=== PATIENT | female | born 1985 | race Caucasian/White ===

== ENCOUNTER 2019-05-18 23:52 | Emergency (ER) | payer MEDICARE, MEDICAID, SELFPAY ==
[2019-05-19] VITALS: BP 174/100; PULSE 101; RESP 20; TEMP 36.9; O2SAT 100
--- NOTE | 2019-05-19 00:09 | ED.GENADULT ---
HPI - General Adult General Chief complaint: Unspecified Stated complaint: Infection Time Seen by Provider: 05/19/19 00:09 Source: patient Mode of arrival: ambulatory Limitations: no limitations History of Present Illness HPI narrative: 33-year-old woman who does peritoneal dialysis nightly comes in today complaining of 3 days of abdominal pain. She states that yesterday she started having vomiting and diarrhea. She states that she has felt feverish but did not check her temperature. She has had she had some abdominal pain like this over the summer but not as severe and she has had none since. She did not do dialysis this evening. She states she has had cloudy/slimy effluent from her dialysis and drainage from the catheter site. Onset (ago): day(s) (3) Location: abdomen Radiation: non-radiation Severity: moderate Quality: sharp Pain Consistency: constant Relieving factors: rest Exacerbating factors: movement Associated symptoms: fever/chills and nausea/vomiting Treatments prior to arrival: none Related Data Home Medications Medication Instructions Recorded Confirmed cinacalcet [Sensipar] 30 mg PO DAILY 01/27/19 05/19/19 metoprolol tartrate 25 mg PO DAILY 01/27/19 05/19/19 sevelamer carbonate [Renvela] 800 mg PO TIDWM 01/27/19 05/19/19 Allergies Allergy/AdvReac Type Severity Reaction Status Date / Time Penicillins Allergy Rash Verified 01/27/19 18:15 Review of Systems Constitutional: Constitutional: Reports chills, Reports fatigue and Reports fever(s) Eyes: Eyes: Denies change in vision and Denies photophobia ENT: Denies dysphagia, Denies nasal congestion and Denies sore throat Cardiovascular: Cardiovascular: Denies chest pain and Denies radiating jaw, neck or arm pain Respiratory: Respiratory: Denies cough and Denies dyspnea Gastrointestinal: Gastrointestinal: Reports abdominal pain, Reports diarrhea, Reports nausea and Reports vomiting Genitourinary: Genitourinary: Denies hematuria, Denies nocturia and Denies dysuria Integumentary/Breasts: Skin/Breast: Denies pruritus, Denies erythema and Denies rash Neurologic: Denies vertigo, Denies dizziness and Denies syncope Hematologic/Lymphatic: Hematologic/Lymphatic: Denies easy bleeding and Denies easy bruising Allergic/Immunologic: Allergic/Immunologic: Denies lip swelling and Denies wheezing PMFSH Past Medical History Medical History (Updated 05/19/19 @ 03:02 by Sha Georges MD) Asthma ESRD (end stage renal disease) Peritoneal dialysis status Surgical History Surgical History (Updated 05/19/19 @ 00:49 by Sha Georges MD) History of cholecystectomy History of colon surgery Hx of tonsillectomy Kidney transplant recipient Social History Social History Smoking status: Current every day smoker Alcohol intake: never Substance use: never Living arrangements: with family Exam Const: General: alert Orientation/consciousness: patient oriented x3 Other: mild/acute distress HENMT: Mouth: Yes Normal oral and palatal mucosa present and Yes moist mucous membranes Throat: uvula midline Eyes: Conjunctivae: conjunctivae normal Pupils: Equal, round and reactive pupils present EOM: EOMs intact bilaterally Resp: Effort & Inspection: normal respiratory effort and not labored Auscultation: clear to auscultation bilaterally, no rales, no rhonchi and no wheezes Cardio: Rate: regular rate Rhythm: regular rhythm Heart sounds: no murmurs GI: Inspection: non-distended GI Palp: Yes Soft to palpation, Yes Tenderness to palpation present (GI) (diffuse, moderate), Yes Guarding due to palpation present (GI) (mild), No Rigid due to palpation and No Rebound tenderness present Auscultation: Hypoactive bowel sounds present Skin: General skin exam: normal color, no jaundice and no pallor Rashes: no rashes Neuro: General: patient oriented x3, moves all extremities, no focal motor d
[2019-05-19] MEDS: MORPHINE SULFATE 2 MG/ML INJ IV PUSH (00:44)
[2019-05-19] MEDS: ONDANSETRON INJ 4 MG/2 ML VIAL IV PUSH (00:44)
[2019-05-19] MEDS: SODIUM CHLORIDE 0.9% IV 1,000 ML 999 ML IV CONT (00:45)
[2019-05-19 01:00] LABS: Basophils Absolute Auto 0.03 K/mm3 (0.00-0.10); Basophils Percent Auto 0.3 % (0.0-1.0); Eosinophils Absolute Auto 0.15 K/mm3 (0.02-0.50); Eosinophils Percent Auto 1.6 % (1.0-6.0); Hematocrit 27.9 % (35.0-49.0); Hemoglobin 9.5 g/dL (12.0-15.0); Immature Granulocyte Absolute 0.03 K/mm3 (0.00-0.00); Immature Granulocyte Percent A 0.3 % (0.0-0.0); Lymphocytes Absolute Auto 1.52 K/mm3 (1.10-4.50); Lymphocytes Percent Auto 16.2 % (18.0-42.0); Mean Corpuscular HGB Conc 34.1 g/dL (32.0-36.0); Mean Corpuscular Volume 91.2 fL (78.0-102.0); Mean Platelet Volume 9.4 fl (9.2-11.8); Monocytes Percent Auto 7.4 % (2.0-11.0); Neutrophils Percent Auto 74.2 % (50.0-70.0); Platelet Count Result 196 K/mm3 (150-420); Red Blood Count 3.06 M/mm3 (4.20-5.40); Red Cell Distribution Width 13.3 % (11.6-14.4); White Blood Count 9.4 K/mm3 (4.8-10.8)
[2019-05-19 01:01] VITALS: BP 161/93; PULSE 81; RESP 20
[2019-05-19 01:29] LABS: Add Urine Microscopic? YES; Appearance Urine Clear (Clear); Bacteria Urine 1+ /hpf; Bilirubin Urine Negative (Negative); Blood Urine 1+ (Negative); Color Urine Yellow (Yellow); Glucose Urine UA Trace (Negative); Ketones Urine Negative (Negative); Leukocyte Esterase Ur Negative (Negative); Nitrate Urine Negative (Negative); Protein Urine 1+ (Negative); Specific Grav Ur 1.015 (1.010-1.020); Squamous Epithelial Cell Urine Few /hpf (Few); Urobilinogen Urine 0.2 mg/dL (0.2-1.0); WBC Urine 0-3 /hpf (0-3)
[2019-05-19 01:29] LABS: Albumin Level 3.3 g/dL (3.4-5.0); Alkaline Phosphatase 121 U/L (46-116); Anion Gap 20.8 mmol/L (7-16); Aspartate Amino Transferase 9 U/L (15-37); Bilirubin,Total 0.3 mg/dL (0.00-1.00); Blood Urea Nitrogen 83 mg/dL (7-18); CRP 1.4 mg/dL (0.0-0.9); Calcium 8.8 mg/dL (8.5-10.1); Carbon Dioxide 18 mmol/L (21-32); Chloride 103 mmol/L (98-108); Estimated CRCL calculation 9 ml/min; Estimated Glomerular Filt Rate 6; Glucose 116 mg/dL (70-99); Lipase 222 U/L (73-393); Osmolality Calculated 312 mOsm/kg (285-295); Potassium 3.8 mmol/L (3.5-5.1); Sodium 138 mmol/L (136-145); Total Protein 7.1 g/dL (6.4-8.2)
[2019-05-19 01:30] LABS: Alanine Aminotransferase < 6 U/L (14-59)
[2019-05-19] MEDS: HYDROMORPHONE HCL 2 MG/ML VIAL 0.5 MG IV PUSH ×2 (01:32→03:44)
[2019-05-19 01:36] LABS: Lactic Acid 1.2 mmol/L (0.4-2.0)
[2019-05-19 01:43] LABS: Influenza Control Valid (Valid)
[2019-05-19 01:47] VITALS: BP 139/84; PULSE 88; RESP 20; O2SAT 99
--- NOTE | 2019-05-19 01:52 | PC.NURSE ---
ERP requesting to call to pts. kidney/dialysis physician, Dr. Gonzalez. Call placed to [facility] neonatologist and awaiting call back.
--- NOTE | 2019-05-19 01:58 | PC.NURSE ---
Call back from Dr. Natan salazar [facility]. Orders received to transfer to [facility] for services. Call placed to [facility] for transfer.
--- NOTE | 2019-05-19 02:06 | PC.NURSE ---
No beds available at [facility] for transfer. Call placed to [facility] for bed and transfer per pt. request.
[2019-05-19 02:29] LABS: Phosphorus > 8.0 mg/dL (2.6-4.7)
--- NOTE | 2019-05-19 02:49 | PC.NURSE ---
Call back from Dr. Higgins. Spoke c Dr. Georges, and he accepts for transfer. Will await call back for bed assignment.
[2019-05-19 03:17] VITALS: BP 155/74; PULSE 84; RESP 18; O2SAT 100
[2019-05-19 03:29] VITALS: BP 155/74; PULSE 82; RESP 18; TEMP 36.8; O2SAT 99
[2019-05-19 03:46] VITALS: BP 159/89
--- NOTE | 2019-05-19 03:49 | PC.NURSE ---
Call page placed to [facility] for transfer, no available units from [facility] for transfer.
--- NOTE | 2019-05-19 04:19 | PC.NURSE ---
Report given to [facility] for [facility]. Pt. stable at d/c, VSS.
== END 2019-05-19 04:20 | disposition short-term general hospital (02) ==
PROVIDERS: Emergency Provider Emergency Medicine
DX: N18.6 End stage renal disease (principal); R10.84 Generalized abdominal pain; F17.200 Nicotine dependence, unspecified, uncomplicated
CPT/HCPCS: 36415; 80053; 81001; 83605; 83690; 84100; 85025; 86140; 87040; 87077; 87086; 87088; 87804; 96361; 96374; 96375; 96376; 99285; J1170; J2270; J2405; J7030

== ENCOUNTER 2019-08-11 13:48 | Emergency (ER) | payer MEDICARE, MEDICAID, SELFPAY ==
--- NOTE | 2019-08-11 14:15 | ECG_ITS ---
Measurements Intervals Wallace Rate: 99 P: 67 NM: 155 QRS: 41 QRSD: 82 T: 95 QT: 343 QTc: 442 Interpretive Statements SINUS RHYTHM BORDERLINE ST-T WAVE ABNORMALITY- ANTEROLAT/LAT LEADS BORDERLINE ECG Electronically Signed On 08-11-2019 14:32:14 CDT by Jose Daniel Milton D.O.
--- NOTE | 2019-08-11 14:15 | ED.ABDPAIN ---
HPI - Abdominal Pain General Chief Complaint: Abdominal Pain Stated Complaint: Stomach infection History of Present Illness HPI narrative: Michelle is a 34F with a PMH of IGA nephropathy, ESRD from IGA on peritoneal dialysis that presented with abdominal pain. She reports that she started having countless episodes of NBNB vomiting last night that progressed diffuse abdominal pain and subjective fevers and chills. She reports purulent drainage from the peritoneal catheter site. No CP, SOB, diarrhea or dysuria (still makes urine). Related Data Home Medications Medication Instructions Recorded Confirmed cinacalcet [Sensipar] 30 mg PO DAILY 01/27/19 08/11/19 metoprolol tartrate 25 mg PO DAILY 01/27/19 08/11/19 sevelamer carbonate [Renvela] 800 mg PO TIDWM 01/27/19 08/11/19 Allergies Allergy/AdvReac Type Severity Reaction Status Date / Time Penicillins Allergy Rash Verified 01/27/19 18:15 Review of Systems Constitutional: Constitutional: Reports chills, Reports fatigue and Reports fever(s) Comments: subjective fevers Eyes: Eyes: Reports no additional eye complaints ENT: Reports system reviewed and no additional complaints, except as documented Cardiovascular: Cardiovascular: Denies chest pain, Reports rapid heart rate and Denies radiating jaw, neck or arm pain Respiratory: Respiratory: Reports no additional respiratory complaints Gastrointestinal: Gastrointestinal: Reports abdominal pain, Denies constipation, Denies diarrhea, Reports nausea and Reports vomiting Genitourinary: Genitourinary: Reports no additional female genitourinary complaints Musculoskeletal: Musculoskeletal: Reports no additional musculoskeletal complaints Integumentary/Breasts: Skin/Breast: Reports system reviewed and no additional complaints, except as docu Neurologic: Reports system reviewed and no additional complaints, except as documented Psychiatric: Psychiatric: Reports no additional psychiatric complaints Endocrine: Endocrine: Reports no additional endocrine complaints Hematologic/Lymphatic: Hematologic/Lymphatic: Reports no additional hematologic/lymphatic complaints Allergic/Immunologic: Allergic/Immunologic: Reports no additional allergic/immunologic complaints [facility] Past Medical History Medical History Asthma ESRD (end stage renal disease) Peritoneal dialysis status Surgical History Surgical History History of cholecystectomy History of colon surgery Hx of tonsillectomy Kidney transplant recipient Social History Social History Smoking status: Current every day smoker Alcohol intake: never Substance use: never Exam Const: General: alert Orientation/consciousness: patient oriented x3 Limitations: No altered mental status Other: [id number] distress, HENMT: Head: normal to inspection Other: normocephalic, atraumatic Eyes: Conjunctivae: conjunctivae normal Pupils: Equal, round and reactive pupils present Neck: Neck: normal visual inspection Chest: Chest palpation & inspection: normal inspection of the chest Resp: Effort & Inspection: normal respiratory effort and tachypneic Auscultation: clear to auscultation bilaterally Cardio: Other: tachycardia with regular rhythm and no murmurs GI: Inspection: non-distended Other: abdomen was soft but diffusely tender to palpation with rebound tenderness and guarding. no purulent drainage from the catheter at this time. : General: Yes no CVA tenderness Skin: General skin exam: normal color Rashes: no rashes Neuro: General: patient oriented x3 and moves all extremities Extrem: General: normal to inspection Psych: Mental Status: mental status grossly normal Course Course Emergency Course: Michelle was seen and evaluated. Orderd labs and blood cultures as below. She was given 500ml
[2019-08-11] MEDS: ONDANSETRON INJ 4 MG/2 ML VIAL 8 MG (14:16)
[2019-08-11 14:17] VITALS: BP 135/86; PULSE 106; RESP 23; TEMP 36.8; O2SAT 97
[2019-08-11 14:23] LABS: Add Urine Microscopic? YES; Appearance Urine Clear (Clear); Bilirubin Urine Negative (Negative); Blood Urine 1+ (Negative); Color Urine Yellow (Yellow); Glucose Urine UA Trace (Negative); Ketones Urine Negative (Negative); Leukocyte Esterase Ur Trace LEU/UL (Negative); Nitrate Urine Negative (Negative); Protein Urine 1+ (Negative); Specific Grav Ur 1.015 (1.010-1.020); Urobilinogen Urine 0.2 mg/dL (0.2-1.0)
[2019-08-11 14:30] LABS: Bacteria Urine 1+ /hpf; Squamous Epithelial Cell Urine Few /hpf (Few); WBC Urine 0-3 /hpf (0-3)
[2019-08-11 14:33] LABS: Pregnancy On Board Control Positive; Specific Gravity Ur 1.015 (1.010-1.035); Urine Pregnancy Test Negative
[2019-08-11 14:39] LABS: Basophils Absolute Auto 0.02 K/mm3 (0.00-0.10); Basophils Percent Auto 0.3 % (0.0-1.0); Eosinophils Absolute Auto 0.11 K/mm3 (0.02-0.50); Eosinophils Percent Auto 1.7 % (1.0-6.0); Hematocrit 29.9 % (35.0-49.0); Hemoglobin 10.3 g/dL (12.0-15.0); Immature Granulocyte Absolute 0.03 K/mm3 (0.00-0.00); Immature Granulocyte Percent A 0.5 % (0.0-0.0); Lymphocytes Absolute Auto 1.94 K/mm3 (1.10-4.50); Lymphocytes Percent Auto 29.5 % (18.0-42.0); Mean Corpuscular HGB Conc 34.4 g/dL (32.0-36.0); Mean Corpuscular Hemoglobin 31.5 pg (27.0-31.0); Mean Corpuscular Volume 91.4 fL (78.0-102.0); Mean Platelet Volume 9.4 fl (9.2-11.8); Monocytes Absolute Auto 0.49 K/mm3 (0.10-0.90); Monocytes Percent Auto 7.5 % (2.0-11.0); Neutrophils Percent Auto 60.5 % (50.0-70.0); Platelet Count Result 171 K/mm3 (150-420); Red Blood Count 3.27 M/mm3 (4.20-5.40); Red Cell Distribution Width 13.2 % (11.6-14.4); White Blood Count 6.6 K/mm3 (4.8-10.8)
[2019-08-11 14:56] LABS: Prothrombin Time 10.7 Seconds (9.64-11.0)
[2019-08-11] MEDS: MORPHINE SULFATE 4 MG/ML INJ IV PUSH (14:59)
[2019-08-11] MEDS: SODIUM CHLORIDE 0.9% IV 500 ML 999 ML IV CONT (14:59)
[2019-08-11 15:01] LABS: Lactic Acid Reflex 1.3 mmol/L (0.4-2.0)
[2019-08-11 15:10] LABS: Alanine Aminotransferase 8 U/L (14-59); Albumin Level 3.5 g/dL (3.4-5.0); Alkaline Phosphatase 156 U/L (46-116); Anion Gap 19.8 mmol/L (7-16); Aspartate Amino Transferase 11 U/L (15-37); Bilirubin,Total 0.3 mg/dL (0.00-1.00); Blood Urea Nitrogen 93 mg/dL (7-18); Calcium 9.4 mg/dL (8.5-10.1); Carbon Dioxide 22 mmol/L (21-32); Chloride 100 mmol/L (98-108); Estimated Glomerular Filt Rate 4; Glucose 110 mg/dL (70-99); Lipase 149 U/L (73-393); Osmolality Calculated 315 mOsm/kg (285-295); Potassium 3.8 mmol/L (3.5-5.1); Sodium 138 mmol/L (136-145); Total Protein 7.2 g/dL (6.4-8.2)
[2019-08-11] MEDS: HYDROMORPHONE HCL 2 MG/ML VIAL 0.5 MG IV PUSH ×2 (16:24→18:25)
[2019-08-11 16:42] VITALS: BP 129/86; PULSE 92; O2SAT 97
[2019-08-11] MEDS: ONDANSETRON INJ 4 MG/2 ML VIAL IV PUSH (16:55)
[2019-08-11 17:59] VITALS: BP 119/75; PULSE 83; RESP 20; TEMP 36.8; O2SAT 98
--- NOTE | 2019-08-11 18:00 | PC.NURSE ---
Pt. resting, VSS, awaiting [facility] for pt. transfer.
[2019-08-11] MEDS: METOCLOPRAMIDE HCL INJ 10 MG/2 ML VIAL IV PUSH (18:21)
[2019-08-11 18:27] VITALS: BP 132/83; PULSE 110; RESP 20; O2SAT 97
== END 2019-08-11 18:33 | disposition short-term general hospital (02) ==
PROVIDERS: Emergency Provider Family Medicine
DX: N18.6 End stage renal disease (principal); K65.9 Peritonitis, unspecified; N02.8 Recurrent and persistent hematuria with other morphologic changes; Z99.2 Dependence on renal dialysis; Z94.0 Kidney transplant status
CPT/HCPCS: 36415; 80053; 81001; 81025; 83605; 83690; 85025; 85610; 87040; 93005; 96361; 96365; 96375; 96376; 99285; J1170; J2270; J2405; J2765; J3370; J7040

== ENCOUNTER 2019-11-29 10:10 | Emergency (ER) | payer MEDICARE, MEDICAID, SELFPAY ==
--- NOTE | ~2019-11-29 | XR_ITS ---
XR chest 2V 11/29/2019 12:33 Indication: Dyspnea Procedure: AP and lateral views of the chest Comparison: Comparison to multiple prior studies sequentially, with oldest reviewed study dated 10/2018. Findings: Patchy bilateral airspace disease, consistent with pneumonia. There is scoliosis. Cardiomeg aguila. No acute osseous abnormality. Impression: 1: Patchy bilateral airspace disease, compatible with pneumonia. Reviewed, dictated and finalized at location A. Impression: 1: Patchy bilateral airspace disease, compatible with pneumonia.
--- NOTE | ~2019-11-29 | CT_ITS ---
EXAMINATION: CT abdomen pelvis wo con DATE: 11/29/2019 12:08 INDICATION: Abdomen pain. Bilateral flank pain. History of end-stage renal disease. Patient has not h ad dialysis in 2 weeks. Dyspnea. TECHNIQUE: Computed tomography (CT) of the abdomen and pelvis was performed without intravenous contr ast. The dose-length product was 210.31 mGy-cm. Automated exposure control and iterative reconstructi on technique were employed. COMPARISON: CT dated 03/01/2018 bibasilar atelectasis.. FINDINGS: Small pleural effusions. Trace pericardial effusion. Bibasilar atelectasis. Cardiomegaly. Calcified granulomas of the liver and spleen. There is hepatosplenomegaly. The adrenal glands and freeman creas are unremarkable. There is severe bilateral renal atrophy. There is a densely calcified right p elvic renal transplant kidney. No free air. Trace free fluid in the pelvis, likely physiologic. There is scoliosis. No significant vascular abnormality. No lymphadenopathy. IMPRESSION: 1. Small pleural effusions. Trace pericardial effusion. 2: Severe bilateral renal atrophy with densely calcified right pelvic transplant kidney. 3: Cardiomegaly. 4: Hepatosplenomegaly. Reviewed, dictated and finalized at location A. IMPRESSION: 1. Small pleural effusions. Trace pericardial effusion. 2: Severe bilateral renal atrophy with densely calcified right pelvic transpla nt kidney. 3: Cardiomegaly. 4: Hepatosplenomegaly.
[2019-11-29 10:15] VITALS: BP 194/122; PULSE 115; RESP 20; TEMP 37.2; O2SAT 98
--- NOTE | 2019-11-29 10:23 | ECG_ITS ---
Measurements Intervals [place] Rate: 108 P: 59 MT: 136 QRS: 110 QRSD: 80 T: -29 QT: 363 QTc: 488 Interpretive Statements SINUS TACHYCARDIA LEFT POSTERIOR FASCICULAR BLOCK LEFT VENTRICULAR HYPERTROPHY AND ST-T CHANGE MINIMAL Q WAVES- INFERIOR LEADS BORDERLINE ST-T WAVE ABNORMALITY- INF/LAT LEADS ABNORMAL ECG Electronically Signed On 11-29-2019 10:46:00 CDT by Jose Daniel Milton D.O.
--- NOTE | 2019-11-29 10:43 | PC.NURSE ---
spoke with martin at [facility] in [facility] [place] pt is noncomplaint . last treatment on 11-18-19. post weight 55.9. dr zhao on vacation. will need transfer. unable to treat at clinic. Dr cardenas is buttonhole facer at [facility]. [phone] [facility]
--- NOTE | 2019-11-29 10:45 | PC.NURSE ---
Pt unable to urinate at this time
[2019-11-29 10:50] LABS: Hematocrit 29.8 % (35.0-49.0); Hemoglobin 9.7 g/dL (12.0-15.0); Mean Corpuscular HGB Conc 32.6 g/dL (32.0-36.0); Mean Corpuscular Hemoglobin 29.7 pg (27.0-31.0); Mean Corpuscular Volume 91.1 fL (78.0-102.0); Mean Platelet Volume 9.8 fl (9.2-11.8); Platelet Count Result 233 K/mm3 (150-420); Red Blood Count 3.27 M/mm3 (4.20-5.40); Red Cell Distribution Width 13.2 % (11.6-14.4)
[2019-11-29] MEDS: ONDANSETRON INJ 4 MG/2 ML VIAL IV PUSH (10:52)
[2019-11-29] MEDS: LABETALOL HCL INJ 100 MG/20 ML VIAL 10 MG IV PUSH ×2 (10:55→13:09)
[2019-11-29 11:05] LABS: INR 1.1; Prothrombin Time 11.6 Seconds (9.64-11.0)
[2019-11-29] MEDS: MORPHINE SULFATE (*CRX) 2 MG/ML INJ IV PUSH ×2 (11:07→12:34)
[2019-11-29 11:17] VITALS: BP 156/101
--- NOTE | 2019-11-29 11:18 | PC.NURSE ---
Report to [facility].
[2019-11-29 11:21] LABS: Alanine Aminotransferase 17 U/L (14-59); Albumin Level 3.9 g/dL (3.4-5.0); Alkaline Phosphatase 94 U/L (46-116); Anion Gap 18 mmol/L (8-16); Aspartate Amino Transferase 17 U/L (15-37); Bilirubin,Total 0.5 mg/dL (0.00-1.00); Blood Urea Nitrogen 149 mg/dL (7-18); Calcium 9.5 mg/dL (8.5-10.1); Carbon Dioxide 21 mmol/L (21-32); Chloride 97 mmol/L (98-108); Estimated CRCL calculation 6 ml/min; Estimated Glomerular Filt Rate 4; Glucose 117 mg/dL (70-99); Osmolality Calculated 331 mOsm/kg (285-295); Potassium 3.7 mmol/L (3.5-5.1); Sodium 136 mmol/L (136-145); Total Protein 8.2 g/dL (6.4-8.2)
[2019-11-29] MEDS: SODIUM CHLORIDE 0.9% IV 500 ML 999 ML IV CONT (11:43)
--- NOTE | 2019-11-29 12:55 | PC.NURSE ---
Pt requests [facility] for transfer, [facility] contacted. spoke with aimee at the transfer line.
[2019-11-29 13:01] VITALS: BP 168/101; PULSE 92; RESP 16
[2019-11-29] MEDS: levoFLOXacin 500 MG/D5W 100 ML 500 MG/100 ML BAG 100 MG IVPB (13:10)
--- NOTE | 2019-11-29 13:13 | PC.NURSE ---
Dr loco speaking with Dr Gamez at [facility].
--- NOTE | 2019-11-29 13:17 | ED.SOB ---
HPI - SOB/Dyspnea General Chief Complaint: Shortness of Breath/Dyspnea Stated Complaint: sob Source: patient History of Present Illness HPI Narrative: 34-year-old female presents with some shortness of breath and left flank pain with no fever chills no cough no chest pain. . Patient has end-stage renal disease and receives dialysis at [facility] 3 times per week on Friday and Saturdays, has missed her appointment for the last 2 weeks because of increased weakness. Patient has a history of hypertension, has not been compliant with her dialysis and currently there is no fever or chills no dysuria no abdominal pain. Patient has a history of IgA nephropathy, and hypertension. MD elicited complaint: shortness of breath Onset (ago): week(s) Context: recent illness and anxiety Timing: constant Severity: moderate Exacerbating factors: nothing Relieving factors: nothing Associated symptoms: lower extremity pain and other ( Left flank pain) Related Data Home Medications Medication Instructions Recorded Confirmed cinacalcet [Sensipar] 30 mg PO DAILY 01/27/19 11/29/19 metoprolol tartrate 25 mg PO DAILY 01/27/19 11/29/19 sevelamer carbonate [Renvela] 800 mg PO TIDWM 01/27/19 11/29/19 Allergies Allergy/AdvReac Type Severity Reaction Status Date / Time Penicillins Allergy Rash Verified 01/27/19 18:15 Review of Systems Review of Systems: All systems reviewed & are unremarkable except as noted in HPI and below PMFSH Past Medical History Medical History Asthma ESRD (end stage renal disease) Peritoneal dialysis status Surgical History Surgical History History of cholecystectomy History of colon surgery Hx of tonsillectomy Kidney transplant recipient Social History Social History Smoking status: Current every day smoker Alcohol intake: never Substance use: never Exam Const: General: no acute distress, alert and ill appearing Orientation/consciousness: patient oriented x3 HENMT: Head: normal to inspection Eyes: Conjunctivae: conjunctivae normal Pupils: Equal, round and reactive pupils present EOM: EOMs intact bilaterally Neck: Neck: normal visual inspection, no lymphadenopathy and no meningeal signs Chest: Chest palpation & inspection: normal inspection of the chest Resp: Effort & Inspection: normal respiratory effort Auscultation: diminished lung sounds Cardio: Rate: regular rate and tachycardic GI: GI Palp: Yes Soft to palpation : General: Yes CVA tenderness Urinary Catheter: Urinary Catheter: patent and draining Back/Spine/Pelvis: Back: CVA tenderness Neuro: General: patient oriented x3, moves all extremities and no meningeal signs Extrem: General: normal to inspection and no pedal edema Psych: Mental Status: mental status grossly normal Affect: normal affect and Anxious affect present Attitude: cooperative Course Course Emergency Course: patient had received 4 mg of morphine which caused minimal reduction in her pain, currently not short of breath with some no fever chills, patient presented with a blood pressure 194/122 and received 20 mg IV labetalol and subsequent blood pressure of 155/94. Patient also received IV fluids, IV Levaquin and IV Zofran. Patient advised that she would like to go to [facility] in [place] she has been there in the past, talked to hospitalist at [facility] in [place] Dr. Bowie and he would be the accepting physician. Vital Signs Vital signs: Vital Signs Temperature 37.2 C 11/29/19 10:15 Pulse Rate 115 H 11/29/19 10:15 Respiratory Rate 20 11/29/19 10:15 Blood Pressure 194/122 H 11/29/19 10:15 Pulse Oximetry 98 11/29/19 10:15 Temperature 37.2 C 11/29/19 10:15 Pulse Rate 92 11/29/19 13:01 Respiratory Rate 16 11/29/19 1
[2019-11-29 13:31] VITALS: BP 155/99; PULSE 86; RESP 16
[2019-11-29 13:45] VITALS: BP 155/99; PULSE 82; RESP 16; TEMP 36.7; O2SAT 95
== END 2019-11-29 14:30 | disposition short-term general hospital (02) ==
PROVIDERS: Emergency Provider Emergency Medicine
DX: J18.9 Pneumonia, unspecified organism (principal); N18.6 End stage renal disease; Z99.2 Dependence on renal dialysis; F17.200 Nicotine dependence, unspecified, uncomplicated
CPT/HCPCS: 36415; 71046; 74176; 80053; 83605; 84702; 85027; 85610; 85730; 87040; 93005; 96361; 96365; 96375; 96376; 99285; J1956; J2270; J2405; J7040

== ENCOUNTER 2020-03-30 07:49 | Emergency (ER) | payer MEDICARE, MEDICAID, SELFPAY ==
--- NOTE | ~2020-03-30 | CT_ITS ---
EXAMINATION: CT abdomen pelvis wo con EXAM DATE: 03/30/2020 10:33 INDICATION: Abdominal pain @ level of kidneys and LLQ, RLQ, nausea and diarrhea. TECHNIQUE: Spiral CT of the abdomen and pelvis was performed without contrast. Axial, coronal and s agittal images were reviewed. The dose-length product (DLP) for this examination was 191.99 mGy-cm. The exposure was tailored according to patient size (auto mA exposure control), and iterative recons truction (ASIR) was used as additional dose reduction technique. Comparison is made to prior examinat ion from 11/29/2019. FINDINGS: Calcified right pelvic kidney implant. The liver, spleen, adrenal glands and pancreas are unremarkable. Gallbladder not identified, patient likely has had cholecystectomy. Severe bilateral renal atrophy with small bilateral nephrolithiasis. Small renal lesions likely cysts. No hydronephros is. The uterus is unremarkable. The bladder is unremarkable. There is no retroperitoneal or pelvi c lymphadenopathy. The appendix is not positively visualized. There is no pericecal inflammatory change to suggest appe ndicitis. The stomach and small bowel are unremarkable. Scattered colonic diverticulosis. There is expected amount of colonic stool. No free intraperitoneal gas. There is cardiomegaly with dilated left ventricle. There are bibasilar linear opacities, subsegmental atelectasis. Severe thoracolumb ar scoliosis with rotation. IMPRESSION: 1. No acute intra-abdominal findings. 2. Scattered colonic diverticulosis. 3. Atrophic kidneys with small nephrolithiasis bilaterally. 4. Cardiomegaly, left ventricular dilation. Reviewed, dictated and finalized at location A. TRANSPORTATION
--- NOTE | ~2020-03-30 | XR_ITS ---
EXAMINATION: XR chest 2V DATE: 03/30/2020 08:43 INDICATION: Shortness of breath. Pneumonia. TECHNIQUE: Frontal and lateral views of the chest were obtained. COMPARISON: Chest 2 views 11/29/2019, CT abdomen and pelvis 11/29/2019 FINDINGS: Gay B lines are noted, consistent with mild pulmonary edema. No pleural effusion or pneu mothorax. Cardiomegaly is noted. There is severe dextroscoliosis of thoracic spine. IMPRESSION: 1. Mild pulmonary edema. 2. Cardiomegaly. Reviewed, dictated and finalized at location B. E MAN
[2020-03-30 08:05] VITALS: BP 168/115; PULSE 100; RESP 18; TEMP 36.7; O2SAT 96
[2020-03-30 08:38] LABS: Basophils Absolute Auto 0.03 K/mm3 (0.00-0.10); Basophils Percent Auto 0.6 % (0.0-1.0); Eosinophils Absolute Auto 0.11 K/mm3 (0.02-0.50); Eosinophils Percent Auto 2.1 % (1.0-6.0); Hemoglobin 9.6 g/dL (12.0-15.0); Immature Granulocyte Absolute 0.02 K/mm3 (0.00-0.00); Immature Granulocyte Percent A 0.4 % (0.0-0.0); Lymphocytes Absolute Auto 2.17 K/mm3 (1.10-4.50); Lymphocytes Percent Auto 42.1 % (18.0-42.0); Mean Corpuscular Hemoglobin 29.6 pg (27.0-31.0); Mean Corpuscular Volume 92.6 fL (78.0-102.0); Mean Platelet Volume 9.7 fl (9.2-11.8); Monocytes Absolute Auto 0.36 K/mm3 (0.10-0.90); Neutrophils Absolute Auto 2.5 K/mm3 (1.7-7.2); Neutrophils Percent Auto 47.8 % (50.0-70.0); Platelet Count Result 194 K/mm3 (150-420); Red Blood Count 3.24 M/mm3 (4.20-5.40); Red Cell Distribution Width 13.9 % (11.6-14.4); White Blood Count 5.2 K/mm3 (4.8-10.8)
[2020-03-30] MEDS: SODIUM CHLORIDE 0.9% IV 1,000 ML 999 ML IV CONT (08:45)
[2020-03-30] MEDS: ONDANSETRON INJ 4 MG/2 ML VIAL IV PUSH (08:46)
[2020-03-30] MEDS: HYDROmorphone HCL INJ (*CRX) 2 MG/ML VIAL 0.5 MG IV PUSH ×2 (08:47→09:59)
[2020-03-30 08:53] LABS: Partial Thromboplastin Time 28.4 SEC (23.90-30.70); Prothrombin Time 11.5 Seconds (9.50-12.10)
[2020-03-30 08:54] LABS: Alanine Aminotransferase 11 U/L (14-59); Alkaline Phosphatase 106 U/L (46-116); Anion Gap 14 mmol/L (8-16); Aspartate Amino Transferase < 10 U/L (15-37); Bilirubin,Total 0.3 mg/dL (0.00-1.00); Blood Urea Nitrogen 49 mg/dL (7-18); Calcium 9.5 mg/dL (8.5-10.1); Carbon Dioxide 21 mmol/L (21-32); Chloride 103 mmol/L (98-108); Estimated CRCL calculation 8 ml/min; Estimated Glomerular Filt Rate 7; Glucose 95 mg/dL (70-99); Osmolality Calculated 299 mOsm/kg (285-295); Potassium 4.2 mmol/L (3.5-5.1); Sodium 138 mmol/L (136-145); Total Protein 8.2 g/dL (6.4-8.2)
[2020-03-30 08:57] LABS: Lactic Acid Reflex 0.7 mmol/L (0.4-2.0)
[2020-03-30 09:25] LABS: SARS-CoV-2 Ag Negative (Negative)
[2020-03-30 09:26] VITALS: BP 150/101; PULSE 84; O2SAT 100
[2020-03-30 09:41] LABS: Add Urine Microscopic? YES; Appearance Urine Sl Cloudy (Clear); Bilirubin Urine Negative (Negative); Blood Urine 1+ (Negative); Color Urine Yellow (Yellow); Glucose Urine UA Negative (Negative); Ketones Urine Negative (Negative); Leukocyte Esterase Ur Negative (Negative); Nitrate Urine Negative (Negative); Protein Urine 2+ (Negative); Urobilinogen Urine 0.2 mg/dL (0.2-1.0)
[2020-03-30 09:49] LABS: RBC Urine 0-2 /hpf (0-2); Squamous Epithelial Cell Urine Moderate /hpf (Few); WBC Urine 0-3 /hpf (0-3)
[2020-03-30 09:50] LABS: Bacteria Urine 2+ /hpf
[2020-03-30 10:00] VITALS: BP 151/98
[2020-03-30 10:09] LABS: Urine Pregnancy Test Negative
[2020-03-30 10:14] LABS: Pregnancy On Board Control Positive
[2020-03-30 11:17] VITALS: BP 152/100; PULSE 92; RESP 16; O2SAT 100
--- NOTE | 2020-03-30 11:20 | PC.NURSE ---
Dr. Ann speaking with pts director data processing, Dr. Edmondson. Dr. Edmondson recommends pt be transfered to hospitalist at [facility].
--- NOTE | 2020-03-30 11:22 | PC.NURSE ---
[facility] contacted for transfer.
--- NOTE | 2020-03-30 11:43 | ED.ABDPAIN ---
HPI - Abdominal Pain General Chief Complaint: Urogenital-Female Stated Complaint: KIDNEY PROBLEMS Source: patient Mode of arrival: ambulatory Limitations: clinical condition History of Present Illness HPI narrative: this is a 34-year-old female with history of end-stage renal disease secondary to IgA nephropathy is currently on hemodialysis, does have a nephrologists located [facility] in [facility]. Patient has been notoriously noncompliant with her hemodialysis treatments and has not had dialysis in approximately 2 to 3 weeks. Currently she presents with some abdominal pain, the pain is diffuse with some episodes of nausea with no vomiting and weakness for the last 3 days. Patient denies any fever, does have some chills with some no diarrhea no constipation no chest pain or shortness of breath. MD elicited complaint: abdominal pain Pertinent past history: other ( end-stage kidney disease on hemodialysis) Onset (ago): day(s) Pain Consistency: constant Location: periumbilical Severity: severe Quality: aching Radiation: other Migration to: no migration Exacerbating factors: nothing Relieving factors: nothing Associated symptoms: nausea Related Data Home Medications Medication Instructions Recorded Confirmed cinacalcet [Sensipar] 30 mg PO DAILY 01/27/19 03/30/20 metoprolol tartrate 25 mg PO DAILY 01/27/19 03/30/20 sevelamer carbonate [Renvela] 800 mg PO TIDWM 01/27/19 03/30/20 Allergies Allergy/AdvReac Type Severity Reaction Status Date / Time Penicillins Allergy Rash Verified 01/27/19 18:15 Review of Systems Review of Systems: All systems reviewed & are unremarkable except as noted in HPI and below PMFSH Past Medical History Medical History (Updated 03/30/20 @ 11:48 by Ramana Ann MD) Asthma ESRD (end stage renal disease) Peritoneal dialysis status Surgical History Surgical History History of cholecystectomy History of colon surgery Hx of tonsillectomy Kidney transplant recipient Social History Social History Smoking status: Current every day smoker Alcohol intake: never Substance use: never Exam Const: General: no acute distress, alert and ill appearing Orientation/consciousness: patient oriented x3 HENMT: Head: normal to inspection Eyes: Conjunctivae: conjunctivae normal Pupils: Equal, round and reactive pupils present Neck: Neck: normal visual inspection, no lymphadenopathy and no meningeal signs Chest: Chest palpation & inspection: normal inspection of the chest Resp: Effort & Inspection: normal respiratory effort Auscultation: clear to auscultation bilaterally Cardio: Rate: regular rate Rhythm: regular rhythm GI: GI Palp: Yes Tenderness to palpation present (GI) Auscultation: normal bowel sounds : General: Yes no CVA tenderness Back/Spine/Pelvis: Back: no CVA tenderness Skin: General skin exam: normal color Rashes: no rashes Neuro: General: patient oriented x3, moves all extremities, no meningeal signs and no focal motor deficits Extrem: General: normal to inspection and no pedal edema Psych: Mental Status: mental status grossly normal Affect: normal affect Course Course Emergency Course: Patient abdominal pain persistent after 1 mg of Dilaudid in 2 separate doses, but has eased slightly nausea has improved, spoke with Nephrology and hospital staff at [facility] and because of her noncompliance with hemodialysis they accepted the patient for admission and Nephrology to perform dialysis. Vital Signs Vital signs: Vital Signs Temperature 36.7 C 03/30/20 08:05 Pulse Rate 100 03/30/20 08:05 Respiratory Rate 18 03/30/20 08:05 Blood Pressure 168/115 H 03/30/20 08:05 Pulse Oximetry 96 03/30/20 08:05 Temperature 36.7 C 03/30/20 08:05 Pulse Rate 92 03/30/20 11:17 Respiratory Rate 16 03/11
[2020-03-30 12:14] VITALS: BP 137/80; PULSE 81; RESP 15; O2SAT 98
== END 2020-03-30 12:40 | disposition short-term general hospital (02) ==
PROVIDERS: Emergency Provider Emergency Medicine; PCP Family Medicine
DX: N18.6 End stage renal disease (principal); R10.84 Generalized abdominal pain; Z99.2 Dependence on renal dialysis; F17.200 Nicotine dependence, unspecified, uncomplicated; Z20.822 Contact with and (suspected) exposure to COVID-19
CPT/HCPCS: 36415; 71046; 74176; 80053; 81001; 81025; 83605; 85025; 85610; 85730; 87040; 87426; 96361; 96374; 96375; 96376; 99285; C9803; J1170; J2405; J7030

== ENCOUNTER 2020-05-02 19:51 | Emergency (ER) | payer MEDICARE, MEDICAID, SELFPAY ==
--- NOTE | ~2020-05-02 | XR_ITS ---
EXAMINATION: XR chest 1V portable DATE: 05/02/2020 20:47 INDICATION: Generalized chest pain. TECHNIQUE: A single frontal view of the chest was obtained. COMPARISON: Chest 2 views 03/30/2020 FINDINGS: There is no pneumonia, pleural effusion, or pneumothorax. Cardiomegaly is noted. There is d extroscoliosis of thoracic spine. IMPRESSION: 1. Cardiomegaly. Reviewed, dictated and finalized at location A. CTOR SUPPLY CHAIN IMPRESSION: 1. Cardiomegaly.
[2020-05-02 20:09] VITALS: BP 156/105; PULSE 92; RESP 20; TEMP 36.5; O2SAT 100
--- NOTE | 2020-05-02 20:23 | ECG_ITS ---
Measurements Intervals [place] Rate: 82 P: 63 AK: 173 QRS: 55 QRSD: 87 T: 125 QT: 412 QTc: 481 Interpretive Statements SINUS RHYTHM POSSIBLE LEFT ATRIAL ENLARGEMENT ST-T WAVE ABNORMALITY IN HIGH LATERAL LEADS- CONSIDER ISCHEMIA BASELINE ARTIFACT- V4-V5 ABNORMAL ECG Electronically Signed On 05-03-2020 6:54:23 WHEEL TUNER by Jose Daniel Milton D.O.
[2020-05-02 20:39] LABS: Basophils Absolute Auto 0.02 K/mm3 (0.00-0.10); Basophils Percent Auto 0.4 % (0.0-1.0); Eosinophils Absolute Auto 0.09 K/mm3 (0.02-0.50); Eosinophils Percent Auto 1.8 % (1.0-6.0); Hemoglobin 8.3 g/dL (12.0-15.0); Immature Granulocyte Absolute 0.01 K/mm3 (0.00-0.00); Immature Granulocyte Percent A 0.2 % (0.0-0.0); Lymphocytes Absolute Auto 1.63 K/mm3 (1.10-4.50); Lymphocytes Percent Auto 33.4 % (18.0-42.0); Mean Corpuscular HGB Conc 33.2 g/dL (32.0-36.0); Mean Corpuscular Hemoglobin 28.5 pg (27.0-31.0); Mean Corpuscular Volume 85.9 fL (78.0-102.0); Mean Platelet Volume 8.7 fl (9.2-11.8); Monocytes Absolute Auto 0.42 K/mm3 (0.10-0.90); Monocytes Percent Auto 8.6 % (2.0-11.0); Neutrophils Absolute Auto 2.7 K/mm3 (1.7-7.2); Neutrophils Percent Auto 55.6 % (50.0-70.0); Platelet Count Result 150 K/mm3 (150-420); Red Blood Count 2.91 M/mm3 (4.20-5.40); Red Cell Distribution Width 13.7 % (11.6-14.4); White Blood Count 4.9 K/mm3 (4.8-10.8)
--- NOTE | 2020-05-02 20:46 | ED.GENADULT ---
HPI - General Adult General Chief complaint: Nausea/Vomiting/Diarrhea Source: patient Mode of arrival: ambulatory Limitations: no limitations History of Present Illness HPI narrative: Patient presents with vague complaints stating she is not feeling well. She states she usually has dialysis 3 times a week and had not had it for two weeks, due to covid. She has had increasing shortness of breath, exercise intolerance, and has been having increasing body aches. She has had mild nausea and some episodes of emesis, prior to coming in. Onset (ago): day(s) Severity: moderate Quality: aching Pain Consistency: constant Relieving factors: none Exacerbating factors: none Associated symptoms: loss of appetite, malaise, nausea/vomiting and shortness of breath Related Data Home Medications Medication Instructions Recorded Confirmed fluoxetine 20 mg PO DAILY 05/02/20 05/02/20 hydroxyzine HCl 25 mg PO TID PRN 05/02/20 05/02/20 pantoprazole 40 mg PO DAILY 05/02/20 05/02/20 Allergies Allergy/AdvReac Type Severity Reaction Status Date / Time Penicillins Allergy Rash Verified 05/02/20 21:12 Review of Systems Constitutional: Constitutional: Reports no additional constitutional complaints Eyes: Eyes: Reports no additional eye complaints ENT: Reports system reviewed and no additional complaints, except as documented Cardiovascular: Comments: no chest pain Respiratory: Respiratory: Reports no additional respiratory complaints Gastrointestinal: Gastrointestinal: Reports no additional gastrointestinal complaints Genitourinary: Genitourinary: Reports no additional female genitourinary complaints Musculoskeletal: Musculoskeletal: Reports no additional musculoskeletal complaints Integumentary/Breasts: Skin/Breast: Reports system reviewed and no additional complaints, except as docu Neurologic: Reports system reviewed and no additional complaints, except as documented Psychiatric: Psychiatric: Reports no additional psychiatric complaints Endocrine: Endocrine: Reports no additional endocrine complaints Hematologic/Lymphatic: Hematologic/Lymphatic: Reports no additional hematologic/lymphatic complaints Allergic/Immunologic: Allergic/Immunologic: Reports no additional allergic/immunologic complaints [facility] Past Medical History Medical History (Updated 05/02/20 @ 21:01 by Wood Ng MD) Asthma ESRD (end stage renal disease) Peritoneal dialysis status Surgical History Surgical History History of cholecystectomy History of colon surgery Hx of tonsillectomy Kidney transplant recipient Family History Family History Mother Diabetes mellitus Social History Social History Smoking status: Current every day smoker Alcohol intake: never Substance use: never Gender identity (if verbalized by the patient): Female Exam Const: General: cooperative Nutritional Appearance: average body habitus Orientation/consciousness: oriented to person, oriented to place and oriented to time Limitations: no limitations HENMT: Head: normal to inspection Ears: hearing grossly normal bilaterally General nose exam: Normal external nose present Face and sinus: normal facial exam Mouth: Yes Normal oral and palatal mucosa present, Yes oropharynx normal and Yes moist mucous membranes abnormal Throat: posterior oropharynx normal Eyes: Sclera: sclerae normal Neck: Neck: normal visual inspection Chest: Chest palpation & inspection: normal inspection of the chest Resp: Effort & Inspection: normal respiratory effort and able to speak in complete sentences Auscultation: other (decreased breath sounds but clear) Cardio: Rate: regular rate and other Other: systolic murmer GI: Inspection: normal to inspection Skin: General skin exam: normal color Neuro: General: oriented to p
[2020-05-02 20:56] LABS: Alanine Aminotransferase 10 U/L (14-59); Albumin Level 3.5 g/dL (3.4-5.0); Alkaline Phosphatase 103 U/L (46-116); Anion Gap 19 mmol/L (8-16); Aspartate Amino Transferase < 10 U/L (15-37); Bilirubin,Total 0.3 mg/dL (0.00-1.00); Blood Urea Nitrogen 144 mg/dL (7-18); Calcium 8.7 mg/dL (8.5-10.1); Carbon Dioxide 20 mmol/L (21-32); Chloride 99 mmol/L (98-108); Estimated CRCL calculation 5 ml/min; Estimated Glomerular Filt Rate 4; Glucose 113 mg/dL (70-99); Osmolality Calculated 333 mOsm/kg (285-295); Potassium 3.3 mmol/L (3.5-5.1); Sodium 138 mmol/L (136-145); Total Protein 7.3 g/dL (6.4-8.2); Troponin I 24.2 ng/L (0.00-60.4)
[2020-05-02] MEDS: HYDROcodone/acetaminophen (*CRX) 5-325 MG TABLET 1 TAB PO ×2 (21:00→22:17)
[2020-05-02 21:01] LABS: BNP 1060 pg/mL (0-100)
[2020-05-02 21:27] LABS: SARS-CoV-2 Ag Negative (Negative)
[2020-05-02 21:44] VITALS: BP 145/99; PULSE 82; RESP 20; O2SAT 96
[2020-05-02] MEDS: ONDANSETRON INJ 4 MG/2 ML VIAL IV PUSH (22:30)
--- NOTE | 2020-05-02 22:37 | PC.NURSE ---
Report received, call back from [facility], ERP speaking c
[2020-05-02 22:42] VITALS: BP 157/94; PULSE 82; RESP 18; O2SAT 100
--- NOTE | 2020-05-02 22:52 | PC.NURSE ---
ERP spoke c Dr. Samuels, he accepts for transfer. Paperwork signed for transfer. Awaiting call back for bed assignment and report.
[2020-05-02 23:14] VITALS: BP 154/96; PULSE 80; RESP 20; TEMP 36.5; O2SAT 100
--- NOTE | 2020-05-02 23:44 | PC.NURSE ---
Report given to MARINA, pt. loaded for transfer. VSS.
== END 2020-05-02 23:45 | disposition short-term general hospital (02) ==
PROVIDERS: Emergency Provider Emergency Medicine; PCP Family Medicine
DX: N18.6 End stage renal disease (principal); R06.02 Shortness of breath; J45.909 Unspecified asthma, uncomplicated; Z99.2 Dependence on renal dialysis; Z94.0 Kidney transplant status; Z86.16 Personal history of COVID-19; Z20.822 Contact with and (suspected) exposure to COVID-19; Z90.49 Acquired absence of other specified parts of digestive tract
CPT/HCPCS: 36415; 71045; 80053; 83880; 84484; 85025; 87426; 93005; 96374; 99285; A9270; C9803; J2405

== ENCOUNTER 2020-05-24 10:49 | Emergency (ER) | payer MEDICARE, MEDICAID, SELFPAY ==
[2020-05-24 11:15] VITALS: BP 173/115; PULSE 95; RESP 16; TEMP 36.5; O2SAT 99
--- NOTE | 2020-05-24 11:30 | ECG_ITS ---
Measurements Intervals [place] Rate: 87 P: 66 KS: 167 QRS: 67 QRSD: 89 T: 106 QT: 421 QTc: 509 Interpretive Statements SINUS RHYTHM NONSPECIFIC ST & T-WAVE ABNORMALITY- LAT/HIGH LAT LEADS BASELINE ARTIFACT- I, AVR, AVL BORDERLINE ECG Electronically Signed On 05-24-2020 12:00:01 CDT by Jose Daniel Milton D.O.
[2020-05-24] MEDS: ONDANSETRON INJ 4 MG/2 ML VIAL IV PUSH (11:40)
[2020-05-24 11:54] LABS: Hematocrit 20.6 % (35.0-49.0); Mean Corpuscular Volume 85.5 fL (78.0-102.0); Mean Platelet Volume 8.8 fl (9.2-11.8); Platelet Count Result 193 K/mm3 (150-420); Red Blood Count 2.41 M/mm3 (4.20-5.40); Red Cell Distribution Width 14.3 % (11.6-14.4); White Blood Count 3.7 K/mm3 (4.8-10.8)
[2020-05-24 12:06] LABS: INR 1.1; Partial Thromboplastin Time 34.5 SEC (23.90-30.70)
[2020-05-24 12:10] LABS: Alanine Aminotransferase 30 U/L (14-59); Albumin Level 3.2 g/dL (3.4-5.0); Alkaline Phosphatase 111 U/L (46-116); Anion Gap 20 mmol/L (8-16); Aspartate Amino Transferase 23 U/L (15-37); Bilirubin Direct 0.1 mg/dL (0-0.2); Bilirubin,Total 0.6 mg/dL (0.00-1.00); Calcium 7.9 mg/dL (8.5-10.1); Carbon Dioxide 20 mmol/L (21-32); Chloride 97 mmol/L (98-108); Estimated CRCL calculation 5 ml/min; Estimated Glomerular Filt Rate 4; Glucose 113 mg/dL (70-99); Potassium 3.5 mmol/L (3.5-5.1); Sodium 137 mmol/L (136-145); Total Protein 7.1 g/dL (6.4-8.2); Troponin I 22.5 ng/L (0.00-60.4)
[2020-05-24 12:16] LABS: Band Neutrophils Percent 0 % (0-6); Basophils Percent Manual 0 % (0-1); Eosinophils Absolute Manual 0.07 K/mm3 (0.02-0.5); Eosinophils Percent Manual 2 % (1-6); Lymphocytes Absolute Manual 0.92 K/mm3 (1.1-4.5); Lymphocytes Percent Manual 25 % (18-44); Monocytes Absolute Manual 0.33 K/mm3 (0.1-0.90); Monocytes Percent Manual 9 % (3-9); Neutrophils Absolute Manual 2.36 K/mm3 (1.7-7.2); Neutrophils Percent Manual 64 % (46-73); Platelet Estimate Adequate (Adequate); Total Cells Counted 100
[2020-05-24 12:25] LABS: Blood Urea Nitrogen > 150 mg/dL (7-18); Osmolality Calculated 334 mOsm/kg (285-295)
[2020-05-24 12:48] LABS: Amylase 65 U/L (25-115); Lipase 220 U/L (73-393)
[2020-05-24 12:55] LABS: Lactic Acid Reflex 0.6 mmol/L (0.4-2.0)
--- NOTE | 2020-05-24 13:05 | PC.NURSE ---
IV ACCESS INFILTRATED. ACCESS REMOVED. DRESSING PLACED.
[2020-05-24 13:40] VITALS: BP 143/101; PULSE 82; RESP 15; O2SAT 99
--- NOTE | 2020-05-24 13:46 | PC.NURSE ---
RN CONTACTED [facility] IN [facility]. DUST OPERATOR STATES PT HAS NOT BEEN TO TREATMENT SINCE 04/13/20. PT STILL HAS A CHAIR AT DIALYSIS AND CAN BE DIALYZED AT ANY TIME IF SHE SHOWS UP ACCORDING TO DIALYSIS NURSE. ERP INFORMED. ERP AND STEMMING MACHINE OPERATOR ATTEMPTED TO EDUCATE PATIENT ON DIALYSIS TREATMENTS, TRANSPORTATION TO AND FROM DIALYSIS, ETC. PT REFUSED TO ACCEPT ASSISTANCE FROM RN TO SET UP DIALYSIS TREATMENT TODAY [facility] DIALYSIS IN [facility] AND FUTURE TRANSPORTATION. PT LEFT AMA. PT WALKED OUT OF BUILDING BEFORE SIGNING AMA FORM.
--- NOTE | 2020-05-25 02:57 | ED.ABDPAIN ---
HPI - Abdominal Pain General Chief Complaint: Abdominal Pain Stated Complaint: abd pain/sob Time Seen by Provider: 05/24/20 11:20 Source: patient Mode of arrival: ambulatory Limitations: no limitations History of Present Illness HPI narrative: Patient comes in requesting pain medicine and says she feels badly. She says she has not been to dialysis since she was here in the past. She complains of diffuse abdominal pain, ongoing for the past several days, not relieved by measures taken at home. MD elicited complaint: abdominal pain Pertinent past history: other (CKD now on dialysis) Pain Consistency: intermittent Location: diffuse Severity: mild Quality: cramping Radiation: none Relieving factors: nothing Related Data Home Medications Medication Instructions Recorded Confirmed fluoxetine 20 mg PO DAILY 05/02/20 05/24/20 hydroxyzine HCl 25 mg PO TID PRN 05/02/20 05/24/20 pantoprazole 40 mg PO DAILY 05/02/20 05/24/20 amlodipine 10 mg PO DAILY 05/24/20 05/24/20 azithromycin 500 mg PO DAILY 05/24/20 05/24/20 isosorbide mononitrate 30 mg PO DAILY 05/24/20 05/24/20 metoprolol tartrate 25 mg PO BID 05/24/20 05/24/20 Allergies Allergy/AdvReac Type Severity Reaction Status Date / Time Penicillins Allergy Rash Verified 05/02/20 21:12 Review of Systems Constitutional: Constitutional: Reports no additional constitutional complaints Eyes: Eyes: Reports no additional eye complaints ENT: Reports system reviewed and no additional complaints, except as documented Cardiovascular: Cardiovascular: Reports no additional cardiovascular complaints Respiratory: Respiratory: Reports no additional respiratory complaints Gastrointestinal: Gastrointestinal: Reports no additional gastrointestinal complaints Genitourinary: Genitourinary: Reports no additional female genitourinary complaints Musculoskeletal: Musculoskeletal: Reports no additional musculoskeletal complaints Integumentary/Breasts: Skin/Breast: Reports system reviewed and no additional complaints, except as docu Neurologic: Reports system reviewed and no additional complaints, except as documented Psychiatric: Psychiatric: Reports no additional psychiatric complaints Endocrine: Endocrine: Reports no additional endocrine complaints Hematologic/Lymphatic: Hematologic/Lymphatic: Reports no additional hematologic/lymphatic complaints Allergic/Immunologic: Allergic/Immunologic: Reports no additional allergic/immunologic complaints [facility] Past Medical History Medical History (Updated 05/25/20 @ 03:36 by Wood Ng MD) Asthma ESRD (end stage renal disease) Peritoneal dialysis status Surgical History Surgical History History of cholecystectomy History of colon surgery Hx of tonsillectomy Kidney transplant recipient Family History Family History Mother Diabetes mellitus Social History Social History Smoking status: Current every day smoker Alcohol intake: never Substance use: never Gender identity (if verbalized by the patient): Female Exam Const: General: healthy appearing, no acute distress and alert Orientation/consciousness: patient oriented x3 HENMT: Head: normal to inspection Ears: external ears normal and TM's normal bilaterally General nose exam: Normal external nose present Face and sinus: normal facial exam Mouth: Yes Normal oral and palatal mucosa present Throat: posterior oropharynx normal Eyes: Conjunctivae: conjunctivae normal Neck: Neck: normal visual inspection Chest: Chest palpation & inspection: normal inspection of the chest Resp: Effort & Inspection: normal respiratory effort Auscultation: clear to auscultation bilaterally Cardio: Rate: regular rate Rhythm: regular rhythm GI: GI Palp: Yes Soft to palpation (nontender) Skin: General skin exam: normal color
== END 2020-05-24 13:45 | disposition left against medical advice (07) ==
PROVIDERS: Emergency Provider Emergency Medicine; PCP Family Medicine
DX: N18.6 End stage renal disease (principal); Z99.2 Dependence on renal dialysis; F17.200 Nicotine dependence, unspecified, uncomplicated
CPT/HCPCS: 36415; 80053; 82150; 82248; 83605; 83690; 84484; 85025; 85610; 85730; 93005; 96374; 99283; 99284; J2405

== ENCOUNTER 2020-06-25 19:46 | Emergency (ER) | payer MEDICARE, MEDICAID, SELFPAY ==
--- NOTE | ~2020-06-25 | XR_ITS ---
EXAMINATION: XR chest 1V portable INDICATION: Cough and fever TECHNIQUE: Portable AP chest at 2124 hours COMPARISON: 05/02/2020 FINDINGS: The lungs are free of acute opacities. There is no pleural effusion or pneumothorax. Cardio megaly is noted. There is dextroscoliosis of the thoracic spine. IMPRESSION: 1. No acute cardiopulmonary abnormality. Reviewed, dictated and finalized at location A.
[2020-06-25 19:52] VITALS: BP 155/116; PULSE 116; RESP 22; TEMP 37.9; O2SAT 95
[2020-06-25 20:32] VITALS: BP 155/115; PULSE 112; RESP 20; O2SAT 99
--- NOTE | 2020-06-25 20:33 | ED.URI ---
HPI - URI/Sore Throat General Chief Complaint: Upper Respiratory Infection Stated Complaint: sob Source: patient and RN notes reviewed Mode of arrival: ambulatory Limitations: no limitations History of Present Illness MD elicited complaint: fever and cough Pertinent past history: immunosuppression Onset (ago): week(s) (1 Only short of breath since yesterday) Consistency: constant Severity: moderate Description of mucous: purulent Exacerbating factors: exertion Relieving factors: nothing Associated symptoms: fever, chills, shortness of breath and vomiting ( posttussive 1 time) Treatments prior to arrival: none Related Data Home Medications Medication Instructions Recorded Confirmed amlodipine 10 mg PO DAILY 06/25/20 06/25/20 fluoxetine 20 mg PO DAILY 06/25/20 06/25/20 hydralazine 25 mg PO DAILY 06/25/20 06/25/20 hydroxyzine HCl 25 mg PO DAILY 06/25/20 06/25/20 isosorbide mononitrate 90 mg PO DAILY 06/25/20 06/25/20 metoprolol tartrate 25 mg PO DAILY 06/25/20 06/25/20 pantoprazole 40 mg PO DAILY 06/25/20 06/25/20 Allergies Allergy/AdvReac Type Severity Reaction Status Date / Time Penicillins Allergy Unknown Verified 06/25/20 22:00 Review of Systems Review of Systems: All systems reviewed & are unremarkable except as noted in HPI and below Cardiovascular: Cardiovascular: Reports no additional cardiovascular complaints Respiratory: Respiratory: Reports as per HPI Gastrointestinal: Gastrointestinal: Reports as per HPI Musculoskeletal: Musculoskeletal: Reports no additional musculoskeletal complaints Neurologic: Reports system reviewed and no additional complaints, except as documented PMFSH Past Medical History Medical History (Updated 06/26/20 @ 00:00 by Mariza Barajas) Asthma Hypertension Renal failure Surgical History Surgical History (Updated 06/25/20 @ 20:42 by Wood Lopez MD) History of arteriovenostomy for renal dialysis History of cholecystectomy History of tonsillectomy Kidney transplant recipient Social History Social History (Updated 06/25/20 @ 20:49 by Wood Lopez MD) Smoking packs per day: 0.25 Smoking cigarettes per day: 5.0 Smoking status: Current every day smoker Tobacco type: cigarettes Alcohol intake: never Substance use: never Exam Const: General: healthy appearing and no acute distress Nutritional Appearance: well nourished and thin Orientation/consciousness: patient oriented x3 Other: female nurse in room during examination. HENMT: Head: normal to inspection Ears: external ears normal Mouth: Yes moist mucous membranes Eyes: Conjunctivae: conjunctivae normal Pupils: Equal, round and reactive pupils present EOM: EOMs intact bilaterally Neck: Neck: normal visual inspection Resp: Effort & Inspection: normal respiratory effort Auscultation: rhonchi lower bilaterally Cardio: Rate: regular rate Rhythm: regular rhythm GI: GI Palp: Yes Soft to palpation and No Tenderness to palpation present (GI) Auscultation: normal bowel sounds Back/Spine/Pelvis: Cervical Spine: cervical ROM normal Thoracic/Lumbar Spine: thoraco-lumbar ROM normal Skin: General skin exam: normal color Rashes: no rashes Neuro: General: patient oriented x3, moves all extremities, no meningeal signs and no focal motor deficits Speech: normal speech Gait exam (Neuro): Normal gait present Extrem: General: normal to inspection and no clubbing, cyanosis or edema Psych: Appearance: grossly normal and well kempt Mental Status: mental status grossly normal Affect: normal affect Attitude: cooperative Thought content: Yes Normal thought content present Course Course Emergency Course: due to patient's history of a kidney transplant that was rejected she still has risk factors with her kidney failure. I am not start her on doxycycline. Vital Signs Vital signs: Vital Signs Temperature 37.9 C H 06/25/20 19:52 Pulse Rate 116 H 06/25/20 19:52 Respiratory Rate 22 H
[2020-06-25 21:27] LABS: Basophils Absolute Auto 0.01 K/mm3 (0.00-0.10); Basophils Percent Auto 0.1 % (0.0-1.0); Eosinophils Absolute Auto 0.01 K/mm3 (0.02-0.50); Eosinophils Percent Auto 0.1 % (1.0-6.0); Hemoglobin 8.1 g/dL (12.0-15.0); Immature Granulocyte Absolute 0.04 K/mm3 (0.00-0.00); Immature Granulocyte Percent A 0.5 % (0.0-0.0); Lymphocytes Absolute Auto 0.58 K/mm3 (1.10-4.50); Lymphocytes Percent Auto 6.8 % (18.0-42.0); Mean Corpuscular HGB Conc 31.2 g/dL (32.0-36.0); Mean Corpuscular Hemoglobin 29.6 pg (27.0-31.0); Mean Corpuscular Volume 94.9 fL (78.0-102.0); Mean Platelet Volume 9.5 fl (9.2-11.8); Monocytes Absolute Auto 0.63 K/mm3 (0.10-0.90); Monocytes Percent Auto 7.4 % (2.0-11.0); Neutrophils Absolute Auto 7.2 K/mm3 (1.7-7.2); Neutrophils Percent Auto 85.1 % (50.0-70.0); Platelet Count Result 189 K/mm3 (150-420); Red Blood Count 2.74 M/mm3 (4.20-5.40); Red Cell Distribution Width 18.7 % (11.6-14.4); White Blood Count 8.5 K/mm3 (4.8-10.8)
[2020-06-25 21:30] LABS: SARS-CoV-2 RNA PCR Negative (Negative)
[2020-06-25 21:34] LABS: Influenza A QL RT-PCR Negative (Negative); Influenza B QL RT-PCR Negative (Negative)
[2020-06-25 21:52] LABS: INR 1.1; Prothrombin Time 11.4 Seconds (9.50-12.10)
[2020-06-25 21:56] LABS: Alanine Aminotransferase 28 U/L (14-59); Alkaline Phosphatase 140 U/L (46-116); Anion Gap 12 mmol/L (8-16); Aspartate Amino Transferase 21 U/L (15-37); Bilirubin,Total 0.8 mg/dL (0.00-1.00); Blood Urea Nitrogen 61 mg/dL (7-18); Calcium 8.9 mg/dL (8.5-10.1); Carbon Dioxide 24 mmol/L (21-32); Chloride 99 mmol/L (98-108); Estimated CRCL calculation 10 ml/min; Estimated Glomerular Filt Rate 8; Glucose 92 mg/dL (70-99); Osmolality Calculated 297 mOsm/kg (285-295); Potassium 4.6 mmol/L (3.5-5.1); Sodium 135 mmol/L (136-145); Troponin I 37.3 ng/L (0.00-60.4)
[2020-06-25 21:58] LABS: D Dimer 0.55 mg/L (0.19-0.50)
[2020-06-25 22:17] LABS: Ferritin 769 ng/mL (8-252)
[2020-06-25 22:32] LABS: CRP 4.2 mg/dL (0.0-0.9)
[2020-06-25 22:48] VITALS: BP 152/106; PULSE 118; RESP 20; TEMP 38.7; O2SAT 97
[2020-06-25] MEDS: BENZONATATE 100 MG CAPSULE PO (22:48)
[2020-06-25] MEDS: DOXYCYCLINE HYCLATE 100 MG TABLET PO (22:48)
--- NOTE | 2020-06-25 23:02 | PC.NURSE ---
recheck of temperature. pt offered tylenol or motrin. pt declined, stated i can take tylenol at home .
== END 2020-06-25 22:50 | disposition home or self-care (01) ==
PROVIDERS: Emergency Provider Emergency Medicine; PCP Family Medicine
DX: J40 Bronchitis, not specified as acute or chronic (principal); Z20.822 Contact with and (suspected) exposure to COVID-19; I10 Essential (primary) hypertension; Z79.899 Other long term (current) drug therapy; F17.200 Nicotine dependence, unspecified, uncomplicated
CPT/HCPCS: 36415; 71045; 80053; 82728; 83605; 84484; 85025; 85380; 85610; 86140; 87040; 87502; 99283; 99284; A9270; C9803; U0003; U0005

== ENCOUNTER 2022-01-16 12:43 | Emergency (ER) | payer MEDICARE, SELFPAY ==
[2022-01-16] VITALS (13 sets, daily range): BP systolic 140–159; BP diastolic 80–102; PULSE 96–110; RESP 16–32; TEMP 37.2–37.9; O2SAT 91–98
--- NOTE | ~2022-01-16 | CT_ITS ---
EXAMINATION: CTA chest PE protocol DATE: 01/16/2022 14:23 INDICATION: Shortness of breath. TECHNIQUE: Computed tomography angiography (CTA) of the chest was performed with 80 mL Omnipaque-350 intravenous contrast timed to evaluate the pulmonary arteries. Coronal maximum intensity projection 3 D-reconstructions were created by the technologist. Automated exposure control and iterative reconstr uction technique were employed. The dose-length product was 414.52 mGy-cm. COMPARISON: None. FINDINGS: There is mild atelectasis bilaterally. No pleural effusion. A right internal jugular centra l venous catheter is seen with tip in the right atrium. Cardiomegaly is noted. No pericardial effusio n. There is no pulmonary embolus. Calcifications in the liver and spleen are consistent with old gran ulomatous disease. There is moderate atrophy of the kidneys. There is an 11 mm cyst in left kidney. T here is severe dextroscoliosis of thoracic spine. There is diffuse sclerosis of the bones, consistent with renal osteodystrophy. IMPRESSION: 1. No pulmonary embolus. Sensitivity is moderately decreased by motion artifact. Reviewed, dictated and finalized at location A. TEAM MEMBER IMPRESSION: 1. No pulmonary embolus. Sensitivity is moderately decreased by motion artifact .
--- NOTE | 2022-01-16 12:58 | ECG_ITS ---
Measurements Intervals [place] Rate: 101 P: 69 [place]: 175 QRS: 35 QRSD: 88 T: 104 QT: 350 QTc: 454 Interpretive Statements SINUS TACHYCARDIA DELAYED PRECORDIAL R/S TRANSITION ST-T WAVE ABNORMALITY IN HIGH LATERAL LEADS- CONSIDER ISCHEMIA BASELINE ARTIFACT- I, II, III, AVR, AVL, AVF ABNORMAL ECG COMPARED TO ECG 05/24/2020 11:42:44 SINUS TACHYCARDIA NOW PRESENT Electronically Signed On 01-16-2022 13:28:09 [employer]STREAM BIOMANUFACTURING TECHNICIAN by Jose Daniel Milton D.O.
--- NOTE | 2022-01-16 13:05 | ED.GENADULT ---
HPI - General Adult General Chief complaint: Shortness of Breath/Dyspnea Stated complaint: sob Time Seen by Provider: 01/16/22 12:45 History of Present Illness HPI narrative: Michelle is a 36F with a PMH of IGA nephropathy, ESRD from IGA on peritoneal dialysis originally now on traditional dialysis that presented with a few days of worsening dyspnea. It is associated with a fever, aches, cough and some CP with coughing, but no N/V, diarrhea or syncope. She lives in a house with someone who was just diagnosed with influenza A. Related Data Home Medications Medication Instructions Recorded Confirmed hydralazine 25 mg tablet 25 mg PO DAILY 06/25/20 01/16/22 hydroxyzine HCl 25 mg tablet 30 mg PO TID 01/16/22 01/16/22 nifedipine 60 mg tablet,extended 60 mg PO DAILY 01/16/22 01/16/22 release 24 hr rosuvastatin 10 mg tablet 10 mg PO DAILY 01/16/22 01/16/22 sucroferric oxyhydroxide 500 mg 500 mg PO DAILY 01/16/22 01/16/22 chewable tablet (Velphoro) Allergies Allergy/AdvReac Type Severity Reaction Status Date / Time Penicillins Allergy Rash Verified 01/16/22 12:55 Review of Systems Review of Systems: All systems reviewed & are unremarkable except as noted in HPI and below PMFSH Past Medical History Medical History (Updated 01/16/22 @ 18:34 by Carter Nelson DO) Asthma Asthma ESRD (end stage renal disease) Hypertension Peritoneal dialysis status Renal failure Surgical History Surgical History History of arteriovenostomy for renal dialysis History of cholecystectomy History of cholecystectomy History of colon surgery History of tonsillectomy Hx of tonsillectomy Kidney transplant recipient Kidney transplant recipient Family History Family History Mother Diabetes mellitus Social History Social History Smoking packs per day: 0.25 Smoking cigarettes per day: 5.0 Smoking status: Current every day smoker Tobacco type: cigarettes Alcohol intake: never Substance use: never Gender identity (if verbalized by the patient): Female Exam Const: General: alert and ill appearing acutely Nutritional Appearance: well nourished Orientation/consciousness: patient oriented x3 HENMT: Head: normal to inspection Ears: external ears normal Face/Nose/Sinus: Normal external nose present Eyes: Conjunctivae: conjunctivae normal Pupils: Equal, round and reactive pupils present Neck: Neck: normal visual inspection Chest: Chest palpation & inspection: normal inspection of the chest Resp: Effort & Inspection: labored, no retractions and tachypneic Auscultation: clear to auscultation bilaterally Cardio: Rate: tachycardic Rhythm: regular rhythm GI: Inspection: non-distended Skin: General skin exam: normal color Rashes: no rashes Neuro: General: patient oriented x3 and moves all extremities Cranial nerves: Yes Nystagmus not present Extrem: General: normal to inspection Psych: Mental Status: mental status grossly normal Affect: normal affect Course Course Emergency Course: Ordered labs and CT as well as gave her O2 and morphine for air hunger. Labs showed anemia at 11, critical Cr at 6.3 (she is a hemodialysis patient) and negative flu and covid swabs. EXAMINATION: CTA chest PE protocol DATE: 01/16/2022 14:23 INDICATION: Shortness of breath. TECHNIQUE: Computed tomography angiography (CTA) of the chest was performed with 80 mL Omnipaque-350 intravenous contrast timed to evaluate the pulmonary arteries. Coronal maximum intensity projection 3D-reconstructions were created by the technologist. Automated exposure control and iterative reconstruction technique were employed. The dose-length product was 414.52 mGy-cm. COMPARISON: None. FINDINGS: There is mild atelectasis bilaterally. No pleural effusion. A right internal jugular rebeca
[2022-01-16] MEDS: MORPHINE SULFATE (*CRX) 4 MG/ML INJ IV PUSH (13:37)
[2022-01-16 13:47] LABS: Alanine Aminotransferase 10 U/L (14-59); Albumin Level 3.9 g/dL (3.4-5.0); Alkaline Phosphatase 354 U/L (46-116); Anion Gap 13 mmol/L (8-16); Aspartate Amino Transferase 14 U/L (15-37); Bilirubin,Total 0.6 mg/dL (0.00-1.00); Blood Urea Nitrogen 48 mg/dL (7-18); Calcium 9.2 mg/dL (8.5-10.1); Carbon Dioxide 24 mmol/L (21-32); Chloride 101 mmol/L (98-108); Estimated CRCL calculation 11 ml/min; Estimated Glomerular Filt Rate 8; Glucose 98 mg/dL (70-99); Hematocrit 33.3 % (35.0-49.0); Mean Corpuscular Hemoglobin 31.3 pg (27.0-31.0); Mean Corpuscular Volume 94.6 fL (78.0-102.0); Osmolality Calculated 298 mOsm/kg (285-295); Platelet Count Result 131 K/mm3 (150-420); Potassium 4.1 mmol/L (3.5-5.1); Red Blood Count 3.52 M/mm3 (4.20-5.40); Red Cell Distribution Width 11.9 % (11.6-14.4); Sodium 138 mmol/L (136-145); Total Protein 8.8 g/dL (6.4-8.2); Troponin I 31.3 ng/L (0.00-60.4); White Blood Count 7.8 K/mm3 (4.8-10.8)
[2022-01-16 13:48] LABS: Basophils Absolute Auto 0.02 K/mm3 (0.00-0.10); Basophils Percent Auto 0.3 % (0.0-1.0); Eosinophils Absolute Auto 0.08 K/mm3 (0.02-0.50); Immature Granulocyte Absolute 0.02 K/mm3 (0.00-0.00); Immature Granulocyte Percent A 0.3 % (0.0-0.0); Lymphocytes Absolute Auto 0.77 K/mm3 (1.10-4.50); Lymphocytes Percent Auto 9.9 % (18.0-42.0); Monocytes Absolute Auto 0.41 K/mm3 (0.10-0.90); Monocytes Percent Auto 5.3 % (2.0-11.0); Neutrophils Absolute Auto 6.5 K/mm3 (1.7-7.2); Neutrophils Percent Auto 83.2 % (50.0-70.0)
[2022-01-16 13:49] LABS: SPREG INTERNAL CONTROL Positive; Serum Qual hCG Negative
[2022-01-16 13:53] LABS: Magnesium 2.4 mg/dL (1.8-2.4)
[2022-01-16 14:03] LABS: Influenza A QL RT-PCR Negative (Negative); Influenza B QL RT-PCR Negative (Negative); SARS-CoV-2 RNA PCR Negative (Negative)
[2022-01-16 14:18] LABS: INR 1.2; Prothrombin Time 12.6 Seconds (9.50-12.10)
[2022-01-16] MEDS: MORPHINE SULFATE (*CRX) 2 MG/ML INJ IV PUSH ×2 (16:03→18:12)
--- NOTE | 2022-01-16 16:49 | PC.NURSE ---
160 patient co pain of 9 1/2 that is in lungs that that makes hurt to take deep breathes and goes up into her shoulders. gave verbal orders for morphine 2 mg. patient is restless. See mar. sits up and lies down can not get comfortable. eddie orellana [id number] still can not get comfortable still says pain 8-9. mother at her side. eddie orellana
[2022-01-16] MEDS: SODIUM CHLORIDE 0.9% IV 1,000 ML 500 ML IV CONT (17:08)
[2022-01-16] MEDS: LORazepam INJ (*CRX) 2 MG/ML VIAL 1 MG IV PUSH (18:11)
--- NOTE | 2022-01-22 14:27 | PC.NURSE ---
BLOOD CULTURE X 2 FINAL RESULTS: NO GROWTH AFTER 5 DAYS. NO ACTION NEEDED
== END 2022-01-16 20:13 | disposition short-term general hospital (02) ==
PROVIDERS: Emergency Provider Family Medicine; PCP Family Medicine
DX: R09.02 Hypoxemia (principal); R06.00 Dyspnea, unspecified; Z20.822 Contact with and (suspected) exposure to COVID-19
CPT/HCPCS: 36415; 71275; 80053; 83735; 84484; 84703; 85025; 85610; 87040; 87502; 93005; 96361; 96365; 96366; 96375; 96376; 99285; J1956; J2060; J2270; J7030; Q9967; U0003; U0005

== ENCOUNTER 2023-05-27 13:24 | Outpatient (CLI) | payer MEDICARE, MEDICAID, SELFPAY ==
--- NOTE | ~2023-05-27 | US_ITS ---
EXAMINATION: US renal BI DATE: 05/27/2023 13:52 INDICATION: right Flamk pain TECHNIQUE: Multiple grayscale and Doppler ultrasound images of the kidneys were obtained. COMPARISON: CT abdomen pelvis 03/30/2020 FINDINGS: The right kidney measures 5.0 x 2.5 x 2.0 cm. The left kidney is not confidently visualized. There is right cortical thinning and increased parenchymal echogenicity. Simple 1.6 cm right upper pole cyst. There is no hydronephrosis. The bladder is empty and therefore not well evaluated. IMPRESSION: Severe right renal atrophy and medical renal disease. No hydronephrosis. Left kidney not visualized. Bladder not visualized. Reviewed, dictated and finalized at location K. IMPRESSION: Severe right renal atrophy and medical renal disease. No hydronephrosis. Left k idney not visualized. Bladder not visualized.
== END 2023-05-27 13:25 | disposition home or self-care (01) ==
LOC: CHSIMG 13:28
PROVIDERS: PCP Family Medicine; Visit Provider Internal Medicine Nephrology
DX: R10.9 Unspecified abdominal pain (principal); N26.1 Atrophy of kidney (terminal); M25.569 Pain in unspecified knee
CPT/HCPCS: 73562; 76775

== ENCOUNTER 2023-11-19 21:58 | Emergency (ER) | payer MEDICARE, MEDICAID, SELFPAY ==
[2023-11-19] VITALS (10 sets, daily range): BP systolic 128–186; BP diastolic 84–114; PULSE 88–113; RESP 19–31; TEMP 37.3; O2SAT 81–96
--- NOTE | ~2023-11-19 | XR_ITS ---
XR chest 1V portable Ordering provider: Claudio Rdz MD History: 38 years Female with . shortness of breath . Comparison: None. FINDINGS: MEDIASTINUM: The cardiac silhouette is slightly enlarged. LUNGS: No pneumothorax. Opacification in the right lung base suggestive of atelectasis versus pneumon ia with possible effusion. OTHER: No free air under the diaphragm. S-shaped scoliosis. IMPRESSION: Right basilar atelectasis versus pneumonia with pleural effusion. Reviewed, dictated and finalized at location A.
--- NOTE | 2023-11-19 22:01 | ED.SOB ---
HPI - SOB/Dyspnea General Chief Complaint: Shortness of Breath/Dyspnea Stated Complaint: difficulty breathing Time Seen by Provider: 11/19/23 22:01 Source: patient Mode of arrival: ambulatory Limitations: no limitations History of Present Illness HPI Narrative: 38-year-old female, smoker with a history of end-stage renal disease on hemodialysis ( primary cause of renal failure with IgA nephropathy. Failed cadaveric renal transplant in 2006was dialyzed today, asthma is brought in by EMS with a day history of Upper respiratory symptoms including nasal congestion. She presents with -- 1 day history of increasing shortness of breath. 91% on 6 L. dyspnea on exertion -- cough which is nonproductive -- chest pain which appears to be pleuritic. she also complains of heaviness of the anterior chest. No radiation of the pain. -- hypertension with a blood pressure of 186/114 MD elicited complaint: shortness of breath, cough and pain with inspiration Pertinent past history: asthma Onset (ago): day(s) ( One day) Context: recent illness Timing: constant Severity: severe Exacerbating factors: lying flat and exertion Known history of: asthma Associated symptoms: chest pain, pain with inspiration, cough and wheezing Treatment prior to arrival: oxygen, bronchodilator and other ( Solu-Medrol) Related Data Home Medications Medication Instructions Recorded Confirmed hydralazine 25 mg tablet 25 mg PO DAILY 06/25/20 11/19/23 hydroxyzine HCl 25 mg tablet 30 mg PO TID 01/16/22 11/19/23 rosuvastatin 10 mg tablet 10 mg PO DAILY 01/16/22 11/19/23 sucroferric oxyhydroxide 500 mg 500 mg PO DAILY 01/16/22 11/19/23 chewable tablet (Velphoro) amlodipine 10 mg tablet 10 mg PO DAILY 11/19/23 11/19/23 escitalopram oxalate 5 mg tablet 5 mg PO DAILY 11/19/23 11/19/23 hydrocodone 7.5 mg-acetaminophen 1 tablet PO Q4-6M PRN Pain 11/19/23 11/19/23 325 mg tablet Allergies Allergy/AdvReac Type Severity Reaction Status Date / Time Penicillins Allergy Rash Verified 11/19/23 22:00 Review of Systems Constitutional: Constitutional: Reports no additional constitutional complaints and Reports weakness Eyes: Eyes: Reports as per HPI and Reports no additional eye complaints ENT: Reports system reviewed and no additional complaints, except as documented, Reports as per HPI and Reports nasal congestion Cardiovascular: Cardiovascular: Reports as per HPI, Reports no additional cardiovascular complaints and Reports chest pain Respiratory: Respiratory: Reports as per HPI, Reports no additional respiratory complaints, Reports cough, Reports dyspnea and Reports wheezing Gastrointestinal: Gastrointestinal: Reports as per HPI and Reports no additional gastrointestinal complaints Genitourinary: Genitourinary: Reports no additional female genitourinary complaints and Reports as per HPI Comments: makes minimal urine throughout the day. Was dialyzed yesterday with removal of 3.5 L. She skipped previous dialysis Musculoskeletal: Musculoskeletal: Reports no additional musculoskeletal complaints Integumentary/Breasts: Skin/Breast: Reports system reviewed and no additional complaints, except as docu and Reports as per HPI Neurologic: Reports system reviewed and no additional complaints, except as documented and Reports as per HPI Psychiatric: Psychiatric: Reports no additional psychiatric complaints and Reports as per HPI Endocrine: Endocrine: Reports no additional endocrine complaints and Reports as per HPI Hematologic/Lymphatic: Hematologic/Lymphatic: Reports no additional hematologic/lymphatic complaints and Reports as per HPI Allergic/Immunologic: Allergic/Immunologic: Reports no additional allergic/immunologic complaints and Reports as per HPI [facility] Past Medical History Medical History (Updated 11/19/23 @ 23:57 by Claudio Rdz MD) Asthma Asthma ESRD (end stage renal disease) Hypertension Peritoneal dialysis status Renal failure Surg
--- NOTE | 2023-11-19 22:12 | ECG_ITS ---
Test Date: 2023-11-19 22:06:29 Measurements Intervals [place] Rate: 98 P: 59 MN: 167 QRS: 26 QRSD: 85 T: 100 QT: 342 QTc: 438 Interpretive Statements SINUS RHYTHM ST-T WAVE ABNORMALITY IN HIGH LATERAL LEADS- CONSIDER ISCHEMIA BASELINE ARTIFACT- I, II, AVR ABNORMAL ECG No previous ECG available for comparison Electronically Signed On 11-20-2023 05:43:20 CDT by Jose Daniel Milton D.O.
[2023-11-19 22:46] LABS: Basophils Absolute Auto 0.05 K/mm3 (0.00-0.10); Basophils Percent Auto 0.6 % (0.0-1.0); Eosinophils Absolute Auto 0.24 K/mm3 (0.02-0.50); Eosinophils Percent Auto 2.7 % (1.0-6.0); Hematocrit 34.3 % (35.0-49.0); Hemoglobin 11.1 g/dL (12.0-15.0); Immature Granulocyte Absolute 0.02 K/mm3 (0.00-0.00); Immature Granulocyte Percent A 0.2 % (0.0-0.0); Lymphocytes Percent Auto 25.6 % (18.0-42.0); Mean Corpuscular HGB Conc 32.4 g/dL (32-36); Mean Corpuscular Hemoglobin 29.7 pg (27.0-31.0); Mean Corpuscular Volume 91.7 fL (78.0-102.0); Mean Platelet Volume 9.4 fl (9.2-11.8); Monocytes Absolute Auto 0.82 K/mm3 (0.10-0.90); Monocytes Percent Auto 9.1 % (2.0-11.0); Neutrophils Absolute Auto 5.54 K/mm3 (1.70-7.20); Neutrophils Percent Auto 61.8 % (50.0-70.0); Platelet Count Result 221 K/mm3 (150-420); Red Blood Count 3.74 M/mm3 (4.20-5.40); Red Cell Distribution Width 12.5 % (11.6-14.4)
[2023-11-19] MEDS: MORPHINE SULFATE (*CRX) 2 MG/ML INJ IV PUSH (22:52)
[2023-11-19] MEDS: ONDANSETRON INJ 4 MG/2 ML VIAL IV PUSH (22:54)
[2023-11-19] MEDS: FUROSEMIDE INJ 100 MG/10 ML VIAL 80 MG IV PUSH (22:55)
[2023-11-19 22:56] LABS: Influenza A QL RT-PCR Negative (Negative); Influenza B QL RT-PCR Negative (Negative); RSV RNA, RT-PCR Negative (Negative); SARS-CoV-2 RNA PCR Negative (Negative)
[2023-11-19 22:59] LABS: INR 1.1; Partial Thromboplastin Time 30.4 Sec (23.9-30.70); Prothrombin Time 11.6 Seconds (9.50-12.1)
[2023-11-19] MEDS: CEFEPIME 2 GM/NS 50 ML 2 GM/50 ML BAG IVPB (23:02)
[2023-11-19 23:04] LABS: Lactic Acid Reflex 0.5 mmol/L (0.4-2.0)
[2023-11-19 23:14] LABS: Alanine Aminotransferase 9 U/L (14-59); Albumin Level 3.2 g/dL (3.4-5.0); Alkaline Phosphatase 63 U/L (46-116); Anion Gap 9 mmol/L (4-12); Aspartate Amino Transferase 13 U/L (15-37); Bilirubin,Total 0.5 mg/dL (0.00-1.00); Blood Urea Nitrogen 29 mg/dL (7-18); Calcium 10.5 mg/dL (8.5-10.1); Carbon Dioxide 30 mmol/L (21-32); Chloride 98 mmol/L (98-108); Estimated CRCL calculation 9 ml/min; Estimated Glomerular Filt Rate 6; Glucose 102 mg/dL (70-99); Lipase 24 U/L (16-77); NT Pro B Type Natriuretic Pept > 35000 pg/mL (0-125); Osmolality Calculated 289 mOsm/kg (285-295); Potassium 4.3 mmol/L (3.5-5.1); Sodium 137 mmol/L (136-145); Total Protein 7.8 g/dL (6.4-8.2)
[2023-11-19 23:16] LABS: Troponin I 16.7 ng/L (0.00-60.4)
[2023-11-20] VITALS (9 sets, daily range): BP systolic 129–143; BP diastolic 84–107; PULSE 80–94; RESP 20–25; O2SAT 90–95
[2023-11-20] MEDS: HYDROmorphone HCL INJ (*CRX) 2 MG/ML VIAL 0.5 MG IV PUSH (00:05)
[2023-11-20] MEDS: VANCOMYCIN 1,250 MG/NS 250 ML 1,250 MG/250 ML BAG 166.67 MG IVPB (00:33)
[2023-11-20 01:23] LABS: MRSA (PCR) NOT DETECTED (NOT DETECTE)
--- NOTE | 2023-11-26 12:42 | PC.NURSE ---
FINAL BLOOD CULTURES NO GROWTH AFTER 5 DAYS
== END 2023-11-20 01:45 | disposition short-term general hospital (02) ==
PROVIDERS: Emergency Provider Internal Medicine Critical Care Medicine; PCP Family Medicine
DX: I12.0 Hypertensive chronic kidney disease with stage 5 chronic kidney disease or end stage renal disease (principal); N18.6 End stage renal disease; J96.01 Acute respiratory failure with hypoxia; J98.01 Acute bronchospasm; J18.9 Pneumonia, unspecified organism; F17.210 Nicotine dependence, cigarettes, uncomplicated; Z99.2 Dependence on renal dialysis; Z79.891 Long term (current) use of opiate analgesic; Z79.899 Other long term (current) drug therapy; Z20.822 Contact with and (suspected) exposure to COVID-19
CPT/HCPCS: 36415; 36600; 71045; 80053; 82805; 83605; 83690; 83880; 84443; 84484; 85025; 85610; 85730; 87040; 87637; 87641; 93005; 96365; 96367; 96375; 99285; J0692; J1170; J1940; J2270; J2405; J3370; J7050

== ENCOUNTER 2023-11-20 03:19 | Inpatient (IN) | payer MEDICARE, MEDICAID, SELFPAY ==
[2023-11-20] VITALS (22 sets, daily range): BP systolic 123–152; BP diastolic 69–83; PULSE 70–99; RESP 18–24; TEMP 36–36.7; O2SAT 92–97; BMI 28.3
--- NOTE | ~2023-11-20 | XR_ITS ---
XR chest 1V portable Ordering provider: Arvind Ivan MD History: 38 years Female with . Hypoxia . Comparison: November 19, 2023 FINDINGS: MEDIASTINUM: The cardiac silhouette is slightly enlarged. LUNGS: No pneumothorax. Opacification in the right perihilar and lower lobe area unchanged from prev ious examination. Right pleural effusion is possible. OTHER: No free air under the diaphragm. Dextroscoliosis. IMPRESSION: No significant change from previous examination. Reviewed, dictated and finalized at location A.
--- NOTE | ~2023-11-20 | XR_ITS ---
EXAMINATION: XR chest 1V portable DATE: 11/23/2023 05:40 INDICATION: Shortness of breath TECHNIQUE: frontal view of the chest was obtained. COMPARISON: Chest radiograph dated 11/20/2023 FINDINGS: Persistent airspace opacity right lower lung zone consistent with small right pleural effusion and as sociated atelectasis and/or pneumonia. Left lung remains clear. No pulmonary edema, pneumothorax or l eft-sided pleural effusion. Heart size is normal accounting for the AP technique. Severe lower thorac ic dextroscoliosis. IMPRESSION: 1. Persistent small right pleural effusion with associated basilar atelectasis and/or pneumonia. Reviewed, dictated and finalized at location A.
--- NOTE | 2023-11-20 02:34 | ADMGEN ---
This patient, Michelle Hernadez, was admitted to IMU Room 206-02. Patient/family oriented to hospital policies and general routines including ID bracelet, bed and alarms, visiting hours, pain management, procedures, bathroom and other care routines, personal items, smoking policy, room service/diet, and visiting hours. Information on how to activate the Rapid Response Team has been discussed. Patient/Family are encouraged to report perceived risks to care and to ask questions if they do not understand what they are told or what they should do. Patient arrive to IMU at 0220.
[2023-11-20] MEDS: HYDROcodone/acetaminophen (*CRX) 7.5-325 MG TABLET 1 TAB PO ×3 (04:19→16:11)
[2023-11-20] MEDS: AZITHROMYCIN 500 MG/NS 250 ML 500 MG/250 ML BAG 250 MG IVPB (04:19)
[2023-11-20 05:11] LABS: Basophils Percent Auto 0.4 % (0.2-1.2); Eosinophils Percent Auto 0.1 % (0-4.4); Hematocrit 34.9 % (37.0-47.0); Hemoglobin 10.9 g/dL (12.0-15.0); Immature Granulocyte Absolute 0.02 K/mm3 (0.00-0.031); Immature Granulocyte Percent A 0.3 % (0-0.5); Lymphocytes Absolute Auto 0.84 K/mm3 (0.9-3.2); Lymphocytes Percent Auto 10.8 % (18.3-44.2); Mean Corpuscular HGB Conc 31.2 g/dl (32-36); Mean Corpuscular Hemoglobin 29.9 pg (26-34); Mean Corpuscular Volume 95.9 fl (80-100); Mean Platelet Volume 9.7 fl (7.4-10.4); Monocytes Absolute Auto 0.1 K/mm3 (0.1-0.6); Monocytes Percent Auto 0.9 % (2.6-8.5); Neutrophils Absolute Auto 6.8 K/mm3 (1.3-6.7); Neutrophils Percent Auto 87.5 % (45.5-73.1); Platelet Count Result 201 k/mm3 (150-375); Red Blood Count 3.64 M/mm3 (4.2-5.4); Red Cell Distribution Width 12.6 % (11.5-14.5); White Blood Count 7.8 K/mm3 (4.5-10.0)
[2023-11-20 05:19] LABS: INR 1.1
[2023-11-20 05:20] LABS: Partial Thromboplastin Time 33.6 Seconds (22.3-36.8)
[2023-11-20 05:25] LABS: Anion Gap 16 mmol/L (4-12); Blood Urea Nitrogen 38 mg/dL (7-17); Calcium 9.9 mg/dL (8.4-10.2); Carbon Dioxide 25 mmol/L (22-30); Chloride 95 mmol/L (98-107); Estimated CRCL calculation 10 ml/min; Estimated Glomerular Filt Rate 6; Glucose 229 mg/dL (65-110); Potassium 4.8 mmol/L (3.4-5.0); Sodium 136 mmol/L (137-145)
[2023-11-20 05:27] LABS: Magnesium 2.5 mg/dL (1.6-2.3)
[2023-11-20] MEDS: SEVELAMER CARBONATE 800 MG TABLET 2400 MG PO ×2 (08:34→16:12)
[2023-11-20] MEDS: ESCITALOPRAM OXALATE 5 MG TABLET PO (08:35)
[2023-11-20] MEDS: calcitrioL 0.25 MCG CAPSULE PO ×2 (08:35→16:12)
[2023-11-20] MEDS: amLODIPine BESYLATE 10 MG TABLET PO (08:35)
[2023-11-20] MEDS: ROSUVASTATIN 10 MG TABLET PO (08:35)
[2023-11-20] MEDS: busPIRone HCL 5 MG TABLET BY MOUTH ×2 (08:35→16:12)
[2023-11-20] MEDS: carvediloL 25 MG TABLET BY MOUTH ×2 (08:35→20:21)
[2023-11-20] MEDS: hydrALAZINE HCL 25 MG TABLET PO (08:35)
[2023-11-20] MEDS: cefTRIAXone 2 GM/NS 100 ML 2 GM/100 ML BAG IVPB (08:36)
[2023-11-20] MEDS: hydrOXYzine HCL 10 MG TABLET 30 MG PO ×3 (08:36→16:11)
--- NOTE | 2023-11-20 11:06 | PM.IMHP ---
H&P: HPI History of Present Illness Date/Time: 11/20/23 11:06 Chief Complaint: Shortness of breath Narrative: 38-year-old female, smoker with a history of end-stage renal disease on hemodialysis ( primary cause of renal failure with IgA nephropathy which was diagnosed around 2002. Patient underwent dialysis for almost 2 years. Patient underwent cadaveric renal transplant in 2005 which failed. Currently patient in dialysis Friday. Patient missed the Friday dialysis but underwent dialysis yesterday. Patient reports yesterday she was shortness of breath and felt like she has pneumonia and called 911. Brought in by EMS. In the ED patient was saturating 91% on 6 L. patient also had a cough which was nonproductive. Patient has a chest pain which appears to be pleuritic. The initial troponin was negative. We repeated the troponin which is also negative. Patient has a past medical history of asthma. Today we ordered steroid and breathing treatment. Patient is currently on ceftriaxone azithromycin. Patient is saturating well on 4 L. Nephrology is consulted for continuation of the dialysis. [facility] Past Medical History Medical History (Updated 11/19/23 @ 23:57 by Claudio Rdz MD) Asthma Asthma ESRD (end stage renal disease) Hypertension Peritoneal dialysis status Renal failure Surgical History Surgical History History of arteriovenostomy for renal dialysis History of cholecystectomy History of cholecystectomy History of colon surgery History of tonsillectomy Hx of tonsillectomy Kidney transplant recipient Kidney transplant recipient Family History Family History (Updated 11/20/23 @ 03:00 by Ashley Martin RN) Mother Diabetes mellitus Grandparent Cancer Social History Social History Smoking packs per day: 0.5 Smoking cigarettes per day: 10.0 Years smoked: 15 Smoking pack-years: 7.50 Smoking status: Former smoker Tobacco type: cigarettes Alcohol intake: never Substance use: never Do You Feel Safe in your Home?: Yes Lack of Transportation: No Lack of Food: Never True Current Housing: I Have Housing Concerned About Future Housing: No Difficulty Paying Gas/Electric Bills: No Difficulty Paying for Meds: No Currently Unemployed: No Education: High School Diploma/GED Difficulty w/ Childcare or Family Care: No Living arrangements: with family Gender identity (if verbalized by the patient): Female Spiritual care concerns: No Meds Home Medications and Allergies Home Medications Medication Instructions Recorded Confirmed Type hydralazine 25 mg tablet 25 mg PO DAILY 06/25/20 11/20/23 History hydroxyzine HCl 25 mg tablet 30 mg PO TID 01/16/22 11/20/23 History rosuvastatin 10 mg tablet 10 mg PO DAILY 01/16/22 11/20/23 History amlodipine 10 mg tablet 10 mg PO DAILY 11/19/23 11/20/23 History escitalopram oxalate 5 mg tablet 5 mg PO DAILY 11/19/23 11/20/23 History hydrocodone 7.5 mg-acetaminophen 1 tablet PO Q4-6M PRN Pain 11/19/23 11/20/23 History 325 mg tablet buspirone 5 mg tablet 5 mg BID 11/20/23 11/20/23 History calcitriol 0.25 mcg capsule 0.25 mcg PO BID 11/20/23 11/20/23 History carvedilol 25 mg tablet 25 mg BID 11/20/23 11/20/23 History sevelamer carbonate 800 mg tablet 2,400 mg PO TIDWMEAL 11/20/23 11/20/23 History (Renvela) Allergies Allergy/AdvReac Type Severity Reaction Status Date / Time Penicillins Allergy Rash Verified 11/19/23 22:00 Vital Signs Vital Signs - 24 hr 11/20/23 02:20 11/20/23 03:01 11/20/23 04:00 Temperature 97.6 F Pulse Rate 86 Respiratory Rate 20 Blood Pressure 152/83 H Pulse Oximetry 95 92 95 Oxygen Delivery Nasal Cannula Nasal Cannula Oxygen Flow Rate 6 6 11/20/23 04:53 11/20/23 04:00 11/20/23 02:45 Temperature 97.7 F Pulse Rate 88 96 99 Respiratory Rate
[2023-11-20 11:36] LABS: Troponin I < 0.012 ng/mL (0.000-0.034)
[2023-11-20] MEDS: predniSONE 20 MG TABLET 40 MG PO (12:11)
--- NOTE | 2023-11-20 12:50 | PM.CNNEP ---
Assessment and Plan Assessment and plan (1) ESRD (end stage renal disease): Code(s): N18.6 - End stage renal disease Status: Chronic Assessment and Plan: plan HD tomorrow continue Fri/Fri/Friday dialysis schedule while hospitalized follow electrolytes, volume status, and clearance (2) Acute hypoxemic respiratory failure: Code(s): J96.01 - Acute respiratory failure with hypoxia Status: Acute Assessment and Plan: presumably due to asthma/reactive airway disease exacerbation +/- pneumonia possible component of fluid overload (?) admission CXR with right basilar atelectasis versus pneumonia with pleural effusion on supplemental oxygen - wean as tolerated on steroids and nebulizer treatments continue supportive therapy (3) Pneumonia: Qualifiers: Laterality: right Lung location: lower lobe of lung Pneumonia type: due to unspecified organism Qualified Code(s): J18.9 - Pneumonia, unspecified organism Code(s): J18.9 - Pneumonia, unspecified organism Status: Suspected Assessment and Plan: suspected based on admission imaging follow culture data on antibiotics (4) Asthma: Code(s): J45.909 - Unspecified asthma, uncomplicated Status: Acute Assessment and Plan: likely playing a role with #2 continue oxygen, steroids, and nebulizer treatments follow clinical exam (5) Hypertension: Code(s): I10 - Essential (primary) hypertension Status: Chronic Assessment and Plan: reasonable control at this time continue home medications follow trend of hemodynamics (6) Anemia: Code(s): D64.9 - Anemia, unspecified Status: Chronic Assessment and Plan: secondary to ESRD NILSON with dialysis follow trend of H/H I will continue to follow the patient with you while she remains hospitalized and make further recommendations as deemed necessary. Thank you for allowing me to participate in the care of this patient. History of Present Illness Reason for Consult Consult date: 11/20/23 Reason for consult: end stage renal disease Chief Complaint Chief complaint: Pneumonia with acute respiratory failure History of Present Illness Narrative: The patient is a 38-year-old female with a past medical history as outlined below who presented to [facility] ER by EMS for shortness of breath. The patient apparently has been having upper respiratory tract symptoms which included nasal congestion and shortness of breath for the last 24-48 hours. The symptoms were associated with a nonproductive cough, chest discomfort, and dyspnea with exertion. She reports the chest discomfort was more noticeable with deep inspiration with no specific radiation of the pain. Aggravating factors included laying flat or exertional activities and she thinks that she was also wheezing as well. By the time of EMS arrival, she was noted to be hypoxic and required almost 6 L of supplemental oxygen to get her O2 saturations up to 91%. She was also noted to be quite hypertensive with the systolic BP of 186. While in route to the emergency room, she received a nebulizer treatment as well as Solu-Medrol with some improvement in her symptoms. By the time of her arrival to the emergency room, she was still noted to be hypoxic and required supplemental oxygen. Her blood pressure had improved as well but she still felt short of breath. Routine blood test demonstrated labs consistent with her known history of end-stage renal disease and an unremarkable CBC other than anemia likely associated with her known kidney disease. Her viral testing for RSV/influenza/COVID was negative and her chest x-ray was somewhat concerning for possible pneumonia with a right lung infiltrate versus atelectasis. There was some concern for possible volume overload but her chest x-ray did not demonstrate overt pulmonary edema. After appropria
[2023-11-20] MEDS: IPRATROPIUM 0.5 MG/ALBUTEROL SULFATE 2.5 MG AMPUL.NEB 3 ML INHALATION ×2 (13:30→20:57)
[2023-11-20] MEDS: MORPHINE SULFATE (*CRX) 2 MG/ML INJ IV PUSH ×2 (13:57→20:22)
[2023-11-21] VITALS (37 sets, daily range): BP systolic 104–165; BP diastolic 56–90; PULSE 67–89; RESP 16–20; TEMP 36.3–37.1; O2SAT 96–98
[2023-11-21] MEDS: MORPHINE SULFATE (*CRX) 2 MG/ML INJ IV PUSH ×3 (01:10→19:38)
[2023-11-21] MEDS: IPRATROPIUM 0.5 MG/ALBUTEROL SULFATE 2.5 MG AMPUL.NEB 3 ML INHALATION ×4 (02:11→20:22)
[2023-11-21] MEDS: AZITHROMYCIN 500 MG/NS 250 ML 500 MG/250 ML BAG 250 MG IVPB (04:20)
[2023-11-21] MEDS: HYDROcodone/acetaminophen (*CRX) 7.5-325 MG TABLET 1 TAB PO ×3 (04:23→22:49)
[2023-11-21 05:31] LABS: Hematocrit 32.7 % (37.0-47.0); Hemoglobin 10.2 g/dL (12.0-15.0); Mean Corpuscular HGB Conc 31.2 g/dl (32-36); Mean Corpuscular Hemoglobin 29.7 pg (26-34); Mean Corpuscular Volume 95.3 fl (80-100); Mean Platelet Volume 9.9 fl (7.4-10.4); Platelet Count Result 209 k/mm3 (150-375); Red Blood Count 3.43 M/mm3 (4.2-5.4); Red Cell Distribution Width 12.5 % (11.5-14.5); White Blood Count 15.6 K/mm3 (4.5-10.0)
[2023-11-21 05:46] LABS: Alanine Aminotransferase 8 U/L (6-35); Albumin Level 3.8 g/dL (3.5-5.1); Alkaline Phosphatase 51 U/L (38-126); Anion Gap 17 mmol/L (4-12); Aspartate Amino Transferase 14 U/L (14-36); Bilirubin,Total 0.3 mg/dL (0.2-1.3); Blood Urea Nitrogen 59 mg/dL (7-17); Calcium 10.6 mg/dL (8.4-10.2); Carbon Dioxide 25 mmol/L (22-30); Chloride 94 mmol/L (98-107); Estimated CRCL calculation 8 ml/min; Estimated Glomerular Filt Rate 5; Glucose 145 mg/dL (65-110); Potassium 5.1 mmol/L (3.4-5.0); Sodium 136 mmol/L (137-145)
[2023-11-21 06:12] LABS: Hepatitis B Surface Antigen Negative (Negative)
[2023-11-21 06:43] LABS: Hepatitis B Surface Anti Res Positive
[2023-11-21] MEDS: SEVELAMER CARBONATE 800 MG TABLET 2400 MG PO (08:17)
[2023-11-21] MEDS: calcitrioL 0.25 MCG CAPSULE PO (08:17)
[2023-11-21] MEDS: hydrOXYzine HCL 10 MG TABLET 30 MG PO ×3 (08:18→23:17)
[2023-11-21] MEDS: ESCITALOPRAM OXALATE 5 MG TABLET PO (08:19)
[2023-11-21] MEDS: busPIRone HCL 5 MG TABLET BY MOUTH (08:19)
[2023-11-21] MEDS: ROSUVASTATIN 10 MG TABLET PO (08:19)
[2023-11-21] MEDS: predniSONE 20 MG TABLET 40 MG PO (08:19)
[2023-11-21] MEDS: hydrALAZINE HCL 25 MG TABLET PO (08:19)
[2023-11-21] MEDS: carvediloL 25 MG TABLET BY MOUTH ×2 (08:20→21:11)
[2023-11-21] MEDS: amLODIPine BESYLATE 10 MG TABLET PO (08:20)
[2023-11-21] MEDS: cefTRIAXone 2 GM/NS 100 ML 2 GM/100 ML BAG IVPB (08:21)
--- NOTE | 2023-11-21 10:32 | PC.NURSE ---
gave report to [place] on , pt is getting a breathing tx right now but will go up as soon as it is finished
--- NOTE | 2023-11-21 11:15 | PC.NURSE ---
This patient, Michelle Hernadez, was received from IMU on 11/21/23 at 1217. Patient/family oriented to unit policies and routines
--- NOTE | 2023-11-21 14:30 | PC.NURSE ---
Patient off of unit to dialysis
--- NOTE | 2023-11-21 15:20 | PM.PNNEP ---
Progress Note: A&P Assessment and Plan (1) ESRD (end stage renal disease): Code(s): N18.6 - End stage renal disease Status: Chronic Assessment and Plan: HD today continue Fri/Fri/Friday dialysis schedule while hospitalized follow electrolytes, volume status, and clearance (2) Acute hypoxemic respiratory failure: Code(s): J96.01 - Acute respiratory failure with hypoxia Status: Acute Assessment and Plan: presumably due to asthma/reactive airway disease exacerbation +/- pneumonia possible component of fluid overload (?) admission CXR with right basilar atelectasis versus pneumonia with pleural effusion on supplemental oxygen - wean as tolerated on steroids and nebulizer treatments continue supportive therapy (3) Pneumonia: Qualifiers: Laterality: right Lung location: lower lobe of lung Pneumonia type: due to unspecified organism Qualified Code(s): J18.9 - Pneumonia, unspecified organism Code(s): J18.9 - Pneumonia, unspecified organism Status: Suspected Assessment and Plan: suspected based on admission imaging follow culture data on antibiotics (4) Asthma: Code(s): J45.909 - Unspecified asthma, uncomplicated Status: Acute Assessment and Plan: likely playing a role with #2 continue oxygen, steroids, and nebulizer treatments follow clinical exam (5) Hypertension: Code(s): I10 - Essential (primary) hypertension Status: Chronic Assessment and Plan: reasonable control at this time continue home medications follow trend of hemodynamics (6) Anemia: Code(s): D64.9 - Anemia, unspecified Status: Chronic Assessment and Plan: secondary to ESRD NILSON with dialysis follow trend of H/H Will continue to follow. Subjective Date/time seen: 11/21/23 15:20 Interval history: Follow-up for end stage renal disease on hemodialysis. Tolerating dialysis treatment at the time of my visit (seen on HD at 3:10PM); breathing/respiratory status seems to be doing better but not back to baseline and still requiring supplemental oxygen; no apparent distress noted; no issues/events overnight or earlier this morning. Exam Narrative: General: WD/WN female in NAD Heart: normal S1 and S2; no rub Lungs: coarse breath sounds Abdomen: soft, nontender, nondistended, positive bowel sounds Extremities: no cyanosis or clubbing; no edema Skin: warm and dry Objective Data Vital Signs Vital Signs: Vital Signs Temp Pulse Resp BP Pulse Ox O2 Del Method O2 Flow Rate 11/21/23 15:15 68 122/85 11/21/23 15:03 73 140/90 11/21/23 14:52 97.9 F 75 18 155/90 H 97 $ 11/21/23 12:00 74 11/21/23 10:50 73 18 11/21/23 10:25 72 18 11/21/23 10:25 96 High Flow Nasal Cannula 4 11/21/23 10:00 81 11/21/23 08:00 69 11/21/23 08:00 98.7 F 67 18 165/71 H 97 11/21/23 08:20 75 11/21/23 06:00 78 11/21/23 04:00 67 11/21/23 02:00 80 11/21/23 00:00 67 11/20/23 22:00 80 11/20/23 20:00 73 11/21/23 03:56 69 18 98 High Flow Nasal Cannula 4 11/21/23 00:00 69 18 98 High Flow Nasal Cannula 4 11/21/23 03:56 97.9 F 74 18 132/79 98 11/21/23 02:18 69 18 11/21/23 02:11 89 18 11/21/23 00:00 97.7 F 78 18 124/75 98 11/20/23 20:00 77 18 95 Nasal Cannula 4 11/20/23 21:05 77 18 11/20/23 20:57 86 18 11/20/23 20:57 86 95 High Flow Nasal Cannula 4 11/20/23 20:21 78 11/20/23 20:18 97.5 F L 79 18 149/79 H 96 11/20/23 18:00 79 Intake/Output Intake/Output: Intake & Output 11/18/23 11/19/23 11/20/23 11/21/23 23:59 23:59 23:59 23:59 Intake Total 1040 1552 Output Total 0 200 Balance 1040 1352 Meds/Results Medications: Active Medications Generic Name Dose Route S
--- NOTE | 2023-11-21 15:20 | P.PNNP_ITS ---
Progress Note: A&P Assessment and Plan (1) ESRD (end stage renal disease): Code(s): N18.6 - End stage renal disease Status: Chronic Assessment and Plan: * HD today * continue Fri/Fri/Friday dialysis schedule while hospitalized * follow electrolytes, volume status, and clearance (2) Acute hypoxemic respiratory failure: Code(s): J96.01 - Acute respiratory failure with hypoxia Status: Acute Assessment and Plan: * presumably due to asthma/reactive airway disease exacerbation +/- pneumonia * possible component of fluid overload (?) * admission CXR with right basilar atelectasis versus pneumonia with pleural effusion * on supplemental oxygen - wean as tolerated * on steroids and nebulizer treatments * continue supportive therapy (3) Pneumonia: Qualifiers: Laterality: right Lung location: lower lobe of lung Pneumonia type: due to unspecified organism Qualified Code(s): J18.9 - Pneumonia, unspecified organism Code(s): J18.9 - Pneumonia, unspecified organism Status: Suspected Assessment and Plan: * suspected based on admission imaging * follow culture data * on antibiotics (4) Asthma: Code(s): J45.909 - Unspecified asthma, uncomplicated Status: Acute Assessment and Plan: * likely playing a role with #2 * continue oxygen, steroids, and nebulizer treatments * follow clinical exam (5) Hypertension: Code(s): I10 - Essential (primary) hypertension Status: Chronic Assessment and Plan: * reasonable control at this time * continue home medications * follow trend of hemodynamics (6) Anemia: Code(s): D64.9 - Anemia, unspecified Status: Chronic Assessment and Plan: * secondary to ESRD * NILSON with dialysis * follow trend of H/H Will continue to follow. Subjective Date/time seen: 11/21/23 15:20 Interval history: Follow-up for end stage renal disease on hemodialysis. Tolerating dialysis treatment at the time of my visit (seen on HD at 3:10PM); breathing/respiratory status seems to be doing better but not back to baseline and still requiring supplemental oxygen; no apparent distress noted; no issues/events overnight or earlier this morning. Exam Narrative: General: WD/WN female in NAD Heart: normal S1 and S2; no rub Lungs: coarse breath sounds Abdomen: soft, nontender, nondistended, positive bowel sounds Extremities: no cyanosis or clubbing; no edema Skin: warm and dry Objective Data Vital Signs Vital Signs: Vital Signs Temp Pulse Resp BP Pulse Ox O2 Del Method O2 Flow Rate 11/21/23 15:15 68 122/85 11/21/23 15:03 73 140/90 11/21/23 14:52 97.9 F 75 18 155/90 H 97 $ 11/21/23 12:00 74 11/21/23 10:50 73 18 11/21/23 10:25 72 18 11/21/23 10:25 96 High Flow Nasal Cannula 4 11/21/23 10:00 81 11/21/23 08:00 69 11/21/23 08:00 98.7 F 67 18 165/71 H 97 11/21/23 08:20 75 11/21/23 06:00 78 11/21/23 04:00 67 11/21/23 02:00 80 11/21/23 00:00 67 11/20/23 22:00 80 11/20/23 20:00 73 11/21/23 03:56 69 18 98 High Flow Nasal Cannula 4 11/21/23 00:00 69 18 9
--- NOTE | 2023-11-21 16:33 | P.PNIM_ITS ---
Progress Note: A&P Assessment and Plan (1) Acute hypoxemic respiratory failure: Code(s): J96.01 - Acute respiratory failure with hypoxia Status: Acute Assessment and Plan: * presumably due to asthma/reactive airway disease exacerbation +/- pneumonia * possible component of fluid overload (?) * admission CXR with right basilar atelectasis versus pneumonia with pleural effusion * on supplemental oxygen - wean as tolerated * on steroids and nebulizer treatments * PACS and ceftriaxone * continue supportive therapy (2) Pneumonia: Qualifiers: Laterality: right Lung location: lower lobe of lung Pneumonia type: due to unspecified organism Qualified Code(s): J18.9 - Pneumonia, unspecified organism Code(s): J18.9 - Pneumonia, unspecified organism Status: Suspected Assessment and Plan: * suspected based on admission imaging * follow culture data * on Zithromax and ceftriaxone (3) Asthma: Code(s): J45.909 - Unspecified asthma, uncomplicated Status: Acute Assessment and Plan: * likely playing a role with #2 * continue oxygen, steroids, and nebulizer treatments * Wheezing (4) Renal failure: Code(s): N19 - Unspecified kidney failure Status: Acute (5) ESRD (end stage renal disease): Code(s): N18.6 - End stage renal disease Status: Chronic Assessment and Plan: * HD completed yesterday * Volume status looks okay * Eating well (6) Hypertension: Code(s): I10 - Essential (primary) hypertension Status: Chronic Assessment and Plan: * Systolic 110-144 * continue home medications (7) Anemia: Code(s): D64.9 - Anemia, unspecified Status: Chronic Assessment and Plan: * secondary to ESRD * [facility]ILSON with dialysis * Check a CBC in the morning Plan Asthma exacerbation 2/2 Fluid overload vs infection -chest x-ray shows Right basilar atelectasis versus pneumonia with pleural effusion. 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 No acute events reported. Patient still has wheezing and today we added MASSIMO Florian. Will continue the antibiotics and repeat a chest x-ray tomorrow Exam Narrative: General: WD/WN female in NAD Heart: normal S1 and S2; no rub Lungs: Mildly coarse breath sounds at the bases Abdomen: soft, nontender, nondistended, positive bowel sounds Extremities: no cyanosis or clubbing; no edema Skin: No rash Objective Data Vital Signs Vital Signs: Vital Signs - 24 hr 11/20/23 18:00 11/20/23 20:18 11/20/23 20:21 Temperature 97.5 F L Pulse Rate 79 79 78 Respiratory Rate 18 Blood Pressure 149/79 H Pulse Oximetry 96 Oxygen Delivery Oxygen Flow Rate 11/20/23 20:57 11/20/23 20:57 11/20/23 21:05 Temperature Pulse Rate 86 86 77 Respiratory Rate 18 18
--- NOTE | 2023-11-21 16:33 | PM.IMPN ---
Progress Note: A&P Assessment and Plan (1) Acute hypoxemic respiratory failure: Code(s): J96.01 - Acute respiratory failure with hypoxia Status: Acute Assessment and Plan: presumably due to asthma/reactive airway disease exacerbation +/- pneumonia possible component of fluid overload (?) admission CXR with right basilar atelectasis versus pneumonia with pleural effusion on supplemental oxygen - wean as tolerated on steroids and nebulizer treatments PACS and ceftriaxone continue supportive therapy (2) Pneumonia: Qualifiers: Laterality: right Lung location: lower lobe of lung Pneumonia type: due to unspecified organism Qualified Code(s): J18.9 - Pneumonia, unspecified organism Code(s): J18.9 - Pneumonia, unspecified organism Status: Suspected Assessment and Plan: suspected based on admission imaging follow culture data on Zithromax and ceftriaxone (3) Asthma: Code(s): J45.909 - Unspecified asthma, uncomplicated Status: Acute Assessment and Plan: likely playing a role with #2 continue oxygen, steroids, and nebulizer treatments Wheezing (4) Renal failure: Code(s): N19 - Unspecified kidney failure Status: Acute (5) ESRD (end stage renal disease): Code(s): N18.6 - End stage renal disease Status: Chronic Assessment and Plan: HD completed yesterday Volume status looks okay Eating well (6) Hypertension: Code(s): I10 - Essential (primary) hypertension Status: Chronic Assessment and Plan: Systolic 110-144 continue home medications (7) Anemia: Code(s): D64.9 - Anemia, unspecified Status: Chronic Assessment and Plan: secondary to ESRD NIL[facility] with dialysis Check a CBC in the morning Plan Asthma exacerbation 2/2 Fluid overload vs infection -chest x-ray shows Right basilar atelectasis versus pneumonia with pleural effusion. 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 No acute events reported. Patient still has wheezing and today we added MASSIMO Florian. Will continue the antibiotics and repeat a chest x-ray tomorrow Exam Narrative: General: WD/WN female in NAD Heart: normal S1 and S2; no rub Lungs: Mildly coarse breath sounds at the bases Abdomen: soft, nontender, nondistended, positive bowel sounds Extremities: no cyanosis or clubbing; no edema Skin: No rash Objective Data Vital Signs Vital Signs: Vital Signs - 24 hr 11/20/23 18:00 11/20/23 20:18 11/20/23 20:21 Temperature 97.5 F L Pulse Rate 79 79 78 Respiratory Rate 18 Blood Pressure 149/79 H Pulse Oximetry 96 Oxygen Delivery Oxygen Flow Rate 11/20/23 20:57 11/20/23 20:57 11/20/23 21:05 Temperature Pulse Rate 86 86 77 Respiratory Rate 18 18 Blood Pressure Pulse Oximetry 95 Oxygen Delivery High Flow Nasal Cannula Oxygen Flow Rate 4 11/20/23 20:00 11/21/23 00:00 11/21/23 02:11 Temperature 97.7 F Pulse Rate 77 78 89 Respiratory Rate 18 18 18 Blood Pressure 124/75 Pulse Oximetry 95 98 Oxygen Delivery Nasal Cannula Oxygen Flow Rate 4 11/21/23 02:18 11/21/23 03:56 11/21/23 00:00 Temperature 97.9 F Pulse Rate 69 74 69 Respiratory Rate 18 18 18 Blood Pressure 132/79 Pulse Oximetry 98 98 Oxygen Delivery High Flow Nasal Cannula Oxygen Flow Rate 4 11/21/23 03:56 11/20/23 20:00 11/20/23 22:00 Temperature Pulse Rate 69 73 80 Respiratory Rate 18 Blood Pressure Pulse Oximetr
[2023-11-21] MEDS: EPOETIN ALFA-EPBX 4,000 UNITS/ML VIAL 4000 UNITS IV PUSH (17:35)
[2023-11-21] MEDS: guaiFENesin 200 MG/10 ML UDC PO (21:11)
--- NOTE | 2023-11-21 23:15 | PC.NURSE ---
After speaking with Becca Zhu, this RN placed one time dose orders for Buspirone 5 mg and Hydroxizine 30 mg because patient requested both meds for sleep. Neither med was given at 1700 11/22/23 because pt was in dialysis.
[2023-11-21] MEDS: busPIRone HCL 5 MG TABLET PO (23:17)
[2023-11-22] VITALS (16 sets, daily range): BP systolic 130–145; BP diastolic 77–89; PULSE 67–95; RESP 16–20; TEMP 36.6–36.7; O2SAT 93–98
[2023-11-22] MEDS: IPRATROPIUM 0.5 MG/ALBUTEROL SULFATE 2.5 MG AMPUL.NEB 3 ML INHALATION ×4 (01:46→21:15)
[2023-11-22] MEDS: AZITHROMYCIN 500 MG/NS 250 ML 500 MG/250 ML BAG 250 MG IVPB (06:18)
[2023-11-22] MEDS: cefTRIAXone 2 GM/NS 100 ML 2 GM/100 ML BAG IVPB (08:02)
[2023-11-22] MEDS: ESCITALOPRAM OXALATE 5 MG TABLET PO (08:05)
[2023-11-22] MEDS: amLODIPine BESYLATE 10 MG TABLET PO (08:05)
[2023-11-22] MEDS: ROSUVASTATIN 10 MG TABLET PO (08:05)
[2023-11-22] MEDS: carvediloL 25 MG TABLET BY MOUTH ×2 (08:05→21:01)
[2023-11-22] MEDS: calcitrioL 0.25 MCG CAPSULE PO ×2 (08:05→16:16)
[2023-11-22] MEDS: hydrOXYzine HCL 10 MG TABLET 30 MG PO ×2 (08:05→16:16)
[2023-11-22] MEDS: busPIRone HCL 5 MG TABLET BY MOUTH ×2 (08:05→16:16)
[2023-11-22] MEDS: predniSONE 20 MG TABLET 40 MG PO (08:05)
[2023-11-22] MEDS: hydrALAZINE HCL 25 MG TABLET PO (08:05)
[2023-11-22] MEDS: SEVELAMER CARBONATE 800 MG TABLET 2400 MG PO ×2 (08:06→16:16)
[2023-11-22] MEDS: guaiFENesin 200 MG/10 ML UDC PO (08:40)
[2023-11-22] MEDS: MORPHINE SULFATE (*CRX) 2 MG/ML INJ IV PUSH ×3 (08:40→18:36)
--- NOTE | 2023-11-22 13:48 | P.PNNP_ITS ---
Progress Note: A&P Assessment and Plan (1) ESRD (end stage renal disease): Code(s): N18.6 - End stage renal disease Status: Chronic Assessment and Plan: * HD completed yesterday * Volume status looks okay * Eating well (2) Acute hypoxemic respiratory failure: Code(s): J96.01 - Acute respiratory failure with hypoxia Status: Acute Assessment and Plan: * presumably due to asthma/reactive airway disease exacerbation +/- pneumonia * possible component of fluid overload (?) * admission CXR with right basilar atelectasis versus pneumonia with pleural effusion * on supplemental oxygen - wean as tolerated * on steroids and nebulizer treatments * PACS and ceftriaxone * continue supportive therapy (3) Pneumonia: Qualifiers: Laterality: right Lung location: lower lobe of lung Pneumonia type: due to unspecified organism Qualified Code(s): J18.9 - Pneumonia, unspecified organism Code(s): J18.9 - Pneumonia, unspecified organism Status: Suspected Assessment and Plan: * suspected based on admission imaging * follow culture data * on Zithromax and ceftriaxone (4) Asthma: Code(s): J45.909 - Unspecified asthma, uncomplicated Status: Acute Assessment and Plan: * likely playing a role with #2 * continue oxygen, steroids, and nebulizer treatments * Wheezing (5) Hypertension: Code(s): I10 - Essential (primary) hypertension Status: Chronic Assessment and Plan: * Systolic 110-144 * continue home medications (6) Anemia: Code(s): D64.9 - Anemia, unspecified Status: Chronic Assessment and Plan: * secondary to ESRD * [facility] with dialysis * Check a CBC in the morning Subjective Date/time seen: 11/22/23 13:48 Interval history: Patient feels okay today. Still has some cough but breathing is better She had dialysis yesterday and is due on Exam Narrative: General: WD/WN female in NAD Heart: normal S1 and S2; no rub Lungs: Mildly coarse breath sounds at the bases Abdomen: soft, nontender, nondistended, positive bowel sounds Extremities: no cyanosis or clubbing; no edema Skin: No rash Objective Data Vital Signs Vital Signs: Vital Signs - 24 hr 11/21/23 15:03 11/21/23 14:52 11/21/23 14:52 Temperature 97.9 F Pulse Rate 73 75 Respiratory Rate 18 Blood Pressure 140/90 155/90 H Pulse Oximetry 97 Oxygen Delivery Oxygen Flow Rate 4 11/21/23 16:00 11/21/23 15:15 11/21/23 15:30 Temperature Pulse Rate 79 68 71 Respiratory Rate Blood Pressure 124/72 122/85 127/80 Pulse Oximetry Oxygen Delivery Oxygen Flow Rate 11/21/23 15:45 11/21/23 16:10 11/21/23 16:18 Temperature Pulse Rate 74 73 72 Respiratory Rate 18 18 Blood Pressure 117/73 Pulse Oximetry Oxygen Delivery Oxygen Flow Rate 11/21/23 16:15 11/21/23 16:30 11/21/23 16:45 Temperature Pulse Rate 72 73 75 Respiratory Rate Blood Pressure 120/83 109/75 104/69 Pulse Oximetry Oxygen Delivery Oxygen Flow R
--- NOTE | 2023-11-22 13:48 | PM.PNNEP ---
Progress Note: A&P Assessment and Plan (1) ESRD (end stage renal disease): Code(s): N18.6 - End stage renal disease Status: Chronic Assessment and Plan: HD completed yesterday Volume status looks okay Eating well (2) Acute hypoxemic respiratory failure: Code(s): J96.01 - Acute respiratory failure with hypoxia Status: Acute Assessment and Plan: presumably due to asthma/reactive airway disease exacerbation +/- pneumonia possible component of fluid overload (?) admission CXR with right basilar atelectasis versus pneumonia with pleural effusion on supplemental oxygen - wean as tolerated on steroids and nebulizer treatments PACS and ceftriaxone continue supportive therapy (3) Pneumonia: Qualifiers: Laterality: right Lung location: lower lobe of lung Pneumonia type: due to unspecified organism Qualified Code(s): J18.9 - Pneumonia, unspecified organism Code(s): J18.9 - Pneumonia, unspecified organism Status: Suspected Assessment and Plan: suspected based on admission imaging follow culture data on Zithromax and ceftriaxone (4) Asthma: Code(s): J45.909 - Unspecified asthma, uncomplicated Status: Acute Assessment and Plan: likely playing a role with #2 continue oxygen, steroids, and nebulizer treatments Wheezing (5) Hypertension: Code(s): I10 - Essential (primary) hypertension Status: Chronic Assessment and Plan: Systolic 110-144 continue home medications (6) Anemia: Code(s): D64.9 - Anemia, unspecified Status: Chronic Assessment and Plan: secondary to ESRD NIL[facility] with dialysis Check a CBC in the morning Subjective Date/time seen: 11/22/23 13:48 Interval history: Patient feels okay today. Still has some cough but breathing is better She had dialysis yesterday and is due on Exam Narrative: General: WD/WN female in NAD Heart: normal S1 and S2; no rub Lungs: Mildly coarse breath sounds at the bases Abdomen: soft, nontender, nondistended, positive bowel sounds Extremities: no cyanosis or clubbing; no edema Skin: No rash Objective Data Vital Signs Vital Signs: Vital Signs - 24 hr 11/21/23 15:03 11/21/23 14:52 11/21/23 14:52 Temperature 97.9 F Pulse Rate 73 75 Respiratory Rate 18 Blood Pressure 140/90 155/90 H Pulse Oximetry 97 Oxygen Delivery Oxygen Flow Rate 4 11/21/23 16:00 11/21/23 15:15 11/21/23 15:30 Temperature Pulse Rate 79 68 71 Respiratory Rate Blood Pressure 124/72 122/85 127/80 Pulse Oximetry Oxygen Delivery Oxygen Flow Rate 11/21/23 15:45 11/21/23 16:10 11/21/23 16:18 Temperature Pulse Rate 74 73 72 Respiratory Rate 18 18 Blood Pressure 117/73 Pulse Oximetry Oxygen Delivery Oxygen Flow Rate 11/21/23 16:15 11/21/23 16:30 11/21/23 16:45 Temperature Pulse Rate 72 73 75 Respiratory Rate Blood Pressure 120/83 109/75 104/69 Pulse Oximetry Oxygen Delivery Oxygen Flow Rate 11/21/23 17:00 11/21/23 17:15 11/21/23 17:30 Temperature Pulse Rate 75 78 78 Respiratory Rate Blood Pressure 127/79 117/56 L 116/82 Pulse Oximetry Oxygen Delivery Oxygen Flow Rate 11/21/23 17:45 11/21/23 16:00 11/21/23 18:00 Temperature Pulse Rate 76 78 72 Respiratory Rate Blood Pressure 117/73 118/75 Pulse Oximetry Oxygen Delivery Oxygen Flow Rate 11/21/23 18:27 11/21/23 18:05 11/21/23 19:46 Temperature 98.1 F 97.3 F L Pulse Rate 78 79 86 Respiratory Rate 18 16 Blood Pressure 136/82 115/79 134/79 Pulse Oximetry 98 98 Oxygen Delivery Oxygen Flow Rate 11/21/23 20:22 11/21/23 20:22 11/21/23 20:30 Temperature Pulse Rate 84 81 Respiratory Rate 18 18 Blood Pressure Pulse Oximetry 96 Oxygen Delivery High Flow Nasal Cannula Oxygen Flow Rate 11/21/23 21:11 11/21/23 21:3
[2023-11-22] MEDS: HYDROcodone/acetaminophen (*CRX) 7.5-325 MG TABLET 1 TAB PO (21:25)
[2023-11-23] VITALS (16 sets, daily range): BP systolic 134–167; BP diastolic 76–83; PULSE 67–98; RESP 16–20; TEMP 36.6; O2SAT 93–98
[2023-11-23] MEDS: IPRATROPIUM 0.5 MG/ALBUTEROL SULFATE 2.5 MG AMPUL.NEB 3 ML INHALATION ×5 (02:13→20:30)
[2023-11-23] MEDS: AZITHROMYCIN 500 MG/NS 250 ML 500 MG/250 ML BAG 250 MG IVPB (04:32)
[2023-11-23] MEDS: HYDROcodone/acetaminophen (*CRX) 7.5-325 MG TABLET 1 TAB PO ×2 (05:44→15:39)
[2023-11-23 05:46] LABS: Hematocrit 35.3 % (37.0-47.0); Hemoglobin 10.9 g/dL (12.0-15.0); Mean Corpuscular HGB Conc 30.9 g/dl (32-36); Mean Corpuscular Hemoglobin 29.9 pg (26-34); Mean Corpuscular Volume 96.7 fl (80-100); Mean Platelet Volume 9.9 fl (7.4-10.4); Platelet Count Result 214 k/mm3 (150-375); Red Blood Count 3.65 M/mm3 (4.2-5.4); Red Cell Distribution Width 12.5 % (11.5-14.5)
[2023-11-23 06:02] LABS: Alanine Aminotransferase 8 U/L (6-35); Albumin Level 3.5 g/dL (3.5-5.1); Alkaline Phosphatase 51 U/L (38-126); Anion Gap 14 mmol/L (4-12); Aspartate Amino Transferase 13 U/L (14-36); Bilirubin,Total 0.3 mg/dL (0.2-1.3); Blood Urea Nitrogen 58 mg/dL (7-17); Calcium 10.4 mg/dL (8.4-10.2); Carbon Dioxide 26 mmol/L (22-30); Chloride 97 mmol/L (98-107); Estimated CRCL calculation 10 ml/min; Estimated Glomerular Filt Rate 6; Glucose 120 mg/dL (65-110); Potassium 4.4 mmol/L (3.4-5.0); Sodium 137 mmol/L (137-145)
[2023-11-23] MEDS: ESCITALOPRAM OXALATE 5 MG TABLET PO (09:23)
[2023-11-23] MEDS: cefTRIAXone 2 GM/NS 100 ML 2 GM/100 ML BAG IVPB (09:23)
[2023-11-23] MEDS: predniSONE 20 MG TABLET 40 MG PO (09:23)
[2023-11-23] MEDS: amLODIPine BESYLATE 10 MG TABLET PO (09:23)
[2023-11-23] MEDS: hydrALAZINE HCL 25 MG TABLET PO (09:23)
[2023-11-23] MEDS: busPIRone HCL 5 MG TABLET BY MOUTH ×2 (09:23→17:57)
[2023-11-23] MEDS: carvediloL 25 MG TABLET BY MOUTH ×2 (09:23→20:25)
[2023-11-23] MEDS: calcitrioL 0.25 MCG CAPSULE PO ×2 (09:23→17:56)
[2023-11-23] MEDS: ROSUVASTATIN 10 MG TABLET PO (09:23)
[2023-11-23] MEDS: hydrOXYzine HCL 10 MG TABLET 30 MG PO ×3 (09:23→17:56)
[2023-11-23] MEDS: SEVELAMER CARBONATE 800 MG TABLET 2400 MG PO ×3 (09:23→17:57)
--- NOTE | 2023-11-23 09:39 | P.PNNP_ITS ---
Progress Note: A&P Assessment and Plan (1) ESRD (end stage renal disease): Code(s): N18.6 - End stage renal disease Status: Chronic Assessment and Plan: * HD due tomorrow. * I will write orders in case she is still here * Volume status looks okay. (2) Acute hypoxemic respiratory failure: Code(s): J96.01 - Acute respiratory failure with hypoxia Status: Acute Assessment and Plan: * presumably due to asthma/reactive airway disease exacerbation +/- pneumonia * possible component of fluid overload (?) * admission CXR with right basilar atelectasis versus pneumonia with pleural effusion * on supplemental oxygen - wean as tolerated * on steroids and nebulizer treatments * She is on antibiotics as well. (3) Pneumonia: Qualifiers: Laterality: right Lung location: lower lobe of lung Pneumonia type: due to unspecified organism Qualified Code(s): J18.9 - Pneumonia, unspecified organism Code(s): J18.9 - Pneumonia, unspecified organism Status: Suspected Assessment and Plan: * suspected based on admission imaging * follow culture data * on azithromycin and ceftriaxone (4) Asthma: Code(s): J45.909 - Unspecified asthma, uncomplicated Status: Acute Assessment and Plan: * likely playing a role with #2 * continue oxygen, steroids, and nebulizer treatments * No wheezing (5) Hypertension: Code(s): I10 - Essential (primary) hypertension Status: Chronic Assessment and Plan: * Systolic running in the 110-150 range mostly in the 130s or below * continue home medications (6) Anemia: Code(s): D64.9 - Anemia, unspecified Status: Chronic Assessment and Plan: * secondary to ESRD * [facility]IL[facility] with dialysis * Hemoglobin 10.9 today Subjective Date/time seen: 11/23/23 09:39 Interval history: Michelle is feeling better today. She is eager for discharge ate a good breakfast Breathing fine Exam Narrative: General: WD/WN female in NAD Heart: normal S1 and S2; no rub or gallop Lungs: Mildly coarse breath sounds at the bases Abdomen: soft, nontender, nondistended, positive bowel sounds Extremities: no cyanosis or clubbing; no edema Skin: No rash or subQ nodules Objective Data Vital Signs Vital Signs: Vital Signs - 24 hr 11/22/23 14:13 11/22/23 14:13 11/22/23 14:25 Temperature Pulse Rate 79 75 Respiratory Rate 20 20 Blood Pressure Pulse Oximetry 95 Oxygen Delivery Nasal Cannula Oxygen Flow Rate 3 11/22/23 14:51 11/22/23 14:00 11/22/23 21:01 Temperature 97.9 F Pulse Rate 84 95 Respiratory Rate 16 Blood Pressure 130/77 Pulse Oximetry 93 94 Oxygen Delivery Nasal Cannula Oxygen Flow Rate 2 11/22/23 21:15 11/22/23 21:15 11/22/23 21:56 Temperature 98.1 F Pulse Rate 91 95 Respiratory Rate 18 20 Blood Pressure 145/89 H Pulse Oximetry 96 96 Oxygen Delivery Nasal Cannula Oxygen Flow Rate 2 11/23/23 02:14 11/22/23 21:21 11/23/23 02:20 Temperature Pulse Rate 94 95 98 Respiratory Rate 18 18 18 Blood Pressure
--- NOTE | 2023-11-23 09:39 | PM.PNNEP ---
Progress Note: A&P Assessment and Plan (1) ESRD (end stage renal disease): Code(s): N18.6 - End stage renal disease Status: Chronic Assessment and Plan: HD due tomorrow. I will write orders in case she is still here Volume status looks okay. (2) Acute hypoxemic respiratory failure: Code(s): J96.01 - Acute respiratory failure with hypoxia Status: Acute Assessment and Plan: presumably due to asthma/reactive airway disease exacerbation +/- pneumonia possible component of fluid overload (?) admission CXR with right basilar atelectasis versus pneumonia with pleural effusion on supplemental oxygen - wean as tolerated on steroids and nebulizer treatments She is on antibiotics as well. (3) Pneumonia: Qualifiers: Laterality: right Lung location: lower lobe of lung Pneumonia type: due to unspecified organism Qualified Code(s): J18.9 - Pneumonia, unspecified organism Code(s): J18.9 - Pneumonia, unspecified organism Status: Suspected Assessment and Plan: suspected based on admission imaging follow culture data on azithromycin and ceftriaxone (4) Asthma: Code(s): J45.909 - Unspecified asthma, uncomplicated Status: Acute Assessment and Plan: likely playing a role with #2 continue oxygen, steroids, and nebulizer treatments No wheezing (5) Hypertension: Code(s): I10 - Essential (primary) hypertension Status: Chronic Assessment and Plan: Systolic running in the 110-150 range mostly in the 130s or below continue home medications (6) Anemia: Code(s): D64.9 - Anemia, unspecified Status: Chronic Assessment and Plan: secondary to ESRD NIL[facility] with dialysis Hemoglobin 10.9 today Subjective Date/time seen: 11/23/23 09:39 Interval history: Michelle is feeling better today. She is eager for discharge ate a good breakfast Breathing fine Exam Narrative: General: WD/WN female in NAD Heart: normal S1 and S2; no rub or gallop Lungs: Mildly coarse breath sounds at the bases Abdomen: soft, nontender, nondistended, positive bowel sounds Extremities: no cyanosis or clubbing; no edema Skin: No rash or subQ nodules Objective Data Vital Signs Vital Signs: Vital Signs - 24 hr 11/22/23 14:13 11/22/23 14:13 11/22/23 14:25 Temperature Pulse Rate 79 75 Respiratory Rate 20 20 Blood Pressure Pulse Oximetry 95 Oxygen Delivery Nasal Cannula Oxygen Flow Rate 3 11/22/23 14:51 11/22/23 14:00 11/22/23 21:01 Temperature 97.9 F Pulse Rate 84 95 Respiratory Rate 16 Blood Pressure 130/77 Pulse Oximetry 93 94 Oxygen Delivery Nasal Cannula Oxygen Flow Rate 2 11/22/23 21:15 11/22/23 21:15 11/22/23 21:56 Temperature 98.1 F Pulse Rate 91 95 Respiratory Rate 18 20 Blood Pressure 145/89 H Pulse Oximetry 96 96 Oxygen Delivery Nasal Cannula Oxygen Flow Rate 2 11/23/23 02:14 11/22/23 21:21 11/23/23 02:20 Temperature Pulse Rate 94 95 98 Respiratory Rate 18 18 18 Blood Pressure Pulse Oximetry Oxygen Delivery Oxygen Flow Rate 11/23/23 06:00 11/23/23 07:57 11/23/23 07:57 Temperature 97.9 F Pulse Rate 81 67 Respiratory Rate 20 20 Blood Pressure 149/83 H Pulse Oximetry 97 96 Oxygen Delivery Nasal Cannula Oxygen Flow Rate 2 11/23/23 08:06 11/23/23 09:23 Temperature Pulse Rate 68 82 Respiratory Rate 20 Blood Pressure Pulse Oximetry Oxygen Delivery Oxygen Flow Rate Intake/Output Intake/Output: Intake & Output 11/20/23 11/21/23 11/22/23 11/23/23 23:59 23:59 23:59 23:59 Intake Total 1040 1552 2190 650 Output Total 0 3205 Balance 1040 -1653 2190 650 Meds/Results Medications: Active Medications Generic Name Dose Route Start Last Admin Trade Name Freq PRN Reason Stop Dose Admin Acetaminophen 650 mg 11/20/23 03:19 Acetaminophen 325 Mg Tablet
[2023-11-23] MEDS: MORPHINE SULFATE (*CRX) 2 MG/ML INJ IV PUSH ×2 (09:53→20:23)
[2023-11-23] MEDS: guaiFENesin 12 HR 600 MG TABCR 1200 MG PO ×2 (12:20→20:25)
--- NOTE | 2023-11-23 14:44 | P.PNIM_ITS ---
Progress Note: A&P Assessment and Plan (1) Acute hypoxemic respiratory failure: Code(s): J96.01 - Acute respiratory failure with hypoxia Status: Acute Assessment and Plan: * presumably due to asthma/reactive airway disease exacerbation +/- pneumonia * possible component of fluid overload (?) * admission CXR with right basilar atelectasis versus pneumonia with pleural effusion * on supplemental oxygen - wean as tolerated * on steroids and nebulizer treatments * PACS and ceftriaxone * continue supportive therapy (2) Pneumonia: Qualifiers: Laterality: right Lung location: lower lobe of lung Pneumonia type: due to unspecified organism Qualified Code(s): J18.9 - Pneumonia, unspecified organism Code(s): J18.9 - Pneumonia, unspecified organism Status: Suspected Assessment and Plan: * suspected based on admission imaging * follow culture data * on Zithromax and ceftriaxone (3) Asthma: Code(s): J45.909 - Unspecified asthma, uncomplicated Status: Acute Assessment and Plan: * likely playing a role with #2 * continue oxygen, steroids, and nebulizer treatments * Wheezing (4) Renal failure: Code(s): N19 - Unspecified kidney failure Status: Acute (5) ESRD (end stage renal disease): Code(s): N18.6 - End stage renal disease Status: Chronic Assessment and Plan: * HD completed yesterday * Volume status looks okay * Eating well (6) Hypertension: Code(s): I10 - Essential (primary) hypertension Status: Chronic Assessment and Plan: * Systolic 110-144 * continue home medications (7) Anemia: Code(s): D64.9 - Anemia, unspecified Status: Chronic Assessment and Plan: * secondary to ESRD * NILSON with dialysis * Check a CBC in the morning Plan Asthma exacerbation 2/2 Fluid overload vs infection -chest x-ray shows Right basilar atelectasis versus pneumonia with pleural effusion. 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 Discontinued prednisone and started methylprednisolone 60 mg q.8 hours. Also increase the respiratory treatment from q.6 hours to q.4 hours scheduled. Patient will likely discharge tomorrow if no respiratory symptoms after the dialysis. try weaning of oxygen Exam Narrative: General: WD/WN female in NAD Heart: normal S1 and S2; no rub Lungs: Mildly coarse breath sounds at the bases Abdomen: soft, nontender, nondistended, positive bowel sounds Extremities: no cyanosis or clubbing; no edema Skin: No rash Objective Data Vital Signs Vital Signs: Vital Signs - 24 hr 11/22/23 14:51 11/22/23 21:01 11/22/23 21:15 Temperature Pulse Rate 95 Respiratory Rate Blood Pressure Pulse Oximetry 93 96 Oxygen Delivery Nasal Cannula Nasal Cannula Oxygen Flow Rate 2 2 11/22/23 21:15
--- NOTE | 2023-11-23 14:44 | PM.IMPN ---
Progress Note: A&P Assessment and Plan (1) Acute hypoxemic respiratory failure: Code(s): J96.01 - Acute respiratory failure with hypoxia Status: Acute Assessment and Plan: presumably due to asthma/reactive airway disease exacerbation +/- pneumonia possible component of fluid overload (?) admission CXR with right basilar atelectasis versus pneumonia with pleural effusion on supplemental oxygen - wean as tolerated on steroids and nebulizer treatments PACS and ceftriaxone continue supportive therapy (2) Pneumonia: Qualifiers: Laterality: right Lung location: lower lobe of lung Pneumonia type: due to unspecified organism Qualified Code(s): J18.9 - Pneumonia, unspecified organism Code(s): J18.9 - Pneumonia, unspecified organism Status: Suspected Assessment and Plan: suspected based on admission imaging follow culture data on Zithromax and ceftriaxone (3) Asthma: Code(s): J45.909 - Unspecified asthma, uncomplicated Status: Acute Assessment and Plan: likely playing a role with #2 continue oxygen, steroids, and nebulizer treatments Wheezing (4) Renal failure: Code(s): N19 - Unspecified kidney failure Status: Acute (5) ESRD (end stage renal disease): Code(s): N18.6 - End stage renal disease Status: Chronic Assessment and Plan: HD completed yesterday Volume status looks okay Eating well (6) Hypertension: Code(s): I10 - Essential (primary) hypertension Status: Chronic Assessment and Plan: Systolic 110-144 continue home medications (7) Anemia: Code(s): D64.9 - Anemia, unspecified Status: Chronic Assessment and Plan: secondary to ESRD NILSON with dialysis Check a CBC in the morning Plan Asthma exacerbation 2/2 Fluid overload vs infection -chest x-ray shows Right basilar atelectasis versus pneumonia with pleural effusion. 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 Discontinued prednisone and started methylprednisolone 60 mg q.8 hours. Also increase the respiratory treatment from q.6 hours to q.4 hours scheduled. Patient will likely discharge tomorrow if no respiratory symptoms after the dialysis. try weaning of oxygen Exam Narrative: General: WD/WN female in NAD Heart: normal S1 and S2; no rub Lungs: Mildly coarse breath sounds at the bases Abdomen: soft, nontender, nondistended, positive bowel sounds Extremities: no cyanosis or clubbing; no edema Skin: No rash Objective Data Vital Signs Vital Signs: Vital Signs - 24 hr 11/22/23 14:51 11/22/23 21:01 11/22/23 21:15 Temperature Pulse Rate 95 Respiratory Rate Blood Pressure Pulse Oximetry 93 96 Oxygen Delivery Nasal Cannula Nasal Cannula Oxygen Flow Rate 2 2 11/22/23 21:15 11/22/23 21:56 11/23/23 02:14 Temperature 98.1 F Pulse Rate 91 95 94 Respiratory Rate 18 20 18 Blood Pressure 145/89 H Pulse Oximetry 96 Oxygen Delivery Oxygen Flow Rate 11/22/23 21:21 11/23/23 02:20 11/23/23 06:00 Temperature 97.9 F Pulse Rate 95 98 81 Respiratory Rate 18 18 20 Blood Pressure 149/83 H Pulse Oximetry 97 Oxygen Delivery Oxygen Flow Rate 11/23/23 07:57 11/23/23 07:57 11/23/23 08:06 Temperature Pulse Rate 67 68 Respiratory Rate 20 20 Blood Pressure Pulse Oximetry 96 Oxygen Delivery Nasal Cannula Oxygen Flow Rate 2 11/23/23 09:23 11/23/23 09:53 11/23/23 13:17 Temperature
[2023-11-23] MEDS: methylPREDNISolone SOD SUCC 125 MG VIAL 60 MG IV PUSH ×2 (15:38→21:23)
[2023-11-24] VITALS (26 sets, daily range): BP systolic 121–173; BP diastolic 72–98; PULSE 72–91; RESP 16–18; TEMP 36.2–37; O2SAT 93–97
[2023-11-24] MEDS: MORPHINE SULFATE (*CRX) 2 MG/ML INJ IV PUSH (01:49)
[2023-11-24] MEDS: IPRATROPIUM 0.5 MG/ALBUTEROL SULFATE 2.5 MG AMPUL.NEB 3 ML INHALATION ×3 (02:10→12:15)
[2023-11-24] MEDS: AZITHROMYCIN 500 MG/NS 250 ML 500 MG/250 ML BAG 250 MG IVPB (04:33)
[2023-11-24 05:41] LABS: Hematocrit 33.2 % (37.0-47.0); Hemoglobin 10.4 g/dL (12.0-15.0); Mean Corpuscular HGB Conc 31.3 g/dl (32-36); Mean Corpuscular Hemoglobin 30.1 pg (26-34); Mean Platelet Volume 9.7 fl (7.4-10.4); Platelet Count Result 206 k/mm3 (150-375); Red Blood Count 3.46 M/mm3 (4.2-5.4); Red Cell Distribution Width 12.2 % (11.5-14.5); White Blood Count 7.8 K/mm3 (4.5-10.0)
[2023-11-24] MEDS: methylPREDNISolone SOD SUCC 125 MG VIAL 60 MG IV PUSH (05:57)
[2023-11-24 06:00] LABS: Alanine Aminotransferase 10 U/L (6-35); Albumin Level 3.7 g/dL (3.5-5.1); Alkaline Phosphatase 51 U/L (38-126); Anion Gap 16 mmol/L (4-12); Aspartate Amino Transferase 15 U/L (14-36); Bilirubin,Total 0.8 mg/dL (0.2-1.3); Blood Urea Nitrogen 78 mg/dL (7-17); Calcium 10.7 mg/dL (8.4-10.2); Carbon Dioxide 24 mmol/L (22-30); Chloride 95 mmol/L (98-107); Estimated CRCL calculation 7 ml/min; Estimated Glomerular Filt Rate 5; Glucose 158 mg/dL (65-110); Phosphorus 7.7 mg/dL (2.5-4.5); Potassium 4.9 mmol/L (3.4-5.0); Sodium 135 mmol/L (137-145)
[2023-11-24] MEDS: hydrOXYzine HCL 10 MG TABLET 30 MG PO (08:16)
[2023-11-24] MEDS: ROSUVASTATIN 10 MG TABLET PO (08:16)
[2023-11-24] MEDS: amLODIPine BESYLATE 10 MG TABLET PO (08:16)
[2023-11-24] MEDS: SEVELAMER CARBONATE 800 MG TABLET 2400 MG PO (08:16)
[2023-11-24] MEDS: guaiFENesin 12 HR 600 MG TABCR 1200 MG PO (08:16)
[2023-11-24] MEDS: calcitrioL 0.25 MCG CAPSULE PO (08:16)
[2023-11-24] MEDS: busPIRone HCL 5 MG TABLET BY MOUTH (08:16)
[2023-11-24] MEDS: carvediloL 25 MG TABLET BY MOUTH (08:17)
[2023-11-24] MEDS: hydrALAZINE HCL 25 MG TABLET PO (08:17)
[2023-11-24] MEDS: ESCITALOPRAM OXALATE 5 MG TABLET PO (08:17)
[2023-11-24] MEDS: HYDROcodone/acetaminophen (*CRX) 7.5-325 MG TABLET 1 TAB PO ×2 (08:17→12:25)
[2023-11-24] MEDS: cefTRIAXone 2 GM/NS 100 ML 2 GM/100 ML BAG IVPB (08:19)
--- NOTE | 2023-11-24 08:58 | PM.DS ---
DS: Admitting Diagnosis Discharge Date Admitting Diagnosis Pneumonia DS: Discharge Diagnosis Discharge Diagnosis (1) Acute hypoxemic respiratory failure: Code(s): J96.01 - Acute respiratory failure with hypoxia Status: Acute Assessment and Plan: presumably due to asthma/reactive airway disease exacerbation +/- pneumonia possible component of fluid overload (?) admission CXR with right basilar atelectasis versus pneumonia with pleural effusion on supplemental oxygen - wean as tolerated on steroids and nebulizer treatments PACS and ceftriaxone continue supportive therapy (2) Pneumonia: Qualifiers: Laterality: right Lung location: lower lobe of lung Pneumonia type: due to unspecified organism Qualified Code(s): J18.9 - Pneumonia, unspecified organism Code(s): J18.9 - Pneumonia, unspecified organism Status: Suspected Assessment and Plan: suspected based on admission imaging follow culture data on Zithromax and ceftriaxone (3) Asthma: Code(s): J45.909 - Unspecified asthma, uncomplicated Status: Acute Assessment and Plan: likely playing a role with #2 continue oxygen, steroids, and nebulizer treatments Wheezing (4) Renal failure: Code(s): N19 - Unspecified kidney failure Status: Acute (5) ESRD (end stage renal disease): Code(s): N18.6 - End stage renal disease Status: Chronic Assessment and Plan: HD completed yesterday Volume status looks okay Eating well (6) Hypertension: Code(s): I10 - Essential (primary) hypertension Status: Chronic Assessment and Plan: Systolic 110-144 continue home medications (7) Anemia: Code(s): D64.9 - Anemia, unspecified Status: Chronic Assessment and Plan: secondary to ESRD NILSON with dialysis Check a CBC in the morning Plan Asthma exacerbation 2/2 Fluid overload vs infection -chest x-ray shows Right basilar atelectasis versus pneumonia with pleural effusion. 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 Patient underwent dialysis for almost 2 years. Patient underwent cadaveric renal transplant in 2005 which failed. Currently patient in dialysis Friday. Patient missed the Friday dialysis but underwent dialysis yesterday. Patient reports yesterday she was shortness of breath and felt like she has pneumonia and called 911. Brought in by EMS. In the ED patient was saturating 91% on 6 L. patient also had a cough which was nonproductive. Patient has a chest pain which appears to be pleuritic. The initial troponin was negative. We repeated the troponin which is also negative. Patient has a past medical history of asthma. During the course of hospitalization patient was receiving oral prednisone but continued to wheeze so we changed to IV prednisone and schedule the breathing treatment for q4hrs instead of q6 hours. Today the patient is doing better given the patient is still wheezing but continued to improve and we discontinue ceftriaxone azithromycin. Patient is saturating well on room air. Patient will be discharged after dialysis. Advice to take prednisone 40 mg for 5 days and cefdinir 250 mg every night at bedtime possible after dialysis. In case of respiratory distress at rest advised patient to seek ER immediately. Status at Discharge Cognitive/
--- NOTE | 2023-11-24 09:40 | PCRCNOTE ---
Window of time for administration has passed. See next scheduled administration.
[2023-11-24] MEDS: LIDOCAINE/PRILOCAINE CREAM 2.5-2.5% TUBE 1 EACH TOPICAL (12:18)
--- NOTE | 2023-11-24 13:30 | PC.NURSE ---
Patient off of unit to Dialysis
--- NOTE | 2023-11-24 14:12 | PM.PNNEP ---
Progress Note: A&P Assessment and Plan (1) ESRD (end stage renal disease): Code(s): N18.6 - End stage renal disease Status: Chronic Assessment and Plan: HD today continue M/W/F outpatient disalysis schedule while hospitalized follow electrolytes, volume status, and clearance follows with Dr. Edmondson at [facility] (2) Acute hypoxemic respiratory failure: Code(s): J96.01 - Acute respiratory failure with hypoxia Status: Acute Assessment and Plan: clinically improving presumably due to asthma/reactive airway disease exacerbation +/- pneumonia possible component of fluid overload (?) admission CXR with right basilar atelectasis versus pneumonia with pleural effusion weaned off supplemental oxygen on steroids and nebulizer treatments on antibiotics as well (3) Pneumonia: Qualifiers: Laterality: right Lung location: lower lobe of lung Pneumonia type: due to unspecified organism Qualified Code(s): J18.9 - Pneumonia, unspecified organism Code(s): J18.9 - Pneumonia, unspecified organism Status: Suspected Assessment and Plan: suspected based on admission imaging follow culture data on azithromycin and ceftriaxone (4) Asthma: Code(s): J45.909 - Unspecified asthma, uncomplicated Status: Acute Assessment and Plan: likely playing a role with #2 continue oxygen, steroids, and nebulizer treatments No wheezing (5) Hypertension: Code(s): I10 - Essential (primary) hypertension Status: Chronic Assessment and Plan: reasonable control continue home medications follow trend of hemodynamics (6) Anemia: Code(s): D64.9 - Anemia, unspecified Status: Chronic Assessment and Plan: secondary to ESRD NILSON with dialysis follow trend of H/H Not opposed to discharge from renal perspective after dialysis today if otherwise medically stable. Will continue to follow. Subjective Date/time seen: 11/24/23 14:12 Interval history: Follow-up for end stage renal disease on hemodialysis. Chart reviewed since last seen -- breathing/respiratory status seems to be doing better with current interventions; weaned off supplemental oxygen; tolerating dialysis treatment at the time of my visit (seen on HD at 2:00PM); no apparent distress noted; no issues/events overnight or earlier this morning. Exam Narrative: General: WD/WN female in NAD Heart: normal S1 and S2; no rub Lungs: mildly coarse breath sounds at the bases Abdomen: soft, nontender, nondistended, positive bowel sounds Extremities: no cyanosis or clubbing; no edema Skin: warm and dry Objective Data Vital Signs Vital Signs: Vital Signs Temp Pulse Resp BP Pulse Ox O2 Del Method O2 Flow Rate 11/24/23 14:00 84 150/81 H 11/24/23 13:45 79 145/85 H 11/24/23 13:37 83 163/91 H 11/24/23 13:22 97.2 F L 91 16 173/98 H 11/24/23 08:16 97 Room Air 11/24/23 08:17 88 11/24/23 06:00 97.2 F L 77 16 160/73 H 93 11/24/23 05:06 75 18 11/24/23 02:16 78 18 11/23/23 20:38 83 20 11/24/23 02:10 80 18 11/23/23 20:25 93 Room Air 11/23/23 21:33 97.9 F 80 16 167/81 H 93 11/23/23 20:31 85 20 11/23/23 20:31 93 Nasal Cannula 1 11/23/23 20:25 84 11/23/23 16:09 79 20 11/23/23 15:58 72 20 11/23/23 15:58 72 20 96 Nasal Cannula 0.5 Intake/Output Intake/Output: Intake & Output 11/21/23 11/22/23 11/23/23 11/24/23 23:59 23:59 23:59 23:59 Intake Total 1552 2190 2060 1630 Output Total 3205 Balance -1653 2190 2060 1630 Meds/Results Medications: Active Medications Generic Name Dose Route Start Last Admin Trade Name Freq PRN Reason Stop Dose Admin Acetaminophen 650 mg 11/20/23 03:19 Acetaminophen 325 Mg Tablet PO Q4H PRN Mild Pain (1-3) or Feve
--- NOTE | 2023-11-24 14:12 | P.PNNP_ITS ---
Progress Note: A&P Assessment and Plan (1) ESRD (end stage renal disease): Code(s): N18.6 - End stage renal disease Status: Chronic Assessment and Plan: * HD today * continue M/W/F outpatient disalysis schedule while hospitalized * follow electrolytes, volume status, and clearance * follows with Dr. Edmondson at [facility] (2) Acute hypoxemic respiratory failure: Code(s): J96.01 - Acute respiratory failure with hypoxia Status: Acute Assessment and Plan: * clinically improving * presumably due to asthma/reactive airway disease exacerbation +/- pneumonia * possible component of fluid overload (?) * admission CXR with right basilar atelectasis versus pneumonia with pleural effusion * weaned off supplemental oxygen * on steroids and nebulizer treatments * on antibiotics as well (3) Pneumonia: Qualifiers: Laterality: right Lung location: lower lobe of lung Pneumonia type: due to unspecified organism Qualified Code(s): J18.9 - Pneumonia, unspecified organism Code(s): J18.9 - Pneumonia, unspecified organism Status: Suspected Assessment and Plan: * suspected based on admission imaging * follow culture data * on azithromycin and ceftriaxone (4) Asthma: Code(s): J45.909 - Unspecified asthma, uncomplicated Status: Acute Assessment and Plan: * likely playing a role with #2 * continue oxygen, steroids, and nebulizer treatments * No wheezing (5) Hypertension: Code(s): I10 - Essential (primary) hypertension Status: Chronic Assessment and Plan: * reasonable control * continue home medications * follow trend of hemodynamics (6) Anemia: Code(s): D64.9 - Anemia, unspecified Status: Chronic Assessment and Plan: * secondary to ESRD * NILSON with dialysis * follow trend of H/H Not opposed to discharge from renal perspective after dialysis today if otherwise medically stable. Will continue to follow. Subjective Date/time seen: 11/24/23 14:12 Interval history: Follow-up for end stage renal disease on hemodialysis. Chart reviewed since last seen -- breathing/respiratory status seems to be doing better with current interventions; weaned off supplemental oxygen; tolerating dialysis treatment at the time of my visit (seen on HD at 2:00PM); no apparent distress noted; no issues/events overnight or earlier this morning. Exam Narrative: General: WD/WN female in NAD Heart: normal S1 and S2; no rub Lungs: mildly coarse breath sounds at the bases Abdomen: soft, nontender, nondistended, positive bowel sounds Extremities: no cyanosis or clubbing; no edema Skin: warm and dry Objective Data Vital Signs Vital Signs: Vital Signs Temp Pulse Resp BP Pulse Ox O2 Del Method O2 Flow Rate 11/24/23 14:00 84 150/81 H 11/24/23 13:45 79 145/85 H 11/24/23 13:37 83 163/91 H 11/24/23 13:22 97.2 F L 91 16 173/98 H 11/24/23 08:16 97 Room Air 11/24/23 08:17 88 11/24/23 06:00 97.2 F L 77 16 160/73 H 93 11/24/23 05:06 75 18 11/24/23 02:16 78 18 11/23/23 20:38 83 20 11/24/23 02:10 80 18 11/23/23 20:25 93 Room Air 11/23/23 21:33 97.9 F 80 16 167/81 H 93
== END 2023-11-24 18:40 | disposition home or self-care (01) | DRG 193 ==
LOC: ANHIMU 17:42 → ANH3MED 11-21 11:37
PROVIDERS: Internal Medicine Nephrology; Admitting Provider Internal Medicine; PCP Family Medicine; Visit Provider General Practice
DX: J18.9 Pneumonia, unspecified organism (principal); J96.01 Acute respiratory failure with hypoxia; N18.6 End stage renal disease; N17.9 Acute kidney failure, unspecified; I12.0 Hypertensive chronic kidney disease with stage 5 chronic kidney disease or end stage renal disease; J45.901 Unspecified asthma with (acute) exacerbation; Z94.0 Kidney transplant status; Z99.2 Dependence on renal dialysis; D63.1 Anemia in chronic kidney disease; Z87.891 Personal history of nicotine dependence
CPT/HCPCS: 36415; 71045; 80048; 80053; 83735; 84100; 84484; 85025; 85027; 85610; 85730; 86706; 87340; 94640; 94667; A9270; G0257; J0456; J0696; J2270; J2919; J7030; J7512; Q5105

== ENCOUNTER 2024-02-19 20:04 | Observation (INO) | payer MEDICARE, MEDICAID, SELFPAY ==
[2024-02-19] VITALS (24 sets, daily range): BP systolic 146–182; BP diastolic 87–127; PULSE 94–120; RESP 16–22; TEMP 36.7–37.6; O2SAT 86–100; BMI 28.8
--- NOTE | ~2024-02-19 | XR_ITS ---
EXAMINATION: XR chest 1V portable DATE: 02/19/2024 20:30 INDICATION: Shortness of breath. TECHNIQUE: A single frontal view of the chest was obtained. COMPARISON: Chest single view 11/23/2023, chest CT 01/16/2022 FINDINGS: There is mild atelectasis in left lower lung zone. No pleural effusion or pneumothorax. The heart size is normal. IMPRESSION: 1. Mild atelectasis in left lower lung zone. Reviewed, dictated and finalized at location A. [facility] [employer]
--- NOTE | 2024-02-19 20:27 | PC.NURSE ---
COVID PCR obtained and taken to lab
[2024-02-19] MEDS: LEVALBUTEROL NEB 1.25 MG/3 ML 2.5 MG INHALATION (20:43)
--- NOTE | 2024-02-19 20:46 | ED_ITS ---
HPI - SOB/Dyspnea General Chief Complaint: Shortness of Breath/Dyspnea Stated Complaint: shortness of breath Time Seen by Provider: 02/19/24 20:22 Source: patient and EMS Mode of arrival: EMS Limitations: no limitations History of Present Illness HPI Narrative: is a 38-year-old female with end-stage renal disease on hemodialysis presents via EMS with cough congestion low-grade fever. Patient has a cough that is nonproductive has a history of asthma and was brought in by EMS with some O2 sats around 90% currently at 99% on 2L. There is no abdominal pain no chest pain no flank pain no dysuria. The patient had dialysis yesterday and is due to receive another dialysis treatment tomorrow as well. MD elicited complaint: shortness of breath and cough Pertinent past history: COPD Onset (ago): day(s) Related Data Home Medications ?Medication ?Instructions ?Recorded ?Confirmed ?Last Taken ?Type hydralazine 25 mg tablet 25 mg PO DAILY 06/25/20 02/19/24 02/18/24 History hydroxyzine HCl 25 mg tablet 30 mg PO TID 01/16/22 02/19/24 02/18/24 History rosuvastatin 10 mg tablet 10 mg PO DAILY 01/16/22 02/19/24 02/18/24 History amlodipine 10 mg tablet 10 mg PO DAILY 11/19/23 02/19/24 02/18/24 History escitalopram oxalate 5 mg tablet 5 mg PO DAILY 11/19/23 02/19/24 02/18/24 History hydrocodone 7.5 mg-acetaminophen 1 tablet PO Q4-6M PRN Pain 11/19/23 02/19/24 11/18/23 History 325 mg tablet buspirone 5 mg tablet 5 mg PO BID 11/20/23 02/19/24 02/18/24 History calcitriol 0.25 mcg capsule 0.25 mcg PO BID 11/20/23 02/19/24 02/19/24 History carvedilol 25 mg tablet 25 mg PO BID 11/20/23 02/19/24 02/18/24 History sevelamer carbonate 800 mg tablet 2,400 mg PO TIDWMEAL 11/20/23 02/19/24 02/18/24 History (Renvela) hydrocodone 10 mg-acetaminophen 1 tablet PO Q6H PRN pain 02/19/24 02/19/24 Unknown History 325 mg tablet Allergies Allergy/AdvReac Type Severity Reaction Status Date / Time Penicillins Allergy Rash Verified 02/19/24 20:17 Review of Systems Review of Systems: All systems reviewed & are unremarkable except as noted in HPI and below PMFSH Past Medical History Medical History Asthma Hypertension Renal failure Asthma Peritoneal dialysis status ESRD (end stage renal disease) Surgical History Surgical History History of cholecystectomy History of arteriovenostomy for renal dialysis History of tonsillectomy Kidney transplant recipient Hx of tonsillectomy History of colon surgery History of cholecystectomy Kidney transplant recipient Family History Family History Mother Diabetes mellitus Grandparent Cancer Social History Social History Smoking packs per day: 0.5 Smoking cigarettes per day: 10.0 Years smoked: 15 Smoking pack-years: 7.50 Smoking status: Former smoker Tobacco type: cigarettes Alcohol intake: never Substance use: never Do You Feel Safe in your Home?: Yes Lack of Transportation: No Lack of Food: Never True Current Housing: I Have Housing Concerned About Future Housing: No Difficulty Paying Gas/Electric Bills: No Difficulty Paying for Meds: No Currently Unemployed: No Education: High School Diploma/GED Difficulty w/ Childcare or Family Care: No Living arrangements: with family Gender identity (if verbalized by the patient): Female Spiritual care concerns: No Exam Const: General: healthy appearing and no acute distress Nutritional Appearance: well nourished Orientation/consciousness: patient oriented x3 Limitations: no limitations HENMT: Head: normal to inspection Neck: Neck: normal visual inspection Chest: Chest palpation & inspection: normal inspection of the chest Resp: Effort & Inspection: normal respiratory effort Auscultation: clear to auscultation bilaterally Cardio: Rate: regular rate Rhythm: regular rhythm GI: GI Palp: Yes Soft to palpation Auscultation: normal bowel sounds : General: Yes bladder normal to palpation Course Course Emergency Course: Patient had a breathing treatment with Xopenex, and a chest x-ray that shows atelectasis at lower lung bases without any evidence of pneumonia. Vital Signs Vital signs: Vital Signs Temperature 37.6 C H 02/19/24 20:11 Pulse Rate 119 H 02/19/24 20:11 Respiratory Rate 22 H 02/19/24 20:11 Blood Pressure 182/127 H 02/19/24 20:11 Pulse Oximetry 97 02/19/24 20:11 Oxygen Delivery Nasal Cannula 02/19/24 20:11 Oxygen Flow Rate 2 02/19/24 20:11 Temperature 37.6 C H 02/19/24 20:11 Pulse Rate 111 H 02/19/24 20:15 Respiratory Rate 22 H 02/19/24 20:11 Blood Pressure 160/107 H 02/19/24 20:15 Pulse Oximetry 99 02/19/24 20:15 Oxygen Delivery Nasal Cannula 02/19/24 20:15 Oxygen Flow Rate 2 02/19/24 20:15 MDM - SOB/Dyspnea Lab Data Labs: Lab Results 02/19/24 Range/Units 20:28 Influenza A (RT-PCR) Pending Influenza B (RT-PCR) Pending RSV (RT-PCR) Pending SARS-CoV-2 RNA (RT-PCR) Pending Critical Care Time Critical Care Time Critical Care Time: No Discharge Plan Discharge Patient Language: Hungarian Prescriptions: No Action hydralazine 25 mg tablet 25 mg PO DAILY amlodipine 10 mg tablet 10 mg PO DAILY hydrocodone-acetaminophen 7.5-325 mg tablet 1 tablet PO Q4-6M PRN (Reason: Pain) escitalopram oxalate 5 mg tablet 5 mg PO DAILY hydroxyzine HCl 25 mg tablet 30 mg PO TID rosuvastatin 10 mg tablet 10 mg PO DAILY hydrocodone-acetaminophen 10-325 mg tablet 1 tablet PO Q6H PRN (Reason: pain) buspirone 5 mg tablet 5 mg PO BID carvedilol 25 mg tablet 25 mg PO BID calcitriol 0.25 mcg Capsule 0.25 mcg PO BID sevelamer carbonate [Renvela] 800 mg Tablet 2,400 mg PO TIDWMEAL ipratropium-albuterol 0.5 mg-3 mg(2.5 mg base)/3 mL Solution For Nebulization 3 ml inhalation Q4HRT Qty: 30 0RF Follow-up/Referrals: Costa,Yasmine Singh MD [Primary Care Provider] -
[2024-02-19 20:48] LABS: Basophils Absolute Auto 0.04 K/mm3 (0.00-0.10); Basophils Percent Auto 0.3 % (0.0-1.0); Eosinophils Absolute Auto 0.15 K/mm3 (0.02-0.50); Eosinophils Percent Auto 1.1 % (1.0-6.0); Hematocrit 31.1 % (35.0-49.0); Hemoglobin 10.4 g/dL (12.0-15.0); Immature Granulocyte Absolute 0.04 K/mm3 (0.00-0.00); Immature Granulocyte Percent A 0.3 % (0.0-0.0); Lymphocytes Absolute Auto 1.75 K/mm3 (1.10-4.50); Lymphocytes Percent Auto 13.3 % (18.0-42.0); Mean Corpuscular HGB Conc 33.4 g/dL (32-36); Mean Corpuscular Hemoglobin 29.1 pg (27.0-31.0); Mean Corpuscular Volume 87.1 fL (78.0-102.0); Mean Platelet Volume 9.6 fl (9.2-11.8); Monocytes Percent Auto 5.3 % (2.0-11.0); Neutrophils Absolute Auto 10.52 K/mm3 (1.70-7.20); Neutrophils Percent Auto 79.7 % (50.0-70.0); Platelet Count Result 145 K/mm3 (150-420); Red Blood Count 3.57 M/mm3 (4.20-5.40); Red Cell Distribution Width 13.6 % (11.6-14.4); White Blood Count 13.2 K/mm3 (4.8-10.8)
[2024-02-19 20:50] LABS: Add Urine Microscopic? YES; Appearance Urine Clear (Clear); Bilirubin Urine Negative (Negative); Blood Urine Negative (Negative); Color Urine Light Yellow (Yellow); Glucose Urine UA Trace (Negative); Ketones Urine Negative (Negative); Leukocyte Esterase Ur Negative LEU/UL (Negative); Nitrate Urine Negative (Negative); Protein Urine 2+ (Negative); Urobilinogen Urine 0.2 mg/dL (0.2-1.0); pH Urine 8.5 (5.0-8.0)
[2024-02-19 20:58] LABS: Bacteria Urine 1+ /hpf; RBC Urine 0-2 /hpf (0-2); Squamous Epithelial Cell Urine Many /hpf (Few); WBC Urine 0-3 /hpf (0-3)
[2024-02-19 21:03] LABS: INR 1.1; Partial Thromboplastin Time 26.8 Sec (23.9-30.70); Prothrombin Time 11.9 Seconds (9.50-12.1)
[2024-02-19 21:07] LABS: Lactic Acid Reflex 0.8 mmol/L (0.4-2.0)
[2024-02-19 21:09] LABS: Albumin Level 3.8 g/dL (3.4-5.0); Alkaline Phosphatase 82 U/L (46-116); Anion Gap 11 mmol/L (4-12); Aspartate Amino Transferase 12 U/L (15-37); Bilirubin,Total 0.7 mg/dL (0.00-1.00); Blood Urea Nitrogen 32 mg/dL (7-18); Carbon Dioxide 28 mmol/L (21-32); Chloride 101 mmol/L (98-108); Estimated CRCL calculation 9 ml/min; Estimated Glomerular Filt Rate 6; Glucose 103 mg/dL (70-99); Osmolality Calculated 296 mOsm/kg (285-295); Potassium 4.1 mmol/L (3.5-5.1); Sodium 140 mmol/L (136-145); Total Protein 7.9 g/dL (6.4-8.2)
[2024-02-19] MEDS: MORPHINE SULFATE (*CRX) 2 MG/ML INJ IV PUSH (21:09)
[2024-02-19] MEDS: levoFLOXacin 500 MG/D5W 100 ML 500 MG/100 ML BAG 100 MG IVPB (21:17)
[2024-02-19] MEDS: ONDANSETRON INJ 4 MG/2 ML VIAL IV PUSH (21:17)
[2024-02-19 21:24] LABS: Influenza A QL RT-PCR Negative (Negative); Influenza B QL RT-PCR Negative (Negative); RSV RNA, RT-PCR Negative (Negative); SARS-CoV-2 RNA PCR Negative (Negative)
[2024-02-19 21:26] LABS: Alanine Aminotransferase < 6 U/L (14-59)
--- NOTE | 2024-02-19 21:30 | PC.NURSE ---
Left upper arm HD graft intact, some bruising to upper site from HD yesterday. Positive for bruit and thrill. WNL.
--- NOTE | 2024-02-19 22:45 | ADMGEN ---
This patient, Michelle Hernadez, was admitted to 2nd Floor Room 211-1. Patient/family oriented to hospital policies and general routines including ID bracelet, bed and alarms, visiting hours, pain management, procedures, bathroom and other care routines, personal items, smoking policy, room service/diet, and visiting hours. Information on how to activate the Rapid Response Team has been discussed. Patient/Family are encouraged to report perceived risks to care and to ask questions if they do not understand what they are told or what they should do.
[2024-02-19] MEDS: hydrOXYzine HCL 25 MG TABLET PO (23:22)
[2024-02-19] MEDS: carvediloL 12.5 MG TABLET 25 MG PO (23:22)
[2024-02-19] MEDS: busPIRone HCL 5 MG TABLET PO (23:23)
[2024-02-19] MEDS: IPRATROPIUM 0.5 MG/ALBUTEROL SULFATE 2.5 MG AMPUL.NEB 3 ML INHALATION (23:27)
[2024-02-20] VITALS (11 sets, daily range): BP systolic 123–145; BP diastolic 73–87; PULSE 81–93; RESP 16–20; TEMP 36.7–37.1; O2SAT 90–98
[2024-02-20] MEDS: MORPHINE SULFATE (*CRX) 2 MG/ML INJ IV PUSH ×3 (03:31→17:36)
[2024-02-20 06:03] LABS: Albumin Level 3.2 g/dL (3.4-5.0); Alkaline Phosphatase 65 U/L (46-116); Anion Gap 9 mmol/L (4-12); Aspartate Amino Transferase < 10 U/L (15-37); Bilirubin,Total 0.7 mg/dL (0.00-1.00); Blood Urea Nitrogen 37 mg/dL (7-18); Calcium 9.4 mg/dL (8.5-10.1); Carbon Dioxide 29 mmol/L (21-32); Chloride 101 mmol/L (98-108); Estimated CRCL calculation 9 ml/min; Estimated Glomerular Filt Rate 5; Glucose 97 mg/dL (70-99); Osmolality Calculated 296 mOsm/kg (285-295); Potassium 4.6 mmol/L (3.5-5.1); Sodium 139 mmol/L (136-145); Total Protein 7.1 g/dL (6.4-8.2)
[2024-02-20 06:10] LABS: Lactic Acid Reflex 0.5 mmol/L (0.4-2.0)
[2024-02-20 06:11] LABS: Basophils Absolute Auto 0.04 K/mm3 (0.00-0.10); Basophils Percent Auto 0.3 % (0.0-1.0); Eosinophils Absolute Auto 0.27 K/mm3 (0.02-0.50); Eosinophils Percent Auto 2.1 % (1.0-6.0); Hematocrit 26.7 % (35.0-49.0); Hemoglobin 8.8 g/dL (12.0-15.0); Immature Granulocyte Absolute 0.04 K/mm3 (0.00-0.00); Immature Granulocyte Percent A 0.3 % (0.0-0.0); Lymphocytes Absolute Auto 1.86 K/mm3 (1.10-4.50); Lymphocytes Percent Auto 14.2 % (18.0-42.0); Mean Corpuscular Hemoglobin 29.3 pg (27.0-31.0); Mean Platelet Volume 9.8 fl (9.2-11.8); Monocytes Absolute Auto 0.98 K/mm3 (0.10-0.90); Monocytes Percent Auto 7.5 % (2.0-11.0); Neutrophils Absolute Auto 9.87 K/mm3 (1.70-7.20); Neutrophils Percent Auto 75.6 % (50.0-70.0); Platelet Count Result 132 K/mm3 (150-420); Red Cell Distribution Width 13.9 % (11.6-14.4); White Blood Count 13.1 K/mm3 (4.8-10.8)
[2024-02-20 06:29] LABS: Alanine Aminotransferase 9 U/L (14-59)
[2024-02-20] MEDS: hydrALAZINE HCL 25 MG TABLET PO (09:34)
[2024-02-20] MEDS: carvediloL 12.5 MG TABLET 25 MG PO (09:35)
[2024-02-20] MEDS: hydrOXYzine HCL 25 MG TABLET PO ×3 (09:35→17:37)
[2024-02-20] MEDS: ESCITALOPRAM OXALATE 5 MG TABLET PO (09:35)
[2024-02-20] MEDS: ROSUVASTATIN 10 MG TABLET PO (09:35)
[2024-02-20] MEDS: busPIRone HCL 5 MG TABLET PO ×2 (09:36→17:37)
[2024-02-20] MEDS: amLODIPine BESYLATE 5 MG TABLET 10 MG PO (09:37)
[2024-02-20] MEDS: IPRATROPIUM 0.5 MG/ALBUTEROL SULFATE 2.5 MG AMPUL.NEB 3 ML INHALATION ×2 (11:31→16:50)
--- NOTE | 2024-02-20 11:35 | PM.IMHP ---
H&P: HPI History of Present Illness Date/Time: 02/20/24 11:35 Chief Complaint: SOB/Dyspnea Narrative: This is a 38 year old female with a significant past medical history of asthma, hypertension, kidney transplant recipient, ESRD on HD M/W/F with [facility], former smoker who presented to the hospital with shortness of breath/ dyspnea. Patient states that her symptoms started 2 days ago with cough and congestion. She states her whole family has been sick with upper respiratory symptoms this past week. She denies any fever, chills, nausea, vomiting, diarrhea, abdominal pain, chest pain. She does report shortness of breath at rest. She is currently resting comfortably on 2L NC. She does not wear home O2. She also stated that she had her normal dialysis session on Friday and Friday without any issues. She is anuric. Work up in the hospital included a chest x-ray that read as mild atelectasis in left lower lung zone however when reviewing her chest x-ray to prior exams she appears to have some mild pulmonary edema. Initial labs revealed a WBC 13.2, Hgb 10.4, platelet count 145, Creatinine 7.70, eGFR 6. UA was obtained and shown a pH of 8.5, 2+ urine protein, trace glucose, 1+ bacteria. Respiratory panel was negative for influenza A and B, RSV, and COVID. Blood cultures were obtained and currently showing no growth to date on preliminary read. She was given Xopenex breathing treatment, morphine, Zofran, Levofloxacin, Atarax while in the ER. She was admitted overnight by the ER physician. According to [facility] dialysis center patient normally runs 9-12 on her creatinine levels. Considering we can not support a dialysis patient, decision was made to transfer patient to [facility] that can support dialysis. Call made to [facility] in [place] as that is where her Director Pharmacy Services is located. We are currently awaiting acceptance. Review of Systems Review of Systems: All systems reviewed & are unremarkable except as noted in HPI and below Constitutional: Constitutional: Reports as per HPI and Reports no additional constitutional complaints Eyes: Eyes: Reports as per HPI and Reports no additional eye complaints ENT: Reports system reviewed and no additional complaints, except as documented and Reports as per HPI Cardiovascular: Cardiovascular: Reports as per HPI and Reports no additional cardiovascular complaints Respiratory: Respiratory: Reports as per HPI and Reports no additional respiratory complaints Gastrointestinal: Gastrointestinal: Reports as per HPI and Reports no additional gastrointestinal complaints Genitourinary: Genitourinary: Reports no additional female genitourinary complaints and Reports as per HPI Musculoskeletal: Musculoskeletal: Reports no additional musculoskeletal complaints and Reports as per HPI Integumentary/Breasts: Skin/Breast: Reports system reviewed and no additional complaints, except as docu and Reports as per HPI Neurologic: Reports system reviewed and no additional complaints, except as documented and Reports as per HPI Psychiatric: Psychiatric: Reports no additional psychiatric complaints and Reports as per HPI PENDING SALE TO [facility] Past Medical History Medical History Asthma Hypertension Renal failure Asthma Peritoneal dialysis status ESRD (end stage renal disease) Surgical History Surgical History History of cholecystectomy History of arteriovenostomy for renal dialysis History of tonsillectomy Kidney transplant recipient Hx of tonsillectomy History of colon surgery History of cholecystectomy Kidney transplant recipient Family History Family History Mother Diabetes mellitus Grandparent Cancer Social History Social History Smoking packs per day: 0.5 Smoking cigarettes per day: 10.0 Years smoked: 20 Smoking pack-years: 10.00 Smoking status: Former smoker Tobacco type: cigarettes Second hand tobacco smoke exposure: Yes Alcohol intake: never Substance use: never Do You Feel Safe in your Home?: Yes Lack of Transportation: No Lack of Food: Never True Current Housing: I Have Housing Concerned About Future Housing: No Difficulty Paying Gas/Electric Bills: No Difficulty Paying for Meds: No Currently Unemployed: No Education: Grade School Difficulty w/ Childcare or Family Care: No Living arrangements: with family Gender identity (if verbalized by the patient): Female Spiritual care concerns: No Meds Home Medications and Allergies Home Medications ?Medication ?Instructions ?Recorded ?Confirmed ?Type hydralazine 25 mg tablet 25 mg PO DAILY 06/25/20 02/19/24 History hydroxyzine HCl 25 mg tablet 30 mg PO TID 01/16/22 02/19/24 History rosuvastatin 10 mg tablet 10 mg PO DAILY 01/16/22 02/19/24 History amlodipine 10 mg tablet 10 mg PO DAILY 11/19/23 02/19/24 History escitalopram oxalate 5 mg tablet 5 mg PO DAILY 11/19/23 02/19/24 History hydrocodone 7.5 mg-acetaminophen 1 tablet PO Q4-6M PRN Pain 11/19/23 02/19/24 History 325 mg tablet buspirone 5 mg tablet 5 mg PO BID 11/20/23 02/19/24 History calcitriol 0.25 mcg capsule 0.25 mcg PO BID 11/20/23 02/19/24 History carvedilol 25 mg tablet 25 mg PO BID 11/20/23 02/19/24 History sevelamer carbonate 800 mg tablet 2,400 mg PO TIDWMEAL 11/20/23 02/19/24 History (Renvela) ipratropium 0.5 mg-albuterol 3 mg 3 ml inhalation Q4HRT #30 mL 11/24/23 02/19/24 Rx (2.5 mg base)/3 mL nebulization soln hydrocodone 10 mg-acetaminophen 1 tablet PO Q6H PRN pain 02/19/24 02/19/24 History 325 mg tablet Allergies Allergy/AdvReac Type Severity Reaction Status Date / Time Penicillins Allergy Rash Verified 02/19/24 20:17 Vital Signs Vital Signs - 24 hr 02/19/24 20:04 02/19/24 20:04 02/19/24 20:11 Temperature 99.7 F H Pulse Rate 115 H 119 H Respiratory Rate 22 H Blood Pressure 182/127 H Pulse Oximetry 95 97 Oxygen Delivery Nasal Cannula Nasal Cannula Oxygen Flow Rate 2 2 02/19/24 20:14 02/19/24 20:15 02/19/24 20:15 Temperature Pulse Rate 120 H 111 H 113 H Respiratory Rate Blood Pressure 160/107 H Pulse Oximetry 99 99 99 Oxygen Delivery Nasal Cannula Oxygen Flow Rate 2 02/19/24 20:16 02/19/24 20:30 02/19/24 20:45 Temperature Pulse Rate 113 H 120 H 109 H Respiratory Rate Blood Pressure 160/107 H Pulse Oximetry 99 99 Oxygen Delivery Oxygen Flow Rate 02/19/24 20:48 02/19/24 21:00 02/19/24 21:01 Temperature Pulse Rate 115 H 108 H 112 H Respiratory Rate 22 H Blood Pressure 147/101 H 146/89 H Pulse Oximetry 100 99 96 Oxygen Delivery Room Air Oxygen Flow Rate 02/19/24 21:02 02/19/24 21:03 02/19/24 21:15 Temperature Pulse Rate 109 H 110 H 119 H Respiratory Rate 22 H Blood Pressure Pulse Oximetry 97 95 89 L Oxygen Delivery Nasal Cannula Oxygen Flow Rate 2 02/19/24 21:16 02/19/24 21:17 02/19/24 21:30 Temperature Pulse Rate 116 H 118 H 115 H Respiratory Rate Blood Pressure 162/92 H Pulse Oximetry 90 86 L 96 Oxygen Delivery Oxygen Flow Rate 02/19/24 21:31 02/19/24 21:34 02/19/24 22:00 Temperature 98.0 F Pulse Rate 112 H 99 99 Respiratory Rate 16 16 Blood Pressure 149/87 H 157/95 H Pulse Oximetry 94 97 97 Oxygen Delivery Nasal Cannula Nasal Cannula Oxygen Flow Rate 2 2 02/19/24 22:00 02/19/24 22:30 02/19/24 23:20 Temperature 98.0 F Pulse Rate 99 99 Respiratory Rate 16 16 Blood Pressure 157/95 H Pulse Oximetry 97 97 97 Oxygen Delivery Nasal Cannula Nasal Cannula Oxygen Flow Rate 2 2 02/19/24 23:22 02/19/24 23:48 02/19/24 23:50 Temperature Pulse Rate 99 99 94 Respiratory Rate 16 16 Blood Pressure Pulse Oximetry 97 98 Oxygen Delivery Oxygen Flow Rate 2 2 02/20/24 04:00 02/20/24 05:30 02/20/24 05:40 Temperature 98.0 F Pulse Rate 88 86 84 Respiratory Rate 16 16 16 Blood Pressure 145/87 H Pulse Oximetry 98 90 94 Oxygen Delivery Nasal Cannula Oxygen Flow Rate 2 2 2 02/20/24 08:00 02/20/24 08:00 02/20/24 09:35 Temperature 98.8 F Pulse Rate 82 82 90 Respiratory Rate 20 20 Blood Pressure 144/83 H Pulse Oximetry 90 90 Oxygen Delivery Nasal Cannula Nasal Cannula Oxygen Flow Rate 2 2 02/20/24 11:25 02/20/24 11:35 Temperature Pulse Rate 93 90 Respiratory Rate 16 16 Blood Pressure Pulse Oximetry 94 98 Oxygen Delivery Oxygen Flow Rate 2 Exam Narrative: General: In no acute distress, well nourished Head: atraumatic, no encephalopathy Eyes: PERRLA, sclera clear ENT: moist mucous membranes, nasal passages clear Neck: supple, no JVD, no adenopathy, trachea midline Cardiac: Normal S1 and S2. Murmur noted, no gallops or friction rubs, peripheral pulses intact. Respiratory: Lungs course bilaterally, no adventitious lung sounds, currently on 2L NC, productive cough Gastrointestinal: soft, non-distended, non-tender, normoactive bowel sounds. :anuric, on -W- HD Extremities: moves all extremities well, no edema, good ROM, strength 5/5 Skin: clean, dry, intact. No wounds or lesions. Neuro: Alert and oriented x4, cranial nerves intact, no neuro deficits. Psych: normal mood, normal affect, interactive H&P: Results Labs Labs: Short CBC 02/19/24 02/20/24 Range/Units 20:43 05:42 WBC 13.2 H 13.1 H (4.8-10.8) K/mm3 Hgb 10.4 L 8.8 L (12.0-15.0) g/dL Hct 31.1 L 26.7 L (35.0-49.0) % Plt Count 145 L 132 L (150-420) K/mm3 BMP 02/19/24 02/20/24 20:43 05:42 Sodium 140 139 Potassium 4.1 4.6 Chloride 101 101 Carbon Dioxide 28 29 BUN 32 H 37 H Creatinine 7.70 H* 8.30 H* Glucose 103 H 97 Calcium 10.0 9.4 Liver Function 02/19/24 02/20/24 Range/Units 20:43 05:42 Total Bilirubin 0.7 0.7 (0.00-1.00) mg/dL AST 12 L < 10 L (15-37) U/L ALT < 6 L 9 L (14-59) U/L Alkaline Phosphatase 82 65 (46-116) U/L Albumin 3.8 3.2 L (3.4-5.0) g/dL Urine 02/19/24 Range/Units 20:43 Urine Color Light yellow (Yellow) Urine Appearance Clear (Clear) Urine pH 8.5 H (5.0-8.0) Ur Specific [place] 1.020 (1.010-1.020) Urine Protein 2+ H (Negative) Urine Glucose (UA) Trace H (Negative) Imaging Chest x-ray: My impression: Chest x-ray compared to previous is showing mild pulmonary vascular congestion. Radiologist's impression: EXAMINATION: XR chest 1V portable DATE: 02/19/2024 20:30 INDICATION: Shortness of breath. TECHNIQUE: A single frontal view of the chest was obtained. COMPARISON: Chest single view 11/23/2023, chest CT 01/16/2022 FINDINGS: There is mild atelectasis in left lower lung zone. No pleural effusion or pneumothorax. The heart size is normal. IMPRESSION: 1. Mild atelectasis in left lower lung zone. Reviewed, dictated and finalized at location A. BUS DRIVER Assessment and Plan Assessment and plan (1) Acute hypoxemic respiratory failure: Code(s): J96.01 - Acute respiratory failure with hypoxia Status: Acute Assessment and Plan: likely secondary to community-acquired pneumonia versus fluid overload chest x-ray reading mild atelectasis in left lower lung zone, after reviewing previous chest x-ray is showing mild pulmonary vascular congestion white blood cell count 13.2 on admission currently on 2 L nasal cannula continue to wean O2 for sat greater than 92% continue DuoNeb q.6 hours given 60 mg of prednisone today, will decrease to 40 mg daily patient received 1 dose of Levaquin while in the ED switch antibiotics to Rocephin and azithromycin blood cultures obtained and are pending, currently showing no growth to date on preliminary read start Mucinex 600 mg b.i.d. plan for [facility] due to her end-stage renal disease requiring dialysis. Call placed to [facility], awaiting phone call back for acceptance (2) Pneumonia: Qualifiers: Laterality: right Lung location: lower lobe of lung Pneumonia type: due to unspecified organism Qualified Code(s): J18.9 - Pneumonia, unspecified organism Code(s): J18.9 - Pneumonia, unspecified organism Status: Suspected Assessment and Plan: see above (3) Asthma: Code(s): J45.909 - Unspecified asthma, uncomplicated Status: Acute Assessment and Plan: see (4) Hypertension: Code(s): I10 - Essential (primary) hypertension Status: Chronic Assessment and Plan: blood pressure ranging continue hydralazine and amlodipine (5) ESRD (end stage renal disease): Code(s): N18.6 - End stage renal disease Status: Chronic Assessment and Plan: currently on Friday dialysis with [facility] is followed by Dr. Gama in [place] received her dialysis on Friday and Friday of this week creatinine currently a 8.30, EGFR 5 according to [facility] patient lives with a creatinine level of 9-12 patient placed on list for transfer to [facility] Quality VTE Prophylaxis VTE prophylaxis: mechanical ordered Hospitalist MIPS Advance Care Plan I have confirmed that the patient's Advanced Care Plan is present, code status is documented, or surrogate decision maker is listed in patient medical record.: Yes Medication Reconciliation I have utilized all available resources to obtain, update and review the patients current medications (includes all prescriptions, OTC, herbals, cannabis, and nutritional supplements).: Yes
[2024-02-20] MEDS: predniSONE 20 MG TABLET 60 MG PO (12:08)
[2024-02-20] MEDS: AZITHROMYCIN 250 MG TABLET 500 MG PO (12:09)
--- NOTE | 2024-02-20 16:05 | PM.TDS ---
Transfer Discharge Sum: Prov Provider Date of admission: 02/19/24 21:34 Primary care physician: Yasmine Skelton, Admitting clinician: Syed Salter MD Attending physician on discharge: Tommy Salter Discharging clinician: Lo Walters Anticipated date of transfer: 02/20/24 Receiving physician/facility: Dr. Alberto at [facility] DS: Admitting Diagnosis Discharge Date 02/20/24 Admitting Diagnosis acute hypoxic respiratory failure pneumonia asthma hypertension end-stage renal disease DS: Discharge Diagnosis Discharge Diagnosis (1) Acute hypoxemic respiratory failure: Code(s): J96.01 - Acute respiratory failure with hypoxia Status: Acute (2) Pneumonia: Qualifiers: Laterality: right Lung location: lower lobe of lung Pneumonia type: due to unspecified organism Qualified Code(s): J18.9 - Pneumonia, unspecified organism Code(s): J18.9 - Pneumonia, unspecified organism Status: Suspected (3) Asthma: Code(s): J45.909 - Unspecified asthma, uncomplicated Status: Acute (4) Hypertension: Code(s): I10 - Essential (primary) hypertension Status: Chronic (5) ESRD (end stage renal disease): Code(s): N18.6 - End stage renal disease Status: Chronic Transfer Discharge Sum: Med Medications Active and Home Medications: Home Medications hydralazine 25 mg tablet 25 mg PO DAILY 06/25/20 [History Confirmed 02/19/24] hydroxyzine HCl 25 mg tablet 30 mg PO TID 01/16/22 [History Confirmed 02/19/24] rosuvastatin 10 mg tablet 10 mg PO DAILY 01/16/22 [History Confirmed 02/19/24] amlodipine 10 mg tablet 10 mg PO DAILY 11/19/23 [History Confirmed 02/19/24] escitalopram oxalate 5 mg tablet 5 mg PO DAILY 11/19/23 [History Confirmed 02/19/24] hydrocodone 7.5 mg-acetaminophen 325 mg tablet 1 tablet PO Q4-6M PRN Pain 11/19/23 [History Confirmed 02/19/24] buspirone 5 mg tablet 5 mg PO BID 11/20/23 [History Confirmed 02/19/24] calcitriol 0.25 mcg capsule 0.25 mcg PO BID 11/20/23 [History Confirmed 02/19/24] carvedilol 25 mg tablet 25 mg PO BID 11/20/23 [History Confirmed 02/19/24] sevelamer carbonate 800 mg tablet (Renvela) 2,400 mg PO TIDWMEAL 11/20/23 [History Confirmed 02/19/24] ipratropium 0.5 mg-albuterol 3 mg (2.5 mg base)/3 mL nebulization soln 3 ml inhalation Q4HRT #30 mL 11/24/23 [Rx Confirmed 02/19/24] hydrocodone 10 mg-acetaminophen 325 mg tablet 1 tablet PO Q6H PRN pain 02/19/24 [History Confirmed 02/19/24] Active Medications Acetaminophen (Acetaminophen 325 Mg Tablet) 650 mg PO Q4H PRN PRN Reason: Mild Pain (1-3) or Fever Albuterol/Ipratropium (Ipratropium 0.5 Mg/Albuterol Sulfate 2.5 Mg Ampul.Neb 3 Ml) 3 ml INHALATION Q6HRT [facility] Last Admin: 02/20/24 14:42 Dose: Not Given Amlodipine Besylate (Amlodipine Besylate 5 Mg Tablet) 10 mg PO DAILY [facility] Last Admin: 02/20/24 09:37 Dose: 10 mg Azithromycin (Azithromycin 250 Mg Tablet) 500 mg PO DAILY [facility] Last Admin: 02/20/24 12:09 Dose: 500 mg Buspirone HCl (Buspirone Hcl 5 Mg Tablet) 5 mg PO BID [facility] Last Admin: 02/20/24 09:36 Dose: 5 mg Calcitriol (Calcitriol 0.25 Mcg Capsule) 0.25 mcg PO BID [facility] Last Admin: 02/20/24 09:43 Dose: Not Given Carvedilol (Carvedilol 12.5 Mg Tablet) 25 mg PO Q12HR [facility] Last Admin: 02/20/24 09:35 Dose: 25 mg Escitalopram Oxalate (Escitalopram Oxalate 5 Mg Tablet) 5 mg PO DAILY [facility] Last Admin: 02/20/24 09:35 Dose: 5 mg Guaifenesin (Guaifenesin 12 Hr 600 Mg Tabcr) 600 mg PO Q12HR [facility] Hydralazine HCl (Hydralazine Hcl 25 Mg Tablet) 25 mg PO DAILY [facility] Last Admin: 02/20/24 09:34 Dose: 25 mg Hydroxyzine HCl (Hydroxyzine Hcl 25 Mg Tablet) 25 mg PO TID [facility] Last Admin: 02/20/24 12:09 Dose: 25 mg Ceftriaxone Sodium (Rocephin 1 Gm/Ns 50 Ml) 1 gm in 50 mls @ 100 mls/hr IVPB Q24H [facility] Last Infusion: 02/20/24 12:35 Dose: Infused Morphine Sulfate (Morphine Sulfate (*Crx) 2 Mg/Ml Inj) 2 mg IV PUSH Q6H PRN PRN Reason: Cough Last Admin: 02/20/24 09:49 Dose: 2 mg Non-Formulary Medication (Sevelamer Carbonate [Renvela]) 2,400 mg PO TIDWM [facility] Stop: 03/20/24 11:59 Last Admin: 02/20/24 14:39 Dose: Not Given Ondansetron HCl (Ondansetron Inj 4 Mg/2 Ml Vial) 4 mg IV PUSH Q6H PRN PRN Reason: Nausea And Vomiting Prednisone (Prednisone 20 Mg Tablet) 40 mg PO DAILY@0800 [facility] Rosuvastatin Calcium (Rosuvastatin 10 Mg Tablet) 10 mg PO DAILY [facility] Last Admin: 02/20/24 09:35 Dose: 10 mg Transfer Discharge Sum: Hosp Hospital Course Hospital course: This is a 38 year old female with a significant past medical history of asthma, hypertension, kidney transplant recipient, ESRD on HD M/W/F with [facility], former smoker who presented to the hospital with shortness of breath/ dyspnea. Patient states that her symptoms started 2 days ago with cough and congestion. She states her whole family has been sick with upper respiratory symptoms this past week. She denies any fever, chills, nausea, vomiting, diarrhea, abdominal pain, chest pain. She does report shortness of breath at rest. She is currently resting comfortably on 2L NC. She does not wear home O2. She also stated that she had her normal dialysis session on Friday and Friday without any issues. She is anuric. Work up in the hospital included a chest x-ray that read as mild atelectasis in left lower lung zone however when reviewing her chest x-ray to prior exams she appears to have some mild pulmonary edema. Initial labs revealed a WBC 13.2, Hgb 10.4, platelet count 145, Creatinine 7.70, eGFR 6. UA was obtained and shown a pH of 8.5, 2+ urine protein, trace glucose, 1+ bacteria. Respiratory panel was negative for influenza A and B, RSV, and COVID. Blood cultures were obtained and currently showing no growth to date on preliminary read. She was given Xopenex breathing treatment, morphine, Zofran, Levofloxacin, Atarax while in the ER. She was admitted overnight by the ER physician. According to [facility] dialysis center patient normally runs 9-12 on her creatinine levels. Considering we can not support a dialysis patient, decision was made to transfer patient to [facility] care [facility] and clinic that can support dialysis. Call made to [facility] in [place] as that is where her Senior Environmental Scientist is located. She was accepted by Dr. Alberto at [facility]. She is in stable condition, currently on 2L NC, VSS, afebrile. Spoke with Ely at [facility] center and confirmed that patient lives with a creatinine between 9-12 and that she routinely misses one dialysis session per week. They also confirmed that her dry weight is 80.5 kg currently she is at 81kg by our scale. Patient had dialysis on Friday and Friday this week already. final diagnosis: acute hypoxic respiratory failure, community-acquired pneumonia, end-stage renal disease disposition: stable Time Spent with Patient Time attestation: Total time spent providing and/or coordinating transfer services: Exam Narrative: General: In no acute distress, well nourished Head: atraumatic, no encephalopathy Eyes: PERRLA, sclera clear ENT: moist mucous membranes, nasal passages clear Neck: supple, no JVD, no adenopathy, trachea midline Cardiac: Normal S1 and S2. Murmur noted, no gallops or friction rubs, peripheral pulses intact. Respiratory: Lungs course bilaterally, no adventitious lung sounds, currently on 2L NC, productive cough Gastrointestinal: soft, non-distended, non-tender, normoactive bowel sounds. :anuric, on M-W-F HD Extremities: moves all extremities well, no edema, good ROM, strength 5/5 Skin: clean, dry, intact. No wounds or lesions. Neuro: Alert and oriented x4, cranial nerves intact, no neuro deficits. Psych: normal mood, normal affect, interactive DS: Data Data Completed and Pending Completed studies during hospitalization: chest x-ray Pending studies at discharge: blood cultures Labs on day of discharge: Labs from last 24 hours 1202/19/24 02/19/24 05:42 20:43 20:28 WBC 13.1 H 13.2 H RBC 3.00 L 3.57 L Hgb 8.8 L 10.4 L Hct 26.7 L 31.1 L MCV 89.0 87.1 MCH 29.3 29.1 MCHC 33.0 33.4 RDW 13.9 13.6 Plt Count 132 L 145 L MPV 9.8 9.6 Immature Gran % (Auto) 0.3 H 0.3 H Neut % (Auto) 75.6 H 79.7 H Lymph % (Auto) 14.2 L 13.3 L Mclennan % (Auto) 7.5 5.3 Eos % (Auto) 2.1 1.1 Baso % (Auto) 0.3 0.3 Lymph # (Auto) 1.86 1.75 Mclennan # (Auto) 0.98 H 0.70 Eos # (Auto) 0.27 0.15 Baso # (Auto) 0.04 0.04 Abs Immat Gran (auto) 0.04 H 0.04 H Absolute Neuts (auto) 9.87 H 10.52 H Absolute Nucleated RBC 0.00 0.00 Nucleated RBC % 0.0 0.0 PT 11.9 INR 1.1 APTT 26.8 Sodium 139 140 Potassium 4.6 4.1 Chloride 101 101 Carbon Dioxide 29 28 Anion Gap 9 11 BUN 37 H 32 H Creatinine 8.30 H* 7.70 H* Estim Creat Clear Calc 9 9 Estimated GFR 5 L 6 L Glucose 97 103 H Calculated Osmolality 296 H 296 H Lactic Acid 0.5 0.8 Calcium 9.4 10.0 Total Bilirubin 0.7 0.7 AST < 10 L 12 L ALT 9 L < 6 L Alkaline Phosphatase 65 82 Total Protein 7.1 7.9 Albumin 3.2 L 3.8 Urine Color Light yellow Urine Appearance Clear Urine pH 8.5 H Ur Specific [facility] 1.020 Urine Protein 2+ H Urine Glucose (UA) Trace H Urine Ketones Negative Ur Blood (Man) Negative Urine Nitrate Negative Urine Bilirubin Negative Urine Urobilinogen 0.2 Leukocyte Esterase Rfl Negative Urine RBC 0-2 Urine WBC 0-3 Ur Squamous Epith Cells Many H Urine Bacteria 1+ H Influenza A (RT-PCR) Negative Influenza B (RT-PCR) Negative RSV (RT-PCR) Negative SARS-CoV-2 RNA (RT-PCR) Negative Procedures/Treatments: none Imaging Radiologist's impression: EXAMINATION: XR chest 1V portable DATE: 02/19/2024 20:30 INDICATION: Shortness of breath. TECHNIQUE: A single frontal view of the chest was obtained. COMPARISON: Chest single view 11/23/2023, chest CT 01/16/2022 FINDINGS: There is mild atelectasis in left lower lung zone. No pleural effusion or pneumothorax. The heart size is normal. IMPRESSION: 1. Mild atelectasis in left lower lung zone. Reviewed, dictated and finalized at location A. LIER QUALITY ENGINEERING MANAGER
== END 2024-02-20 20:50 | disposition short-term general hospital (02) ==
LOC: CHSED 21:33 → CHS2ND 21:41
PROVIDERS: Admitting Provider Internal Medicine; Emergency Provider Emergency Medicine; PCP Family Medicine; Visit Provider Nurse Practitioner Acute Care
DX: J96.01 Acute respiratory failure with hypoxia (principal); J18.9 Pneumonia, unspecified organism; I12.0 Hypertensive chronic kidney disease with stage 5 chronic kidney disease or end stage renal disease; N18.6 End stage renal disease; Z99.2 Dependence on renal dialysis; Z94.0 Kidney transplant status; J45.909 Unspecified asthma, uncomplicated; Z90.49 Acquired absence of other specified parts of digestive tract; Z87.891 Personal history of nicotine dependence; Z20.822 Contact with and (suspected) exposure to COVID-19; Z88.0 Allergy status to penicillin; Z79.51 Long term (current) use of inhaled steroids; Z79.899 Other long term (current) drug therapy
CPT/HCPCS: 36415; 71045; 80053; 81001; 83605; 85025; 85610; 85730; 87040; 87637; 94640; 96365; 96367; 96375; 96376; 99285; A9270; G0378; J0696; J1956; J2270; J2405; J7512

== ENCOUNTER 2025-02-28 15:12 | Emergency (ER) | payer MEDICARE, MEDICAID, SELFPAY ==
[2025-02-28] VITALS (23 sets, daily range): BP systolic 110–135; BP diastolic 61–99; PULSE 98–116; RESP 21–36; TEMP 36.4–37.9; O2SAT 91–99
--- NOTE | ~2025-02-28 | XR_ITS ---
XR chest 1V portable 02/28/2025 16:29 Indication: Dyspnea Procedure: AP portable chest Comparison: 04/06/2024 Findings: Cardiomegaly. Severe dextroscoliosis of the thoracic spine. There is pulmonary edema. No significant effusion. No pneumothorax. Impression: 1: Cardiomegaly with pulmonary edema. Reviewed, dictated and finalized at location [facility]. LOPE ADJUSTER Impression: 1: Cardiomegaly with pulmonary edema.
--- NOTE | 2025-02-28 16:05 | ECG_ITS ---
Test Date: 2025-02-28 16:20:17 Measurements Intervals [place] Rate: 106 P: 67 KS: 158 QRS: 68 QRSD: 81 T: 77 QT: 346 QTc: 460 Interpretive Statements SINUS TACHYCARDIA MINIMAL Q WAVES- ANTEROLAT/INF LEADS BORDERLINE ST-T WAVE ABNORMALITY- ANT/HIGH LAT LEADS BORDERLINE ECG Compared to ECG 11/19/2023 22:06:29 HEART RATE HAS INCREASED Electronically Signed On 02-28-2025 16:25:33 CAFETERIA MANAGER by Jose Daniel Milton D.O.
[2025-02-28 16:25] LABS: Hematocrit 38.9 % (35.0-49.0); Hemoglobin 12.2 g/dL (12.0-15.0); Immature Granulocyte Percent A 0.5 % (0.0-0.0); Lymphocytes Absolute Auto 1.57 K/mm3 (1.10-4.50); Mean Corpuscular HGB Conc 31.4 g/dL (32-36); Mean Corpuscular Hemoglobin 29.1 pg (27.0-31.0); Mean Corpuscular Volume 92.8 fL (78.0-102.0); Nucleated Red Blood Cells Absolute Auto 0.00 K/mm3 (0.00-0.00); Nucleated Red Blood Cells Perc 0.0 % (0-0.0); Platelet Count Result 243 K/mm3 (150-420); Red Blood Count 4.19 M/mm3 (4.20-5.40); White Blood Count 17.4 K/mm3 (4.8-10.8)
[2025-02-28] MEDS: IPRATROPIUM 0.5 MG/ALBUTEROL SULFATE 2.5 MG (BASE) AMPUL.NEB 3 ML INHALATION (16:27)
[2025-02-28 16:38] LABS: Alanine Aminotransferase 8 U/L (6-35); Albumin Level 4.2 g/dL (3.5-5.1); Alkaline Phosphatase 111 U/L (38-126); Anion Gap 16 mmol/L (4-12); Aspartate Amino Transferase 16 U/L (14-36); Bilirubin,Total 0.8 mg/dL (0.2-1.3); Blood Urea Nitrogen 37 mg/dL (7-17); Calcium 9.1 mg/dL (8.4-10.2); Carbon Dioxide 23 mmol/L (22-30); Chloride 100 mmol/L (98-107); Estimated CRCL calculation 8 ml/min; Estimated Glomerular Filt Rate 4; Glucose 90 mg/dL (65-110); Magnesium 2.4 mg/dL (1.6-2.3); Osmolality Calculated 296 mOsm/kg (285-295); Potassium 4.5 mmol/L (3.4-5.0); Sodium 139 mmol/L (137-145); Total Protein 8.2 g/dL (6.3-8.2)
[2025-02-28 16:39] LABS: INR 1.0; Partial Thromboplastin Time 29.8 Sec (23.9-30.70); Prothrombin Time 11.5 Seconds (9.50-12.1)
[2025-02-28 16:47] LABS: NT Pro B Type Natriuretic Pept > 30000 pg/mL (19.9-100)
--- OUTSIDE RECORDS SUMMARY | 2025-02-28 16:50 | XMS_ITS ---
Author Organization Unknown Address [address] [place] [address] [phone] Phone Care Team Providers Care Leather Goods Ii Assembler Name Role Phone GWENDOLYN MITCHELL Attending Unavailable LAURIE Flores Primary Unavailable Immunization Immunization Date Status Additional Notes Code Code System DTP 1987 Completed 01 CVX DTP 06/19/1988 Completed 01 CVX DTP 10/15/1989 Completed 01 CVX DTP 11/18/1990 Completed 01 CVX DTP 07/19/1992 Completed 01 CVX OPV, trivalent 1987 Completed 02 CVX OPV, trivalent 06/19/1988 Completed 02 CVX OPV, trivalent 10/15/1989 Completed 02 CVX OPV, trivalent 11/18/1990 Completed 02 CVX OPV, trivalent 07/19/1992 Completed 02 CVX MMR 10/15/1989 Completed 03 CVX MMR 07/19/1992 Completed 03 CVX Hep B, adolescent or pediatric 10/03/1998 Completed 08 CVX Hep B, adolescent or pediatric 10/31/1998 Completed 08 CVX Hep B, adolescent or pediatric 04/03/1999 Completed 08 CVX Td (adult), 2 Lf tetanus toxoid, preservative free, adsorbed 09/28/2002 Completed 09 CVX Hib, unspecified formulation 11/18/1990 Completed 17 CVX pneumococcal polysaccharide PPV23 03/17/2006 Completed 33 CVX pneumococcal polysaccharide PPV23 05/30/2019 Completed 33 CVX influenza, unspecified formulation 03/17/2006 Completed 88 CVX Influenza, split virus, trivalent, preservative 10/09/2011 Completed 141 CVX Social History Type Status Start Date End Date Code Code Syst em Smoking History Former smoker [id number] SNOMED CT Sex Female Hospital Discharge Instructions Should you have any questions prior to discharge, please contact a member of your healthcare team. If you have left the hospital and have any questions, please contact your primary care physician. Reason For Referral No Data Found Plan of Treatment No Data Found Encounters Encounter Diagnosis Start Date Code Code Sys tem Essential hypertension 07/08/2024 [id number] [facility] [place] Personal Care Team Section Performer Name Performer Role Active Date Inactive Da LETY Clifford PCP - Primary care physician 12-022021-06-28 EMILEE KUMAR PCP - Primary care physician 2021-06-28 2024-07-08 EMILEE KUMAR PCP - Primary care physician 2024-06-21 2024-07-08 ADE SULLIVAN PCP - Primary care physician 2024-07
--- OUTSIDE RECORDS SUMMARY | 2025-02-28 16:50 | XMS_ITS ---
Author Organization Unknown Address [address] [place] [address] [phone] Phone Care Team Providers Care French Folder Name Role Phone LAURIE Flores Attending Unavailable JOSÉ Ramon Primary Unavailable Immunization Immunization Date Status Additional [...] Code Syst em Smoking History Former smoker [id number] SNOMED CT Sex Female Hospital Discharge Instructions Should you have any questions prior to discharge, please contact a member of your healthcare team. If you have left the hospital and have any questions, please contact your primary care physician. Reason For Referral No Data Found Plan of Treatment No Data Found Encounters Encounter Diagnosis Start Date Code Code Sys tem End-stage renal disease 07/08/2024 [id number] [facility] ED-CT Personal Care Team Section Performer Name Performer Role Active Date Inactive Da LETY Clifford PCP - Primary care physician 12-022021-06-28 EMILEE KUMAR PCP - Primary care physician 2021-06-28 2024-07-08 EMILEE KUMAR PCP - Primary care physician 2024-06-21 2024-07-08 ADE SULLIVAN PCP - Primary care physician 2024-07
--- OUTSIDE RECORDS SUMMARY | 2025-02-28 16:50 | XMS_ITS | Clinical Summary ---
Author Organization [facility] Address [address] [place] [address] Care Team Providers Care Machine Group Leader Name Role Phone Unavailable Primary Care Provider Unavailabl e Source Comments [facility],non-owned Affiliates and Associated Physician Practices is amultiple site organization consisting of ambulatory clinics and hospital sitesin [place], [place], [place] and [place]. This disclosure is being madepursuant to the Care Everywhere program and may not contain all information available regarding this patient. Last updated 17.[facility] Allergies Active Allergy Reactions Criticality Noted Date Comments Penicillins Rash Medium 04/07/2024 Medications * Be aware that medications may not be up to date on this document. Alwaysverify current medications with the patient. hydrOXYzine HCl (Atarax) 25 MG tablet Take 1 (one) tablet by mouth 3 times daily Active rosuvastatin (Crestor) 10 MG tablet Take 1 (one) tablet by mouth at bedtime Active amLODIPine (Norvasc) 10 MG tablet Take 1 (one) tablet by mouth once daily Active escitalopram (Lexapro) 10 MG tablet Take 1 (one) tablet by mouth 2 times daily Active busPIRone (Buspar) 5 MG tablet Take 1 (one) tablet by mouth 2 times daily Active sevelamer carbonate (Renvela) 800 MG Take 3 (three) tablets by mouth 3 times daily with meals Active HYDROcodone-jah taminophen (Rippey) 10-325 MG tablet Take 1 (one) tablet by mouth every 8 hours as needed for Pain Active guaiFENesin ER 12hr (Mucinex) 600 MG tablet Take 1 (one) tablet by mouth every 12 hours as needed for Cough 15 tablet Active Oxygen Oxygen continuous at 2 L/min via nasal cannula - Estimate length of need (number of months): Lifetime 1 Each Active albuterol HFA (ProAir HFA) 108 (90 Base) MCG/ACT inhaler Inhale 2 (two) puffs by mouth every 4 hours as needed 8.5 g 1 Active cyclobenzaprine (Flexeril) 5 MG tablet Take 1 (one) tablet by mouth 3 times daily as needed 10 tablet 5 Active Resolved Problems Problem Noted Date Diagnosed Date Resolved Date Acute respiratory failure, u nspecified whether with hypoxia or hypercapnia 04/07/202406/2024 Social History Tobacco Use Types Packs/Day Years Used Date Smoking Tobacco: Former Cigarettes Tobacco Cessation:Counseling Given: Not Answered Hunger Vital Sign Answer Date Recorded Within the past 12 months, y ou worried that your food would run out before you got the money to buy more. Never true 04/08/19 25 Within the past 12 months, t he food you bought just didn't last and you didn't have money to get more. Never true 04/08/2024 Comments Unknown Sex and Gender Information Value Date Recorded Sex Assigned at Not on file Legal Sex Female 4:34 PM CDT Gender Identity Not on file Sexual Orientation Not on file Last Filed Vital Signs Vital Sign Reading Time Taken Comments Blood Pressure 151/90 04/13/2024 11:18 PM BASKETBALL SCOUT Pulse 90 04/13/2024 11:18 PM BASKETBALL SCOUT Temperature 36.4 C (97.5 F) 04/13/2024 11:18 PM BASKETBALL SCOUT Respiratory Rate 17 04/13/2024 11:18 PM BASKETBALL SCOUT Oxygen Saturation 92% 04/13/2024 11:18 PM BASKETBALL SCOUT Inhaled Oxygen Concentration - - Weight 82 kg (180 lb 11.2 oz) 04/12/2024 9:50 AM BASKETBALL SCOUT Height 167.6 cm (5' 6) 04/07/2024 8:00 AM BASKETBALL SCOUT Body Mass Index 29.17 04/07/2024 8:00 AM BASKETBALL SCOUT Plan of Treatment Health Maintenance Due Date Last Done Comments HEPATITIS C SCREENING 07/04/2005 DTAP/TDAP/TD VACCINES (1 - Tdap) 07/08/2006 PNEUMOCOCCAL VACCINE (1 of 2 - PCV) 07/08/2006 HEPATITIS B VACCINE (1 of 3 - Risk Dialysis 4-dose series) 2007 PAP SMEAR 07/08/2008 HPV VACCINE (1 - 3-dose SCDM series) 07/08/2014 DEPRESSION SCREENING 03/10/2024 MEDICARE AWV CALENDAR YEAR 2024 COVID-19 VACCINE (1 - 2024-2 6 season) 2024 INFLUENZA VACCINE (#1) 2024 2, 03/17/2006 ZOSTER VACCINE (1 of 2) 07/08/2037 HIV SCREENING Completed 04/09/2024 HIB VACCINE Aged Out No longer eligi ble based on patient's age to complete this topic MENINGOCOCCAL (Group B) VACCINE SHARED DECISION-MAKING Aged Out No longer eligible based on patient's age to complete this topic MENINGOCOCCAL GROUPS A/C/Y/W VACCINE Aged Out No longer eligible b ased on patient's age to complete this topic Procedures Procedure Name Priority Date/Time Associated Diagnosis Comments HIV-1 HIV-2 ANTIBODY + HIV P24 AG PANEL Routine 04/09/2024 11:55 AM BASKETBALL SCOUT from Last 3 Months or Most Recently Relevant to Health Maintenance Results * HIV-1 HIV-2 ANTIBODY + HIV P24 AG PANEL (04/09/2024 11:55 AM BASKETBALL SCOUT) HIV1/2 Ab + P24 Ag Non Reactive Non Reactive 04/09/2024 12:46 PM BASKETBALL SCOUT [facility] Blood BLOOD SPECIMEN / Unknown Venipuncture / Unknown 04/09/2024 11:55 AM BASKETBALL SCOUT 04/09/2024 12:08 PM BASKETBALL SCOUT Narrative [facility] - 04/09/2024 12:46 PM BASKETBALL SCOUT No Laboratory evidence of HIV infection. us Vita Esquivel SUBASSEMBLY ASSEMBLER-GROCERY STORE MANAGER LAB - CHEMISTRY ORDER RAHAT Final Result [facility] [address] [place] [address] from Last 3 Months or Most Recently Relevant to Health Maintenance Additional Health Concerns Infection Onset Date Last Indicated MDRO 04/08/2024 04/08/2024 Insurance MEDICAID AETNA [facility] [place] [facility] MANAGED MEDICARE [place]V [place]ICA[place] - [place] Advance Directives * Full Code (Latest Code Status on File) Date Activated Date Inactivated Comments 04/07/2024 10:28 AM 04/14/2024 1:14 AM
--- OUTSIDE RECORDS SUMMARY | 2025-02-28 16:50 | XMS_ITS | Clinical Summary ---
Author Organization [facility] Address [address] [place] [address] Care Team Providers Care Motel Maid Name Role Phone Stoney Mireles MD Primary Care Provider Allergies Active Allergy Reactions Criticality Noted Date Comments Aspirin Swelling Medium 02/09/2016 Diphenhydramine Swelling Medium 02/09/2016 Ibuprofen Swelling Medium 02/09/2016 Penicillins Hives Medium Medications vitamin B complex-vitamin C-folic acid (NEPHRO-ROMERO) 0.8 mg tablet Take 1 tablet by mouth 3 (three) times a week Active carvediloL (COREG) 25 mg tablet 01/25/2021 Active FLUoxetine (PROzac) 20 mg capsule Take 20 mg by mouth daily Active hydrOXYzine (ATARAX) 25 mg tablet Take 1 tablet by mouth every 8 (eight) hours as needed 10/17/2020 Active NIFEdipine (NIFEdipine XL) 60 mg 24 hr tablet Take 60 mg by mouth daily 01/25/2021 Active rosuvastatin (CRESTOR) 10 mg tablet Take 10 mg by mouth daily 01/25/2021 Active sevelamer carbonate (RENVELA) 0.8 gram powder in packet 01/15/2021 Active Active Problems Problem Noted Date Diagnosed Date IgA nephropathy 11/28/2020 Primary hypertension 11/21/2020 ESRD (end stage renal disease) on dialysis 03/30 Abdominal mass, RUQ (right upper quadrant) 02/08 Cholelithiasis 02/09/2016 Notalgia 04/02/2011 Scoliosis 04/02/2011 Surgical History Surgery Date Site/Laterality Comments BACK SURGERY KIDNEY TRANSPLANT 10/09/2005 TONSILLECTOMY FISTULA REPAIR CHOLECYSTECTOMY SINUS SURGERY Medical History Medical History Date Comments ADHD (attention deficit hyperactivity disorder) Anemia Anxiety Bipolar 1 disorder (HCC) Depression Neuropathy in diabetes Hypertension Chronic kidney disease Family History Medical History Relation Name Comments Diabetes Mother Hypertension Mother Relation Name Status Comments Mother Social History Tobacco Use Types Packs/Day Years Used Date Smoking Tobacco: Former Cigarettes Q uit: 2018 AUDIT-C Answer Date Recorded Q1: How often do you have a drink containing alc ohol? Never 01/29/2021 Average Number of Drinks Not on file 021 Frequency of Binge Drinking Not on file 01/09 Personal Safety Answer Date Recorded Getting School Help Needed Not on file 05/04 Comments No Sex and Gender Information Value Date Recorded Sex Assigned at Not on file Legal Sex Female 2:51 AM TREE TOPPER Gender Identity Not on file Sexual Orientation Not on file Last Filed Vital Signs Vital Sign Reading Time Taken Comments Blood Pressure 158/86 03/22/2018 4:33 AM TREE TOPPER Pulse 66 03/22/2018 4:33 AM TREE TOPPER Temperature 36.7 C (98 F) 03/22/2018 4:33 AM TREE TOPPER Respiratory Rate 14 03/22/2018 4:33 AM TREE TOPPER Oxygen Saturation - - Inhaled Oxygen Concentration - - Weight 64 kg (141 lb) 01/29/2021 9:53 AM TREE TOPPER Height 166.4 cm (5' 5.5) 01/29/2021 9:53 AM TREE TOPPER Body Mass Index 23.11 01/29/2021 9:53 AM TREE TOPPER Plan of Treatment Not on file Insurance MEDICARE [facility] AETNA [facility] [place] [facility] [place] [employer] [place] HMO Care Teams Motel Maid Relationship Specialty Start Date End Date Stoney Mireles MD PCP - General Family Medicine 01/29/21
[2025-02-28 17:02] LABS: Influenza A QL RT-PCR Negative (Negative); Influenza B QL RT-PCR Negative (Negative); RSV RNA, RT-PCR Negative (Negative); SARS-CoV-2 RNA PCR Negative (Negative)
[2025-02-28] MEDS: KETOROLAC 30 MG/ML VIAL (*BKC) IV PUSH (17:08)
[2025-02-28] MEDS: ONDANSETRON INJ 4 MG/2 ML VIAL IV PUSH (17:08)
--- OUTSIDE RECORDS SUMMARY | 2025-02-28 17:14 | XMS_ITS | Encounter Summary ---
Author Organization [facility] Address [facility] [place] [address] Care Team Providers Care Asset Coordinator Name Role Phone None, Provider Primary Care Provider UnavailRajani Bauman MD Primary Care Provider [phone]- [phone] None, Provider Primary Care Provider UnavailStoney Gilliam MD Primary Care Provider Annette Mckeon [facility] Primary Care Provider + Jolie Armstrong MD Unavailable Unavailabl Stoney Huang MD Primary Care Provider Stoney Mireles MD Primary Care Provider Shine Cooley MD Unavailable [phone] Paige Patel MD Unavailable Encounter Details Date Type Department Care Team (Late st Contact Info) Description 08/15/2018 Abstract SFL CONVERSION [address] [place] [address] , Generic Conversion, Social History Tobacco Use Types Packs/Day Years Used Date Smoking Tobacco: Smoker, Current Status Unknown Comments Unknown Sex and Gender Information Value Date Recorded Sex Assigned at Female 05/19/2019 6:15 AM CDT Legal Sex Female 10:25 PM CDT Gender Identity Female 05/19/2019 6:15 AM CDT Sexual Orientation Straight 05/19/2019 6: 15 AM CDT documented as of this encounter Plan of Treatment Upcoming Encounters Date Type Department Care Team ([facility] Contact Info) Description 07/14/2025 1:15 PM CDT [facility] [address] [place] [phone] Paige Patel MD [address] [place], [place] [phone] documented as of this encounter Visit Diagnoses Not on filedocumented in this encounter Additional Health Concerns Infection Onset Date Last Indicated Resolved Time COVID-19 Rule Out 01/16/2022 01/17/2022 01/17/2022 1:51 AM OBJECT ORIENTED PROGRAMMER COVID-19 Rule Out 09/05/2022 09/05/2022 09/05/2022 8:18 AM CDT documented as of this encounter Care Teams Asset Coordinator Relationship Specialty Start Date End Date None, ProviderMD PCP - General 10/03/18 05/18/19 Rajani Ness MD PCP - General FAMILY PRACTICE 05/19/19 07/04/19 None, MD [place] PCP - General 07/05/19 12/07/19 Stoney Mireles MD [address] [place] [phone] PCP - General FAMILY PRACTICE 12/08/19 10/16/20 Annette Mckeon FNP [address] [place] [phone] PCP - General NURSE PRACTITIONER 10/17/20 10/23/20 Stoney Mireles MD [address] [place] [phone] PCP - General FAMILY PRACTICE 10/24/20 03/28/22 Stoney Mireles MD [address] [place] [phone] PCP - General FAMILY PRACTICE 03/29/22 Jolie Armstrong MD [address] [place] [phone] Consulting Physician CARDIOVASCULAR DISEASE 10/17/2007/07 Shine Cooley MD [address] [place] [address] OTOLARYNGOLOGY 06/06/22 Paige Patel MD [address] [place] [address] Consulting Physician CARDIOVASCULAR DISEASE 07/08/24 documented as of this encounter
--- OUTSIDE RECORDS SUMMARY | 2025-02-28 17:14 | XMS_ITS ---
Author Organization Unknown Address [address] [place] [phone] Phone Care Team Providers Care Driver License Technician Name Role Phone LAURIE Flores Attending Unavailable [...] Code Syst em Smoking History Former smoker [id number] SNOMED CT Sex Female Hospital Discharge Instructions [...] Code Sys tem End-stage renal disease 07/08/2024 [id number] [facility] ED-CT Personal Care Team Section Performer Name Performer Role Active Date Inactive Da LETY Clifford PCP - Primary care physician 12-022021-06-28 EMILEE KUMAR PCP - Primary care physician 2021-06-28 2024-07-08 EMILEE KUMAR PCP - Primary care physician 2024-06-21 2024-07-08 ADE SULLIVAN PCP - Primary care physician 2024-07
--- OUTSIDE RECORDS SUMMARY | 2025-02-28 17:14 | XMS_ITS | Encounter Summary ---
Author Organization [facility] Address [address] [place] [address] Care Team Providers Care Community Center Worker Name Role Phone Stoney Mireles MD Primary Care Provider Annette Mckeon Primary Care Provider + Jolie Armstrong MD Unavailable Unavailabl e Stoney Mireles MD Primary Care Provider Stoney Mireles MD Primary Care Provider Shine Cooley MD Unavailable [phone] Paige Patel MD Unavailable Encounter Details Date Type Department Care Team (Late st Contact Info) Description 04/03/2020 Hospital Follow-up Call [facility] [address] [place] [address] Divya Yu RN Social History Tobacco Use Types Packs/Day Years Used Date Smoking Tobacco: Former Smokeless Tobacco: Former Alcohol Use Standard Drinks/Week Comments No 0 (1 standard drink = 0.6 oz pur e alcohol) Humiliation, Afraid, Rape, and Kick questionnair e Answer Date Recorded Fear of Current or Ex-Partner No Emotionally Abused No 05/19/2019 Physically Abused No 05/19/2019 Sexually Abused No 05/19/2019 Social Connection and Isolation Panel Answer Date Recorded Frequency of Communication w ith Friends and Family More than three times a week 05/19/2019 Frequency of Social Gatherin gs with Friends and Family More than three times a week 05/19/2019 Attends Zoroastrianism Services Never 05/18 Active Member of Clubs or Organizations Yes 05/19/2019 Attends Club or Organization Meetings Never 05/19/2019 Marital Status 05/19/2019 AUDIT-C Answer Date Recorded Frequency of Alcohol Consumption Never 10/03/2018 Average Number of Drinks Not on file 019 Frequency of Binge Drinking Not on file 09/08 Overall Financial Resource Strain (CARDIA) Answe r Date Recorded Difficulty of Paying Living Expenses Not hard at all 05/19/2019 [facility] of Occupat ional Health - Occupational Stress Questionnaire Answer Date Recorded Feeling of Stress Rather much 05/19/2019 Exercise Vital Sign Answer Date Recorde d Days of Exercise per Week 0 days 2019 Minutes of Exercise per Session 0 min 05/19/2019 Hunger Vital Sign Answer Date Recorded Worried About Running Out of Food in the Last Ye ar Never true 05/19/2019 Ran Out of Food in the Last Year Never true 05/19/2019 PRAPARE - Transportation Answer Date Re corded Lack of Transportation (Medical) No 05/19/2019 Lack of Transportation (Non-Medical) No 05/19/2019 Comments No Sex and Gender Information Value Date Recorded Sex Assigned at Female 05/19/2019 6:15 AM CDT Legal Sex Female 10:25 PM CDT Gender Identity Female 05/19/2019 6:15 AM CDT Sexual Orientation Straight 05/19/2019 6: 15 AM CDT documented as of this encounter Functional Status * RETIRED Are you deaf or do you have serious difficulty hearing Answer Date of Assessment Author Status No 03/30/2020 4:00 PM PARK WORKER Activ e * RETIRED Are you blind or do you have serious difficulty seeing, even when wearing glasses? Answer Date of Assessment Author Status No 03/30/2020 4:00 PM PARK WORKER Activ e * Do you have serious difficulty walking or climbing stairs? Answer Date of Assessment Author Status Yes 03/30/2020 4:00 PM Essie Harmon RN Active * Do you have difficulty dressing or bathing? Answer Date of Assessment Author Status No 03/30/2020 4:00 PM Essie Harmon RN Active * Because of a physical, mental, or emotional condition, do you have difficulty doing errands alone such as visiting a doctor's office or shopping? Answer Date of Assessment Author Status No 03/30/2020 4:00 PM Essie Harmon RN Active documented as of this encounter Mental Status * Because of a physical, mental, or emotional condition, do you have serious difficulty concentrating, remembering, or making decisions? Answer Entry Date Author Status No 03/30/2020 4:00 PM Essie Harmon RN Active documented in this encounter Plan of Treatment Upcoming Encounters Date Type Department Care Team (Late st Contact Info) Description 07/14/2025 1:15 PM CDT Office Visit [facility] [phone] Paige Patel MD [address] [place] [address] documented as of this encounter Visit Diagnoses Not on filedocumented in this encounter Additional Health Concerns Infection Onset Date Last Indicated Resolved Time COVID-19 Rule Out 01/16/2022 01/17/2022 01/17/2022 1:51 AM PARK WORKER COVID-19 Rule Out 09/05/2022 09/05/2022 09/05/2022 8:18 AM CDT documented as of this encounter Care Teams Community Center Worker Relationship Specialty Start Date End Date Stoney Mireles MD [address] [place] [phone] PCP - General FAMILY PRACTICE 12/08/19 10/16/20 Annette Mckeon FNP [address] [place] [phone] PCP - General NURSE PRACTITIONER 10/17/20 10/23/20 Stoney Mireles MD [address] [place] [phone] PCP - General FAMILY PRACTICE 10/24/20 03/28/22 Stoney Mireles MD [address] [place] [address] PCP - General FAMILY PRACTICE 03/29/22 Jolie Armstrong MD [address] [place] [phone] Consulting Physician CARDIOVASCULAR DISEASE 10/17/2007/07 Shine Cooley MD [address] [place] [address] OTOLARYNGOLOGY 06/06/22 Paige Patel MD [address] [place] [address] Consulting Physician CARDIOVASCULAR DISEASE 07/08/24 documented as of this encounter
--- OUTSIDE RECORDS SUMMARY | 2025-02-28 17:14 | XMS_ITS | Clinical Summary ---
Author Organization [facility] Address [address] [place] [address] Care Team Providers Care Edging Catcher Name Role Phone Unavailable Primary Care Provider Unavailabl e Source Comments [facility],non-owned Affiliates and Associated Physician Practices is amultiple site organization consisting of ambulatory clinics and hospital sitesin [place], [place], [place] and [place]. This disclosure is being madepursuant to the Care Everywhere program and may not contain all information available regarding this patient. Last updated 17.[facility] Allergies Active Allergy Reactions Criticality Noted Date [...] times daily with meals Active HYDROcodone-jah taminophen ([place]) 10-325 MG tablet Take 1 (one) tablet [...] Comments Blood Pressure 151/90 04/13/2024 11:18 PM NAVAL ARCHITECT Pulse 90 04/13/2024 11:18 PM NAVAL ARCHITECT Temperature 36.4 C (97.5 F) 04/13/2024 11:18 PM NAVAL ARCHITECT Respiratory Rate 17 04/13/2024 11:18 PM NAVAL ARCHITECT Oxygen Saturation 92% 04/13/2024 11:18 PM NAVAL ARCHITECT Inhaled Oxygen Concentration - - Weight 82 kg (180 lb 11.2 oz) 04/12/2024 9:50 AM NAVAL ARCHITECT Height 167.6 cm (5' 6) 04/07/2024 8:00 AM NAVAL ARCHITECT Body Mass Index 29.17 04/07/2024 8:00 AM NAVAL ARCHITECT Plan of Treatment Health Maintenance Due Date [...] P24 AG PANEL Routine 04/09/2024 11:55 AM NAVAL ARCHITECT from Last 3 Months or Most Recently Relevant to Health Maintenance Results * HIV-1 HIV-2 ANTIBODY + HIV P24 AG PANEL (04/09/2024 11:55 AM NAVAL ARCHITECT) HIV1/2 Ab + P24 Ag Non Reactive Non Reactive 04/09/2024 12:46 PM NAVAL ARCHITECT [facility] Blood BLOOD SPECIMEN / Unknown Venipuncture / Unknown 04/09/2024 11:55 AM NAVAL ARCHITECT 04/09/2024 12:08 PM NAVAL ARCHITECT Narrative [facility] - 04/09/2024 12:46 PM NAVAL ARCHITECT No Laboratory evidence of HIV infection. us Vita Esquivel AUDIO VIDEO MECHANIC-EMERGENCY MEDICINE SPECIALIST LAB - CHEMISTRY ORDER RAHAT Final Result [facility] [address] [place] [address] from Last 3 Months or Most Recently Relevant to Health Maintenance Additional Health Concerns Infection Onset Date Last Indicated MDRO 04/08/2024 04/08/2024 Insurance MEDICAID AETNA BETTER HEALTH [place] [facility] MANAGED MEDICARE ADV [place]ICAID - [place] Advance Directives * Full Code (Latest Code Status on File) Date Activated Date Inactivated Comments 04/07/2024 10:28 AM 04/14/2024 1:14 AM
--- OUTSIDE RECORDS SUMMARY | 2025-02-28 17:14 | XMS_ITS | Encounter Summary ---
Author Organization [facility] Address [address] [place] [address] Care Team Providers Care Stopper Setter Name Role Phone Stoney Mireles MD Primary Care Provider [phone] Annette Mckeon Primary Care Provider + Jolie Armstrong MD Unavailable Unavailabl e Stoney Mireles MD Primary Care Provider [phone] Stoney Mireles MD Primary Care Provider Shine Cooley MD Unavailable [phone] Paige Patel MD Unavailable Encounter Details Date Type Department Care Team (Late st Contact Info) Description 04/04/2020 Hospital Follow-up Call [facility] [address] [place] [address] Divya Yu RN Social History [...] than three times a week 05/19/2019 Attends [employer] Never 05/18 Active Member of Clubs [...] Living Expenses Not hard at all 05/19/2019 [facility] of Occupat ional Health - Occupational Stress [...] Assessment Author Status No 03/30/2020 4:00 PM INTERLIBRARY LOAN SERVICES LIBRARIAN Activ e * RETIRED Are you blind or do you have serious difficulty seeing, even when wearing glasses? Answer Date of Assessment Author Status No 03/30/2020 4:00 PM INTERLIBRARY LOAN SERVICES LIBRARIAN Activ e * Do you have serious [...] Description 07/14/2025 1:15 PM CDT Office Visit [facility] [phone] Paige Patel MD [address] [place] [address] documented as of this encounter Visit Diagnoses Not on filedocumented in this encounter Additional Health Concerns Infection Onset Date Last Indicated Resolved Time COVID-19 Rule Out 01/16/2022 01/17/2022 01/17/2022 1:51 AM INTERLIBRARY LOAN SERVICES LIBRARIAN COVID-19 Rule Out 09/05/2022 09/05/2022 09/05/2022 8:18 AM CDT documented as of this encounter Care Teams Stopper Setter Relationship Specialty Start Date End Date Stoney Mireles MD [address] [place] [phone] PCP - General FAMILY PRACTICE 12/08/19 10/16/20 Annette Mckeon FNP [address] [place] [phone] PCP - General NURSE PRACTITIONER 10/17/20 10/23/20 Stoney Mireles MD [address] [place] [phone] PCP - General FAMILY PRACTICE 10/24/20 03/28/22 Stoney Mireles MD [address] [place] [address] PCP - General FAMILY PRACTICE 03/29/22 Jolie Armstrong MD [address] [place] [address] Consulting Physician CARDIOVASCULAR DISEASE 10/17/2007/07 Shine Cooley MD [address] [place] [address] OTOLARYNGOLOGY 06/06/22 Paige Patel MD [address] [place] [address] Consulting Physician CARDIOVASCULAR DISEASE 07/08/24 documented as of this encounter
--- OUTSIDE RECORDS SUMMARY | 2025-02-28 17:14 | XMS_ITS | Encounter Summary ---
Author Organization [facility] Address [address] [place] [address] Care Team Providers Care Maintenance Mechanic Helper Name Role Phone Stoney Mireles MD Primary Care Provider [phone] Annette Mckeon Primary Care Provider + Jolie Armstrong MD Unavailable Unavailabl e Stoney Mireles MD Primary Care Provider [phone] Stoney Mireles MD Primary Care Provider Shine Cooley MD Unavailable [phone] Paige Patel MD Unavailable Encounter Details Date Type Department Care Team (Late st Contact Info) Description 05/08/2020 Hospital Follow-up Call [facility] [address] [place] [address] Divya Yu RN Social History [...] than three times a week 05/19/2019 Attends [employer] Services Never 05/18 Active Member of Clubs [...] Living Expenses Not hard at all 05/19/2019 [facility] [place] of Occupat ional Health - Occupational Stress [...] Orientation Straight 05/19/2019 6: 15 AM CDT COVID-19 Exposure Response Date Recorded In the last month, have you been in contact with someone who was confirmed or suspected to have Coronavirus / COVID-19? No / Unsure 05/03/2020 1:38 AM END TRIMMER documented as of this encounter Functional Status * RETIRED Are you deaf or do you have serious difficulty hearing Answer Date of Assessment Author Status No 05/03/2020 1:00 AM END TRIMMER Activ e * RETIRED Are you blind or do you have serious difficulty seeing, even when wearing glasses? Answer Date of Assessment Author Status No 05/03/2020 1:00 AM END TRIMMER Activ e * Do you have serious difficulty walking or climbing stairs? Answer Date of Assessment Author Status No 05/03/2020 1:00 AM END TRIMMER Luisa Edmonds RN Active * Do you have difficulty dressing or bathing? Answer Date of Assessment Author Status No 05/03/2020 1:00 AM Luisa Bledsoe, RN Active * Because of a physical, mental, or emotional condition, do you have difficulty doing errands alone such as visiting a doctor's office or shopping? Answer Date of Assessment Author Status No 05/03/2020 1:00 AM Luisa Bledsoe RN Active documented as of this encounter Mental Status * Because of a physical, mental, or emotional condition, do you have serious difficulty concentrating, remembering, or making decisions? Answer Entry Date Author Status No 05/03/2020 1:00 AM Luisa Bledsoe RN Active documented in this encounter Plan of Treatment Upcoming Encounters Date Type Department Care Team (Late st Contact Info) Description 07/14/2025 1:15 PM CDT Office Visit [facility] [address] [phone] Paige Patel MD [address] [place] [phone] documented as of this encounter Visit Diagnoses Not on filedocumented in this encounter Additional Health Concerns Infection Onset Date Last Indicated Resolved Time COVID-19 Rule Out 01/16/2022 01/17/2022 01/17/2022 1:51 AM END TRIMMER COVID-19 Rule Out 09/05/2022 09/05/2022 09/05/2022 8:18 AM CDT documented as of this encounter Care Teams Maintenance Mechanic Helper Relationship Specialty Start Date End Date Stoney Mireles MD [address] [place] [phone] PCP - General FAMILY PRACTICE 12/08/19 10/16/20 Annette Mckeon FNP [address] [place] [phone] PCP - General NURSE PRACTITIONER 10/17/20 10/23/20 Stoney Mireles MD [address] [place] [phone] PCP - General FAMILY PRACTICE 10/24/20 03/28/22 Stoney Mireles MD [address] [place] [address] PCP - General FAMILY PRACTICE 03/29/22 Jolie Armstrong MD [address] [place] [phone] Consulting Physician CARDIOVASCULAR DISEASE 10/17/2007/07 Shine Cooley MD [address] [place] [address] OTOLARYNGOLOGY 06/06/22 Paige Patel MD [address] [place] [address] Consulting Physician CARDIOVASCULAR DISEASE 07/08/24 documented as of this encounter
--- OUTSIDE RECORDS SUMMARY | 2025-02-28 17:14 | XMS_ITS | Clinical Summary ---
Author Organization [facility] Address [address] [place] [address] Care Team Providers Care Warehouse Incentive Selector Name Role Phone Stoney Mireles MD Primary [...] on file Legal Sex Female 2:51 AM SYNTHETIC FILAMENT SPINNER Gender Identity Not on file Sexual Orientation Not on file Last Filed Vital Signs Vital Sign Reading Time Taken Comments Blood Pressure 158/86 03/22/2018 4:33 AM SYNTHETIC FILAMENT SPINNER Pulse 66 03/22/2018 4:33 AM SYNTHETIC FILAMENT SPINNER Temperature 36.7 C (98 F) 03/22/2018 4:33 AM SYNTHETIC FILAMENT SPINNER Respiratory Rate 14 03/22/2018 4:33 AM SYNTHETIC FILAMENT SPINNER Oxygen Saturation - - Inhaled Oxygen Concentration - - Weight 64 kg (141 lb) 01/29/2021 9:53 AM SYNTHETIC FILAMENT SPINNER Height 166.4 cm (5' 5.5) 01/29/2021 9:53 AM SYNTHETIC FILAMENT SPINNER Body Mass Index 23.11 01/29/2021 9:53 AM SYNTHETIC FILAMENT SPINNER Plan of Treatment Not on file Insurance MEDICARE [facility] [facility] [place] [facility] [place] [employer] [place] H[place] Care Teams Warehouse Incentive Selector Relationship Specialty Start Date End Date Stoney Mireles MD PCP - General Family Medicine 01/29/21
--- OUTSIDE RECORDS SUMMARY | 2025-02-28 17:14 | XMS_ITS | Encounter Summary ---
Author Organization [facility] Address [facility] access hospital[address] [place] [address] Care Team Providers Care Steel Molder Name Role Phone Jolie Armstrong MD Unavailable Unavailabl e Stoney Mireles MD Primary Care Provider Shine Cooley MD Unavailable [phone] Paige Patel MD Unavailable Encounter Details Date Type Department Care Team (Late st Contact Info) Description 04/01/2022 Hospital Follow-up Call [facility] [address] [place], [place] [address] Caryn Carrillo RN Social History Tobacco Use Types Packs/Day Years Used Date Smoking Tobacco: Former Cigarettes Q uit: 03/10/2017 Smokeless Tobacco: Never Alcohol Use Standard Drinks/Week Comments No 0 [...] than three times a week 05/19/2019 Attends [employer] Never 05/18 Active Member of Clubs [...] Living Expenses Not hard at all 05/19/2019 [facility] of Occupat ional Health - Occupational Stress [...] Orientation Straight 05/19/2019 6: 15 AM CDT Occupation Industry Job Start Date Job End Date Not on file Not on file Not on file Not on file COVID-19 Exposure Response Date Recorded In the last 10 days, have yo u been in contact with someone who was confirmed or suspected to have Coronavirus/COVID-19? No / Unsure 03/28/2022 9:24 AM MANAGER SHIP documented as of this encounter Functional Status * RETIRED Are you deaf or do you have serious difficulty hearing Answer Date of Assessment Author Status No 03/29/2022 3:24 AM MANAGER SHIP Activ e * RETIRED Are you blind or do you have serious difficulty seeing, even when wearing glasses? Answer Date of Assessment Author Status No 03/29/2022 3:24 AM MANAGER SHIP Activ e * Do you have serious difficulty walking or climbing stairs? Answer Date of Assessment Author Status Yes 03/29/2022 3:24 AM MANAGER SHIP Layla Camargo RN Active * Do you have difficulty dressing or bathing? Answer Date of Assessment Author Status No 03/29/2022 3:24 AM MANAGER SHIP Layla Camargo RN Active * Because of a physical, mental, or emotional condition, do you have difficulty doing errands alone such as visiting a doctor's office or shopping? Answer Date of Assessment Author Status Yes 03/29/2022 3:24 AM Layla Elliott RN Active documented as of this encounter Mental Status * Because of a physical, mental, or emotional condition, do you have serious difficulty concentrating, remembering, or making decisions? Answer Entry Date Author Status No 03/29/2022 3:24 AM Layla Elliott RN Active documented in this encounter Plan of Treatment Upcoming Encounters Date Type Department Care Team (Late st Contact Info) Description 07/14/2025 1:15 PM CDT Office Visit [facility] [address] [phone] Paige Patel MD [address] [place] [address] documented as of this encounter Visit Diagnoses Not on filedocumented in this encounter Additional Health Concerns Infection Onset Date Last Indicated Resolved Time COVID-19 Rule Out 09/05/2022 09/05/2022 09/05/2022 8:18 AM CDT documented as of this encounter Care Teams Steel Molder Relationship Specialty Start Date End Date Stoney Mireles MD [address] [place] [address] PCP - General FAMILY PRACTICE 03/29/22 Jolie Armstrong MD Consulting Physician CARDIOVASCULAR DISEASE 10/17/2007/07 Shine Cooley MD [address] [place] [address] OTOLARYNGOLOGY 06/06/22 Paige Patel MD [address] [place] [address] Consulting Physician CARDIOVASCULAR DISEASE 07/08/24 documented as of this encounter
--- OUTSIDE RECORDS SUMMARY | 2025-02-28 17:14 | XMS_ITS ---
Author Organization Unknown Address [address] [place] [phone] Phone Care Team Providers Care Public Relations Specialist Name Role Phone GWENDOLYN MITCHELL Attending Unavailable [...] Code Syst em Smoking History Former smoker [id number] SNOMED CT Sex Female Hospital Discharge Instructions Should you have any questions prior to discharge, please contact a member of your healthcare team. If you have left the hospital and have any questions, please contact your primary care physician. Reason For Referral No Data Found Plan of Treatment No Data Found Encounters Encounter Diagnosis Start Date Code Code Sys tem Essential hypertension 07/08/2024 [id number] [facility] Personal Care Team Section Performer Name Performer Role Active Date Inactive Da LETY Clifford PCP - Primary care physician 12-022021-06-28 EMILEE KUMAR PCP - Primary care physician 2021-06-28 2024-07-08 EMILEE KUMAR PCP - Primary care physician 2024-06-21 2024-07-08 ADE SULLIVAN PCP - Primary care physician 2024-07
--- OUTSIDE RECORDS SUMMARY | 2025-02-28 17:14 | XMS_ITS | Encounter Summary ---
Author Organization [facility] Address [address] [place] [address] Care Team Providers Care Aeronautical Engineer Name Role Phone None, Provider Primary Care Provider UnavailRajani Bauman MD Primary Care Provider [phone] None, Provider Primary Care Provider UnavailStoney Gilliam MD Primary Care Provider Annette Mckeon [facility] Primary Care Provider + Jolie Armstrong MD Unavailable Unavailabl Stoney Huang MD Primary Care Provider Stoney Mireles MD Primary Care Provider Shine Cooley MD Unavailable [phone] Paige Patel MD Unavailable Encounter Details Date Type Department Care Team (Latest Contact Info) Description 01/13/2018 Abstract [facility] Jonh Linda MD Social History Tobacco Use Types Packs/Day Years [...] Upcoming Encounters Date Type Department Care Team ( Contact Info) Description 07/14/2025 1:15 PM CDT Office Visit [facility] [address] [phone] Paige Patel MD [address] [place], [place] [phone] documented as of this encounter Visit Diagnoses Not on filedocumented in this encounter Additional Health Concerns Infection Onset Date Last Indicated Resolved Time COVID-19 Rule Out 01/16/2022 01/17/2022 01/17/2022 1:51 AM WOOD BOATBUILDER COVID-19 Rule Out 09/05/2022 09/05/2022 09/05/2022 8:18 AM CDT documented as of this encounter Care Teams Aeronautical Engineer Relationship Specialty Start Date End Date None, Provider, PCP - General 10/03/18 05/18/19 Rajani Ness MD PCP - General FAMILY PRACTICE 05/19/19 07/04/19 None, ProviderMD PCP - General 07/05/19 12/07/19 Stoney Mireles MD [address] [place] [phone] PCP - General FAMILY PRACTICE 12/08/19 10/16/20 Annette Mckeon FNP [address] [place] [phone] PCP - General NURSE PRACTITIONER 10/17/20 10/23/20 Stoney Mireles MD [address] [place] [phone] PCP - General FAMILY PRACTICE 10/24/20 03/28/22 Stoney Mireles MD [address] [place] [phone] PCP - General FAMILY PRACTICE 03/29/22 Jolie Armstrong MD [address] [place] [address] Consulting Physician CARDIOVASCULAR DISEASE 10/17/2007/07 Shine Cooley MD [address] [place] [address] OTOLARYNGOLOGY 06/06/22 Paige Patel MD [address] [place] [address] Consulting Physician CARDIOVASCULAR DISEASE 07/08/24 documented as of this encounter
--- OUTSIDE RECORDS SUMMARY | 2025-02-28 17:14 | XMS_ITS | Clinical Summary ---
Author Organization [facility] Address [address] [place] [address] Care Team Providers Care Pnp Name Role Phone Stoney Mireles MD Primary Care Provider Shine Coolye MD Unavailable [phone] Paige Patel MD Unavailable Allergies Active Allergy Reactions Criticality Noted Date Comments Penicillin V Swelling Medium 10/03/2018 Penicillins Hives Medium 01/16/2022 Medications hydrOXYzine 25 MG tablet Take 1 tablet (25 mg total) by mouth every 8 (eight) hours as needed. 1 Active HYDROcodone-acet aminophen (NORCO) 5-325 MG tabletIndication s:Acute Pain < 7 Day Supply Take 1 tablet by mouth every 6 (six) hours as needed. Indications: Acute Pain < 7 Day Supply 10 tablet 2 Active Additional Information Patient not taking.Reported on 07/08/2024 Sucroferric Oxyhydroxide (VELPHORO) 500 MG Chew Tab 1,500 mg. 2 Active albuterol sulfate HFA 108 (90 Base) MCG/ACT inhaler Inhale 2 puffs into the lungs every 4 (four) hours as needed for Wheezing. 18 g 3 Active NIFEdipine XL (PROCARDIA XL) 90 MG 24 hr tablet Take 1 tablet (90 mg total) by mouth daily. Do not break or crush tablet 30 tablet 11 3 Active rosuvastatin (CRESTOR) 10 MG tablet take 1 tablet by mouth daily. 90 tablet 3 4 Active oxyCODONE-acetam inophen (PERCOCET) 7.5-325 MG tablet 5 Active traMADol (ULTRAM) 50 MG tablet 5 Active carvedilol (COREG) 25 MG tablet TAKE ONE TABLET BY MOUTH TWICE A DAY 60 tablet 2 5 Active Active Problems Problem Noted Date Diagnosed Date Nonrheumatic mitral valve regurgitation 06/15/19 Left ventricular dysfunction with reduced left ventricular function 06/14/2021 IgA nephropathy 11/28/2020 Primary hypertension 11/21/2020 Non-compliance with renal dialysis 03/30/2020 ESRD (end stage renal disease) on dialysis 03/30 Abdominal mass, RUQ (right upper quadrant) 02/08 Cholelithiasis 02/09/2016 Scoliosis 04/02/2011 Resolved Problems Problem Noted Date Diagnosed Date Resolved Date Chest pain 03/29/2022 06/18/2022 Elevated d-dimer 03/28/2022 06/18/2022 Acute hypoxemic respiratory failure 01/16/2022 06/18/2022 SOB (shortness of breath) 01/16/2022 Pneumonia 11/29/2019 11/28/2020 Peritoneal dialysis catheter infection 08/11/2019 11/28/2020 Vomiting 05/28/2019 11/28/2020 Abdominal pain 05/19/2019 11/28/2020 Immunizations Immunization Administration Dates Next Due Afluria 36 MONTHS+ (Prefille d Syringe IIV4) 05/29/2019(Deferred: Patient/family declined) Dtp 07/19/1992, 1,10/15/1989,1988,1987 Dtp (Generic) 07/19/1992, 1,10/15/1989,1988,1987 Hepatitis B 04/03/1999,10/31/1998,10/03/1998 Hepatitis B Pediatric 04/03/1999,10/31/1998,09/08 Hib 11/18/1990 Hib (Generic) 11/18/1990 Influenza (Generic) 10/09/2011,03/17/2006,2006 Influenza Adult (Generic) 10/09/2011 MMR 07/19/1992,10/15/1989 MMR (MMRII) 07/19/1992,10/15/1989 Opv 07/19/1992, 1,10/15/1989,1988,1987 Pneumococcal (Pneumovax 23) 05/30/2019,0 05/30/2019,05/30/2019(Deferr ed: Patient/family declined - Patient began vomiting just as the vaccine was to be administered. Patient did not want the vaccine.),03/17/2006,03/17/2006 Polio Opv (Generic) 07/19/1992, 1,10/15/1989,1988,1987 Td 09/28/2002 Td (TDVAX) 09/28/2002 Family History Medical History Relation Comments Cancer Maternal Grandfather lung Diabetes Maternal Grandfather Hypertension Maternal Grandfather Cancer Maternal Grandmother lung Diabetes Maternal Grandmother Hypertension Maternal Grandmother Depression Mother Diabetes Mother cerebrovascular disease Paternal Grandfather cerebrovascular disease Paternal Grandmother Relation Status Comments Maternal Grandfather Maternal Grandmother Mother Paternal Grandfather Paternal Grandmother Social History Tobacco Use Types Packs/Day Years [...] than three times a week 05/19/2019 Attends [employer] Services Never 05/18 Active Member of Clubs [...] Living Expenses Not hard at all 05/19/2019 [facility] of Occupat ional Health - Occupational Stress [...] file Not on file Not on file Last Filed Vital Signs Vital Sign Reading Time Taken Comments Blood Pressure 155/83 07/08/2024 3:00 PM CDT Pulse 83 07/08/2024 3:00 PM CDT Temperature 36.7 C (98.1 F) 09/05/2022 7:53 AM CDT Respiratory Rate 16 07/08/2024 3:00 PM CDT Oxygen Saturation 94% 07/08/2024 3:00 PM CDT Inhaled Oxygen Concentration - - Weight 72.6 kg (160 lb) 07/08/2024 3:00 PM CDT Height 167.6 cm (5' 6) 07/08/2024 3:00 PM CDT Body Mass Index 25.82 07/08/2024 3:00 PM CDT Plan of Treatment Upcoming Encounters Date Type Department Care Team (Late st Contact Info) Description 07/14/2025 1:15 PM CDT [facility] [address] [place] [address] Paige Patel MD [address] [place] [phone] Health Maintenance Due Date Last Done Comments Cervical Cancer Screening Pap Smear (Age 30 to 64) Every 3 Years 1987 Annual Physical 07/08/1990 COVID-19 Vaccine (#1) 07/08/1992 Hepatitis B Vaccines (1 of 1 - Risk Dialysis 4-dose series) 04/03/2000 04/03/1999, 04/03/1999, 10/31/1998, Additional history exists DTaP, Tdap and Td Vaccines (3 - Tdap) 09/29/2002 09/28/2002, 09/28/2002, 07/19/1992, Additional history exists HPV Vaccines (1 - Risk 3-dose SCDM series) 07/08/2014 Cervical Cancer Screening Pap with HPV Testing (Age 30 to 64) Every 5 Years 07/08/2017 Cervical Cancer Screening with HPV 07/08/2017 ASCVD LDL 05/28/2020 05/29/2019 Pneumococcal Vaccine: Pediatrics (0 to 5 Years) and At-Risk Patients (6 to 49 Years) (3 of 3 - PCV) 05/29/2020 05/30/2019, 05/30/2019, 03/17/2006, Additional history exists Influenza Adult (#1) 2024 10/09/2011, 10/09/2011, 03/17/2006, Additional history exists Hepatitis C Completed 08/19/2019 Hepatitis A Vaccines Aged Out No long er eligible based on patient's age to complete this topic Meningococcal B Vaccine Aged Out No l onger eligible based on patient's age to complete this topic Meningococcal Vaccine Aged Out No yin gina eligible based on patient's age to complete this topic RSV Immunizations Under 20 Months Aged Out No longer eligible based on patient's age to complete this topic Procedures Procedure Name Priority Date/Time Associated Diagnosis Comments HEPATITIS PANEL,ACUTE Routine 08/19/2019 7:08 AM CDT LIPID PANEL Routine 05/29/2019 5:27 AM CDT from Last 3 Months or Most Recently Relevant to Health Maintenance Results * HEPATITIS PANEL,ACUTE (08/19/2019 7:08 AM CDT) HEPATITIS B SURFACE AG NON-REACT BRYAN NON-REACT BRYAN 08/19/2019 10:04 AM CDT [facility] Comment:HBsAg NOT DETECTED. HEP B CORE IGM NON-REACT BRYAN NON-REACT BRYAN 08/19/2019 10:04 AM CDT [facility] Comment: IgM ANTI HBc NOT DETECTED. DOES NOT EXCLUDE THE POSSIBILITY OF EXPOSURE TO OR INFECTION WITH HBV. NO RETEST REQUIRED. HIGH DOSES OF BIOTIN MAY INTERFERE WITH THIS TEST RESULT. CORRELATION TO CLINICAL HISTORY AND PRESENTATION RECOMMENDED. HAV IGM NON-REACT BRYAN NON-REACT BRYAN 08/19/2019 10:04 AM CDT [facility] Comment: IgM ANTI HAV NOT DETECTED. DOES NOT EXCLUDE THE POSSIBILITY OF EXPOSURE TO OR INFECTION WITH HAV. LEVELS OF IgM ANTI HAV MAY BE BELOW THE CUTOFF IN EARLY INFECTION. HEPATITIS C AB NON-REACT BRYAN NON-REACT BRYAN 08/19/2019 10:04 AM CDT [facility] Comment: ANTIBODIES TO HCV NOT DETECTED. DOES NOT EXCLUDE THE POSSIBILITY OF EXPOSURE TO HCV. 08/19/2019 7:08 AM CDT us Joshua Pineda MD LABORATORY Final Res ult [facility] [address] [place] [address], [id number] * (ABNORMAL) LIPID PANEL (05/29/2019 5:27 AM CDT) CHOLESTEROL 137 MG/DL 05/29/2019 6:18 AM CDT [facility] Comment:DESIRABLE: <200 TRIGLYCERIDES 152 MG/DL 05/29/2019 6:18 AM CDT [facility] Comment:150-199 BORDERLINE H IGH HDL 28(L) >49 MG/DL 05/29/2019 6:18 AM CDT [facility] LDL (CALCULATED) 79 MG/DL 05/29/19 6:18 AM CDT [facility] Comment:<100 OPTIMAL VLDL CALCULATION 30 MG/DL 05/29/19 6:18 AM CDT [facility] Comment:REFERENCE RANGE NOT ESTABLISHED CHOL/HDL RATIO 4.9 05/29/2019 6:18 AM CDT [facility] Comment:REFERENCE RANGE NOT ESTABLISHED LDL/HDL 2.8 05/29/2019 6:18 AM CDT [facility] Comment:REFERENCE RANGE NOT ESTABLISHED NON HDL CHOLESTEROL 109 MG/DL 05/29/2019 6:18 AM CDT [facility] Comment:REFERENCE RANGE NOT ESTABLISHED 05/29/2019 5:27 AM CDT Hernandez Cabrera MD LABORATORY Final Resul t [facility] [address] [place] [address], [id number] from Last 3 Months or Most Recently Relevant to Health Maintenance Insurance MEDICAID MEDICAID Member Subscriber Plan / Payer (Ef fective 2005-Present) Name:Michelle Hernadez Relation to Subscriber:Self Name:Michelle Hernadez Payer ID:Not on file Group ID:Not on file Type:Not on file Address: [address] MEDICARE Advance Directives * Full Code (Latest Code Status on File) Date Activated Date Inactivated Comments 03/29/2022 12:00 AM 03/29/2022 7:24 PM * Full Code Date Activated Date Inactivated Comments 01/16/2022 9:57 PM 01/21/2022 8:34 PM * Full Code Date Activated Date Inactivated Comments 05/03/2020 1:07 AM 05/06/2020 4:33 PM * Full Code Date Activated Date Inactivated Comments 03/30/2020 1:54 PM 04/02/2020 9:00 PM * Full Code Date Activated Date Inactivated Comments 11/29/2019 4:24 PM 12/04/2019 5:37 PM Care Teams Pnp Relationship Specialty Start Date End Date Stoney Mireles MD [address] [place] [address] PCP - General FAMILY PRACTICE 03/29/22 Shine Cooley MD [address] [place] [address] OTOLARYNGOLOGY 06/06/22 Paige Patel MD [address] [place] [address] Consulting Physician CARDIOVASCULAR DISEASE 07/08/24
[2025-02-28] MEDS: levoFLOXacin 500 MG/D5W 100 ML 500 MG/100 ML BAG 100 MG IVPB (17:25)
--- NOTE | 2025-02-28 17:28 | ED.URI ---
HPI - URI/Sore Throat General Chief Complaint: Upper Respiratory Infection Stated Complaint: shortness of breath Time Seen by Provider: 02/28/25 15:49 Source: patient and EMS Mode of arrival: EMS Limitations: physical limitation History of Present Illness HPI Narrative: This is a 39-year-old female with a history of end-stage renal disease on hemodialysis presents with some cough and congestion with low-grade fever with no chills no audible wheezing no chest pain no abdominal pain no dysuria or hematuria no flank pain no diarrhea constipation. Patient is a dialysis patient and receives dialysis tomorrow. MD elicited complaint: cough, rhinorrhea and nasal congestion Onset (ago): day(s) Consistency: constant Severity: mild Related Data Home Medications ?Medication ?Instructions ?Recorded ?Confirmed ?Last Taken ?Type hydralazine 25 mg tablet 25 mg PO DAILY 06/25/20 02/19/24 02/18/24 History hydroxyzine HCl 25 mg tablet 30 mg PO TID 01/16/22 02/19/24 02/18/24 History rosuvastatin 10 mg tablet 10 mg PO DAILY 01/16/22 02/19/24 02/18/24 History amlodipine 10 mg tablet 10 mg PO DAILY 11/19/23 02/19/24 02/18/24 History escitalopram oxalate 5 mg tablet 5 mg PO DAILY 11/19/23 02/19/24 02/18/24 History buspirone 5 mg tablet 5 mg PO BID 11/20/23 02/19/24 02/18/24 History calcitriol 0.25 mcg capsule 0.25 mcg PO BID 11/20/23 02/19/24 02/19/24 History carvedilol 25 mg tablet 25 mg PO BID 11/20/23 02/19/24 02/18/24 History sevelamer carbonate 800 mg tablet 2,400 mg PO TIDWMEAL 11/20/23 02/19/24 02/18/24 History (Renvela) hydrocodone 10 mg-acetaminophen 1 tablet PO Q6H PRN pain 02/19/24 02/19/24 Unknown History 325 mg tablet Allergies Allergy/AdvReac Type Severity Reaction Status Date / Time Penicillins Allergy Rash Verified 02/28/25 15:24 Review of Systems Review of Systems: All systems reviewed & are unremarkable except as noted in HPI and below PMFSH Past Medical History Medical History Asthma Hypertension Renal failure Asthma Peritoneal dialysis status ESRD (end stage renal disease) Surgical History Surgical History History of cholecystectomy History of arteriovenostomy for renal dialysis History of tonsillectomy Kidney transplant recipient Hx of tonsillectomy History of colon surgery History of cholecystectomy Kidney transplant recipient Family History Family History Mother Diabetes mellitus Grandparent Cancer Social History Social History Smoking packs per day: 0.5 Smoking cigarettes per day: 10.0 Years smoked: 20 Smoking pack-years: 10.00 Smoking status: Former smoker Tobacco type: cigarettes Second hand tobacco smoke exposure: Yes Alcohol intake: never Substance use: never Lack of Transportation: No Lack of Food: Never True Current Housing: I Have Housing Concerned About Future Housing: No Difficulty Paying Gas/Electric Bills: No Difficulty Paying for Meds: No Currently Unemployed: No Education: Grade School Difficulty w/ Childcare or Family Care: No Living arrangements: with family Gender identity (if verbalized by the patient): Female Spiritual care concerns: No Exam Const: General: healthy appearing and no acute distress Nutritional Appearance: well nourished and obese Orientation/consciousness: patient oriented x3 Limitations: no limitations HENMT: Head: normal to inspection Eyes: Conjunctivae: conjunctivae normal Pupils: Equal, round and reactive pupils present Neck: Neck: normal visual inspection and no lymphadenopathy Chest: Chest palpation & inspection: normal inspection of the chest Resp: Effort & Inspection: normal respiratory effort Auscultation: clear to auscultation bilaterally Cardio: Rate: regular rate Rhythm: regular rhythm GI: GI Palp: Yes Soft to palpation Auscultation: normal bowel sounds Back/Spine/Pelvis: Back: no CVA tenderness Skin: General skin exam: normal color Rashes: no rashes Extrem: General: normal to inspection and no clubbing, cyanosis or edema Course Course Emergency Course: Medical decision making narrative: The patient was evaluated by myself in the emergency department. History obtained from the patient who is an independent historian physical exam performed witnessed by nurse. EKG shows no acute abnormalities normal sinus rhythm chest x-ray with some cardiomegaly and some pulmonary edema with a BNP of greater than 30,000 does receive dialysis tomorrow currently stable her vitals are stable with low-grade fever blood pressure 118/78 heart rate of 1 0 5 with O2 sats 94% on room air. Patient received a nebulizer treatment and IV Levaquin. White blood cell count 24531 creatinine around 10 and does have dialysis tomorrow. Advised patient to take medication as prescribed. Repeat assessment: Patient doing well on repeat exam in no acute distress Symptoms have improved since arrival to the ED Repeat vitals are improved Patient agrees with discussion after shared medical decision-making and agrees with discharge All questions answered to the patient's satisfaction Advised follow-up with some dialysis tomorrow as scheduled. Vital Signs Vital signs: Vital Signs Temperature 37.9 C H 02/28/25 15:12 Pulse Rate 115 H 02/28/25 15:12 Respiratory Rate 26 H 02/28/25 15:12 Blood Pressure 125/98 H 02/28/25 15:12 Pulse Oximetry 97 02/28/25 15:12 Oxygen Delivery Nasal Cannula 02/28/25 15:12 Oxygen Flow Rate 3 02/28/25 15:12 Temperature 37.9 C H 02/28/25 15:12 Pulse Rate 100 02/28/25 17:14 Respiratory Rate 24 H 02/28/25 17:13 Blood Pressure 124/84 02/28/25 17:13 Pulse Oximetry 94 02/28/25 17:13 Oxygen Delivery Room Air 02/28/25 15:20 Oxygen Flow Rate 3 02/28/25 16:33 MDM Differential Diagnosis Differential Diagnosis: Upper respiratory tract infection Lab Data 02/28/25 16:19 02/28/25 16:19 Labs: Lab Results 02/28/25 02/28/25 Range/Units 16:19 16:20 WBC 17.4 H (4.8-10.8) K/mm3 RBC 4.19 L (4.20-5.40) M/mm3 Hgb 12.2 (12.0-15.0) g/dL Hct 38.9 (35.0-49.0) % MCV 92.8 (78.0-102.0) fL MCH 29.1 (27.0-31.0) pg MCHC 31.4 L (32-36) g/dL RDW 13.2 (11.6-14.4) % Plt Count 243 (150-420) K/mm3 MPV 9.4 (9.2-11.8) fl Immature Gran % (Auto) 0.5 H (0.0-0.0) % Neut % (Auto) 84.9 H (50.0-70.0) % Lymph % (Auto) 9.0 L (18.0-42.0) % Glasscock % (Auto) 2.9 (2.0-11.0) % Eos % (Auto) 2.4 (1.0-6.0) % Baso % (Auto) 0.3 (0.0-1.0) % Lymph # (Auto) 1.57 (1.10-4.50) K/mm3 Glasscock # (Auto) 0.50 (0.10-0.90) K/mm3 Eos # (Auto) 0.41 (0.02-0.50) K/mm3 Baso # (Auto) 0.06 (0.00-0.10) K/mm3 Abs Immat Gran (auto) 0.08 H (0.00-0.00) K/mm3 Absolute Neuts (auto) 14.74 H (1.70-7.20) K/mm3 Absolute Nucleated RBC 0.00 (0.00-0.00) K/mm3 Nucleated RBC % 0.0 (0-0.0) % PT 11.5 (9.50-12.1) Seconds INR 1.0 APTT 29.8 (23.9-30.70) Sec Sodium 139 (137-145) mmol/L Potassium 4.5 (3.4-5.0) mmol/L Chloride 100 (98-107) mmol/L Carbon Dioxide 23 (22-30) mmol/L Anion Gap 16 H (4-12) mmol/L BUN 37 H D (7-17) mg/dL Creatinine 10.12 H (0.7-1.0) mg/dL Estim Creat Clear Calc 8 ml/min Estimated GFR 4 L (59 - ) Glucose 90 (65-110) mg/dL Calculated Osmolality 296 H (285-295) mOsm/kg Lactic Acid 0.8 (0.7-2.0) mmol/L Calcium 9.1 (8.4-10.2) mg/dL Magnesium 2.4 H (1.6-2.3) mg/dL Total Bilirubin 0.8 (0.2-1.3) mg/dL AST 16 (14-36) U/L ALT 8 (6-35) U/L Alkaline Phosphatase 111 (38-126) U/L NT-Pro-B Natriuret Pep > 32780 H (19.9-100) pg/mL Total Protein 8.2 (6.3-8.2) g/dL Albumin 4.2 (3.5-5.1) g/dL Influenza A (RT-PCR) Negative (Negative) Influenza B (RT-PCR) Negative (Negative) RSV (RT-PCR) Negative (Negative) SARS-CoV-2 RNA (RT-PCR) Negative (Negative) Imaging Data Radiologist's impression: ITS Impressions Chest X-Ray 02/28/25 16:30 Impression: 1: Cardiomegaly with pulmonary edema. Critical Care Time Critical Care Time Critical Care Time: No Discharge Plan Discharge Clinical Impression: ESRD (end stage renal disease), Upper respiratory infection Patient Disposition: Home Condition: Stable Instructions: Antibiotic Form, Upper Respiratory Infection (ED) Additional Instructions: Take medication as prescribed, can take Tylenol as needed. And follow with primary/hemodialysis as scheduled. Patient Language: Croatian Prescriptions: New levofloxacin 250 mg tablet 250 mg PO DAILY Qty: 7 0RF No Action hydralazine 25 mg tablet 25 mg PO DAILY amlodipine 10 mg tablet 10 mg PO DAILY escitalopram oxalate 5 mg tablet 5 mg PO DAILY hydroxyzine HCl 25 mg tablet 30 mg PO TID rosuvastatin 10 mg tablet 10 mg PO DAILY hydrocodone-acetaminophen 10-325 mg tablet 1 tablet PO Q6H PRN (Reason: pain) azithromycin [Zithromax] 250 mg Tablet 500 mg PO DAILY Qty: 4 0RF prednisone 20 mg Tablet 40 mg PO DAILY@0800 Qty: 1 0RF guaifenesin [Mucus Relief ER] 600 mg Tablet Extended Release 12hr 600 mg PO Q12HR Qty: 1 0RF buspirone 5 mg tablet 5 mg PO BID carvedilol 25 mg tablet 25 mg PO BID calcitriol 0.25 mcg Capsule 0.25 mcg PO BID sevelamer carbonate [Renvela] 800 mg Tablet 2,400 mg PO TIDWMEAL ipratropium-albuterol 0.5 mg-3 mg(2.5 mg base)/3 mL Solution For Nebulization 3 ml inhalation Q4HRT Qty: 30 0RF Follow-up/Referrals: Costa,Yasmine Singh MD [Primary Care Provider, Unknown] Time of Disposition: 17:33
--- NOTE | 2025-03-04 14:10 | PC.NURSE ---
Preliminary blood culture report; no growth in 24 hours.
--- NOTE | 2025-03-05 13:12 | PC.NURSE ---
blood cultures x2 reviewed. no growth in 48 hours
== END 2025-02-28 18:30 | disposition home or self-care (01) ==
PROVIDERS: Emergency Provider Emergency Medicine; PCP Family Medicine
DX: I12.0 Hypertensive chronic kidney disease with stage 5 chronic kidney disease or end stage renal disease (principal); N18.6 End stage renal disease; J06.9 Acute upper respiratory infection, unspecified; Z99.2 Dependence on renal dialysis; Z87.891 Personal history of nicotine dependence; Z20.822 Contact with and (suspected) exposure to COVID-19
CPT/HCPCS: 36415; 71045; 80053; 83605; 83735; 83880; 85025; 85610; 85730; 87637; 93005; 94640; 96365; 96375; 99284; J1885; J1956; J2405

== ENCOUNTER 2025-03-08 06:25 | Emergency (ER) | payer MEDICARE, MEDICAID, SELFPAY ==
[2025-03-08] VITALS (10 sets, daily range): BP systolic 101–136; BP diastolic 66–100; PULSE 83–100; RESP 17–28; TEMP 37.3–37.5; O2SAT 92–99
--- NOTE | ~2025-03-08 | XR_ITS ---
XR chest 1V portable 03/08/2025 08:13 Indication: Shortness of breath Procedure: AP portable chest Comparison: Comparison to multiple prior studies sequentially, with oldest reviewed study dated 11/23/2023. Findings: Severe scoliosis. Cardiomegaly. Mild interstitial edema. No significant effusion. No pneumothorax. Impression: 1: Cardiomegaly with mild interstitial edema. Reviewed, dictated and finalized at location O. TRONIC GAMING DEVICE SUPERVISOR Impression: 1: Cardiomegaly with mild interstitial edema.
--- OUTSIDE RECORDS SUMMARY | 2025-03-08 07:10 | XMS_ITS | Encounter Summary ---
Author Organization [facility] Address [address] [place] [address] Care Team Providers Care Clinical Education Coordinator Name Role Phone None, Provider Primary Care Provider UnavailRajani Bauman MD Primary Care Provider [phone]- [phone] None, Provider Primary Care Provider UnavailStoney Gilliam MD Primary Care Provider Annette Mckeon [facility] Primary Care Provider + Jolie Armstrong MD Unavailable Unavailabl Stoney Huang MD Primary Care Provider Stoney Mireles MD Primary Care Provider Shine Cooley MD Unavailable [phone] Paige Patel MD Unavailable Encounter Details Date Type Department Care Team (Latest Contact Info) Description 01/13/2018 Abstract [facility] Medical Group Jonh Linda MD Social History [...] Description 07/14/2025 1:15 PM CDT Office Visit [facility] [address] [phone] Paige Patel MD [address] [place], [place] [phone] documented as of this encounter Visit Diagnoses Not on filedocumented in this encounter Additional Health Concerns Infection Onset Date Last Indicated Resolved Time COVID-19 Rule Out 01/16/2022 01/17/2022 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 09/05/2022 09/05/2022 09/05/2022 8:18 AM CDT documented as of this encounter Care Teams Clinical Education Coordinator Relationship Specialty Start Date End Date None, Provider, PCP - General 10/03/18 05/18/19 Rajani Ness MD PCP - General FAMILY PRACTICE 05/19/19 07/04/19 None, ProviderMD PCP - General 07/05/19 12/07/19 Stoney Mireles MD [address] [place] [phone] PCP - General FAMILY PRACTICE 12/08/19 10/16/20 Annette Mckeon FNP [address] [place] [phone] PCP - General NURSE PRACTITIONER 10/17/20 10/23/20 Stoney Mireles MD [address] [place] [phone] PCP - General FAMILY PRACTICE 10/24/20 03/28/22 Stoney Mireles MD [address] [place] [phone] PCP - General FAMILY PRACTICE 03/29/22 Jolie Armstrong MD [address] [place] [address] Consulting Physician CARDIOVASCULAR DISEASE 10/17/2007/07 Shine Cooley MD [address] [place] [address] OTOLARYNGOLOGY 06/06/22 Paige Patel MD [address] [place] [address] Consulting Physician CARDIOVASCULAR DISEASE 07/08/24 documented as of this encounter
--- OUTSIDE RECORDS SUMMARY | 2025-03-08 07:12 | XMS_ITS | Clinical Summary ---
Author Organization [facility] Address [address] [place] [address] Care Team Providers Care Hand Tool Lapper Name Role Phone Stoney Mireles MD Primary Care Provider Shine Cooley MD Unavailable [phone] Paige Patel MD Unavailable Allergies Active [...] than three times a week 05/19/2019 Attends Denominational Services Never 05/18 Active Member of Clubs [...] Living Expenses Not hard at all 05/19/2019 [facility] of Occupat ional Health - Occupational Stress [...] Description 07/14/2025 1:15 PM CDT [facility] [address] [place] [address] Paige Patel MD [address] [place] [phone] Health Maintenance Due Date Last Done [...] ult [facility] [address] [place] [address], [id number] * (ABNORMAL) LIPID PANEL (05/29/2019 5:27 AM [...] t [facility] [address] [place] [address], [id number] from Last 3 Months or Most Recently Relevant to Health Maintenance Insurance MEDICAID MEDICAID Member Subscriber Plan / Payer (Ef fective 2005-Present) Name:Michelle Hernadez Relation to Subscriber:Self Name:Michelle Hernadez Payer ID:Not on file Group ID:Not on file Type:Not on file Address: [address] MEDICARE Advance Directives * Full Code [...] 4:24 PM 12/04/2019 5:37 PM Care Teams Hand Tool Lapper Relationship Specialty Start Date End Date Stoney Mireles MD [address] [place] [address] PCP - General FAMILY PRACTICE 03/29/22 Shine Cooley MD [address] [place] [address] OTOLARYNGOLOGY 06/06/22 Paige Patel MD [address] [place] [address] Consulting Physician CARDIOVASCULAR DISEASE 07/08/24
--- OUTSIDE RECORDS SUMMARY | 2025-03-08 07:12 | XMS_ITS ---
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 Name Role Phone Unavailable Unavailable Unavailable Allergies, Adverse Reactions, Alerts Allergy Name Allergy Type Status Severity Reaction(s) Onset Date Inactive Date Treating Clinician Comments Penicillins Allergy Active Unknown 2021-12 17:30:0 9 Ibuprofen Allergy Active Unknown 2021-12 17:29:4 5 Tomato Allergy Active Unknown 2021-12 17:25:5 8 Tobacco Allergy Active Unknown 2021-12 17:25:3 4 Dust Mite Ext/Pollen Ext Allergy Active Unknown 2021-12 17:24:4 7 Cats Claw Allergy Active Unknown 2021-12 17:24:1 9 Aspirin Allergy Active Unknown 2021-12 17:23:3 7 Medications Ordered Medication Name Filled Medication Name Start Date Stop Date Current Medication? Ordering Clinician Indication Dosage Frequency Signature (SIG) Comments Components ONS [facility] 2024-03 16:31: 10 Yes [id number] Number of Repeats Allowed: Frequency: Every Dialysis Treatment Oxygen 2024-03 14:35: 51 Yes [id number] Number of Repeats Allowed: Frequency: Every Dialysis Treatment cinacalcet hydrochlori de 2024-03 21:56: 41 Yes [id number] Number of Repeats Allowed: Frequency: Three times a week heparin sodium, porcine 11-08 19:14: 29 Yes [id number] Number of Repeats Allowed: Frequency: Every Dialysis TreatmentD osesOrdere d: Loading Dose 1000 Units 1:1000 Units/mLRo marshall: Intravenou s clonidine 2021-03 06:00: 00 Yes [id number] Number of Repeats Allowed: Frequency: Every 4 hours as needed acetaminoph en 2021-03 06:00: 00 Yes [id number] Number of Repeats Allowed: Frequency: Every 4 hours as needed Nitrostat 2021-03 06:00: 00 Yes [id number] Number of Repeats Allowed: Frequency: Every 5 minutes as needed Normal Saline Solution 0.9% NaCl 2021-03 06:00: 00 Yes [id number] Number of Repeats Allowed: Frequency: As needed diphenhydra mine hydrochlori de 2021-03 06:00: 00 Yes [id number] Number of Repeats Allowed: Frequency: Every 30 minutes as needed diphenhydra mine hydrochlori de 2021-03 06:00: 00 Yes [id number] Number of Repeats Allowed: Frequency: Every 4 hours as needed Problems This patient has no known problems. Procedures Procedure Date / Time Performed Performing Clinician Maria L ce Details AV Graft 2022-03-13 06:00:00 Access Surgeon SALEEM CLARK M.D. ([id number]),[place], [place] Access Site Upper Arm (Left) Access Use Start Date 2022-07-02 00:00:0 0 AV [id number] 05:00:00 Access Surgeon CAN GLORIA ( [id number]),[place] Access Site Forearm (Left) Access Use Start Date 2021-11-06 05:00:0 0 Access Use End Date 2022-03-13 06:00:00 Central Venous Catheter (CVC)2021-07-16 05:00:00 Access Site Chest (Right) Access Use Start Date 2021-07-17 05:00:0 0 Access Use End Date 2022-08-16 05:00:00 DIALYSIS TREATMENT INFORMATION Conventional Hemodialysis Date Type Treatment Start Date Treatment End Date Pre-Treatment Vitals Post-Treatment Vitals Weight Gain BFR DFR Actual UF Dialysis Access Decem 2024 In-Ce nter Hemod ialys is Treat ment 2025-03-07 T13:57:39. 000Z 2025-03-07 T16:58:39. 000Z BP Sitting (Pre-Dialysis) 110/69 mmHg BP Sitting (Post-D ialysis ) 151/ 82 mmHg Sitting Heart Rate Pre-Dialysis 107 BPM Sitting H eart Rate Post-Dialysis 96 BPM Temperature Pre-Dialysis 97.4 degF Temperature Post -Dialysis 97.7 degF March 04, 2025 In-Center Hemodialysis Treatment 5122-98-01B11:30:28.000Z 3445-61-56X45:35:28.000Z BP Sitting (Pre-Dialysis) 122/71 mmHg BP Sitting (Post-Dialysis) 120/70 mmHg Concurrent Access: falseAV Graft Upper Arm (Left) Arterial Sitting Heart Rate Pre-Dialysis 104 BPM Sitting H eart Rate Post-Dialysis 84 BPM Temperature Pre-Dialysis 97.9 degF Temperature Post -Dialysis 97 degF March 01, 2025 In-Center Hemodialysis Treatment 0621-58-31D20:08:09.000Z 6759-08-39U81:54:09.000Z BP Sitting (Pre-Dialysis) 114/65 mmHg BP Sitting (Post-Dialysis) 135/70 mmHg Concurrent Access: falseAV Graft Upper Arm (Left) Arterial Sitting Heart Rate Pre-Dialysis 86 BPM Sitting H eart Rate Post-Dialysis 75 BPM Temperature Pre-Dialysis 95.2 degF Temperature Post -Dialysis 97 degF February 27, 2025 In-Center Hemodialysis Treatment 8616-01-00U83:56:15.000Z 3050-57-88Q26:28:08.000Z BP Sitting (Pre-Dialysis) 179/110 mmHg BP Sitting (Post-Dialysis) 189/99 mmHg Concurrent Access: falseAV Graft Upper Arm (Left) Arterial Sitting Heart Rate Pre-Dialysis 92 BPM Sitting H eart Rate Post-Dialysis 76 BPM Temperature Pre-Dialysis 97.2 degF Temperature Post -Dialysis 97 degF February 23, 2025 In-Center Hemodialysis Treatment 3616-62-39M51:07:00.000Z 5939-03-32L89:09:06.000Z BP Sitting (Pre-Dialysis) 152/86 mmHg BP Sitting (Post-Dialysis) 132/79 mmHg Concurrent Access: falseAV Graft Upper Arm (Left) Arterial Sitting Heart Rate Pre-Dialysis 88 BPM Sitting H eart Rate Post-Dialysis 78 BPM Temperature Pre-Dialysis 97.3 degF Temperature Post -Dialysis 97.2 degF February 21, 2025 In-Center Hemodialysis Treatment 7916-88-12X49:49:00.000Z 2193-57-79P97:52:20.000Z BP Sitting (Pre-Dialysis) 132/90 mmHg BP Sitting (Post-Dialysis) 110/74 mmHg Concurrent Access: falseAV Graft Upper Arm (Left) Arterial Sitting Heart Rate Pre-Dialysis 99 BPM Sitting H eart Rate Post-Dialysis 102 BPM Temperature Pre-Dialysis 97.2 degF Temperature Post -Dialysis 97.2 degF February 18, 2025 In-Center Hemodialysis Treatment 8862-64-06J14:51:00.000Z 2192-03-37L39:57:50.000Z BP Sitting (Pre-Dialysis) 141/92 mmHg BP Sitting (Post-Dialysis) 144/87 mmHg Concurrent Access: falseAV Graft Upper Arm (Left) Arterial Sitting Heart Rate Pre-Dialysis 93 BPM Sitting H eart Rate Post-Dialysis 103 BPM Temperature Pre-Dialysis 97.8 degF Temperature Post -Dialysis 97.2 degF February 16, 2025 In-Center Hemodialysis Treatment 8971-62-09L13:50:53.000Z 7360-77-24X56:49:53.000Z BP Sitting (Pre-Dialysis) 133/82 mmHg BP Sitting (Post-Dialysis) 117/78 mmHg Concurrent Access: falseAV Graft Upper Arm (Left) Arterial Sitting Heart Rate Pre-Dialysis 92 BPM Sitting H eart Rate Post-Dialysis 93 BPM Temperature Pre-Dialysis 97.9 degF Temperature Post -Dialysis 97.2 degF February 14, 2025 In-Center Hemodialysis Treatment 3373-47-19S24:06:28.000Z 7178-03-42D68:08:29.000Z BP Sitting (Pre-Dialysis) 161/92 mmHg BP Sitting (Post-Dialysis) 124/82 mmHg Concurrent Access: falseAV Graft Upper Arm (Left) Arterial Sitting Heart Rate Pre-Dialysis 90 BPM Sitting H eart Rate Post-Dialysis 85 BPM Temperature Pre-Dialysis 97.9 degF Temperature Post -Dialysis 97.3 degF February 11, 2025 In-Center Hemodialysis Treatment 9424-15-28N24:53:47.000Z 7847-03-70H64:56:48.000Z BP Sitting (Pre-Dialysis) 153/88 mmHg BP Sitting (Post-Dialysis) 154/99 mmHg Concurrent Access: falseAV Graft Upper Arm (Left) Arterial Sitting Heart Rate Pre-Dialysis 78 BPM Sitting H eart Rate Post-Dialysis 87 BPM Temperature Pre-Dialysis 97.1 degF Temperature Post -Dialysis 97.9 degF February 09, 2025 In-Center Hemodialysis Treatment 7460-40-85I43:39:15.000Z 8493-68-09F13:42:15.000Z BP Sitting (Pre-Dialysis) 144/88 mmHg BP Sitting (Post-Dialysis) 145/87 mmHg Concurrent Access: falseAV Graft Upper Arm (Left) Arterial Sitting Heart Rate Pre-Dialysis 72 BPM Sitting H eart Rate Post-Dialysis 78 BPM Temperature Pre-Dialysis 97.2 degF Temperature Post -Dialysis 97.9 degF February 07, 2025 In-Center Hemodialysis Treatment 7285-31-51O07:18:00.000Z 2434-54-17N98:21:42.000Z BP Sitting (Pre-Dialysis) 162/96 mmHg BP Sitting (Post-Dialysis) 147/93 mmHg Concurrent Access: falseAV Graft Upper Arm (Left) Arterial Sitting Heart Rate Pre-Dialysis 86 BPM Sitting H eart Rate Post-Dialysis 74 BPM Temperature Pre-Dialysis 97.3 degF Temperature Post -Dialysis 97.9 degF February 04, 2025 In-Center Hemodialysis Treatment 1740-46-97U07:39:03.000Z 9780-99-30Z29:22:03.000Z BP Sitting (Pre-Dialysis) 147/87 mmHg BP Sitting (Post-Dialysis) 148/89 mmHg Concurrent Access: falseAV Graft Upper Arm (Left) Arterial Sitting Heart Rate Pre-Dialysis 90 BPM Sitting H eart Rate Post-Dialysis 87 BPM Temperature Pre-Dialysis 97.4 degF Temperature Post -Dialysis 97.9 degF February 01, 2025 In-Center Hemodialysis Treatment 9751-34-07J83:19:14.000Z 4108-63-38P82:23:14.000Z BP Sitting (Pre-Dialysis) 134/84 mmHg BP Sitting (Post-Dialysis) 145/82 mmHg Concurrent Access: falseAV Graft Upper Arm (Left) Arterial Sitting Heart Rate Pre-Dialysis 83 BPM Sitting H eart Rate Post-Dialysis 89 BPM Temperature Pre-Dialysis 97.7 degF Temperature Post -Dialysis 97.9 degF January 30, 2025 In-Center Hemodialysis Treatment 7539-92-48D96:28:44.000Z 8026-51-73G25:30:44.000Z BP Sitting (Pre-Dialysis) 126/80 mmHg BP Sitting (Post-Dialysis) 134/81 mmHg Concurrent Access: falseAV Graft Upper Arm (Left) Arterial Sitting Heart Rate Pre-Dialysis 85 BPM Sitting H eart Rate Post-Dialysis 87 BPM Temperature Pre-Dialysis 97.6 degF Temperature Post -Dialysis 97.2 degF January 28, 2025 In-Center Hemodialysis Treatment 9831-73-74K39:20:26.000Z 5677-78-01X43:26:26.000Z BP Sitting (Pre-Dialysis) 148/92 mmHg BP Sitting (Post-Dialysis) 121/77 mmHg Concurrent Access: falseAV Graft Upper Arm (Left) Arterial Sitting Heart Rate Pre-Dialysis 88 BPM Sitting H eart Rate Post-Dialysis 101 BPM Temperature Pre-Dialysis 97.3 degF Temperature Post -Dialysis 97.9 degF January 26, 2025 In-Center Hemodialysis Treatment 6656-85-18B18:27:53.000Z 2284-26-10S80:28:53.000Z BP Sitting (Pre-Dialysis) 138/73 mmHg BP Sitting (Post-Dialysis) 138/83 mmHg Concurrent Access: falseAV Graft Upper Arm (Left) Arterial Sitting Heart Rate Pre-Dialysis 76 BPM Sitting H eart Rate Post-Dialysis 92 BPM Temperature Pre-Dialysis 98 degF Temperature Post -Dialysis 97.2 degF January 24, 2025 In-Center Hemodialysis Treatment 9812-06-38H98:20:20.000Z 8674-55-45V55:21:21.000Z BP Sitting (Pre-Dialysis) 150/95 mmHg BP Sitting (Post-Dialysis) 99/53 mmHg Concurrent Access: falseAV Graft Upper Arm (Left) Arterial Sitting Heart Rate Pre-Dialysis 80 BPM Sitting H eart Rate Post-Dialysis 73 BPM Temperature Pre-Dialysis 97.6 degF Temperature Post -Dialysis 97.3 degF January 21, 2025 In-Center Hemodialysis Treatment 6437-24-28A75:14:32.000Z 8778-60-60K80:20:32.000Z BP Sitting (Pre-Dialysis) 134/75 mmHg BP Sitting (Post-Dialysis) 117/61 mmHg Concurrent Access: falseAV Graft Upper Arm (Left) Arterial Sitting Heart Rate Pre-Dialysis 80 BPM Sitting H eart Rate Post-Dialysis 97 BPM Temperature Pre-Dialysis 98 degF Temperature Post -Dialysis 97.6 degF January 19, 2025 In-Center Hemodialysis Treatment 2933-13-96L35:15:59.000Z 2320-90-59Q61:18:59.000Z BP Sitting (Pre-Dialysis) 112/73 mmHg BP Sitting (Post-Dialysis) 113/56 mmHg Concurrent Access: falseAV Graft Upper Arm (Left) Arterial Sitting Heart Rate Pre-Dialysis 73 BPM Sitting H eart Rate Post-Dialysis 102 BPM Temperature Pre-Dialysis 97.9 degF Temperature Post -Dialysis 97.5 degF January 17, 2025 In-Center Hemodialysis Treatment 8922-47-17Z78:24:27.000Z 9029-84-90N96:31:27.000Z BP Sitting (Pre-Dialysis) 148/89 mmHg BP Sitting (Post-Dialysis) 128/78 mmHg Concurrent Access: falseAV Graft Upper Arm (Left) Arterial Sitting Heart Rate Pre-Dialysis 72 BPM Sitting H eart Rate Post-Dialysis 90 BPM Temperature Pre-Dialysis 97.7 degF Temperature Post -Dialysis 97.2 degF January 14, 2025 In-Center Hemodialysis Treatment 1356-70-60E44:15:38.000Z 0084-09-91V83:16:38.000Z BP Sitting (Pre-Dialysis) 159/92 mmHg BP Sitting (Post-Dialysis) 110/69 mmHg Concurrent Access: falseAV Graft Upper Arm (Left) Arterial Sitting Heart Rate Pre-Dialysis 84 BPM Sitting H eart Rate Post-Dialysis 77 BPM Temperature Pre-Dialysis 97.5 degF Temperature Post -Dialysis 97.2 degF January 10, 2025 In-Center Hemodialysis Treatment 9115-70-20G47:21:33.000Z 1427-58-80U81:23:33.000Z BP Sitting (Pre-Dialysis) 123/72 mmHg BP Sitting (Post-Dialysis) 105/58 mmHg Concurrent Access: falseAV Graft Upper Arm (Left) Arterial Sitting Heart Rate Pre-Dialysis 76 BPM Sitting H eart Rate Post-Dialysis 82 BPM Temperature Pre-Dialysis 98.3 degF Temperature Post -Dialysis 97.9 degF January 07, 2025 In-Center Hemodialysis Treatment 0612-14-28Y95:18:12.000Z 5140-98-46P08:20:12.000Z BP Sitting (Pre-Dialysis) 158/91 mmHg BP Sitting (Post-Dialysis) 102/65 mmHg Concurrent Access: falseAV Graft Upper Arm (Left) Arterial Sitting Heart Rate Pre-Dialysis 79 BPM Sitting H eart Rate Post-Dialysis 98 BPM Temperature Pre-Dialysis 97.8 degF Temperature Post -Dialysis 97.2 degF January 05, 2025 In-Center Hemodialysis Treatment 5736-47-92J51:09:00.000Z 4904-39-73Y99:28:40.000Z BP Sitting (Pre-Dialysis) 135/86 mmHg BP Sitting (Post-Dialysis) 120/66 mmHg Concurrent Access: falseAV Graft Upper Arm (Left) Arterial Sitting Heart Rate Pre-Dialysis 80 BPM Sitting H eart Rate Post-Dialysis 78 BPM Temperature Pre-Dialysis 97.2 degF Temperature Post -Dialysis 97.7 degF January 03, 2025 In-Center Hemodialysis Treatment 2156-61-10Q37:12:00.000Z 8903-58-81W93:23:45.000Z BP Sitting (Pre-Dialysis) 146/84 mmHg BP Sitting (Post-Dialysis) 113/70 mmHg Concurrent Access: falseAV Graft Upper Arm (Left) Arterial Sitting Heart Rate Pre-Dialysis 73 BPM Sitting H eart Rate Post-Dialysis 89 BPM Temperature Pre-Dialysis 97.7 degF Temperature Post -Dialysis 97.2 degF December 31, 2024 In-Center Hemodialysis Treatment 4590-57-95J58:14:56.000Z 5006-97-71C77:16:56.000Z BP Sitting (Pre-Dialysis) 122/71 mmHg BP Sitting (Post-Dialysis) 96/62 mmHg Concurrent Access: falseAV Graft Upper Arm (Left) Arterial Sitting Heart Rate Pre-Dialysis 69 BPM Sitting H eart Rate Post-Dialysis 76 BPM Temperature Pre-Dialysis 97.9 degF Temperature Post -Dialysis 97.2 degF December 29, 2024 In-Center Hemodialysis Treatment 0030-93-93Q07:16:46.000Z 1854-95-26O25:17:46.000Z BP Sitting (Pre-Dialysis) 130/75 mmHg BP Sitting (Post-Dialysis) 102/57 mmHg Concurrent Access: falseAV Graft Upper Arm (Left) Arterial Sitting Heart Rate Pre-Dialysis 72 BPM Sitting H eart Rate Post-Dialysis 72 BPM Temperature Pre-Dialysis 97.8 degF Temperature Post -Dialysis 97.2 degF December 27, 2024 In-Center Hemodialysis Treatment 3026-02-55I55:21:00.000Z 0864-37-95V17:28:14.000Z BP Sitting (Pre-Dialysis) 151/82 mmHg BP Sitting (Post-Dialysis) 112/75 mmHg Concurrent Access: falseAV Graft Upper Arm (Left) Arterial Sitting Heart Rate Pre-Dialysis 79 BPM Sitting H eart Rate Post-Dialysis 70 BPM Temperature Pre-Dialysis 97.9 degF Temperature Post -Dialysis 97.2 degF December 24, 2024 In-Center Hemodialysis Treatment 1825-64-02B09:24:00.000Z 1874-72-97D50:24:25.000Z BP Sitting (Pre-Dialysis) 118/74 mmHg BP Sitting (Post-Dialysis) 111/64 mmHg Concurrent Access: falseAV Graft Upper Arm (Left) Arterial Sitting Heart Rate Pre-Dialysis 73 BPM Sitting H eart Rate Post-Dialysis 71 BPM Temperature Pre-Dialysis 96.7 degF Temperature Post -Dialysis 97.4 degF December 22, 2024 In-Center Hemodialysis Treatment 1555-64-17E37:12:00.000Z 8027-33-26Z50:12:52.000Z BP Sitting (Pre-Dialysis) 149/86 mmHg BP Sitting (Post-Dialysis) 137/57 mmHg Concurrent Access: falseAV Graft Upper Arm (Left) Arterial Sitting Heart Rate Pre-Dialysis 78 BPM Sitting H eart Rate Post-Dialysis 83 BPM Temperature Pre-Dialysis 96.8 degF Temperature Post -Dialysis 97.2 degF December 17, 2024 In-Center Hemodialysis Treatment 0264-87-78O21:18:00.000Z 3171-10-05K19:23:31.000Z BP Sitting (Pre-Dialysis) 137/85 mmHg BP Sitting (Post-Dialysis) 100/55 mmHg Concurrent Access: falseAV Graft Upper Arm (Left) Arterial Sitting Heart Rate Pre-Dialysis 75 BPM Sitting H eart Rate Post-Dialysis 88 BPM Temperature Pre-Dialysis 98.2 degF Temperature Post -Dialysis 97.2 degF December 15, 2024 In-Center Hemodialysis Treatment 2857-24-59J08:16:58.000Z 1980-76-28U16:17:59.000Z BP Sitting (Pre-Dialysis) 150/87 mmHg BP Sitting (Post-Dialysis) 119/77 mmHg Concurrent Access: falseAV Graft Upper Arm (Left) Arterial Sitting Heart Rate Pre-Dialysis 79 BPM Sitting H eart Rate Post-Dialysis 95 BPM Temperature Pre-Dialysis 98.3 degF Temperature Post -Dialysis 97.2 degF December 13, 2024 In-Center Hemodialysis Treatment 7029-03-60W00:15:42.000Z 1281-21-03F90:12:42.000Z BP Sitting (Pre-Dialysis) 147/90 mmHg BP Sitting (Post-Dialysis) 118/69 mmHg Concurrent Access: falseAV Graft Upper Arm (Left) Arterial Sitting Heart Rate Pre-Dialysis 79 BPM Sitting H eart Rate Post-Dialysis 98 BPM Temperature Pre-Dialysis 98 degF Temperature Post -Dialysis 97.2 degF December 10, 2024 In-Center Hemodialysis Treatment 2857-93-26D24:14:53.000Z 5390-18-71T21:14:54.000Z BP Sitting (Pre-Dialysis) 175/96 mmHg BP Sitting (Post-Dialysis) 136/86 mmHg Concurrent Access: falseAV Graft Upper Arm (Left) Arterial Sitting Heart Rate Pre-Dialysis 74 BPM Sitting H eart Rate Post-Dialysis 85 BPM Temperature Pre-Dialysis 97.9 degF Temperature Post -Dialysis 97.2 degF December 06, 2024 In-Center Hemodialysis Treatment 4089-47-04J37:16:48.000Z 4153-85-19S59:17:49.000Z BP Sitting (Pre-Dialysis) 139/84 mmHg BP Sitting (Post-Dialysis) 110/73 mmHg Concurrent Access: falseAV Graft Upper Arm (Left) Arterial Sitting Heart Rate Pre-Dialysis 75 BPM Sitting H eart Rate Post-Dialysis 91 BPM Temperature Pre-Dialysis 98 degF Temperature Post -Dialysis 97.9 degF December 03, 2024 In-Center Hemodialysis Treatment 6965-78-64I47:12:00.000Z 7438-49-76L25:14:00.000Z BP Sitting (Pre-Dialysis) 151/83 mmHg BP Sitting (Post-Dialysis) 136/84 mmHg Concurrent Access: falseAV Graft Upper Arm (Left) Arterial Sitting Heart Rate Pre-Dialysis 75 BPM Sitting H eart Rate Post-Dialysis 76 BPM Temperature Pre-Dialysis 97.9 degF Temperature Post -Dialysis 97.9 degF December 01, 2024 In-Center Hemodialysis Treatment 9664-01-64S03:08:00.000Z 0462-53-76F34:12:27.000Z BP Sitting (Pre-Dialysis) 149/79 mmHg BP Sitting (Post-Dialysis) 127/70 mmHg Concurrent Access: falseAV Graft Upper Arm (Left) Arterial Sitting Heart Rate Pre-Dialysis 75 BPM Sitting H eart Rate Post-Dialysis 73 BPM Temperature Pre-Dialysis 98 degF Temperature Post -Dialysis 97.6 degF November 29, 2024 In-Center Hemodialysis Treatment 1972-62-60T83:18:36.000Z 4150-76-40T60:21:37.000Z BP Sitting (Pre-Dialysis) 147/76 mmHg BP Sitting (Post-Dialysis) 125/80 mmHg Concurrent Access: falseAV Graft Upper Arm (Left) Arterial Sitting Heart Rate Pre-Dialysis 78 BPM Sitting H eart Rate Post-Dialysis 75 BPM Temperature Pre-Dialysis 98 degF Temperature Post -Dialysis 97.6 degF November 26, 2024 In-Center Hemodialysis Treatment 5847-73-81Y38:20:48.000Z 5642-94-61P51:25:48.000Z BP Sitting (Pre-Dialysis) 140/83 mmHg BP Sitting (Post-Dialysis) 132/85 mmHg Concurrent Access: falseAV Graft Upper Arm (Left) Arterial Sitting Heart Rate Pre-Dialysis 71 BPM Sitting H eart Rate Post-Dialysis 73 BPM Temperature Pre-Dialysis 98 degF Temperature Post -Dialysis 97.4 degF November 24, 2024 In-Center Hemodialysis Treatment 9985-99-14X16:07:15.000Z 5484-94-10O33:10:15.000Z BP Sitting (Pre-Dialysis) 142/83 mmHg BP Sitting (Post-Dialysis) 123/82 mmHg Concurrent Access: falseAV Graft Upper Arm (Left) Arterial Sitting Heart Rate Pre-Dialysis 73 BPM Sitting H eart Rate Post-Dialysis 67 BPM Temperature Pre-Dialysis 97.3 degF Temperature Post -Dialysis 97.7 degF November 22, 2024 In-Center Hemodialysis Treatment 5395-66-96E95:17:00.000Z 0048-26-67W14:19:43.000Z BP Sitting (Pre-Dialysis) 118/78 mmHg BP Sitting (Post-Dialysis) 127/71 mmHg Concurrent Access: falseAV Graft Upper Arm (Left) Arterial Sitting Heart Rate Pre-Dialysis 80 BPM Sitting H eart Rate Post-Dialysis 76 BPM Temperature Pre-Dialysis 98.3 degF Temperature Post -Dialysis 97.7 degF November 19, 2024 In-Center Hemodialysis Treatment 6723-07-96W38:13:54.000Z 0268-28-42K90:25:06.000Z BP Sitting (Pre-Dialysis) 144/84 mmHg BP Sitting (Post-Dialysis) 116/73 mmHg Concurrent Access: falseAV Graft Upper Arm (Left) Arterial Sitting Heart Rate Pre-Dialysis 70 BPM Sitting H eart Rate Post-Dialysis 85 BPM Temperature Pre-Dialysis 97.2 degF November 17, 2024 In-Center Hemodialysis Treatment 2965-45-17E92:13:21.000Z 5267-36-58I37:16:22.000Z BP Sitting (Pre-Dialysis) 140/80 mmHg BP Sitting (Post-Dialysis) 123/81 mmHg Concurrent Access: falseAV Graft Upper Arm (Left) Arterial Sitting Heart Rate Pre-Dialysis 79 BPM Sitting H eart Rate Post-Dialysis 83 BPM Temperature Pre-Dialysis 98.3 degF Temperature Post -Dialysis 97.4 degF November 15, 2024 In-Center Hemodialysis Treatment 0971-37-23T83:16:00.000Z 1810-19-12Y14:19:49.000Z BP Sitting (Pre-Dialysis) 121/69 mmHg BP Sitting (Post-Dialysis) 106/67 mmHg Concurrent Access: falseAV Graft Upper Arm (Left) Arterial Sitting Heart Rate Pre-Dialysis 74 BPM Sitting H eart Rate Post-Dialysis 74 BPM Temperature Pre-Dialysis 98 degF Temperature Post -Dialysis 97.7 degF November 12, 2024 In-Center Hemodialysis Treatment 4370-51-07G65:15:00.000Z 3003-01-89I92:22:37.000Z BP Sitting (Pre-Dialysis) 112/64 mmHg BP Sitting (Post-Dialysis) 106/67 mmHg Concurrent Access: falseAV Graft Upper Arm (Left) Arterial Sitting Heart Rate Pre-Dialysis 72 BPM Sitting H eart Rate Post-Dialysis 76 BPM Temperature Pre-Dialysis 98 degF Temperature Post -Dialysis 97.2 degF November 10, 2024 In-Center Hemodialysis Treatment 7122-68-29R87:08:04.000Z 9239-90-04O64:10:05.000Z BP Sitting (Pre-Dialysis) 141/89 mmHg BP Sitting (Post-Dialysis) 123/63 mmHg Concurrent Access: falseAV Graft Upper Arm (Left) Arterial Sitting Heart Rate Pre-Dialysis 83 BPM Sitting H eart Rate Post-Dialysis 73 BPM Temperature Pre-Dialysis 98.3 degF Temperature Post -Dialysis 97.7 degF November 08, 2024 In-Center Hemodialysis Treatment 2829-85-94S41:14:32.000Z 3318-47-46U22:48:32.000Z BP Sitting (Pre-Dialysis) 153/91 mmHg BP Sitting (Post-Dialysis) 103/58 mmHg Concurrent Access: falseAV Graft Upper Arm (Left) Arterial Sitting Heart Rate Pre-Dialysis 78 BPM Sitting H eart Rate Post-Dialysis 87 BPM Temperature Pre-Dialysis 98 degF Temperature Post -Dialysis 98 degF November 05, 2024 In-Center Hemodialysis Treatment 2839-94-40O49:13:43.000Z 3765-45-96N40:14:43.000Z BP Sitting (Pre-Dialysis) 122/76 mmHg BP Sitting (Post-Dialysis) 118/76 mmHg Concurrent Access: falseAV Graft Upper Arm (Left) Arterial Sitting Heart Rate Pre-Dialysis 74 BPM Sitting H eart Rate Post-Dialysis 73 BPM Temperature Pre-Dialysis 97.6 degF Temperature Post -Dialysis 97.7 degF November 03, 2024 In-Center Hemodialysis Treatment 9113-79-41G22:16:11.000Z 5672-33-59I69:24:11.000Z BP Sitting (Pre-Dialysis) 131/72 mmHg BP Sitting (Post-Dialysis) 104/58 mmHg Concurrent Access: falseAV Graft Upper Arm (Left) Arterial Sitting Heart Rate Pre-Dialysis 74 BPM Sitting H eart Rate Post-Dialysis 87 BPM Temperature Pre-Dialysis 97.3 degF Temperature Post -Dialysis 97.2 degF November 01, 2024 In-Center Hemodialysis Treatment 5040-90-29Z57:19:38.000Z 8361-71-58I32:26:38.000Z BP Sitting (Pre-Dialysis) 122/72 mmHg BP Sitting (Post-Dialysis) 120/58 mmHg Concurrent Access: falseAV Graft Upper Arm (Left) Arterial Sitting Heart Rate Pre-Dialysis 79 BPM Sitting H eart Rate Post-Dialysis 82 BPM Temperature Pre-Dialysis 97.2 degF Temperature Post -Dialysis 97.7 degF October 29, 2024 In-Center Hemodialysis Treatment 2347-48-68Y69:13:49.000Z 0921-91-34B71:06:50.000Z BP Sitting (Pre-Dialysis) 132/80 mmHg BP Sitting (Post-Dialysis) 104/59 mmHg Concurrent Access: falseAV Graft Upper Arm (Left) Arterial Sitting Heart Rate Pre-Dialysis 78 BPM Sitting H eart Rate Post-Dialysis 73 BPM Temperature Pre-Dialysis 97 degF Temperature Post -Dialysis 97.7 degF October 27, 2024 In-Center Hemodialysis Treatment 2843-87-38O14:06:17.000Z 6638-46-88N51:08:17.000Z BP Sitting (Pre-Dialysis) 143/79 mmHg BP Sitting (Post-Dialysis) 106/57 mmHg Concurrent Access: falseAV Graft Upper Arm (Left) Arterial Sitting Heart Rate Pre-Dialysis 79 BPM Sitting H eart Rate Post-Dialysis 81 BPM Temperature Pre-Dialysis 97.7 degF Temperature Post -Dialysis 97.7 degF October 25, 2024 In-Center Hemodialysis Treatment 4044-07-70U53:14:44.000Z 9310-07-08T46:14:45.000Z BP Sitting (Pre-Dialysis) 147/86 mmHg BP Sitting (Post-Dialysis) 117/65 mmHg Concurrent Access: falseAV Graft Upper Arm (Left) Arterial Sitting Heart Rate Pre-Dialysis 75 BPM Sitting H eart Rate Post-Dialysis 72 BPM Temperature Pre-Dialysis 97.3 degF Temperature Post -Dialysis 97.5 degF October 22, 2024 In-Center Hemodialysis Treatment 2854-34-00S41:06:56.000Z 7621-43-67T30:08:56.000Z BP Sitting (Pre-Dialysis) 104/61 mmHg BP Sitting (Post-Dialysis) 111/63 mmHg Concurrent Access: falseAV Graft Upper Arm (Left) Arterial Sitting Heart Rate Pre-Dialysis 76 BPM Sitting H eart Rate Post-Dialysis 71 BPM Temperature Pre-Dialysis 97 degF Temperature Post -Dialysis 95.9 degF October 20, 2024 In-Center Hemodialysis Treatment 9699-24-91V01:13:23.000Z 3557-87-44K54:14:23.000Z BP Sitting (Pre-Dialysis) 136/79 mmHg BP Sitting (Post-Dialysis) 111/70 mmHg Concurrent Access: falseAV Graft Upper Arm (Left) Arterial Sitting Heart Rate Pre-Dialysis 71 BPM Sitting H eart Rate Post-Dialysis 82 BPM Temperature Pre-Dialysis 97.7 degF Temperature Post -Dialysis 97.4 degF October 18, 2024 In-Center Hemodialysis Treatment 5645-72-29F87:10:51.000Z 6206-40-20U92:12:51.000Z BP Sitting (Pre-Dialysis) 157/87 mmHg BP Sitting (Post-Dialysis) 112/66 mmHg Concurrent Access: falseAV Graft Upper Arm (Left) Arterial Sitting Heart Rate Pre-Dialysis 73 BPM Sitting H eart Rate Post-Dialysis 72 BPM Temperature Pre-Dialysis 97.7 degF Temperature Post -Dialysis 97.4 degF October 15, 2024 In-Center Hemodialysis Treatment 8420-56-18T83:07:02.000Z 6868-36-14L91:11:02.000Z BP Sitting (Pre-Dialysis) 146/78 mmHg BP Sitting (Post-Dialysis) 125/75 mmHg Concurrent Access: falseAV Graft Upper Arm (Left) Arterial Sitting Heart Rate Pre-Dialysis 68 BPM Sitting H eart Rate Post-Dialysis 71 BPM Temperature Pre-Dialysis 97.7 degF Temperature Post -Dialysis 97.4 degF October 13, 2024 In-Center Hemodialysis Treatment 7704-85-51H51:15:29.000Z 4937-14-51Z90:16:29.000Z BP Sitting (Pre-Dialysis) 127/73 mmHg BP Sitting (Post-Dialysis) 121/84 mmHg Concurrent Access: falseAV Graft Upper Arm (Left) Arterial Sitting Heart Rate Pre-Dialysis 70 BPM Sitting H eart Rate Post-Dialysis 73 BPM Temperature Pre-Dialysis 97.1 degF Temperature Post -Dialysis 97.5 degF October 11, 2024 In-Center Hemodialysis Treatment 5442-11-67C56:22:00.000Z 5787-07-20E18:26:57.000Z BP Sitting (Pre-Dialysis) 170/85 mmHg BP Sitting (Post-Dialysis) 126/80 mmHg Concurrent Access: falseAV Graft Upper Arm (Left) Arterial Sitting Heart Rate Pre-Dialysis 67 BPM Sitting H eart Rate Post-Dialysis 68 BPM Temperature Pre-Dialysis 97.2 degF Temperature Post -Dialysis 97.2 degF October 08, 2024 In-Center Hemodialysis Treatment 4788-93-78Y45:14:08.000Z 3248-80-61J63:16:08.000Z BP Sitting (Pre-Dialysis) 178/99 mmHg BP Sitting (Post-Dialysis) 153/82 mmHg Concurrent Access: falseAV Graft Upper Arm (Left) Arterial Sitting Heart Rate Pre-Dialysis 73 BPM Sitting H eart Rate Post-Dialysis 67 BPM Temperature Pre-Dialysis 97.9 degF Temperature Post -Dialysis 97.7 degF October 06, 2024 In-Center Hemodialysis Treatment 4796-53-98I95:07:31.000Z 6897-69-26S54:09:31.000Z BP Sitting (Pre-Dialysis) 140/84 mmHg BP Sitting (Post-Dialysis) 139/79 mmHg Concurrent Access: falseAV Graft Upper Arm (Left) Arterial Sitting Heart Rate Pre-Dialysis 69 BPM Sitting H eart Rate Post-Dialysis 70 BPM Temperature Pre-Dialysis 96.9 degF Temperature Post -Dialysis 97.8 degF October 01, 2024 In-Center Hemodialysis Treatment 2286-75-27Y92:16:09.000Z 7785-41-79F58:16:10.000Z BP Sitting (Pre-Dialysis) 102/52 mmHg BP Sitting (Post-Dialysis) 111/66 mmHg Concurrent Access: falseAV Graft Upper Arm (Left) Arterial Sitting Heart Rate Pre-Dialysis 72 BPM Sitting H eart Rate Post-Dialysis 77 BPM Temperature Pre-Dialysis 97.7 degF Temperature Post -Dialysis 97.8 degF September 29, 2024 In-Center Hemodialysis Treatment 5704-00-03W80:21:37.000Z 9723-94-72B68:22:37.000Z BP Sitting (Pre-Dialysis) 158/77 mmHg BP Sitting (Post-Dialysis) 124/76 mmHg Concurrent Access: falseAV Graft Upper Arm (Left) Arterial Sitting Heart Rate Pre-Dialysis 72 BPM Sitting H eart Rate Post-Dialysis 77 BPM Temperature Pre-Dialysis 97.3 degF Temperature Post -Dialysis 97.3 degF September 27, 2024 In-Center Hemodialysis Treatment 0115-58-12E77:25:10.000Z 4142-55-91Y06:27:10.000Z BP Sitting (Pre-Dialysis) 175/79 mmHg BP Sitting (Post-Dialysis) 121/73 mmHg Concurrent Access: falseAV Graft Upper Arm (Left) Arterial Sitting Heart Rate Pre-Dialysis 76 BPM Sitting H eart Rate Post-Dialysis 72 BPM Temperature Pre-Dialysis 97.3 degF Temperature Post -Dialysis 97.7 degF September 24, 2024 In-Center Hemodialysis Treatment 7176-88-38I15:22:21.000Z 5171-20-97C78:24:22.000Z BP Sitting (Pre-Dialysis) 146/83 mmHg BP Sitting (Post-Dialysis) 127/75 mmHg Concurrent Access: falseAV Graft Upper Arm (Left) Arterial Sitting Heart Rate Pre-Dialysis 74 BPM Sitting H eart Rate Post-Dialysis 68 BPM Temperature Pre-Dialysis 97.7 degF Temperature Post -Dialysis 97.7 degF September 22, 2024 In-Center Hemodialysis Treatment 1077-69-15J03:20:00.000Z 4749-39-56O62:21:01.000Z BP Sitting (Pre-Dialysis) 156/85 mmHg BP Sitting (Post-Dialysis) 107/62 mmHg Concurrent Access: falseAV Graft Upper Arm (Left) Arterial Sitting Heart Rate Pre-Dialysis 73 BPM Sitting H eart Rate Post-Dialysis 71 BPM Temperature Pre-Dialysis 97.1 degF Temperature Post -Dialysis 97.5 degF September 20, 2024 In-Center Hemodialysis Treatment 1854-96-82T18:14:01.000Z 2759-69-18N08:16:01.000Z BP Sitting (Pre-Dialysis) 137/84 mmHg BP Sitting (Post-Dialysis) 124/75 mmHg Concurrent Access: falseAV Graft Upper Arm (Left) Arterial Sitting Heart Rate Pre-Dialysis 74 BPM Sitting H eart Rate Post-Dialysis 71 BPM Temperature Pre-Dialysis 98 degF Temperature Post -Dialysis 97.5 degF September 17, 2024 In-Center Hemodialysis Treatment 9590-62-17U35:21:58.000Z 8479-65-51Z73:22:58.000Z BP Sitting (Pre-Dialysis) 144/85 mmHg BP Sitting (Post-Dialysis) 123/69 mmHg Concurrent Access: falseAV Graft Upper Arm (Left) Arterial Sitting Heart Rate Pre-Dialysis 71 BPM Sitting H eart Rate Post-Dialysis 66 BPM Temperature Pre-Dialysis 98.3 degF Temperature Post -Dialysis 97.2 degF September 15, 2024 In-Center Hemodialysis Treatment 9322-28-24Z69:23:08.000Z 2537-64-57F73:23:09.000Z BP Sitting (Pre-Dialysis) 161/85 mmHg BP Sitting (Post-Dialysis) 132/77 mmHg Concurrent Access: falseAV Graft Upper Arm (Left) Arterial Sitting Heart Rate Pre-Dialysis 75 BPM Sitting H eart Rate Post-Dialysis 68 BPM Temperature Pre-Dialysis 97.9 degF Temperature Post -Dialysis 97.4 degF September 13, 2024 In-Center Hemodialysis Treatment 7673-61-37P83:25:09.000Z 6675-28-46W52:19:09.000Z BP Sitting (Pre-Dialysis) 178/96 mmHg BP Sitting (Post-Dialysis) 135/77 mmHg Concurrent Access: falseAV Graft Upper Arm (Left) Arterial Sitting Heart Rate Pre-Dialysis 78 BPM Sitting H eart Rate Post-Dialysis 75 BPM Temperature Pre-Dialysis 97.3 degF Temperature Post -Dialysis 97.4 degF September 08, 2024 In-Center Hemodialysis Treatment 4950-45-26J43:20:45.000Z 6893-95-08P38:21:46.000Z BP Sitting (Pre-Dialysis) 154/83 mmHg BP Sitting (Post-Dialysis) 132/64 mmHg Concurrent Access: falseAV Graft Upper Arm (Left) Arterial Sitting Heart Rate Pre-Dialysis 74 BPM Sitting H eart Rate Post-Dialysis 66 BPM Temperature Pre-Dialysis 98 degF Temperature Post -Dialysis 97.7 degF September 06, 2024 In-Center Hemodialysis Treatment 3427-00-73X06:31:12.000Z 1890-97-65A34:03:12.000Z BP Sitting (Pre-Dialysis) 158/97 mmHg BP Sitting (Post-Dialysis) 140/83 mmHg Concurrent Access: falseAV Graft Upper Arm (Left) Arterial Sitting Heart Rate Pre-Dialysis 78 BPM Sitting H eart Rate Post-Dialysis 75 BPM Temperature Pre-Dialysis 98.1 degF Temperature Post -Dialysis 98 degF September 03, 2024 In-Center Hemodialysis Treatment 4751-96-73B81:24:23.000Z 0413-36-37N20:24:23.000Z BP Sitting (Pre-Dialysis) 145/83 mmHg BP Sitting (Post-Dialysis) 152/81 mmHg Concurrent Access: falseAV Graft Upper Arm (Left) Arterial Sitting Heart Rate Pre-Dialysis 75 BPM Sitting H eart Rate Post-Dialysis 74 BPM Temperature Pre-Dialysis 98.2 degF Temperature Post -Dialysis 97.8 degF September 01, 2024 In-Center Hemodialysis Treatment 9347-26-64H21:22:44.000Z 0360-77-73A01:22:44.000Z BP Sitting (Pre-Dialysis) 183/102 mmHg BP Sitting (Post-Dialysis) 37/75 mmHg Concurrent Access: falseAV Graft Upper Arm (Left) Arterial Sitting Heart Rate Pre-Dialysis 76 BPM Sitting H eart Rate Post-Dialysis 75 BPM Temperature Pre-Dialysis 98.2 degF Temperature Post -Dialysis 97.9 degF August 30, 2024 In-Center Hemodialysis Treatment 1397-08-90R35:21:39.000Z 3667-92-45M58:19:39.000Z BP Sitting (Pre-Dialysis) 153/82 mmHg BP Sitting (Post-Dialysis) 126/70 mmHg Concurrent Access: falseAV Graft Upper Arm (Left) Arterial Sitting Heart Rate Pre-Dialysis 80 BPM Sitting H eart Rate Post-Dialysis 69 BPM Temperature Pre-Dialysis 98.5 degF Temperature Post -Dialysis 97.3 degF August 25, 2024 In-Center Hemodialysis Treatment 2064-61-45E03:23:15.000Z 2963-21-64S08:24:16.000Z BP Sitting (Pre-Dialysis) 178/92 mmHg BP Sitting (Post-Dialysis) 13/79 mmHg Concurrent Access: falseAV Graft Upper Arm (Left) Arterial Sitting Heart Rate Pre-Dialysis 74 BPM Sitting H eart Rate Post-Dialysis 75 BPM Temperature Pre-Dialysis 97 degF Temperature Post -Dialysis 98 degF August 23, 2024 In-Center Hemodialysis Treatment 6200-91-61Q86:19:36.000Z 3025-22-27F94:22:36.000Z BP Sitting (Pre-Dialysis) 181/97 mmHg BP Sitting (Post-Dialysis) 189/98 mmHg Concurrent Access: falseAV Graft Upper Arm (Left) Arterial Sitting Heart Rate Pre-Dialysis 72 BPM Sitting H eart Rate Post-Dialysis 73 BPM Temperature Pre-Dialysis 98 degF Temperature Post -Dialysis 98 degF August 20, 2024 In-Center Hemodialysis Treatment 5302-95-48Z51:17:48.000Z 5732-38-21F92:17:47.000Z BP Sitting (Pre-Dialysis) 177/102 mmHg BP Sitting (Post-Dialysis) 171/82 mmHg Concurrent Access: falseAV Graft Upper Arm (Left) Arterial Sitting Heart Rate Pre-Dialysis 81 BPM Sitting H eart Rate Post-Dialysis 77 BPM Temperature Pre-Dialysis 98.1 degF Temperature Post -Dialysis 97.2 degF August 18, 2024 In-Center Hemodialysis Treatment 1183-33-15O64:34:52.000Z 1735-60-04T79:17:52.000Z BP Sitting (Pre-Dialysis) 183/98 mmHg BP Sitting (Post-Dialysis) 196/104 mmHg Concurrent Access: falseAV Graft Upper Arm (Left) Arterial Sitting Heart Rate Pre-Dialysis 81 BPM Sitting H eart Rate Post-Dialysis 84 BPM Temperature Pre-Dialysis 97.8 degF Temperature Post -Dialysis 97.5 degF August 16, 2024 In-Center Hemodialysis Treatment 7103-40-78E91:20:19.000Z 3494-80-10R68:21:19.000Z BP Sitting (Pre-Dialysis) 193/101 mmHg BP Sitting (Post-Dialysis) 170/97 mmHg Concurrent Access: falseAV Graft Upper Arm (Left) Arterial Sitting Heart Rate Pre-Dialysis 81 BPM Sitting H eart Rate Post-Dialysis 81 BPM Temperature Pre-Dialysis 97.7 degF Temperature Post -Dialysis 97.5 degF August 13, 2024 In-Center Hemodialysis Treatment 1383-27-85V85:18:10.000Z 1324-37-66E17:20:11.000Z BP Sitting (Pre-Dialysis) 167/96 mmHg BP Sitting (Post-Dialysis) 174/99 mmHg Concurrent Access: falseAV Graft Upper Arm (Left) Arterial Sitting Heart Rate Pre-Dialysis 76 BPM Sitting H eart Rate Post-Dialysis 82 BPM Temperature Pre-Dialysis 97.7 degF Temperature Post -Dialysis 97 degF August 11, 2024 In-Center Hemodialysis Treatment 2172-88-19N65:19:22.000Z 0805-41-51K51:22:22.000Z BP Sitting (Pre-Dialysis) 160/87 mmHg BP Sitting (Post-Dialysis) 165/84 mmHg Concurrent Access: falseAV Graft Upper Arm (Left) Arterial Sitting Heart Rate Pre-Dialysis 76 BPM Sitting H eart Rate Post-Dialysis 74 BPM Temperature Pre-Dialysis 97.7 degF Temperature Post -Dialysis 97.7 degF August 09, 2024 In-Center Hemodialysis Treatment 3501-22-64J51:22:49.000Z 2527-47-06O06:29:50.000Z BP Sitting (Pre-Dialysis) 159/85 mmHg BP Sitting (Post-Dialysis) 181/92 mmHg Concurrent Access: falseAV Graft Upper Arm (Left) Arterial Sitting Heart Rate Pre-Dialysis 82 BPM Sitting H eart Rate Post-Dialysis 77 BPM Temperature Pre-Dialysis 96.8 degF Temperature Post -Dialysis 96.8 degF August 06, 2024 In-Center Hemodialysis Treatment 4901-93-67U38:22:25.000Z 8660-80-75R06:24:25.000Z BP Sitting (Pre-Dialysis) 149/84 mmHg BP Sitting (Post-Dialysis) 164/92 mmHg Concurrent Access: falseAV Graft Upper Arm (Left) Arterial Sitting Heart Rate Pre-Dialysis 79 BPM Sitting H eart Rate Post-Dialysis 88 BPM Temperature Pre-Dialysis 97.1 degF Temperature Post -Dialysis 97.2 degF August 04, 2024 In-Center Hemodialysis Treatment 1520-81-25V99:23:26.000Z 0422-80-63T45:23:26.000Z BP Sitting (Pre-Dialysis) 146/82 mmHg BP Sitting (Post-Dialysis) 145/78 mmHg Concurrent Access: falseAV Graft Upper Arm (Left) Arterial Sitting Heart Rate Pre-Dialysis 80 BPM Sitting H eart Rate Post-Dialysis 72 BPM Temperature Pre-Dialysis 97.9 degF Temperature Post -Dialysis 97.2 degF July 30, 2024 In-Center Hemodialysis Treatment 2510-74-96A85:21:04.000Z 2810-59-01O78:22:04.000Z BP Sitting (Pre-Dialysis) 184/93 mmHg BP Sitting (Post-Dialysis) 180/92 mmHg Concurrent Access: falseAV Graft Upper Arm (Left) Arterial Sitting Heart Rate Pre-Dialysis 77 BPM Sitting H eart Rate Post-Dialysis 79 BPM Temperature Pre-Dialysis 97.8 degF Temperature Post -Dialysis 97.8 degF July 28, 2024 In-Center Hemodialysis Treatment 2864-71-72G95:17:10.000Z 3265-44-27L25:18:10.000Z BP Sitting (Pre-Dialysis) 161/89 mmHg BP Sitting (Post-Dialysis) 148/88 mmHg Concurrent Access: falseAV Graft Upper Arm (Left) Arterial Sitting Heart Rate Pre-Dialysis 75 BPM Sitting H eart Rate Post-Dialysis 81 BPM Temperature Pre-Dialysis 97.3 degF Temperature Post -Dialysis 98 degF July 23, 2024 In-Center Hemodialysis Treatment 7400-91-22R23:21:00.000Z 3432-50-95Z88:25:00.000Z BP Sitting (Pre-Dialysis) 150/84 mmHg BP Sitting (Post-Dialysis) 149/83 mmHg Concurrent Access: falseAV Graft Upper Arm (Left) Arterial Sitting Heart Rate Pre-Dialysis 73 BPM Sitting H eart Rate Post-Dialysis 78 BPM Temperature Pre-Dialysis 97.8 degF Temperature Post -Dialysis 98 degF July 19, 2024 In-Center Hemodialysis Treatment 1867-77-42O15:26:20.000Z 0766-02-69I85:28:20.000Z BP Sitting (Pre-Dialysis) 189/105 mmHg BP Sitting (Post-Dialysis) 169/91 mmHg Concurrent Access: falseAV Graft Upper Arm (Left) Arterial Sitting Heart Rate Pre-Dialysis 76 BPM Sitting H eart Rate Post-Dialysis 76 BPM Temperature Pre-Dialysis 98 degF Temperature Post -Dialysis 98 degF July 16, 2024 In-Center Hemodialysis Treatment 3594-22-10B56:28:51.000Z 4395-69-28K79:16:51.000Z BP Sitting (Pre-Dialysis) 189/100 mmHg BP Sitting (Post-Dialysis) 163/87 mmHg Concurrent Access: falseAV Graft Upper Arm (Left) Arterial Sitting Heart Rate Pre-Dialysis 77 BPM Sitting H eart Rate Post-Dialysis 78 BPM Temperature Pre-Dialysis 97.4 degF Temperature Post -Dialysis 97 degF July 14, 2024 In-Center Hemodialysis Treatment 2103-59-08M35:26:18.000Z 0945-79-56T23:26:18.000Z BP Sitting (Pre-Dialysis) 171/102 mmHg BP Sitting (Post-Dialysis) 164/97 mmHg Concurrent Access: falseAV Graft Upper Arm (Left) Arterial Sitting Heart Rate Pre-Dialysis 98 BPM Sitting H eart Rate Post-Dialysis 99 BPM Temperature Pre-Dialysis 97.2 degF Temperature Post -Dialysis 97.5 degF 2024 In-Center Hemodialysis Treatment 4302-51-42Y06:21:15.000Z 2716-75-29G76:27:16.000Z BP Sitting (Pre-Dialysis) 183/111 mmHg BP Sitting (Post-Dialysis) 153/91 mmHg Concurrent Access: falseAV Graft Upper Arm (Left) Arterial Sitting Heart Rate Pre-Dialysis 72 BPM Sitting H eart Rate Post-Dialysis 78 BPM Temperature Pre-Dialysis 97.6 degF Temperature Post -Dialysis 97.6 degF July 05, 2024 In-Center Hemodialysis Treatment 0381-42-27Y49:10:00.000Z 5168-78-83O21:13:45.000Z BP Sitting (Pre-Dialysis) 147/85 mmHg BP Sitting (Post-Dialysis) 146/90 mmHg Concurrent Access: falseAV Graft Upper Arm (Left) Arterial Sitting Heart Rate Pre-Dialysis 77 BPM Sitting H eart Rate Post-Dialysis 69 BPM Temperature Pre-Dialysis 97.3 degF Temperature Post -Dialysis 97.3 degF July 02, 2024 In-Center Hemodialysis Treatment 8845-18-64T32:24:55.000Z 3220-52-32C71:24:55.000Z BP Sitting (Pre-Dialysis) 148/83 mmHg BP Sitting (Post-Dialysis) 159/82 mmHg Concurrent Access: falseAV Graft Upper Arm (Left) Arterial Sitting Heart Rate Pre-Dialysis 76 BPM Sitting H eart Rate Post-Dialysis 71 BPM Temperature Pre-Dialysis 97.1 degF Temperature Post -Dialysis 97.6 degF June 30, 2024 In-Center Hemodialysis Treatment 7786-70-60P37:24:13.000Z 1691-99-53I93:27:13.000Z BP Sitting (Pre-Dialysis) 185/66 mmHg BP Sitting (Post-Dialysis) 181/109 mmHg Concurrent Access: falseAV Graft Upper Arm (Left) Arterial Sitting Heart Rate Pre-Dialysis 92 BPM Sitting H eart Rate Post-Dialysis 81 BPM Temperature Pre-Dialysis 97.9 degF Temperature Post -Dialysis 97.8 degF June 25, 2024 In-Center Hemodialysis Treatment 6990-74-12U63:20:00.000Z 9096-72-28E24:24:11.000Z BP Sitting (Pre-Dialysis) 161/98 mmHg BP Sitting (Post-Dialysis) 159/96 mmHg Concurrent Access: falseAV Graft Upper Arm (Left) Arterial Sitting Heart Rate Pre-Dialysis 73 BPM Sitting H eart Rate Post-Dialysis 78 BPM Temperature Pre-Dialysis 97.6 degF Temperature Post -Dialysis 97.4 degF June 23, 2024 In-Center Hemodialysis Treatment 9728-46-95A56:18:00.000Z 5848-76-93L98:20:00.000Z BP Sitting (Pre-Dialysis) 163/93 mmHg BP Sitting (Post-Dialysis) 143/92 mmHg Concurrent Access: falseAV Graft Upper Arm (Left) Arterial Sitting Heart Rate Pre-Dialysis 77 BPM Sitting H eart Rate Post-Dialysis 75 BPM Temperature Pre-Dialysis 97.2 degF Temperature Post -Dialysis 97.6 degF June 21, 2024 In-Center Hemodialysis Treatment 0642-84-75C19:25:00.000Z 1115-78-75G74:16:00.000Z BP Sitting (Pre-Dialysis) 192/108 mmHg BP Sitting (Post-Dialysis) 158/77 mmHg Concurrent Access: falseAV Graft Upper Arm (Left) Arterial Sitting Heart Rate Pre-Dialysis 76 BPM Sitting H eart Rate Post-Dialysis 75 BPM Temperature Pre-Dialysis 97.6 degF Temperature Post -Dialysis 97.2 degF June 16, 2024 In-Center Hemodialysis Treatment 5536-43-20X63:20:05.000Z 0364-98-11F56:25:05.000Z BP Sitting (Pre-Dialysis) 169/102 mmHg BP Sitting (Post-Dialysis) 147/83 mmHg Concurrent Access: falseAV Graft Upper Arm (Left) Arterial Sitting Heart Rate Pre-Dialysis 82 BPM Sitting H eart Rate Post-Dialysis 77 BPM Temperature Pre-Dialysis 97.5 degF Temperature Post -Dialysis 97.4 degF June 14, 2024 In-Center Hemodialysis Treatment 5842-30-23T75:19:00.000Z 7003-98-41D04:22:32.000Z BP Sitting (Pre-Dialysis) 164/101 mmHg BP Sitting (Post-Dialysis) 137/89 mmHg Concurrent Access: falseAV Graft Upper Arm (Left) Arterial Sitting Heart Rate Pre-Dialysis 76 BPM Sitting H eart Rate Post-Dialysis 71 BPM Temperature Pre-Dialysis 97.8 degF Temperature Post -Dialysis 97.8 degF June 11, 2024 In-Center Hemodialysis Treatment 3559-69-22J99:20:23.000Z 6109-70-91R09:23:23.000Z BP Sitting (Pre-Dialysis) 187/95 mmHg BP Sitting (Post-Dialysis) 116/63 mmHg Concurrent Access: falseAV Graft Upper Arm (Left) Arterial Sitting Heart Rate Pre-Dialysis 77 BPM Sitting H eart Rate Post-Dialysis 70 BPM Temperature Pre-Dialysis 97.8 degF Temperature Post -Dialysis 97.8 degF June 07, 2024 In-Center Hemodialysis Treatment 6877-80-36X02:21:17.000Z 7818-05-00K13:22:17.000Z BP Sitting (Pre-Dialysis) 151/91 mmHg BP Sitting (Post-Dialysis) 128/75 mmHg Concurrent Access: falseAV Graft Upper Arm (Left) Arterial Sitting Heart Rate Pre-Dialysis 78 BPM Sitting H eart Rate Post-Dialysis 69 BPM Temperature Pre-Dialysis 97.7 degF Temperature Post -Dialysis 97 degF June 04, 2024 In-Center Hemodialysis Treatment 8772-64-38I46:21:12.000Z 9194-83-77G73:22:12.000Z BP Sitting (Pre-Dialysis) 158/88 mmHg BP Sitting (Post-Dialysis) 123/74 mmHg Concurrent Access: falseAV Graft Upper Arm (Left) Arterial Sitting Heart Rate Pre-Dialysis 70 BPM Sitting H eart Rate Post-Dialysis 72 BPM Temperature Pre-Dialysis 97.8 degF Temperature Post -Dialysis 97 degF June 02, 2024 In-Center Hemodialysis Treatment 3956-67-29T17:20:39.000Z 5523-40-06W75:22:39.000Z BP Sitting (Pre-Dialysis) 155/99 mmHg BP Sitting (Post-Dialysis) 122/70 mmHg Concurrent Access: falseAV Graft Upper Arm (Left) Arterial Sitting Heart Rate Pre-Dialysis 88 BPM Sitting H eart Rate Post-Dialysis 76 BPM Temperature Pre-Dialysis 98.1 degF Temperature Post -Dialysis 97.7 degF May 28, 2024 In-Center Hemodialysis Treatment 1553-91-67Z29:18:00.000Z 7234-92-19C67:20:59.000Z BP Sitting (Pre-Dialysis) 145/87 mmHg BP Sitting (Post-Dialysis) 139/77 mmHg Concurrent Access: falseAV Graft Upper Arm (Left) Arterial Sitting Heart Rate Pre-Dialysis 71 BPM Sitting H eart Rate Post-Dialysis 75 BPM Temperature Pre-Dialysis 98 degF Temperature Post -Dialysis 97.4 degF May 24, 2024 In-Center Hemodialysis Treatment 4189-03-99N92:26:00.000Z 3863-62-97N71:29:22.000Z BP Sitting (Pre-Dialysis) 165/92 mmHg BP Sitting (Post-Dialysis) 156/89 mmHg Concurrent Access: falseAV Graft Upper Arm (Left) Arterial Sitting Heart Rate Pre-Dialysis 66 BPM Sitting H eart Rate Post-Dialysis 73 BPM Temperature Pre-Dialysis 98.2 degF Temperature Post -Dialysis 97.9 degF May 21, 2024 In-Center Hemodialysis Treatment 0777-29-04R10:16:53.000Z 1298-11-57V65:17:53.000Z BP Sitting (Pre-Dialysis) 158/97 mmHg BP Sitting (Post-Dialysis) 145/87 mmHg Concurrent Access: falseAV Graft Upper Arm (Left) Arterial Sitting Heart Rate Pre-Dialysis 79 BPM Sitting H eart Rate Post-Dialysis 85 BPM Temperature Pre-Dialysis 97.3 degF Temperature Post -Dialysis 97.3 degF May 19, 2024 In-Center Hemodialysis Treatment 0993-98-38X78:16:20.000Z 1432-93-26E96:19:20.000Z BP Sitting (Pre-Dialysis) 186/111 mmHg BP Sitting (Post-Dialysis) 136/85 mmHg Concurrent Access: falseAV Graft Upper Arm (Left) Arterial Sitting Heart Rate Pre-Dialysis 83 BPM Sitting H eart Rate Post-Dialysis 76 BPM Temperature Pre-Dialysis 96.7 degF Temperature Post -Dialysis 97 degF May 14, 2024 In-Center Hemodialysis Treatment 4955-26-52Q88:22:35.000Z 1889-16-03B41:24:35.000Z BP Sitting (Pre-Dialysis) 165/94 mmHg BP Sitting (Post-Dialysis) 139/86 mmHg Concurrent Access: falseAV Graft Upper Arm (Left) Arterial Sitting Heart Rate Pre-Dialysis 78 BPM Sitting H eart Rate Post-Dialysis 81 BPM Temperature Pre-Dialysis 98.4 degF Temperature Post -Dialysis 97.5 degF May 10, 2024 In-Center Hemodialysis Treatment 8919-97-31A15:21:54.000Z 0258-00-44L11:24:55.000Z BP Sitting (Pre-Dialysis) 185/99 mmHg BP Sitting (Post-Dialysis) 152/98 mmHg Concurrent Access: falseAV Graft Upper Arm (Left) Arterial Sitting Heart Rate Pre-Dialysis 89 BPM Sitting H eart Rate Post-Dialysis 89 BPM Temperature Pre-Dialysis 98.7 degF Temperature Post -Dialysis 97.7 degF May 07, 2024 In-Center Hemodialysis Treatment 6000-28-31P11:22:05.000Z 5634-39-42T67:22:05.000Z BP Sitting (Pre-Dialysis) 163/85 mmHg BP Sitting (Post-Dialysis) 131/84 mmHg Concurrent Access: falseAV Graft Upper Arm (Left) Arterial Sitting Heart Rate Pre-Dialysis 83 BPM Sitting H eart Rate Post-Dialysis 82 BPM Temperature Pre-Dialysis 97.4 degF Temperature Post -Dialysis 97.7 degF May 05, 2024 In-Center Hemodialysis Treatment 7003-18-09F45:23:00.000Z 3840-88-08D26:24:32.000Z BP Sitting (Pre-Dialysis) 166/99 mmHg BP Sitting (Post-Dialysis) 173/83 mmHg Concurrent Access: falseAV Graft Upper Arm (Left) Arterial Sitting Heart Rate Pre-Dialysis 104 BPM Sitting H eart Rate Post-Dialysis 93 BPM Temperature Pre-Dialysis 97.5 degF Temperature Post -Dialysis 97.2 degF April 30, 2024 In-Center Hemodialysis Treatment 2019-32-21V57:24:59.000Z 8359-37-24E47:27:00.000Z BP Sitting (Pre-Dialysis) 149/82 mmHg BP Sitting (Post-Dialysis) 152/87 mmHg Concurrent Access: falseAV Graft Upper Arm (Left) Arterial Sitting Heart Rate Pre-Dialysis 79 BPM Sitting H eart Rate Post-Dialysis 86 BPM Temperature Pre-Dialysis 98.7 degF Temperature Post -Dialysis 97.2 degF April 28, 2024 In-Center Hemodialysis Treatment 1145-38-39V36:31:00.000Z 8387-73-24E54:31:25.000Z BP Sitting (Pre-Dialysis) 149/87 mmHg BP Sitting (Post-Dialysis) 144/79 mmHg Concurrent Access: falseAV Graft Upper Arm (Left) Arterial Sitting Heart Rate Pre-Dialysis 77 BPM Sitting H eart Rate Post-Dialysis 83 BPM Temperature Pre-Dialysis 98.6 degF Temperature Post -Dialysis 97 degF April 23, 2024 In-Center Hemodialysis Treatment 2442-55-01G44:21:43.000Z 2095-36-33P76:25:44.000Z BP Sitting (Pre-Dialysis) 159/92 mmHg BP Sitting (Post-Dialysis) 138/80 mmHg Concurrent Access: falseAV Graft Upper Arm (Left) Arterial Sitting Heart Rate Pre-Dialysis 83 BPM Sitting H eart Rate Post-Dialysis 76 BPM Temperature Pre-Dialysis 97.7 degF Temperature Post -Dialysis 97.2 degF April 21, 2024 In-Center Hemodialysis Treatment 8189-06-08P42:20:22.000Z 4479-27-78B94:21:22.000Z BP Sitting (Pre-Dialysis) 168/98 mmHg BP Sitting (Post-Dialysis) 147/85 mmHg Concurrent Access: falseAV Graft Upper Arm (Left) Arterial Sitting Heart Rate Pre-Dialysis 88 BPM Sitting H eart Rate Post-Dialysis 85 BPM Temperature Pre-Dialysis 98.1 degF Temperature Post -Dialysis 97.3 degF April 19, 2024 In-Center Hemodialysis Treatment 6844-04-70Q98:22:49.000Z 9480-06-82C28:24:49.000Z BP Sitting (Pre-Dialysis) 161/96 mmHg BP Sitting (Post-Dialysis) 154/91 mmHg Concurrent Access: falseAV Graft Upper Arm (Left) Arterial Sitting Heart Rate Pre-Dialysis 81 BPM Sitting H eart Rate Post-Dialysis 87 BPM Temperature Pre-Dialysis 98.3 degF Temperature Post -Dialysis 97.8 degF April 16, 2024 In-Center Hemodialysis Treatment 7240-71-75J39:27:08.000Z 1685-74-80C28:28:08.000Z BP Sitting (Pre-Dialysis) 160/98 mmHg BP Sitting (Post-Dialysis) 147/92 mmHg Concurrent Access: falseAV Graft Upper Arm (Left) Arterial Sitting Heart Rate Pre-Dialysis 94 BPM Sitting H eart Rate Post-Dialysis 95 BPM Temperature Pre-Dialysis 98.1 degF Temperature Post -Dialysis 97.5 degF April 02, 2024 In-Center Hemodialysis Treatment 9576-32-44F73:26:00.000Z 6965-88-78P28:26:55.000Z BP Sitting (Pre-Dialysis) 148/89 mmHg BP Sitting (Post-Dialysis) 141/85 mmHg Concurrent Access: falseAV Graft Upper Arm (Left) Arterial Sitting Heart Rate Pre-Dialysis 76 BPM Sitting H eart Rate Post-Dialysis 79 BPM Temperature Pre-Dialysis 98.1 degF Temperature Post -Dialysis 96.8 degF March 31, 2024 In-Center Hemodialysis Treatment 6429-33-98M19:18:15.000Z 0196-68-49P87:19:16.000Z BP Sitting (Pre-Dialysis) 184/107 mmHg BP Sitting (Post-Dialysis) 143/83 mmHg Concurrent Access: falseAV Graft Upper Arm (Left) Arterial Sitting Heart Rate Pre-Dialysis 87 BPM Sitting H eart Rate Post-Dialysis 78 BPM Temperature Pre-Dialysis 98.1 degF Temperature Post -Dialysis 97.6 degF March 26, 2024 In-Center Hemodialysis Treatment 7526-27-66S07:22:59.000Z 2019-69-63I17:23:59.000Z BP Sitting (Pre-Dialysis) 165/96 mmHg BP Sitting (Post-Dialysis) 164/90 mmHg Concurrent Access: falseAV Graft Upper Arm (Left) Arterial Sitting Heart Rate Pre-Dialysis 86 BPM Sitting H eart Rate Post-Dialysis 85 BPM Temperature Pre-Dialysis 98.5 degF Temperature Post -Dialysis 97.7 degF March 24, 2024 In-Center Hemodialysis Treatment 1741-32-86M14:23:37.000Z 8460-93-12Z16:24:37.000Z BP Sitting (Pre-Dialysis) 177/105 mmHg BP Sitting (Post-Dialysis) 184/98 mmHg Concurrent Access: falseAV Graft Upper Arm (Left) Arterial Sitting Heart Rate Pre-Dialysis 89 BPM Sitting H eart Rate Post-Dialysis 83 BPM Temperature Pre-Dialysis 98.7 degF Temperature Post -Dialysis 98 degF March 19, 2024 In-Center Hemodialysis Treatment 1912-74-04Z51:28:29.000Z 5940-20-67F42:29:30.000Z BP Sitting (Pre-Dialysis) 197/106 mmHg BP Sitting (Post-Dialysis) 182/100 mmHg Concurrent Access: falseAV Graft Upper Arm (Left) Arterial Sitting Heart Rate Pre-Dialysis 92 BPM Sitting H eart Rate Post-Dialysis 98 BPM Temperature Pre-Dialysis 97.3 degF Temperature Post -Dialysis 97.5 degF March 17, 2024 In-Center Hemodialysis Treatment 3627-32-82M67:32:56.000Z 5984-18-17X32:36:56.000Z BP Sitting (Pre-Dialysis) 186/107 mmHg BP Sitting (Post-Dialysis) 171/89 mmHg Concurrent Access: falseAV Graft Upper Arm (Left) Arterial Sitting Heart Rate Pre-Dialysis 94 BPM Sitting H eart Rate Post-Dialysis 90 BPM Temperature Pre-Dialysis 97.7 degF Temperature Post -Dialysis 97.7 degF March 12, 2024 In-Center Hemodialysis Treatment 2404-75-52A61:13:56.000Z 4936-00-31L70:15:56.000Z BP Sitting (Pre-Dialysis) 179/99 mmHg BP Sitting (Post-Dialysis) 159/90 mmHg Concurrent Access: falseAV Graft Upper Arm (Left) Arterial Sitting Heart Rate Pre-Dialysis 90 BPM Sitting H eart Rate Post-Dialysis 87 BPM Temperature Pre-Dialysis 98.4 degF Temperature Post -Dialysis 98 degF March 09, 2024 In-Center Hemodialysis Treatment 7520-51-27X83:58:04.000Z 1260-64-81F29:58:04.000Z BP Sitting (Pre-Dialysis) 159/98 mmHg BP Sitting (Post-Dialysis) 160/94 mmHg Concurrent Access: falseAV Graft Upper Arm (Left) Arterial Sitting Heart Rate Pre-Dialysis 94 BPM Sitting H eart Rate Post-Dialysis 81 BPM Temperature Pre-Dialysis 98.7 degF Temperature Post -Dialysis 97 degF March 05, 2024 In-Center Hemodialysis Treatment 6098-73-48H50:19:56.000Z 3164-85-58O26:18:56.000Z BP Sitting (Pre-Dialysis) 161/93 mmHg BP Sitting (Post-Dialysis) 145/85 mmHg Concurrent Access: falseAV Graft Upper Arm (Left) Arterial Sitting Heart Rate Pre-Dialysis 78 BPM Sitting H eart Rate Post-Dialysis 72 BPM Temperature Pre-Dialysis 97.3 degF Temperature Post -Dialysis 97.5 degF March 02, 2024 In-Center Hemodialysis Treatment 2325-74-28X46:09:07.000Z 1302-81-74O55:10:07.000Z BP Sitting (Pre-Dialysis) 148/86 mmHg BP Sitting (Post-Dialysis) 131/73 mmHg Concurrent Access: falseAV Graft Upper Arm (Left) Arterial Sitting Heart Rate Pre-Dialysis 84 BPM Sitting H eart Rate Post-Dialysis 77 BPM Temperature Pre-Dialysis 98.4 degF Temperature Post -Dialysis 98 degF February 27, 2024 In-Center Hemodialysis Treatment 6372-31-94L68:45:00.000Z 2931-64-08I97:51:00.000Z BP Sitting (Pre-Dialysis) 128/75 mmHg BP Sitting (Post-Dialysis) 143/81 mmHg Concurrent Access: falseAV Graft Upper Arm (Left) Arterial Sitting Heart Rate Pre-Dialysis 74 BPM Sitting H eart Rate Post-Dialysis 77 BPM Temperature Pre-Dialysis 97.9 degF Temperature Post -Dialysis 97.3 degF February 25, 2024 In-Center Hemodialysis Treatment 3206-22-62B87:13:00.000Z 0794-45-04A26:15:26.000Z BP Sitting (Pre-Dialysis) 150/91 mmHg BP Sitting (Post-Dialysis) 144/76 mmHg Concurrent Access: falseAV Graft Upper Arm (Left) Arterial Sitting Heart Rate Pre-Dialysis 92 BPM Sitting H eart Rate Post-Dialysis 91 BPM Temperature Pre-Dialysis 98.1 degF Temperature Post -Dialysis 97.3 degF February 18, 2024 In-Center Hemodialysis Treatment 7491-87-56N40:23:00.000Z 7252-15-50S07:23:31.000Z BP Sitting (Pre-Dialysis) 177/102 mmHg BP Sitting (Post-Dialysis) 150/95 mmHg Concurrent Access: falseAV Graft Upper Arm (Left) Arterial Sitting Heart Rate Pre-Dialysis 91 BPM Sitting H eart Rate Post-Dialysis 87 BPM Temperature Pre-Dialysis 98.6 degF Temperature Post -Dialysis 97.5 degF February 16, 2024 In-Center Hemodialysis Treatment 7929-40-32A16:28:57.000Z 5922-77-28Y68:32:00.000Z BP Sitting (Pre-Dialysis) 175/103 mmHg BP Sitting (Post-Dialysis) 143/87 mmHg Concurrent Access: falseAV Graft Upper Arm (Left) Arterial Sitting Heart Rate Pre-Dialysis 93 BPM Sitting H eart Rate Post-Dialysis 87 BPM Temperature Pre-Dialysis 98.7 degF Temperature Post -Dialysis 97.8 degF February 11, 2024 In-Center Hemodialysis Treatment BP Sitting (Pre-Dialysis) 196/107 mmHg Concurrent Access: falseAV Graft Upper Arm (Left) Arterial Sitting Heart Rate Pre-Dialysis 94 BPM Temperature Pre-Dialysis 97.1 degF February 09, 2024 In-Center Hemodialysis Treatment 2652-10-58A17:56:26.000Z 7144-58-94M04:31:26.000Z BP Sitting (Pre-Dialysis) 163/73 mmHg BP Sitting (Post-Dialysis) 163/103 mmHg Concurrent Access: falseAV Graft Upper Arm (Left) Arterial Sitting Heart Rate Pre-Dialysis 90 BPM Sitting H eart Rate Post-Dialysis 93 BPM Temperature Pre-Dialysis 98.6 degF Temperature Post -Dialysis 97.2 degF February 03, 2024 In-Center Hemodialysis Treatment 4049-24-55P63:56:00.000Z 1662-24-29Y77:58:24.000Z BP Sitting (Pre-Dialysis) 160/91 mmHg BP Sitting (Post-Dialysis) 115/67 mmHg Concurrent Access: falseAV Graft Upper Arm (Left) Arterial Sitting Heart Rate Pre-Dialysis 85 BPM BP Standing (Post-Dialysis) 115/67 mmHg Temperature Pre-Dialysis 97.6 degF Sitting Heart Ra te Post-Dialysis 80 BPM Standing Heart Rate Post-Sandy lysis 80 BPM Temperature Post-Dialysis 97 .4 degF January 30, 2024 In-Center Hemodialysis Treatment 5980-91-60W21:26:28.000Z 6991-80-74T35:28:29.000Z BP Sitting (Pre-Dialysis) 144/86 mmHg BP Sitting (Post-Dialysis) 137/87 mmHg Concurrent Access: falseAV Graft Upper Arm (Left) Arterial Sitting Heart Rate Pre-Dialysis 79 BPM Sitting H eart Rate Post-Dialysis 78 BPM Temperature Pre-Dialysis 98.3 degF Temperature Post -Dialysis 97.3 degF January 26, 2024 In-Center Hemodialysis Treatment 0043-74-55S66:26:50.000Z 5950-05-59S85:28:51.000Z BP Sitting (Pre-Dialysis) 138/85 mmHg BP Sitting (Post-Dialysis) 140/79 mmHg Concurrent Access: falseAV Graft Upper Arm (Left) Arterial Sitting Heart Rate Pre-Dialysis 80 BPM Sitting H eart Rate Post-Dialysis 81 BPM Temperature Pre-Dialysis 98.4 degF Temperature Post -Dialysis 97.5 degF January 21, 2024 In-Center Hemodialysis Treatment 9870-51-48H25:20:00.000Z 7624-60-23Y97:20:50.000Z BP Sitting (Pre-Dialysis) 148/80 mmHg BP Sitting (Post-Dialysis) 123/76 mmHg Concurrent Access: falseAV Graft Upper Arm (Left) Arterial Sitting Heart Rate Pre-Dialysis 81 BPM Sitting H eart Rate Post-Dialysis 67 BPM Temperature Pre-Dialysis 98.3 degF Temperature Post -Dialysis 98 degF January 16, 2024 In-Center Hemodialysis Treatment 8693-02-01M39:18:00.000Z 0482-16-73V68:18:51.000Z BP Sitting (Pre-Dialysis) 154/87 mmHg BP Sitting (Post-Dialysis) 124/71 mmHg Concurrent Access: falseAV Graft Upper Arm (Left) Arterial Sitting Heart Rate Pre-Dialysis 80 BPM Sitting H eart Rate Post-Dialysis 78 BPM Temperature Pre-Dialysis 98.3 degF Temperature Post -Dialysis 96.8 degF January 14, 2024 In-Center Hemodialysis Treatment 7862-96-17P09:20:50.000Z 0190-24-31L08:21:50.000Z BP Sitting (Pre-Dialysis) 137/84 mmHg BP Sitting (Post-Dialysis) 116/67 mmHg Concurrent Access: falseAV Graft Upper Arm (Left) Arterial Sitting Heart Rate Pre-Dialysis 85 BPM Sitting H eart Rate Post-Dialysis 80 BPM Temperature Pre-Dialysis 98.5 degF January 12, 2024 In-Center Hemodialysis Treatment 1327-46-13L30:27:50.000Z 9419-93-70T87:31:50.000Z BP Sitting (Pre-Dialysis) 155/91 mmHg BP Sitting (Post-Dialysis) 152/90 mmHg Concurrent Access: falseAV Graft Upper Arm (Left) Arterial Sitting Heart Rate Pre-Dialysis 97 BPM Sitting H eart Rate Post-Dialysis 94 BPM Temperature Pre-Dialysis 98.2 degF Temperature Post -Dialysis 98 degF January 09, 2024 In-Center Hemodialysis Treatment 3437-54-51W78:30:58.000Z 7032-13-63A00:34:58.000Z BP Sitting (Pre-Dialysis) 138/81 mmHg BP Sitting (Post-Dialysis) 152/79 mmHg Concurrent Access: falseAV Graft Upper Arm (Left) Arterial Sitting Heart Rate Pre-Dialysis 76 BPM Sitting H eart Rate Post-Dialysis 82 BPM Temperature Pre-Dialysis 98.2 degF Temperature Post -Dialysis 97.4 degF January 07, 2024 In-Center Hemodialysis Treatment 8617-37-27S66:29:08.000Z 2586-32-13Q39:30:08.000Z BP Sitting (Pre-Dialysis) 157/83 mmHg BP Sitting (Post-Dialysis) 125/81 mmHg Concurrent Access: falseAV Graft Upper Arm (Left) Arterial Sitting Heart Rate Pre-Dialysis 95 BPM Sitting H eart Rate Post-Dialysis 86 BPM Temperature Pre-Dialysis 97.3 degF Temperature Post -Dialysis 97 degF January 05, 2024 In-Center Hemodialysis Treatment 3055-43-96M29:38:08.000Z 0125-19-57Z30:40:08.000Z BP Sitting (Pre-Dialysis) 163/93 mmHg BP Sitting (Post-Dialysis) 126/76 mmHg Concurrent Access: falseAV Graft Upper Arm (Left) Arterial Sitting Heart Rate Pre-Dialysis 78 BPM Sitting H eart Rate Post-Dialysis 78 BPM Temperature Pre-Dialysis 98.6 degF Temperature Post -Dialysis 98.1 degF December 31, 2023 In-Center Hemodialysis Treatment 2037-27-47J86:30:46.000Z 3915-86-54B97:30:46.000Z BP Sitting (Pre-Dialysis) 145/83 mmHg BP Sitting (Post-Dialysis) 135/79 mmHg Concurrent Access: falseAV Graft Upper Arm (Left) Arterial Sitting Heart Rate Pre-Dialysis 81 BPM Sitting H eart Rate Post-Dialysis 89 BPM Temperature Pre-Dialysis 97.9 degF Temperature Post -Dialysis 97.3 degF December 29, 2023 In-Center Hemodialysis Treatment 6588-49-39O85:38:57.000Z 5482-27-07D80:39:56.000Z BP Sitting (Pre-Dialysis) 155/93 mmHg BP Sitting (Post-Dialysis) 145/73 mmHg Concurrent Access: falseAV Graft Upper Arm (Left) Arterial Sitting Heart Rate Pre-Dialysis 87 BPM Sitting H eart Rate Post-Dialysis 82 BPM Temperature Pre-Dialysis 98 degF Temperature Post -Dialysis 97.3 degF December 26, 2023 In-Center Hemodialysis Treatment 5154-52-05F58:34:06.000Z 0534-32-98L46:34:06.000Z BP Sitting (Pre-Dialysis) 135/82 mmHg BP Sitting (Post-Dialysis) 111/81 mmHg Concurrent Access: falseAV Graft Upper Arm (Left) Arterial Sitting Heart Rate Pre-Dialysis 90 BPM Sitting H eart Rate Post-Dialysis 100 BPM Temperature Pre-Dialysis 97.6 degF Temperature Post -Dialysis 97.5 degF December 24, 2023 In-Center Hemodialysis Treatment 3905-05-98F23:28:06.000Z 3246-51-73D94:28:06.000Z BP Sitting (Pre-Dialysis) 163/106 mmHg BP Sitting (Post-Dialysis) 162/103 mmHg Concurrent Access: falseAV Graft Upper Arm (Left) Arterial Sitting Heart Rate Pre-Dialysis 111 BPM Sitting H eart Rate Post-Dialysis 116 BPM Temperature Pre-Dialysis 98.1 degF Temperature Post -Dialysis 97.9 degF December 19, 2023 In-Center Hemodialysis Treatment 7223-84-39L03:20:41.000Z 4305-98-47G76:21:41.000Z BP Sitting (Pre-Dialysis) 157/101 mmHg BP Sitting (Post-Dialysis) 124/82 mmHg Concurrent Access: falseAV Graft Upper Arm (Left) Arterial Sitting Heart Rate Pre-Dialysis 86 BPM Sitting H eart Rate Post-Dialysis 91 BPM Temperature Pre-Dialysis 97.6 degF Temperature Post -Dialysis 98 degF December 17, 2023 In-Center Hemodialysis Treatment 0874-17-42Q22:12:06.000Z 9718-83-37Y58:13:06.000Z BP Sitting (Pre-Dialysis) 172/101 mmHg BP Sitting (Post-Dialysis) 126/96 mmHg Concurrent Access: falseAV Graft Upper Arm (Left) Arterial Sitting Heart Rate Pre-Dialysis 100 BPM Sitting H eart Rate Post-Dialysis 105 BPM Temperature Pre-Dialysis 96.7 degF Temperature Post -Dialysis 97.5 degF December 15, 2023 In-Center Hemodialysis Treatment 6457-65-23F26:14:00.000Z 8647-33-28G02:16:07.000Z BP Sitting (Pre-Dialysis) 142/95 mmHg BP Sitting (Post-Dialysis) 121/77 mmHg Concurrent Access: falseAV Graft Upper Arm (Left) Arterial Sitting Heart Rate Pre-Dialysis 91 BPM Sitting H eart Rate Post-Dialysis 86 BPM Temperature Pre-Dialysis 98 degF Temperature Post -Dialysis 97.2 degF December 12, 2023 In-Center Hemodialysis Treatment 7995-88-42I86:13:06.000Z 5027-36-21C90:17:00.000Z BP Sitting (Pre-Dialysis) 128/85 mmHg BP Sitting (Post-Dialysis) 112/67 mmHg Concurrent Access: falseAV Graft Upper Arm (Left) Arterial Sitting Heart Rate Pre-Dialysis 85 BPM Sitting H eart Rate Post-Dialysis 95 BPM Temperature Pre-Dialysis 97 degF Temperature Post -Dialysis 97 degF December 10, 2023 In-Center Hemodialysis Treatment 5788-72-94Y24:18:00.000Z 7461-57-90H49:19:06.000Z BP Sitting (Pre-Dialysis) 140/109 mmHg BP Sitting (Post-Dialysis) 105/65 mmHg Concurrent Access: falseAV Graft Upper Arm (Left) Arterial Sitting Heart Rate Pre-Dialysis 93 BPM Sitting H eart Rate Post-Dialysis 90 BPM Temperature Pre-Dialysis 98.3 degF Temperature Post -Dialysis 97.3 degF December 08, 2023 In-Center Hemodialysis Treatment 3698-92-81N53:20:05.000Z 1222-52-56Z09:21:06.000Z BP Sitting (Pre-Dialysis) 165/106 mmHg BP Sitting (Post-Dialysis) 136/79 mmHg Concurrent Access: falseAV Graft Upper Arm (Left) Arterial Sitting Heart Rate Pre-Dialysis 99 BPM Sitting H eart Rate Post-Dialysis 102 BPM Temperature Pre-Dialysis 97 degF Temperature Post -Dialysis 97 degF December 05, 2023 In-Center Hemodialysis Treatment 1597-50-15E50:21:00.000Z 3587-37-18Y87:23:56.000Z BP Sitting (Pre-Dialysis) 161/97 mmHg BP Sitting (Post-Dialysis) 133/86 mmHg Concurrent Access: falseAV Graft Upper Arm (Left) Arterial Sitting Heart Rate Pre-Dialysis 92 BPM Sitting H eart Rate Post-Dialysis 95 BPM Temperature Pre-Dialysis 98.5 degF Temperature Post -Dialysis 98 degF December 03, 2023 In-Center Hemodialysis Treatment 8293-34-12X75:58:11.000Z 1707-89-41R98:30:11.000Z BP Sitting (Pre-Dialysis) 136/85 mmHg BP Sitting (Post-Dialysis) 110/68 mmHg Concurrent Access: falseAV Graft Upper Arm (Left) Arterial Sitting Heart Rate Pre-Dialysis 73 BPM Sitting H eart Rate Post-Dialysis 78 BPM Temperature Pre-Dialysis 98.2 degF Temperature Post -Dialysis 97 degF December 01, 2023 In-Center Hemodialysis Treatment 9250-58-60S55:36:06.000Z 4693-23-21H87:41:06.000Z BP Sitting (Pre-Dialysis) 176/109 mmHg BP Sitting (Post-Dialysis) 117/87 mmHg Concurrent Access: falseAV Graft Upper Arm (Left) Arterial Sitting Heart Rate Pre-Dialysis 85 BPM Sitting H eart Rate Post-Dialysis 90 BPM Temperature Pre-Dialysis 98.2 degF Temperature Post -Dialysis 97.8 degF November 28, 2023 In-Center Hemodialysis Treatment 0313-26-11L11:24:00.000Z 5321-97-95N41:25:06.000Z BP Sitting (Pre-Dialysis) 182/106 mmHg BP Sitting (Post-Dialysis) 146/92 mmHg Concurrent Access: falseAV Graft Upper Arm (Left) Arterial Sitting Heart Rate Pre-Dialysis 89 BPM Sitting H eart Rate Post-Dialysis 86 BPM Temperature Pre-Dialysis 98.3 degF Temperature Post -Dialysis 97.5 degF November 26, 2023 In-Center Hemodialysis Treatment 1802-61-07T34:23:00.000Z 9169-19-22V54:25:06.000Z BP Sitting (Pre-Dialysis) 167/104 mmHg BP Sitting (Post-Dialysis) 108/82 mmHg Concurrent Access: falseAV Graft Upper Arm (Left) Arterial Sitting Heart Rate Pre-Dialysis 90 BPM Sitting H eart Rate Post-Dialysis 78 BPM Temperature Pre-Dialysis 98.4 degF Temperature Post -Dialysis 97.6 degF November 19, 2023 In-Center Hemodialysis Treatment 9883-93-82O07:28:00.000Z 5997-14-47X35:38:05.000Z BP Sitting (Pre-Dialysis) 136/103 mmHg BP Sitting (Post-Dialysis) 148/90 mmHg Concurrent Access: falseAV Graft Upper Arm (Left) Arterial Sitting Heart Rate Pre-Dialysis 87 BPM Sitting H eart Rate Post-Dialysis 94 BPM Temperature Pre-Dialysis 97.4 degF Temperature Post -Dialysis 97.4 degF November 14, 2023 In-Center Hemodialysis Treatment 9095-82-89E28:32:06.000Z 4759-41-91A88:34:06.000Z BP Sitting (Pre-Dialysis) 148/92 mmHg BP Sitting (Post-Dialysis) 150/97 mmHg Concurrent Access: falseAV Graft Upper Arm (Left) Arterial Sitting Heart Rate Pre-Dialysis 95 BPM Sitting H eart Rate Post-Dialysis 98 BPM Temperature Pre-Dialysis 98.2 degF Temperature Post -Dialysis 98.9 degF November 12, 2023 In-Center Hemodialysis Treatment 0426-45-64K41:17:00.000Z 5619-06-57Y83:22:06.000Z BP Sitting (Pre-Dialysis) 148/99 mmHg BP Sitting (Post-Dialysis) 138/90 mmHg Concurrent Access: falseAV Graft Upper Arm (Left) Arterial Sitting Heart Rate Pre-Dialysis 89 BPM Sitting H eart Rate Post-Dialysis 82 BPM Temperature Pre-Dialysis 98.7 degF Temperature Post -Dialysis 98 degF November 07, 2023 In-Center Hemodialysis Treatment 1897-05-45R71:24:00.000Z 0395-39-28Q43:28:06.000Z BP Sitting (Pre-Dialysis) 144/105 mmHg BP Sitting (Post-Dialysis) 150/95 mmHg Concurrent Access: falseAV Graft Upper Arm (Left) Arterial Sitting Heart Rate Pre-Dialysis 101 BPM Sitting H eart Rate Post-Dialysis 92 BPM Temperature Pre-Dialysis 97.2 degF Temperature Post -Dialysis 97.5 degF November 05, 2023 In-Center Hemodialysis Treatment 0413-87-44E92:24:00.000Z 0491-90-64E06:27:06.000Z BP Sitting (Pre-Dialysis) 111/75 mmHg BP Sitting (Post-Dialysis) 105/66 mmHg Concurrent Access: falseAV Graft Upper Arm (Left) Arterial Sitting Heart Rate Pre-Dialysis 80 BPM Sitting H eart Rate Post-Dialysis 91 BPM Temperature Pre-Dialysis 98 degF Temperature Post -Dialysis 97 degF November 03, 2023 In-Center Hemodialysis Treatment 5104-61-89S36:25:00.000Z 7491-33-92F55:30:06.000Z BP Sitting (Pre-Dialysis) 112/79 mmHg BP Sitting (Post-Dialysis) 118/80 mmHg Concurrent Access: falseAV Graft Upper Arm (Left) Arterial Sitting Heart Rate Pre-Dialysis 81 BPM Sitting H eart Rate Post-Dialysis 86 BPM Temperature Pre-Dialysis 98.5 degF Temperature Post -Dialysis 96.8 degF October 31, 2023 In-Center Hemodialysis Treatment 2977-97-61M19:21:05.000Z 3016-66-03A56:23:06.000Z BP Sitting (Pre-Dialysis) 154/99 mmHg BP Sitting (Post-Dialysis) 120/80 mmHg Concurrent Access: falseAV Graft Upper Arm (Left) Arterial Sitting Heart Rate Pre-Dialysis 87 BPM Sitting H eart Rate Post-Dialysis 88 BPM Temperature Pre-Dialysis 97.2 degF Temperature Post -Dialysis 97.2 degF October 29, 2023 In-Center Hemodialysis Treatment 2228-75-18I85:30:00.000Z 2636-28-31Z92:30:06.000Z BP Sitting (Pre-Dialysis) 169/96 mmHg BP Sitting (Post-Dialysis) 147/94 mmHg Concurrent Access: falseAV Graft Upper Arm (Left) Arterial Sitting Heart Rate Pre-Dialysis 81 BPM Sitting H eart Rate Post-Dialysis 83 BPM Temperature Pre-Dialysis 97 degF Temperature Post -Dialysis 97.5 degF October 24, 2023 In-Center Hemodialysis Treatment 2524-36-73B07:24:00.000Z 0863-79-24Z39:25:06.000Z BP Sitting (Pre-Dialysis) 162/95 mmHg BP Sitting (Post-Dialysis) 146/92 mmHg Concurrent Access: falseAV Graft Upper Arm (Left) Arterial Sitting Heart Rate Pre-Dialysis 83 BPM Sitting H eart Rate Post-Dialysis 83 BPM Temperature Pre-Dialysis 98.7 degF Temperature Post -Dialysis 97.1 degF October 22, 2023 In-Center Hemodialysis Treatment 450 mL/min 500 mL/min Concurrent Access: false October 20, 2023 In-Center Hemodialysis Treatment 20 24 -0 8- 12 T1 2: 14 :0 0. 00 0Z 20 24 -0 8- 12 T1 5: 20 :0 6. 00 0Z BP Sitting (Pre-Dial ysis) 142/87 mmHg BP Sitting (Post-Sandy lysis) 103/62 mmHg Concurrent Access: falseAV Graft Upper Arm (Left) Arterial Sitting Heart Rate Pre-Dialysis 80 BPM Sitting H eart Rate Post-Dialysis 74 BPM Temperature Pre-Dialysis 98 degF Temperature Post -Dialysis 97.2 degF October 17, 2023 In-Center Hemodialysis Treatment 450 mL/min 500 mL/min Concurrent Access: false October 15, 2023 In-Center Hemodialysis Treatment 20 -0 T1 2: 23 :5 7. 00 0Z 20 24 -0 T1 5: 19 :5 7. 00 0Z BP Sitting (Pre-Dial ysis) 119/68 mmHg BP Sitting (Post-Sandy lysis) 103/56 mmHg Concurrent Access: falseAV Graft Upper Arm (Left) Arterial Sitting Heart Rate Pre-Dialysis 79 BPM Sitting H eart Rate Post-Dialysis 85 BPM Temperature Pre-Dialysis 97.7 degF Temperature Post -Dialysis 98 degF October 13, 2023 In-Center Hemodialysis Treatment 3725-27-29E98:26:00.000Z 8668-40-30G53:22:29.000Z BP Sitting (Pre-Dialysis) 143/80 mmHg BP Sitting (Post-Dialysis) 110/59 mmHg Concurrent Access: falseAV Graft Upper Arm (Left) Arterial Sitting Heart Rate Pre-Dialysis 76 BPM Sitting H eart Rate Post-Dialysis 82 BPM Temperature Pre-Dialysis 98.1 degF Temperature Post -Dialysis 97.6 degF October 10, 2023 In-Center Hemodialysis Treatment 5425-00-77E03:29:45.000Z 3633-46-18N19:33:45.000Z BP Sitting (Pre-Dialysis) 137/88 mmHg BP Sitting (Post-Dialysis) 124/83 mmHg Concurrent Access: falseAV Graft Upper Arm (Left) Arterial Sitting Heart Rate Pre-Dialysis 76 BPM Sitting H eart Rate Post-Dialysis 96 BPM Temperature Pre-Dialysis 98.2 degF Temperature Post -Dialysis 97.5 degF October 08, 2023 In-Center Hemodialysis Treatment 9642-63-71G11:10:00.000Z 9970-21-63X90:13:45.000Z BP Sitting (Pre-Dialysis) 152/89 mmHg BP Sitting (Post-Dialysis) 126/70 mmHg Concurrent Access: falseAV Graft Upper Arm (Left) Arterial Sitting Heart Rate Pre-Dialysis 82 BPM Sitting H eart Rate Post-Dialysis 81 BPM Temperature Pre-Dialysis 98.7 degF Temperature Post -Dialysis 97.5 degF October 03, 2023 In-Center Hemodialysis Treatment 4223-57-59B20:12:00.000Z 0651-99-88D50:14:24.000Z BP Sitting (Pre-Dialysis) 139/67 mmHg BP Sitting (Post-Dialysis) 128/72 mmHg Concurrent Access: falseAV Graft Upper Arm (Left) Arterial Sitting Heart Rate Pre-Dialysis 76 BPM Sitting H eart Rate Post-Dialysis 98 BPM Temperature Pre-Dialysis 98.2 degF Temperature Post -Dialysis 97.5 degF October 01, 2023 In-Center Hemodialysis Treatment 8907-12-57J48:12:00.000Z 0680-22-38M98:07:24.000Z BP Sitting (Pre-Dialysis) 167/100 mmHg BP Sitting (Post-Dialysis) 116/51 mmHg Concurrent Access: falseAV Graft Upper Arm (Left) Arterial Sitting Heart Rate Pre-Dialysis 91 BPM Sitting H eart Rate Post-Dialysis 116 BPM Temperature Pre-Dialysis 98.5 degF Temperature Post -Dialysis 97.2 degF September 26, 2023 In-Center Hemodialysis Treatment 9442-56-49O56:18:00.000Z 8315-22-70I18:23:32.000Z BP Sitting (Pre-Dialysis) 134/84 mmHg BP Sitting (Post-Dialysis) 108/69 mmHg Concurrent Access: falseAV Graft Upper Arm (Left) Arterial Sitting Heart Rate Pre-Dialysis 88 BPM Sitting H eart Rate Post-Dialysis 93 BPM Temperature Pre-Dialysis 98.1 degF Temperature Post -Dialysis 97.3 degF September 24, 2023 In-Center Hemodialysis Treatment 6968-97-53M74:17:00.000Z 2673-38-29L33:18:32.000Z BP Sitting (Pre-Dialysis) 179/102 mmHg BP Sitting (Post-Dialysis) 143/70 mmHg Concurrent Access: falseAV Graft Upper Arm (Left) Arterial Sitting Heart Rate Pre-Dialysis 93 BPM Sitting H eart Rate Post-Dialysis 103 BPM Temperature Pre-Dialysis 98.3 degF Temperature Post -Dialysis 97 degF September 22, 2023 In-Center Hemodialysis Treatment 7825-75-28G85:13:32.000Z 8998-60-47B66:13:33.000Z BP Sitting (Pre-Dialysis) 164/95 mmHg BP Sitting (Post-Dialysis) 123/81 mmHg Concurrent Access: falseAV Graft Upper Arm (Left) Arterial Sitting Heart Rate Pre-Dialysis 83 BPM Sitting H eart Rate Post-Dialysis 78 BPM Temperature Pre-Dialysis 98.2 degF Temperature Post -Dialysis 97.8 degF September 19, 2023 In-Center Hemodialysis Treatment 9388-30-06R92:30:42.000Z 0884-01-99O74:31:42.000Z BP Sitting (Pre-Dialysis) 188/108 mmHg BP Sitting (Post-Dialysis) 148/94 mmHg Concurrent Access: falseAV Graft Upper Arm (Left) Arterial Sitting Heart Rate Pre-Dialysis 94 BPM Sitting H eart Rate Post-Dialysis 101 BPM Temperature Pre-Dialysis 98.8 degF Temperature Post -Dialysis 97.5 degF September 15, 2023 In-Center Hemodialysis Treatment [id number]:18:00.000Z 3872-40-28R10:27:38.000Z BP Sitting (Pre-Dialysis) 151/87 mmHg BP Sitting (Post-Dialysis) 133/73 mmHg Concurrent Access: falseAV Graft Upper Arm (Left) Arterial Sitting Heart Rate Pre-Dialysis 76 BPM Sitting H eart Rate Post-Dialysis 83 BPM Temperature Pre-Dialysis 97.7 degF Temperature Post -Dialysis 97.6 degF September 12, 2023 In-Center Hemodialysis Treatment 2555-24-33K25:20:00.000Z 1493-13-87M32:31:42.000Z BP Sitting (Pre-Dialysis) 135/70 mmHg BP Sitting (Post-Dialysis) 126/66 mmHg Concurrent Access: falseAV Graft Upper Arm (Left) Arterial Sitting Heart Rate Pre-Dialysis 82 BPM Sitting H eart Rate Post-Dialysis 86 BPM Temperature Pre-Dialysis 98 degF Temperature Post -Dialysis 97.3 degF September 10, 2023 In-Center Hemodialysis Treatment [id number]:16:00.000Z 0692-98-28L31:25:06.000Z BP Sitting (Pre-Dialysis) 151/96 mmHg BP Sitting (Post-Dialysis) 122/75 mmHg Concurrent Access: falseAV Graft Upper Arm (Left) Arterial Sitting Heart Rate Pre-Dialysis 86 BPM Sitting H eart Rate Post-Dialysis 81 BPM Temperature Pre-Dialysis 98.2 degF Temperature Post -Dialysis 97.2 degF September 05, 2023 In-Center Hemodialysis Treatment 7666-71-04C18:20:06.000Z 7505-95-41W15:22:06.000Z BP Sitting (Pre-Dialysis) 158/90 mmHg BP Sitting (Post-Dialysis) 119/63 mmHg Concurrent Access: falseAV Graft Upper Arm (Left) Arterial Sitting Heart Rate Pre-Dialysis 83 BPM Sitting H eart Rate Post-Dialysis 94 BPM Temperature Pre-Dialysis 97.9 degF Temperature Post -Dialysis 97.6 degF September 01, 2023 In-Center Hemodialysis Treatment 7631-12-91H78:10:00.000Z 8076-10-97N81:12:07.000Z BP Sitting (Pre-Dialysis) 117/102 mmHg BP Sitting (Post-Dialysis) 130/71 mmHg Concurrent Access: falseAV Graft Upper Arm (Left) Arterial Sitting Heart Rate Pre-Dialysis 90 BPM Sitting H eart Rate Post-Dialysis 90 BPM Temperature Pre-Dialysis 97.5 degF Temperature Post -Dialysis 97.5 degF August 27, 2023 In-Center Hemodialysis Treatment 4179-13-01Q56:23:18.000Z 1644-82-70H71:24:19.000Z BP Sitting (Pre-Dialysis) 156/94 mmHg BP Sitting (Post-Dialysis) 133/84 mmHg Concurrent Access: falseAV Graft Upper Arm (Left) Arterial Sitting Heart Rate Pre-Dialysis 81 BPM Sitting H eart Rate Post-Dialysis 84 BPM Temperature Pre-Dialysis 98.6 degF Temperature Post -Dialysis 97.5 degF August 25, 2023 In-Center Hemodialysis Treatment 1488-19-20W85:24:18.000Z 5307-98-02B69:03:19.000Z BP Sitting (Pre-Dialysis) 201/113 mmHg BP Sitting (Post-Dialysis) 151/91 mmHg Concurrent Access: falseAV Graft Upper Arm (Left) Arterial Sitting Heart Rate Pre-Dialysis 72 BPM Sitting H eart Rate Post-Dialysis 98 BPM Temperature Pre-Dialysis 97.7 degF Temperature Post -Dialysis 97 degF August 20, 2023 In-Center Hemodialysis Treatment 9120-63-23F85:24:14.000Z 8944-06-00I76:24:14.000Z BP Sitting (Pre-Dialysis) 182/101 mmHg BP Sitting (Post-Dialysis) 131/85 mmHg Concurrent Access: falseAV Graft Upper Arm (Left) Arterial Sitting Heart Rate Pre-Dialysis 82 BPM Sitting H eart Rate Post-Dialysis 99 BPM Temperature Pre-Dialysis 98.1 degF Temperature Post -Dialysis 98 degF August 18, 2023 In-Center Hemodialysis Treatment 0938-04-19S07:44:00.000Z 4321-69-81T01:43:35.000Z BP Sitting (Pre-Dialysis) 170/102 mmHg BP Sitting (Post-Dialysis) 119/73 mmHg Concurrent Access: falseAV Graft Upper Arm (Left) Arterial Sitting Heart Rate Pre-Dialysis 80 BPM Sitting H eart Rate Post-Dialysis 102 BPM Temperature Pre-Dialysis 98 degF Temperature Post -Dialysis 97.7 degF August 15, 2023 In-Center Hemodialysis Treatment 7833-50-62J68:25:00.000Z 0809-16-23Q53:28:42.000Z BP Sitting (Pre-Dialysis) 161/88 mmHg BP Sitting (Post-Dialysis) 115/70 mmHg Concurrent Access: falseAV Graft Upper Arm (Left) Arterial Sitting Heart Rate Pre-Dialysis 77 BPM Sitting H eart Rate Post-Dialysis 78 BPM Temperature Pre-Dialysis 98.1 degF Temperature Post -Dialysis 97.5 degF August 11, 2023 In-Center Hemodialysis Treatment 5357-80-57H03:34:39.000Z 4344-32-27G36:35:38.000Z BP Sitting (Pre-Dialysis) 142/90 mmHg BP Sitting (Post-Dialysis) 119/74 mmHg Concurrent Access: falseAV Graft Upper Arm (Left) Arterial Sitting Heart Rate Pre-Dialysis 76 BPM Sitting H eart Rate Post-Dialysis 82 BPM Temperature Pre-Dialysis 97.5 degF Temperature Post -Dialysis 97.3 degF August 08, 2023 In-Center Hemodialysis Treatment 5369-28-97U76:25:00.000Z 5733-11-69W48:27:30.000Z BP Sitting (Pre-Dialysis) 150/90 mmHg BP Sitting (Post-Dialysis) 119/69 mmHg Concurrent Access: falseAV Graft Upper Arm (Left) Arterial Sitting Heart Rate Pre-Dialysis 96 BPM Sitting H eart Rate Post-Dialysis 102 BPM Temperature Pre-Dialysis 98.1 degF Temperature Post -Dialysis 97.3 degF August 06, 2023 In-Center Hemodialysis Treatment 9236-97-15U95:22:00.000Z 7242-67-01H62:23:31.000Z BP Sitting (Pre-Dialysis) 158/90 mmHg BP Sitting (Post-Dialysis) 101/61 mmHg Concurrent Access: falseAV Graft Upper Arm (Left) Arterial Sitting Heart Rate Pre-Dialysis 84 BPM Sitting H eart Rate Post-Dialysis 88 BPM Temperature Pre-Dialysis 98 degF Temperature Post -Dialysis 97.3 degF August 01, 2023 In-Center Hemodialysis Treatment 3332-46-64W06:35:00.000Z 6309-80-90X93:56:34.000Z BP Sitting (Pre-Dialysis) 124/75 mmHg BP Sitting (Post-Dialysis) 124/74 mmHg Concurrent Access: falseAV Graft Upper Arm (Left) Arterial Sitting Heart Rate Pre-Dialysis 100 BPM Sitting H eart Rate Post-Dialysis 108 BPM Temperature Pre-Dialysis 98 degF Temperature Post -Dialysis 97.7 degF July 30, 2023 In-Center Hemodialysis Treatment 3722-15-62N64:32:00.000Z 7988-06-98M00:36:34.000Z BP Sitting (Pre-Dialysis) 158/105 mmHg BP Sitting (Post-Dialysis) 101/68 mmHg Concurrent Access: falseAV Graft Upper Arm (Left) Arterial Sitting Heart Rate Pre-Dialysis 91 BPM Sitting H eart Rate Post-Dialysis 114 BPM Temperature Pre-Dialysis 98 degF Temperature Post -Dialysis 97.3 degF July 25, 2023 In-Center Hemodialysis Treatment 4125-28-46V57:26:00.000Z 3513-81-32O25:31:09.000Z BP Sitting (Pre-Dialysis) 123/76 mmHg BP Sitting (Post-Dialysis) 114/71 mmHg Concurrent Access: falseAV Graft Upper Arm (Left) Arterial Sitting Heart Rate Pre-Dialysis 83 BPM Sitting H eart Rate Post-Dialysis 104 BPM Temperature Pre-Dialysis 97.7 degF Temperature Post -Dialysis 97.5 degF July 23, 2023 In-Center Hemodialysis Treatment 4887-79-54W19:31:08.000Z 8942-78-92O83:31:08.000Z BP Sitting (Pre-Dialysis) 175/107 mmHg BP Sitting (Post-Dialysis) 131/85 mmHg Concurrent Access: falseAV Graft Upper Arm (Left) Arterial Sitting Heart Rate Pre-Dialysis 95 BPM Sitting H eart Rate Post-Dialysis 115 BPM Temperature Pre-Dialysis 98.3 degF Temperature Post -Dialysis 97.2 degF July 21, 2023 In-Center Hemodialysis Treatment 6654-31-44J63:26:08.000Z 1012-14-92L36:27:08.000Z BP Sitting (Pre-Dialysis) 189/116 mmHg BP Sitting (Post-Dialysis) 137/83 mmHg Concurrent Access: falseAV Graft Upper Arm (Left) Arterial Sitting Heart Rate Pre-Dialysis 95 BPM Sitting H eart Rate Post-Dialysis 122 BPM Temperature Pre-Dialysis 97.5 degF Temperature Post -Dialysis 96.8 degF July 18, 2023 In-Center Hemodialysis Treatment 1406-80-78T21:27:00.000Z 0707-25-99L11:35:36.000Z BP Sitting (Pre-Dialysis) 158/95 mmHg BP Sitting (Post-Dialysis) 132/68 mmHg Concurrent Access: falseAV Graft Upper Arm (Left) Arterial Sitting Heart Rate Pre-Dialysis 92 BPM Sitting H eart Rate Post-Dialysis 79 BPM Temperature Pre-Dialysis 98.3 degF Temperature Post -Dialysis 97.7 degF July 14, 2023 In-Center Hemodialysis Treatment 8618-44-29I80:28:00.000Z 6326-75-10F95:38:36.000Z BP Sitting (Pre-Dialysis) 150/83 mmHg BP Sitting (Post-Dialysis) 134/85 mmHg Concurrent Access: falseAV Graft Upper Arm (Left) Arterial Sitting Heart Rate Pre-Dialysis 79 BPM Sitting H eart Rate Post-Dialysis 74 BPM Temperature Pre-Dialysis 98.4 degF Temperature Post -Dialysis 98 degF 2023 In-Center Hemodialysis Treatment 3857-06-88B59:22:00.000Z 7641-18-82W39:26:13.000Z BP Sitting (Pre-Dialysis) 138/76 mmHg BP Sitting (Post-Dialysis) 111/59 mmHg Concurrent Access: falseAV Graft Upper Arm (Left) Arterial Sitting Heart Rate Pre-Dialysis 81 BPM Sitting H eart Rate Post-Dialysis 93 BPM Temperature Pre-Dialysis 98.3 degF Temperature Post -Dialysis 97.3 degF July 07, 2023 In-Center Hemodialysis Treatment 9837-64-76P96:20:00.000Z 4438-05-57A12:24:13.000Z BP Sitting (Pre-Dialysis) 129/74 mmHg BP Sitting (Post-Dialysis) 103/61 mmHg Concurrent Access: falseAV Graft Upper Arm (Left) Arterial Sitting Heart Rate Pre-Dialysis 76 BPM Sitting H eart Rate Post-Dialysis 82 BPM Temperature Pre-Dialysis 98.2 degF Temperature Post -Dialysis 97.3 degF July 04, 2023 In-Center Hemodialysis Treatment 450 mL/min 500 mL/min Concurrent Access: false July 04, 2023 In-Center Hemodialysis Treatment 20 24 -0 T1 2: 11 :0 0. 00 0Z 20 24 -0 T1 5: 18 :1 3. 00 0Z BP Sitting (Pre-Dial ysis) 144/86 mmHg BP Sitting (Post-Sandy lysis) 103/49 mmHg Concurrent Access: falseAV Graft Upper Arm (Left) Arterial Sitting Heart Rate Pre-Dialysis 77 BPM Sitting H eart Rate Post-Dialysis 100 BPM Temperature Pre-Dialysis 98 degF Temperature Post -Dialysis 98 degF July 02, 2023 In-Center Hemodialysis Treatment 8882-29-34N71:17:11.000Z 6432-59-59E53:21:11.000Z BP Sitting (Pre-Dialysis) 150/83 mmHg BP Sitting (Post-Dialysis) 113/73 mmHg Concurrent Access: falseAV Graft Upper Arm (Left) Arterial Sitting Heart Rate Pre-Dialysis 78 BPM Sitting H eart Rate Post-Dialysis 95 BPM Temperature Pre-Dialysis 98 degF Temperature Post -Dialysis 97.9 degF June 30, 2023 In-Center Hemodialysis Treatment 6490-30-72Q22:25:11.000Z 3565-27-43F37:23:11.000Z BP Sitting (Pre-Dialysis) 184/108 mmHg BP Sitting (Post-Dialysis) 129/75 mmHg Concurrent Access: falseAV Graft Upper Arm (Left) Arterial Sitting Heart Rate Pre-Dialysis 86 BPM Sitting H eart Rate Post-Dialysis 101 BPM Temperature Pre-Dialysis 98.3 degF Temperature Post -Dialysis 97.2 degF June 27, 2023 In-Center Hemodialysis Treatment 1118-06-35H86:27:29.000Z 1304-54-93O80:29:29.000Z BP Sitting (Pre-Dialysis) 139/89 mmHg BP Sitting (Post-Dialysis) 110/58 mmHg Concurrent Access: falseAV Graft Upper Arm (Left) Arterial Sitting Heart Rate Pre-Dialysis 76 BPM Sitting H eart Rate Post-Dialysis 85 BPM Temperature Pre-Dialysis 98 degF Temperature Post -Dialysis 97.7 degF June 25, 2023 In-Center Hemodialysis Treatment 3295-73-20G62:32:00.000Z 4362-18-79T78:41:29.000Z BP Sitting (Pre-Dialysis) 195/106 mmHg BP Sitting (Post-Dialysis) 116/77 mmHg Concurrent Access: falseAV Graft Upper Arm (Left) Arterial Sitting Heart Rate Pre-Dialysis 80 BPM Sitting H eart Rate Post-Dialysis 98 BPM Temperature Pre-Dialysis 98.4 degF Temperature Post -Dialysis 97.2 degF June 23, 2023 In-Center Hemodialysis Treatment 5026-58-27J72:12:29.000Z 9091-34-70Z87:20:29.000Z BP Sitting (Pre-Dialysis) 154/91 mmHg BP Sitting (Post-Dialysis) 146/84 mmHg Concurrent Access: falseAV Graft Upper Arm (Left) Arterial Sitting Heart Rate Pre-Dialysis 89 BPM Sitting H eart Rate Post-Dialysis 78 BPM Temperature Pre-Dialysis 98.7 degF Temperature Post -Dialysis 97 degF June 20, 2023 In-Center Hemodialysis Treatment 1170-90-17A70:28:13.000Z 2285-15-17Z24:37:13.000Z BP Sitting (Pre-Dialysis) 186/101 mmHg BP Sitting (Post-Dialysis) 133/94 mmHg Concurrent Access: falseAV Graft Upper Arm (Left) Arterial Sitting Heart Rate Pre-Dialysis 88 BPM Sitting H eart Rate Post-Dialysis 88 BPM Temperature Pre-Dialysis 97 degF Temperature Post -Dialysis 97.2 degF June 16, 2023 In-Center Hemodialysis Treatment 7484-88-94N19:15:00.000Z 3035-15-32R09:32:13.000Z BP Sitting (Pre-Dialysis) 190/111 mmHg BP Sitting (Post-Dialysis) 145/91 mmHg Concurrent Access: falseAV Graft Upper Arm (Left) Arterial Sitting Heart Rate Pre-Dialysis 96 BPM Sitting H eart Rate Post-Dialysis 98 BPM Temperature Pre-Dialysis 96.8 degF Temperature Post -Dialysis 98 degF June 13, 2023 In-Center Hemodialysis Treatment 9117-25-97V61:26:00.000Z 6329-89-59F81:33:12.000Z BP Sitting (Pre-Dialysis) 166/98 mmHg BP Sitting (Post-Dialysis) 122/71 mmHg Concurrent Access: falseAV Graft Upper Arm (Left) Arterial Sitting Heart Rate Pre-Dialysis 90 BPM Sitting H eart Rate Post-Dialysis 102 BPM Temperature Pre-Dialysis 98 degF Temperature Post -Dialysis 97.5 degF June 11, 2023 In-Center Hemodialysis Treatment 0628-45-84O56:19:00.000Z 2412-18-47N27:23:12.000Z BP Sitting (Pre-Dialysis) 176/104 mmHg BP Sitting (Post-Dialysis) 131/71 mmHg Concurrent Access: falseAV Graft Upper Arm (Left) Arterial Sitting Heart Rate Pre-Dialysis 93 BPM Sitting H eart Rate Post-Dialysis 98 BPM Temperature Pre-Dialysis 97.6 degF Temperature Post -Dialysis 97.5 degF June 06, 2023 In-Center Hemodialysis Treatment 2879-00-28K30:37:33.000Z 2393-79-31J17:22:34.000Z BP Sitting (Pre-Dialysis) 154/89 mmHg BP Sitting (Post-Dialysis) 116/67 mmHg Concurrent Access: falseAV Graft Upper Arm (Left) Arterial Sitting Heart Rate Pre-Dialysis 82 BPM Sitting H eart Rate Post-Dialysis 95 BPM Temperature Pre-Dialysis 97.9 degF Temperature Post -Dialysis 97.3 degF June 04, 2023 In-Center Hemodialysis Treatment 6484-94-66N34:11:00.000Z 0283-74-35N38:15:34.000Z BP Sitting (Pre-Dialysis) 195/109 mmHg BP Sitting (Post-Dialysis) 136/83 mmHg Concurrent Access: falseAV Graft Upper Arm (Left) Arterial Sitting Heart Rate Pre-Dialysis 92 BPM Sitting H eart Rate Post-Dialysis 96 BPM Temperature Pre-Dialysis 97.7 degF Temperature Post -Dialysis 97.5 degF June 02, 2023 In-Center Hemodialysis Treatment 450 mL/min 500 mL/min Concurrent Access: false May 30, 2023 In-Center Hemodialysis Treatment 20 24 -0 3- 22 T1 2: 18 :0 0. 00 0Z 20 24 -0 3- T1 5: 21 :1 9. 00 0Z BP Sitting (Pre-Dial ysis) 136/79 mmHg BP Sitting (Post-Sandy lysis) 112/55 mmHg Concurrent Access: falseAV Graft Upper Arm (Left) Arterial Sitting Heart Rate Pre-Dialysis 70 BPM Sitting H eart Rate Post-Dialysis 84 BPM Temperature Pre-Dialysis 97.2 degF Temperature Post -Dialysis 97.5 degF May 28, 2023 In-Center Hemodialysis Treatment 6622-03-64J30:22:19.000Z 6659-52-12G13:25:19.000Z BP Sitting (Pre-Dialysis) 149/86 mmHg BP Sitting (Post-Dialysis) 118/71 mmHg Concurrent Access: falseAV Graft Upper Arm (Left) Arterial Sitting Heart Rate Pre-Dialysis 72 BPM Sitting H eart Rate Post-Dialysis 77 BPM Temperature Pre-Dialysis 97.5 degF Temperature Post -Dialysis 97.3 degF May 26, 2023 In-Center Hemodialysis Treatment 3663-46-27D72:35:19.000Z 7995-57-77C06:40:20.000Z BP Sitting (Pre-Dialysis) 134/79 mmHg BP Sitting (Post-Dialysis) 122/63 mmHg Concurrent Access: falseAV Graft Upper Arm (Left) Arterial Sitting Heart Rate Pre-Dialysis 75 BPM Sitting H eart Rate Post-Dialysis 78 BPM Temperature Pre-Dialysis 97.7 degF Temperature Post -Dialysis 97.7 degF May 23, 2023 In-Center Hemodialysis Treatment 9058-97-64E30:20:00.000Z 5952-45-91L59:18:38.000Z BP Sitting (Pre-Dialysis) 132/72 mmHg BP Sitting (Post-Dialysis) 111/54 mmHg Concurrent Access: falseAV Graft Upper Arm (Left) Arterial Sitting Heart Rate Pre-Dialysis 79 BPM Sitting H eart Rate Post-Dialysis 100 BPM Temperature Pre-Dialysis 97.5 degF Temperature Post -Dialysis 97.3 degF May 21, 2023 In-Center Hemodialysis Treatment 8522-60-62I51:31:38.000Z 3993-80-87R01:37:38.000Z BP Sitting (Pre-Dialysis) 160/99 mmHg BP Sitting (Post-Dialysis) 101/54 mmHg Concurrent Access: falseAV Graft Upper Arm (Left) Arterial Sitting Heart Rate Pre-Dialysis 86 BPM Sitting H eart Rate Post-Dialysis 76 BPM Temperature Pre-Dialysis 97.5 degF Temperature Post -Dialysis 97.3 degF May 16, 2023 In-Center Hemodialysis Treatment 8010-08-09H62:18:00.000Z 9384-92-43I12:21:56.000Z BP Sitting (Pre-Dialysis) 141/84 mmHg BP Sitting (Post-Dialysis) 101/65 mmHg Concurrent Access: falseAV Graft Upper Arm (Left) Arterial Sitting Heart Rate Pre-Dialysis 80 BPM Sitting H eart Rate Post-Dialysis 82 BPM Temperature Pre-Dialysis 98 degF Temperature Post -Dialysis 97.3 degF May 14, 2023 In-Center Hemodialysis Treatment 3550-92-85W43:30:00.000Z 5558-93-59F80:33:56.000Z BP Sitting (Pre-Dialysis) 134/74 mmHg BP Sitting (Post-Dialysis) 104/56 mmHg Concurrent Access: falseAV Graft Upper Arm (Left) Arterial Sitting Heart Rate Pre-Dialysis 79 BPM Sitting H eart Rate Post-Dialysis 78 BPM Temperature Pre-Dialysis 97.5 degF Temperature Post -Dialysis 98 degF May 12, 2023 In-Center Hemodialysis Treatment 4036-83-26D12:18:07.000Z 4809-25-48E01:22:08.000Z BP Sitting (Pre-Dialysis) 129/85 mmHg BP Sitting (Post-Dialysis) 139/79 mmHg Concurrent Access: falseAV Graft Upper Arm (Left) Arterial Sitting Heart Rate Pre-Dialysis 94 BPM Sitting H eart Rate Post-Dialysis 114 BPM Temperature Pre-Dialysis 97.8 degF Temperature Post -Dialysis 98 degF May 09, 2023 In-Center Hemodialysis Treatment 0437-91-86L78:19:00.000Z 6407-66-11D20:23:11.000Z BP Sitting (Pre-Dialysis) 144/87 mmHg BP Sitting (Post-Dialysis) 102/60 mmHg Concurrent Access: falseAV Graft Upper Arm (Left) Arterial Sitting Heart Rate Pre-Dialysis 84 BPM Sitting H eart Rate Post-Dialysis 94 BPM Temperature Pre-Dialysis 98 degF Temperature Post -Dialysis 97.6 degF May 07, 2023 In-Center Hemodialysis Treatment 9304-39-21E47:18:11.000Z 5592-29-08P86:18:11.000Z BP Sitting (Pre-Dialysis) 137/82 mmHg BP Sitting (Post-Dialysis) 133/75 mmHg Concurrent Access: falseAV Graft Upper Arm (Left) Arterial Sitting Heart Rate Pre-Dialysis 86 BPM Sitting H eart Rate Post-Dialysis 92 BPM Temperature Pre-Dialysis 97.3 degF Temperature Post -Dialysis 98 degF May 05, 2023 In-Center Hemodialysis Treatment 9496-63-10B93:02:11.000Z 2187-49-89N50:02:18.000Z BP Sitting (Pre-Dialysis) 156/84 mmHg BP Sitting (Post-Dialysis) 109/63 mmHg Concurrent Access: falseAV Graft Upper Arm (Left) Arterial Sitting Heart Rate Pre-Dialysis 77 BPM Sitting H eart Rate Post-Dialysis 76 BPM Temperature Pre-Dialysis 97.5 degF Temperature Post -Dialysis 98.1 degF May 02, 2023 In-Center Hemodialysis Treatment 8977-24-04Y81:08:00.000Z 6301-19-37H24:11:41.000Z BP Sitting (Pre-Dialysis) 155/97 mmHg BP Sitting (Post-Dialysis) 136/87 mmHg Concurrent Access: falseAV Graft Upper Arm (Left) Arterial Sitting Heart Rate Pre-Dialysis 83 BPM Sitting H eart Rate Post-Dialysis 104 BPM Temperature Pre-Dialysis 97.9 degF Temperature Post -Dialysis 98 degF April 30, 2023 In-Center Hemodialysis Treatment 1887-64-92Q08:29:00.000Z 1529-65-33O84:32:35.000Z BP Sitting (Pre-Dialysis) 164/95 mmHg BP Sitting (Post-Dialysis) 133/65 mmHg Concurrent Access: falseAV Graft Upper Arm (Left) Arterial Sitting Heart Rate Pre-Dialysis 89 BPM Sitting H eart Rate Post-Dialysis 66 BPM Temperature Pre-Dialysis 97.8 degF Temperature Post -Dialysis 98.1 degF April 25, 2023 In-Center Hemodialysis Treatment 1700-28-83G55:17:33.000Z 1617-33-11U46:09:33.000Z BP Sitting (Pre-Dialysis) 135/86 mmHg BP Sitting (Post-Dialysis) 106/56 mmHg Concurrent Access: falseAV Graft Upper Arm (Left) Arterial Sitting Heart Rate Pre-Dialysis 86 BPM Sitting H eart Rate Post-Dialysis 90 BPM Temperature Pre-Dialysis 98.2 degF Temperature Post -Dialysis 97.5 degF April 23, 2023 In-Center Hemodialysis Treatment 0527-21-37I89:22:33.000Z 1299-62-89H76:24:33.000Z BP Sitting (Pre-Dialysis) 145/88 mmHg BP Sitting (Post-Dialysis) 111/59 mmHg Concurrent Access: falseAV Graft Upper Arm (Left) Arterial Sitting Heart Rate Pre-Dialysis 83 BPM Sitting H eart Rate Post-Dialysis 88 BPM Temperature Pre-Dialysis 97.9 degF Temperature Post -Dialysis 97.5 degF April 21, 2023 In-Center Hemodialysis Treatment 5367-69-26F16:36:15.000Z 7111-72-88X68:39:16.000Z BP Sitting (Pre-Dialysis) 147/97 mmHg BP Sitting (Post-Dialysis) 116/84 mmHg Concurrent Access: falseAV Graft Upper Arm (Left) Arterial Sitting Heart Rate Pre-Dialysis 87 BPM Sitting H eart Rate Post-Dialysis 106 BPM Temperature Pre-Dialysis 97.2 degF Temperature Post -Dialysis 97.6 degF April 18, 2023 In-Center Hemodialysis Treatment 9568-98-98V71:31:51.000Z 9400-38-43D67:31:51.000Z BP Sitting (Pre-Dialysis) 127/83 mmHg BP Sitting (Post-Dialysis) 109/71 mmHg Concurrent Access: falseAV Graft Upper Arm (Left) Arterial Sitting Heart Rate Pre-Dialysis 79 BPM Sitting H eart Rate Post-Dialysis 90 BPM Temperature Pre-Dialysis 97.7 degF Temperature Post -Dialysis 97.6 degF April 16, 2023 In-Center Hemodialysis Treatment 8263-40-95A27:23:44.000Z 1286-20-69F62:29:44.000Z BP Sitting (Pre-Dialysis) 138/87 mmHg BP Sitting (Post-Dialysis) 109/70 mmHg Concurrent Access: falseAV Graft Upper Arm (Left) Arterial Sitting Heart Rate Pre-Dialysis 85 BPM Sitting H eart Rate Post-Dialysis 87 BPM Temperature Pre-Dialysis 97.2 degF April 14, 2023 In-Center Hemodialysis Treatment 5521-93-27O24:29:02.000Z 2689-65-48G10:32:02.000Z BP Sitting (Pre-Dialysis) 155/95 mmHg BP Sitting (Post-Dialysis) 141/87 mmHg Concurrent Access: falseAV Graft Upper Arm (Left) Arterial Sitting Heart Rate Pre-Dialysis 95 BPM Sitting H eart Rate Post-Dialysis 102 BPM Temperature Pre-Dialysis 97.9 degF Temperature Post -Dialysis 98 degF April 11, 2023 In-Center Hemodialysis Treatment 9078-43-22D68:29:00.000Z 8606-26-61Y01:31:33.000Z BP Sitting (Pre-Dialysis) 146/85 mmHg BP Sitting (Post-Dialysis) 130/76 mmHg Concurrent Access: falseAV Graft Upper Arm (Left) Arterial Sitting Heart Rate Pre-Dialysis 88 BPM Sitting H eart Rate Post-Dialysis 103 BPM Temperature Pre-Dialysis 98.2 degF Temperature Post -Dialysis 97.9 degF April 09, 2023 In-Center Hemodialysis Treatment 7580-91-49P86:29:00.000Z 1478-54-20E51:30:29.000Z BP Sitting (Pre-Dialysis) 163/101 mmHg BP Sitting (Post-Dialysis) 131/86 mmHg Concurrent Access: falseAV Graft Upper Arm (Left) Arterial Sitting Heart Rate Pre-Dialysis 96 BPM Sitting H eart Rate Post-Dialysis 96 BPM Temperature Pre-Dialysis 97.2 degF Temperature Post -Dialysis 97.7 degF April 07, 2023 In-Center Hemodialysis Treatment 3854-55-38Z87:32:00.000Z 2649-34-08Y30:34:17.000Z BP Sitting (Pre-Dialysis) 154/82 mmHg BP Sitting (Post-Dialysis) 110/65 mmHg Concurrent Access: falseAV Graft Upper Arm (Left) Arterial Sitting Heart Rate Pre-Dialysis 80 BPM Sitting H eart Rate Post-Dialysis 98 BPM Temperature Pre-Dialysis 97.2 degF Temperature Post -Dialysis 97.5 degF April 04, 2023 In-Center Hemodialysis Treatment 3358-38-57C76:12:00.000Z 2894-45-42T79:15:20.000Z BP Sitting (Pre-Dialysis) 137/85 mmHg BP Sitting (Post-Dialysis) 119/75 mmHg Concurrent Access: falseAV Graft Upper Arm (Left) Arterial Sitting Heart Rate Pre-Dialysis 84 BPM Sitting H eart Rate Post-Dialysis 104 BPM Temperature Pre-Dialysis 98.1 degF Temperature Post -Dialysis 97.9 degF April 03, 2023 In-Center Hemodialysis Treatment 9791-18-65L76:10:00.000Z 8104-23-27D21:55:17.000Z BP Sitting (Pre-Dialysis) 175/107 mmHg BP Sitting (Post-Dialysis) 148/97 mmHg Concurrent Access: falseAV Graft Upper Arm (Left) Arterial Sitting Heart Rate Pre-Dialysis 100 BPM Sitting H eart Rate Post-Dialysis 103 BPM Temperature Pre-Dialysis 98.1 degF Temperature Post -Dialysis 97.9 degF April 01, 2023 In-Center Hemodialysis Treatment 7834-12-37W43:01:00.000Z 3660-91-29M13:51:30.000Z BP Sitting (Pre-Dialysis) 191/105 mmHg BP Sitting (Post-Dialysis) 201/105 mmHg Concurrent Access: falseAV Graft Upper Arm (Left) Arterial Sitting Heart Rate Pre-Dialysis 90 BPM Sitting H eart Rate Post-Dialysis 84 BPM Temperature Pre-Dialysis 98.4 degF Temperature Post -Dialysis 97.9 degF March 26, 2023 In-Center Hemodialysis Treatment 4913-59-53J16:44:27.000Z 6025-00-38W57:26:26.000Z BP Sitting (Pre-Dialysis) 152/90 mmHg BP Sitting (Post-Dialysis) 117/66 mmHg Concurrent Access: falseAV Graft Upper Arm (Left) Arterial Sitting Heart Rate Pre-Dialysis 93 BPM Sitting H eart Rate Post-Dialysis 96 BPM Temperature Pre-Dialysis 98.4 degF Temperature Post -Dialysis 97.7 degF March 25, 2023 In-Center Hemodialysis Treatment [id number]:02:00.000Z 4751-02-47I41:04:27.000Z BP Sitting (Pre-Dialysis) 210/122 mmHg BP Sitting (Post-Dialysis) 165/91 mmHg Concurrent Access: falseAV Graft Upper Arm (Left) Arterial Sitting Heart Rate Pre-Dialysis 93 BPM Sitting H eart Rate Post-Dialysis 92 BPM Temperature Pre-Dialysis 97.3 degF Temperature Post -Dialysis 98.5 degF March 20, 2023 In-Center Hemodialysis Treatment 2310-81-70W63:21:25.000Z 3169-00-43T63:22:24.000Z BP Sitting (Pre-Dialysis) 144/88 mmHg BP Sitting (Post-Dialysis) 116/59 mmHg Concurrent Access: falseAV Graft Upper Arm (Left) Arterial Sitting Heart Rate Pre-Dialysis 82 BPM Sitting H eart Rate Post-Dialysis 88 BPM Temperature Pre-Dialysis 98.1 degF Temperature Post -Dialysis 98.4 degF March 18, 2023 In-Center Hemodialysis Treatment 0329-16-34D27:24:00.000Z 5293-76-39E18:27:25.000Z BP Sitting (Pre-Dialysis) 149/87 mmHg BP Sitting (Post-Dialysis) 138/82 mmHg Concurrent Access: falseAV Graft Upper Arm (Left) Arterial Sitting Heart Rate Pre-Dialysis 84 BPM Sitting H eart Rate Post-Dialysis 84 BPM Temperature Pre-Dialysis 98.1 degF Temperature Post -Dialysis 98 degF March 13, 2023 In-Center Hemodialysis Treatment 5904-39-58W39:12:41.000Z 3798-46-53I31:25:41.000Z BP Sitting (Pre-Dialysis) 143/90 mmHg BP Sitting (Post-Dialysis) 127/70 mmHg Concurrent Access: falseAV Graft Upper Arm (Left) Arterial Sitting Heart Rate Pre-Dialysis 87 BPM Sitting H eart Rate Post-Dialysis 96 BPM Temperature Pre-Dialysis 98.8 degF Temperature Post -Dialysis 98 degF March 11, 2023 In-Center Hemodialysis Treatment 3707-88-06A68:37:41.000Z 2929-47-15R34:43:41.000Z BP Sitting (Pre-Dialysis) 184/102 mmHg BP Sitting (Post-Dialysis) 154/97 mmHg Concurrent Access: falseAV Graft Upper Arm (Left) Arterial Sitting Heart Rate Pre-Dialysis 82 BPM Sitting H eart Rate Post-Dialysis 99 BPM Temperature Pre-Dialysis 98.8 degF Temperature Post -Dialysis 98 degF March 06, 2023 In-Center Hemodialysis Treatment 3782-75-13N96:12:00.000Z 9004-29-81J46:16:06.000Z BP Sitting (Pre-Dialysis) 198/107 mmHg BP Sitting (Post-Dialysis) 145/90 mmHg Concurrent Access: falseAV Graft Upper Arm (Left) Arterial Sitting Heart Rate Pre-Dialysis 89 BPM Sitting H eart Rate Post-Dialysis 103 BPM Temperature Pre-Dialysis 98 degF Temperature Post -Dialysis 96.8 degF March 04, 2023 In-Center Hemodialysis Treatment 1485-94-13J52:29:00.000Z 7938-20-75Q04:13:06.000Z BP Sitting (Pre-Dialysis) 170/95 mmHg BP Sitting (Post-Dialysis) 163/84 mmHg Concurrent Access: falseAV Graft Upper Arm (Left) Arterial Sitting Heart Rate Pre-Dialysis 86 BPM Sitting H eart Rate Post-Dialysis 82 BPM Temperature Pre-Dialysis 97 degF Temperature Post -Dialysis 97.2 degF February 27, 2023 In-Center Hemodialysis Treatment 6506-97-58W28:18:00.000Z 6684-19-31V11:17:14.000Z BP Sitting (Pre-Dialysis) 154/97 mmHg BP Sitting (Post-Dialysis) 159/98 mmHg Concurrent Access: falseAV Graft Upper Arm (Left) Arterial Sitting Heart Rate Pre-Dialysis 86 BPM Sitting H eart Rate Post-Dialysis 100 BPM Temperature Pre-Dialysis 97.2 degF Temperature Post -Dialysis 97.7 degF February 25, 2023 In-Center Hemodialysis Treatment 8993-40-25B61:37:00.000Z 2432-10-98T62:38:14.000Z BP Sitting (Pre-Dialysis) 170/98 mmHg BP Sitting (Post-Dialysis) 129/88 mmHg Concurrent Access: falseAV Graft Upper Arm (Left) Arterial Sitting Heart Rate Pre-Dialysis 73 BPM Sitting H eart Rate Post-Dialysis 92 BPM Temperature Pre-Dialysis 96.7 degF Temperature Post -Dialysis 98 degF February 20, 2023 In-Center Hemodialysis Treatment 7186-93-75O99:12:17.000Z 2246-93-43F03:13:17.000Z BP Sitting (Pre-Dialysis) 167/100 mmHg BP Sitting (Post-Dialysis) 157/82 mmHg Concurrent Access: falseAV Graft Upper Arm (Left) Arterial Sitting Heart Rate Pre-Dialysis 84 BPM Sitting H eart Rate Post-Dialysis 101 BPM Temperature Pre-Dialysis 97.8 degF Temperature Post -Dialysis 97.2 degF February 18, 2023 In-Center Hemodialysis Treatment 1604-31-39P43:20:17.000Z 2773-76-16Y83:21:17.000Z BP Sitting (Pre-Dialysis) 198/107 mmHg BP Sitting (Post-Dialysis) 124/84 mmHg Concurrent Access: falseAV Graft Upper Arm (Left) Arterial Sitting Heart Rate Pre-Dialysis 78 BPM Sitting H eart Rate Post-Dialysis 97 BPM Temperature Pre-Dialysis 97.2 degF Temperature Post -Dialysis 98 degF February 13, 2023 In-Center Hemodialysis Treatment 8038-85-90Q33:19:00.000Z 3967-63-54Z82:27:09.000Z BP Sitting (Pre-Dialysis) 152/96 mmHg BP Sitting (Post-Dialysis) 113/74 mmHg Concurrent Access: falseAV Graft Upper Arm (Left) Arterial Sitting Heart Rate Pre-Dialysis 80 BPM Sitting H eart Rate Post-Dialysis 86 BPM Temperature Pre-Dialysis 97.2 degF Temperature Post -Dialysis 98.2 degF February 11, 2023 In-Center Hemodialysis Treatment 9065-39-79X80:15:00.000Z 6109-99-00C52:16:09.000Z BP Sitting (Pre-Dialysis) 184/95 mmHg BP Sitting (Post-Dialysis) 113/65 mmHg Concurrent Access: falseAV Graft Upper Arm (Left) Arterial Sitting Heart Rate Pre-Dialysis 86 BPM Sitting H eart Rate Post-Dialysis 95 BPM Temperature Pre-Dialysis 97.3 degF Temperature Post -Dialysis 98 degF February 06, 2023 In-Center Hemodialysis Treatment 3866-20-76D47:17:00.000Z 9443-30-37X86:20:08.000Z BP Sitting (Pre-Dialysis) 150/87 mmHg BP Sitting (Post-Dialysis) 140/88 mmHg Concurrent Access: falseAV Graft Upper Arm (Left) Arterial Sitting Heart Rate Pre-Dialysis 80 BPM Sitting H eart Rate Post-Dialysis 85 BPM Temperature Pre-Dialysis 97.3 degF Temperature Post -Dialysis 97 degF February 04, 2023 In-Center Hemodialysis Treatment 3681-04-35Y46:12:08.000Z 9128-89-84A25:26:09.000Z BP Sitting (Pre-Dialysis) 187/107 mmHg BP Sitting (Post-Dialysis) 114/70 mmHg Concurrent Access: falseAV Graft Upper Arm (Left) Arterial Sitting Heart Rate Pre-Dialysis 98 BPM Sitting H eart Rate Post-Dialysis 93 BPM Temperature Pre-Dialysis 97.4 degF Temperature Post -Dialysis 97.5 degF January 29, 2023 In-Center Hemodialysis Treatment 4273-90-35I32:19:00.000Z 7101-73-67D09:21:26.000Z BP Sitting (Pre-Dialysis) 133/71 mmHg BP Sitting (Post-Dialysis) 143/84 mmHg Concurrent Access: falseAV Graft Upper Arm (Left) Arterial Sitting Heart Rate Pre-Dialysis 79 BPM Sitting H eart Rate Post-Dialysis 84 BPM Temperature Pre-Dialysis 98.1 degF Temperature Post -Dialysis 97.2 degF January 23, 2023 In-Center Hemodialysis Treatment 8605-76-53Z53:19:00.000Z 7171-40-45I66:20:20.000Z BP Sitting (Pre-Dialysis) 188/98 mmHg BP Sitting (Post-Dialysis) 137/88 mmHg Concurrent Access: falseAV Graft Upper Arm (Left) Arterial Sitting Heart Rate Pre-Dialysis 75 BPM Sitting H eart Rate Post-Dialysis 83 BPM Temperature Pre-Dialysis 97.2 degF Temperature Post -Dialysis 97.2 degF January 21, 2023 In-Center Hemodialysis Treatment 3626-34-47P59:21:00.000Z 8043-05-41G06:26:20.000Z BP Sitting (Pre-Dialysis) 204/108 mmHg BP Sitting (Post-Dialysis) 129/69 mmHg Concurrent Access: falseAV Graft Upper Arm (Left) Arterial Sitting Heart Rate Pre-Dialysis 76 BPM Sitting H eart Rate Post-Dialysis 87 BPM Temperature Pre-Dialysis 97.6 degF Temperature Post -Dialysis 97.5 degF January 16, 2023 In-Center Hemodialysis Treatment 2649-59-39B66:09:00.000Z 4204-31-42O40:12:10.000Z BP Sitting (Pre-Dialysis) 164/88 mmHg BP Sitting (Post-Dialysis) 119/71 mmHg Concurrent Access: falseAV Graft Upper Arm (Left) Arterial Sitting Heart Rate Pre-Dialysis 78 BPM Sitting H eart Rate Post-Dialysis 79 BPM Temperature Pre-Dialysis 97 degF Temperature Post -Dialysis 98 degF January 14, 2023 In-Center Hemodialysis Treatment 4865-21-74L30:07:00.000Z 6223-76-29H70:09:15.000Z BP Sitting (Pre-Dialysis) 188/102 mmHg BP Sitting (Post-Dialysis) 120/72 mmHg Concurrent Access: falseAV Graft Upper Arm (Left) Arterial Sitting Heart Rate Pre-Dialysis 78 BPM Sitting H eart Rate Post-Dialysis 82 BPM Temperature Pre-Dialysis 97.7 degF Temperature Post -Dialysis 97.5 degF January 09, 2023 In-Center Hemodialysis Treatment 3370-38-36U11:21:00.000Z 0821-10-28X78:24:11.000Z BP Sitting (Pre-Dialysis) 186/95 mmHg BP Sitting (Post-Dialysis) 127/81 mmHg Concurrent Access: falseAV Graft Upper Arm (Left) Arterial Sitting Heart Rate Pre-Dialysis 73 BPM Sitting H eart Rate Post-Dialysis 85 BPM Temperature Pre-Dialysis 97 degF Temperature Post -Dialysis 98.1 degF January 07, 2023 In-Center Hemodialysis Treatment 7979-94-06K46:15:00.000Z 5976-51-15U94:17:11.000Z BP Sitting (Pre-Dialysis) 191/105 mmHg BP Sitting (Post-Dialysis) 127/86 mmHg Concurrent Access: falseAV Graft Upper Arm (Left) Arterial Sitting Heart Rate Pre-Dialysis 81 BPM Sitting H eart Rate Post-Dialysis 81 BPM Temperature Pre-Dialysis 97.4 degF Temperature Post -Dialysis 98.1 degF January 02, 2023 In-Center Hemodialysis Treatment 4288-52-00K57:17:00.000Z 5135-01-78T32:18:57.000Z BP Sitting (Pre-Dialysis) 157/88 mmHg BP Sitting (Post-Dialysis) 147/89 mmHg Concurrent Access: falseAV Graft Upper Arm (Left) Arterial Sitting Heart Rate Pre-Dialysis 76 BPM Sitting H eart Rate Post-Dialysis 78 BPM Temperature Pre-Dialysis 98.2 degF Temperature Post -Dialysis 97.1 degF December 31, 2022 In-Center Hemodialysis Treatment 3469-98-43O77:29:00.000Z 8186-92-13H65:30:57.000Z BP Sitting (Pre-Dialysis) 158/90 mmHg BP Sitting (Post-Dialysis) 145/87 mmHg Concurrent Access: falseAV Graft Upper Arm (Left) Arterial Sitting Heart Rate Pre-Dialysis 82 BPM Sitting H eart Rate Post-Dialysis 80 BPM Temperature Pre-Dialysis 98.2 degF Temperature Post -Dialysis 97.8 degF December 26, 2022 In-Center Hemodialysis Treatment 4552-15-15R96:15:00.000Z 1181-28-04I47:17:25.000Z BP Sitting (Pre-Dialysis) 179/99 mmHg BP Sitting (Post-Dialysis) 140/80 mmHg Concurrent Access: falseAV Graft Upper Arm (Left) Arterial Sitting Heart Rate Pre-Dialysis 78 BPM Sitting H eart Rate Post-Dialysis 78 BPM Temperature Pre-Dialysis 97.4 degF Temperature Post -Dialysis 97.6 degF December 24, 2022 In-Center Hemodialysis Treatment 8817-66-53N58:27:02.000Z 3542-20-39H02:30:02.000Z BP Sitting (Pre-Dialysis) 190/103 mmHg BP Sitting (Post-Dialysis) 137/79 mmHg Concurrent Access: falseAV Graft Upper Arm (Left) Arterial Sitting Heart Rate Pre-Dialysis 71 BPM Sitting H eart Rate Post-Dialysis 76 BPM Temperature Pre-Dialysis 97.2 degF Temperature Post -Dialysis 97.2 degF December 21, 2022 In-Center Hemodialysis Treatment 8045-76-62T02:14:33.000Z 9435-82-17U37:49:00.000Z BP Sitting (Pre-Dialysis) 204/109 mmHg BP Sitting (Post-Dialysis) 151/90 mmHg Concurrent Access: falseAV Graft Upper Arm (Left) Arterial Sitting Heart Rate Pre-Dialysis 81 BPM Sitting H eart Rate Post-Dialysis 79 BPM Temperature Pre-Dialysis 97.3 degF Temperature Post -Dialysis 97.7 degF December 19, 2022 In-Center Hemodialysis Treatment [id number]:06:10.000Z 9687-14-47U87:03:11.000Z BP Sitting (Pre-Dialysis) 188/99 mmHg BP Sitting (Post-Dialysis) 144/79 mmHg Concurrent Access: falseAV Graft Upper Arm (Left) Arterial Sitting Heart Rate Pre-Dialysis 76 BPM Sitting H eart Rate Post-Dialysis 78 BPM Temperature Pre-Dialysis 97.2 degF Temperature Post -Dialysis 97.2 degF December 17, 2022 In-Center Hemodialysis Treatment 1235-98-78N15:23:00.000Z 2123-32-70Y43:26:10.000Z BP Sitting (Pre-Dialysis) 199/114 mmHg BP Sitting (Post-Dialysis) 143/83 mmHg Concurrent Access: falseAV Graft Upper Arm (Left) Arterial Sitting Heart Rate Pre-Dialysis 82 BPM Sitting H eart Rate Post-Dialysis 84 BPM Temperature Pre-Dialysis 97 degF Temperature Post -Dialysis 97.6 degF December 12, 2022 In-Center Hemodialysis Treatment 7278-05-33N71:12:00.000Z 0194-47-13N93:13:39.000Z BP Sitting (Pre-Dialysis) 193/103 mmHg BP Sitting (Post-Dialysis) 164/87 mmHg Concurrent Access: falseAV Graft Upper Arm (Left) Arterial Sitting Heart Rate Pre-Dialysis 85 BPM Sitting H eart Rate Post-Dialysis 78 BPM Temperature Pre-Dialysis 98.2 degF Temperature Post -Dialysis 98 degF December 10, 2022 In-Center Hemodialysis Treatment 7334-30-05J94:17:38.000Z 2117-48-30H13:23:39.000Z BP Sitting (Pre-Dialysis) 175/96 mmHg BP Sitting (Post-Dialysis) 138/78 mmHg Concurrent Access: falseAV Graft Upper Arm (Left) Arterial Sitting Heart Rate Pre-Dialysis 78 BPM Sitting H eart Rate Post-Dialysis 76 BPM Temperature Pre-Dialysis 97.2 degF Temperature Post -Dialysis 97.7 degF December 07, 2022 In-Center Hemodialysis Treatment 1639-72-74W92:35:00.000Z 6177-15-83C26:38:07.000Z BP Sitting (Pre-Dialysis) 190/107 mmHg BP Sitting (Post-Dialysis) 153/86 mmHg Concurrent Access: falseAV Graft Upper Arm (Left) Arterial Sitting Heart Rate Pre-Dialysis 83 BPM Sitting H eart Rate Post-Dialysis 77 BPM Temperature Pre-Dialysis 97.3 degF Temperature Post -Dialysis 97.8 degF December 03, 2022 In-Center Hemodialysis Treatment 3618-42-55G71:24:07.000Z 6577-54-84Y95:30:07.000Z BP Sitting (Pre-Dialysis) 189/108 mmHg BP Sitting (Post-Dialysis) 166/93 mmHg Concurrent Access: falseAV Graft Upper Arm (Left) Arterial Sitting Heart Rate Pre-Dialysis 84 BPM Sitting H eart Rate Post-Dialysis 78 BPM Temperature Pre-Dialysis 97.3 degF Temperature Post -Dialysis 98 degF November 28, 2022 In-Center Hemodialysis Treatment 0422-40-29J66:15:00.000Z 4465-23-70S48:19:06.000Z BP Sitting (Pre-Dialysis) 187/100 mmHg BP Sitting (Post-Dialysis) 148/90 mmHg Concurrent Access: falseAV Graft Upper Arm (Left) Arterial Sitting Heart Rate Pre-Dialysis 82 BPM Sitting H eart Rate Post-Dialysis 78 BPM Temperature Pre-Dialysis 97.3 degF Temperature Post -Dialysis 98 degF November 26, 2022 In-Center Hemodialysis Treatment 2328-82-63B76:19:00.000Z 1677-65-82A94:21:06.000Z BP Sitting (Pre-Dialysis) 183/104 mmHg BP Sitting (Post-Dialysis) 171/101 mmHg Concurrent Access: falseAV Graft Upper Arm (Left) Arterial Sitting Heart Rate Pre-Dialysis 87 BPM Sitting H eart Rate Post-Dialysis 78 BPM Temperature Pre-Dialysis 98.6 degF Temperature Post -Dialysis 98 degF November 21, 2022 In-Center Hemodialysis Treatment 4881-67-87I34:08:00.000Z 9776-01-81A09:10:14.000Z BP Sitting (Pre-Dialysis) 186/104 mmHg BP Sitting (Post-Dialysis) 168/94 mmHg Concurrent Access: falseAV Graft Upper Arm (Left) Arterial Sitting Heart Rate Pre-Dialysis 82 BPM Sitting H eart Rate Post-Dialysis 81 BPM Temperature Pre-Dialysis 97.1 degF Temperature Post -Dialysis 97.2 degF November 19, 2022 In-Center Hemodialysis Treatment 6437-32-32L55:30:00.000Z 7684-47-61P54:32:14.000Z BP Sitting (Pre-Dialysis) 188/109 mmHg BP Sitting (Post-Dialysis) 199/107 mmHg Concurrent Access: falseAV Graft Upper Arm (Left) Arterial Sitting Heart Rate Pre-Dialysis 87 BPM Sitting H eart Rate Post-Dialysis 88 BPM Temperature Pre-Dialysis 97.2 degF Temperature Post -Dialysis 98.2 degF November 14, 2022 In-Center Hemodialysis Treatment 6759-14-16F36:58:00.000Z 6549-95-89H24:07:07.000Z BP Sitting (Pre-Dialysis) 196/107 mmHg BP Sitting (Post-Dialysis) 166/82 mmHg Concurrent Access: falseAV Graft Upper Arm (Left) Arterial Sitting Heart Rate Pre-Dialysis 83 BPM Sitting H eart Rate Post-Dialysis 82 BPM Temperature Pre-Dialysis 97.2 degF Temperature Post -Dialysis 97.8 degF November 12, 2022 In-Center Hemodialysis Treatment 7070-24-60K80:54:06.000Z 6705-25-93Y43:07:06.000Z BP Sitting (Pre-Dialysis) 198/109 mmHg BP Sitting (Post-Dialysis) 172/93 mmHg Concurrent Access: falseAV Graft Upper Arm (Left) Arterial Sitting Heart Rate Pre-Dialysis 85 BPM Sitting H eart Rate Post-Dialysis 76 BPM Temperature Pre-Dialysis 97.5 degF Temperature Post -Dialysis 97.8 degF November 07, 2022 In-Center Hemodialysis Treatment 5286-09-41T36:14:00.000Z 7716-80-48S11:16:37.000Z BP Sitting (Pre-Dialysis) 191/101 mmHg BP Sitting (Post-Dialysis) 161/94 mmHg Concurrent Access: falseAV Graft Upper Arm (Left) Arterial Sitting Heart Rate Pre-Dialysis 78 BPM Sitting H eart Rate Post-Dialysis 79 BPM Temperature Pre-Dialysis 97.5 degF Temperature Post -Dialysis 97.5 degF November 05, 2022 In-Center Hemodialysis Treatment 5788-30-05Y66:15:00.000Z 5865-08-43Y66:20:12.000Z BP Sitting (Pre-Dialysis) 194/107 mmHg BP Sitting (Post-Dialysis) 187/90 mmHg Concurrent Access: falseAV Graft Upper Arm (Left) Arterial Sitting Heart Rate Pre-Dialysis 82 BPM Sitting H eart Rate Post-Dialysis 85 BPM Temperature Pre-Dialysis 97.6 degF Temperature Post -Dialysis 97.2 degF October 31, 2022 In-Center Hemodialysis Treatment 8140-78-47X89:10:00.000Z 7667-32-12Z69:17:54.000Z BP Sitting (Pre-Dialysis) 194/107 mmHg BP Sitting (Post-Dialysis) 176/99 mmHg Concurrent Access: falseAV Graft Upper Arm (Left) Arterial Sitting Heart Rate Pre-Dialysis 84 BPM Sitting H eart Rate Post-Dialysis 79 BPM Temperature Pre-Dialysis 98 degF Temperature Post -Dialysis 98.1 degF October 29, 2022 In-Center Hemodialysis Treatment 5091-77-05Y83:12:28.000Z 6036-37-81S59:16:27.000Z BP Sitting (Pre-Dialysis) 195/114 mmHg BP Sitting (Post-Dialysis) 160/83 mmHg Concurrent Access: falseAV Graft Upper Arm (Left) Arterial Sitting Heart Rate Pre-Dialysis 84 BPM Sitting H eart Rate Post-Dialysis 83 BPM Temperature Pre-Dialysis 97.4 degF Temperature Post -Dialysis 98.2 degF October 24, 2022 In-Center Hemodialysis Treatment 3372-56-88P79:15:00.000Z 6815-02-44V56:16:11.000Z BP Sitting (Pre-Dialysis) 197/104 mmHg BP Sitting (Post-Dialysis) 196/97 mmHg Concurrent Access: falseAV Graft Upper Arm (Left) Arterial Sitting Heart Rate Pre-Dialysis 80 BPM Sitting H eart Rate Post-Dialysis 82 BPM Temperature Pre-Dialysis 97.4 degF Temperature Post -Dialysis 98.7 degF October 22, 2022 In-Center Hemodialysis Treatment 8455-09-33F09:36:11.000Z 7982-21-75M82:40:11.000Z BP Sitting (Pre-Dialysis) 196/105 mmHg BP Sitting (Post-Dialysis) 186/96 mmHg Concurrent Access: falseAV Graft Upper Arm (Left) Arterial Sitting Heart Rate Pre-Dialysis 84 BPM Sitting H eart Rate Post-Dialysis 84 BPM Temperature Pre-Dialysis 97.3 degF Temperature Post -Dialysis 98.1 degF October 17, 2022 In-Center Hemodialysis Treatment 1021-38-07U25:11:00.000Z 1640-94-73N54:14:10.000Z BP Sitting (Pre-Dialysis) 166/95 mmHg BP Sitting (Post-Dialysis) 180/93 mmHg Concurrent Access: falseAV Graft Upper Arm (Left) Arterial Sitting Heart Rate Pre-Dialysis 88 BPM Sitting H eart Rate Post-Dialysis 90 BPM Temperature Pre-Dialysis 97 degF Temperature Post -Dialysis 97.2 degF October 15, 2022 In-Center Hemodialysis Treatment 6074-10-14P81:26:10.000Z 8578-77-02Z88:30:10.000Z BP Sitting (Pre-Dialysis) 154/91 mmHg BP Sitting (Post-Dialysis) 162/92 mmHg Concurrent Access: falseAV Graft Upper Arm (Left) Arterial Sitting Heart Rate Pre-Dialysis 88 BPM Sitting H eart Rate Post-Dialysis 82 BPM Temperature Pre-Dialysis 97.2 degF Temperature Post -Dialysis 97.3 degF October 10, 2022 In-Center Hemodialysis Treatment 3124-32-84A34:06:31.000Z 1822-25-80P29:00:31.000Z BP Sitting (Pre-Dialysis) 188/102 mmHg BP Sitting (Post-Dialysis) 192/108 mmHg Concurrent Access: falseAV Graft Upper Arm (Left) Arterial Sitting Heart Rate Pre-Dialysis 89 BPM Sitting H eart Rate Post-Dialysis 86 BPM Temperature Pre-Dialysis 97.2 degF Temperature Post -Dialysis 97.2 degF October 08, 2022 In-Center Hemodialysis Treatment 2431-20-19P78:20:00.000Z 8037-87-39E43:22:31.000Z BP Sitting (Pre-Dialysis) 200/110 mmHg BP Sitting (Post-Dialysis) 193/108 mmHg Concurrent Access: falseAV Graft Upper Arm (Left) Arterial Sitting Heart Rate Pre-Dialysis 92 BPM Sitting H eart Rate Post-Dialysis 90 BPM Temperature Pre-Dialysis 97.9 degF Temperature Post -Dialysis 97.2 degF October 03, 2022 In-Center Hemodialysis Treatment 2368-61-57T92:18:00.000Z 7100-00-41P16:19:13.000Z BP Sitting (Pre-Dialysis) 191/111 mmHg BP Sitting (Post-Dialysis) 186/113 mmHg Concurrent Access: falseAV Graft Upper Arm (Left) Arterial Sitting Heart Rate Pre-Dialysis 91 BPM Sitting H eart Rate Post-Dialysis 92 BPM Temperature Pre-Dialysis 98.1 degF Temperature Post -Dialysis 97.5 degF October 01, 2022 In-Center Hemodialysis Treatment 8798-14-94I41:08:13.000Z 7336-66-40W29:10:13.000Z BP Sitting (Pre-Dialysis) 170/104 mmHg BP Sitting (Post-Dialysis) 172/94 mmHg Concurrent Access: falseAV Graft Upper Arm (Left) Arterial Sitting Heart Rate Pre-Dialysis 92 BPM Sitting H eart Rate Post-Dialysis 91 BPM Temperature Pre-Dialysis 97.7 degF Temperature Post -Dialysis 97.7 degF September 26, 2022 In-Center Hemodialysis Treatment 9107-10-83A06:08:43.000Z 4874-48-20V12:09:43.000Z BP Sitting (Pre-Dialysis) 178/100 mmHg BP Sitting (Post-Dialysis) 193/102 mmHg Concurrent Access: falseAV Graft Upper Arm (Left) Arterial Sitting Heart Rate Pre-Dialysis 85 BPM Sitting H eart Rate Post-Dialysis 89 BPM Temperature Pre-Dialysis 97.5 degF Temperature Post -Dialysis 97.8 degF September 24, 2022 In-Center Hemodialysis Treatment 0226-74-52C53:19:43.000Z 2771-73-68C82:19:42.000Z BP Sitting (Pre-Dialysis) 169/109 mmHg BP Sitting (Post-Dialysis) 174/105 mmHg Concurrent Access: falseAV Graft Upper Arm (Left) Arterial Sitting Heart Rate Pre-Dialysis 89 BPM Sitting H eart Rate Post-Dialysis 87 BPM Temperature Pre-Dialysis 97.7 degF Temperature Post -Dialysis 97.3 degF September 19, 2022 In-Center Hemodialysis Treatment 2855-12-72R15:14:00.000Z 8973-51-14G49:15:15.000Z BP Sitting (Pre-Dialysis) 158/100 mmHg BP Sitting (Post-Dialysis) 178/102 mmHg Concurrent Access: falseAV Graft Upper Arm (Left) Arterial Sitting Heart Rate Pre-Dialysis 91 BPM Sitting H eart Rate Post-Dialysis 92 BPM Temperature Pre-Dialysis 98.1 degF Temperature Post -Dialysis 97.2 degF September 17, 2022 In-Center Hemodialysis Treatment 3726-66-27Z82:20:00.000Z 2798-01-98E47:28:15.000Z BP Sitting (Pre-Dialysis) 160/95 mmHg BP Sitting (Post-Dialysis) 145/85 mmHg Concurrent Access: falseAV Graft Upper Arm (Left) Arterial Sitting Heart Rate Pre-Dialysis 89 BPM Sitting H eart Rate Post-Dialysis 85 BPM Temperature Pre-Dialysis 99.5 degF Temperature Post -Dialysis 98 degF September 12, 2022 In-Center Hemodialysis Treatment 8948-87-81Y30:16:10.000Z 0675-69-56X42:17:10.000Z BP Sitting (Pre-Dialysis) 163/100 mmHg BP Sitting (Post-Dialysis) 187/98 mmHg Concurrent Access: falseAV Graft Upper Arm (Left) Arterial Sitting Heart Rate Pre-Dialysis 87 BPM Sitting H eart Rate Post-Dialysis 81 BPM Temperature Pre-Dialysis 97.4 degF Temperature Post -Dialysis 97.6 degF September 07, 2022 In-Center Hemodialysis Treatment 3604-60-89M47:05:00.000Z 6584-91-22O88:07:18.000Z BP Sitting (Pre-Dialysis) 168/98 mmHg BP Sitting (Post-Dialysis) 195/104 mmHg Concurrent Access: falseAV Graft Upper Arm (Left) Arterial Sitting Heart Rate Pre-Dialysis 87 BPM Sitting H eart Rate Post-Dialysis 88 BPM Temperature Pre-Dialysis 97.9 degF Temperature Post -Dialysis 97.5 degF September 05, 2022 In-Center Hemodialysis Treatment BP Sitting (Pre-Dialysis) 166/64 mmHg Concurrent Access: falseAV Graft Upper Arm (Left) Arterial BP Standing (Pre-Dialysis) 118/43 mmHg Sitting Heart Rate Pre-Dialysis 80 BPM Standing Heart Rate Pre-Dialysis 94 BPM Temperature Pre-Dialysis 97.9 degF September 03, 2022 In-Center Hemodialysis Treatment 9809-65-62K30:17:17.000Z 1525-98-34T17:13:17.000Z BP Sitting (Pre-Dialysis) 169/102 mmHg BP Sitting (Post-Dialysis) 176/102 mmHg Concurrent Access: falseAV Graft Upper Arm (Left) Arterial Sitting Heart Rate Pre-Dialysis 85 BPM Sitting H eart Rate Post-Dialysis 91 BPM Temperature Pre-Dialysis 98.2 degF Temperature Post -Dialysis 97.2 degF August 27, 2022 In-Center Hemodialysis Treatment 1099-68-64V57:31:00.000Z 3683-86-95N76:39:37.000Z BP Sitting (Pre-Dialysis) 176/100 mmHg BP Sitting (Post-Dialysis) 181/100 mmHg Concurrent Access: falseAV Graft Upper Arm (Left) Arterial Sitting Heart Rate Pre-Dialysis 85 BPM Sitting H eart Rate Post-Dialysis 87 BPM Temperature Pre-Dialysis 96.6 degF Temperature Post -Dialysis 97.5 degF August 20, 2022 In-Center Hemodialysis Treatment 5310-04-09S92:15:00.000Z 6159-29-69L95:21:31.000Z BP Sitting (Pre-Dialysis) 158/92 mmHg BP Sitting (Post-Dialysis) 152/89 mmHg Concurrent Access: falseAV Graft Upper Arm (Left) ArterialCentral Venous Catheter (CVC) Chest (Right) Venous Sitting Heart Rate Pre-Dialysis 86 BPM Sitting H eart Rate Post-Dialysis 83 BPM Temperature Pre-Dialysis 98.4 degF August 15, 2022 In-Center Hemodialysis Treatment 2059-97-27I33:16:38.000Z 4446-01-43L13:17:39.000Z BP Sitting (Pre-Dialysis) 191/103 mmHg BP Sitting (Post-Dialysis) 176/100 mmHg Concurrent Access: falseAV Graft Upper Arm (Left) ArterialAV Fistula Upper Arm (Left) Venous Sitting Heart Rate Pre-Dialysis 90 BPM Sitting H eart Rate Post-Dialysis 86 BPM Temperature Pre-Dialysis 97.7 degF Temperature Post -Dialysis 98.2 degF August 13, 2022 In-Center Hemodialysis Treatment [id number]:25:00.000Z 1193-85-35X07:29:39.000Z BP Sitting (Pre-Dialysis) 199/116 mmHg BP Sitting (Post-Dialysis) 185/109 mmHg Concurrent Access: falseAV Graft Upper Arm (Left) ArterialAV Graft Upper Arm (Left) Venous Sitting Heart Rate Pre-Dialysis 99 BPM Sitting H eart Rate Post-Dialysis 95 BPM Temperature Pre-Dialysis 97.2 degF Temperature Post -Dialysis 98.2 degF August 08, 2022 In-Center Hemodialysis Treatment [id number]:21:00.000Z 0661-85-69J28:25:42.000Z BP Sitting (Pre-Dialysis) 147/96 mmHg BP Sitting (Post-Dialysis) 107/77 mmHg Concurrent Access: falseAV Graft Upper Arm (Left) ArterialCentral Venous Catheter (CVC) Chest (Right) Venous Sitting Heart Rate Pre-Dialysis 88 BPM Sitting H eart Rate Post-Dialysis 52 BPM Temperature Pre-Dialysis 98.4 degF Temperature Post -Dialysis 97.2 degF August 06, 2022 In-Center Hemodialysis Treatment 8054-03-11U23:35:00.000Z 4847-49-08H79:43:42.000Z BP Sitting (Pre-Dialysis) 163/101 mmHg BP Sitting (Post-Dialysis) 170/96 mmHg Concurrent Access: falseAV Graft Upper Arm (Left) ArterialCentral Venous Catheter (CVC) Chest (Right) Venous Sitting Heart Rate Pre-Dialysis 78 BPM Sitting H eart Rate Post-Dialysis 86 BPM Temperature Pre-Dialysis 98.3 degF Temperature Post -Dialysis 98 degF August 01, 2022 In-Center Hemodialysis Treatment 5470-47-57K45:01:00.000Z [id number]:10:14.000Z BP Sitting (Pre-Dialysis) 175/101 mmHg BP Sitting (Post-Dialysis) 131/82 mmHg Concurrent Access: falseAV Graft Upper Arm (Left) ArterialCentral Venous Catheter (CVC) Chest (Right) Venous Sitting Heart Rate Pre-Dialysis 86 BPM Sitting H eart Rate Post-Dialysis 87 BPM Temperature Pre-Dialysis 98.4 degF Temperature Post -Dialysis 98.7 degF July 30, 2022 In-Center Hemodialysis Treatment [id number]:09:00.000Z 9826-63-56K43:13:14.000Z BP Sitting (Pre-Dialysis) 154/92 mmHg BP Sitting (Post-Dialysis) 163/94 mmHg Concurrent Access: falseAV Graft Upper Arm (Left) ArterialCentral Venous Catheter (CVC) Chest (Right) Venous Sitting Heart Rate Pre-Dialysis 86 BPM Sitting H eart Rate Post-Dialysis 81 BPM Temperature Pre-Dialysis 98.2 degF Temperature Post -Dialysis 98.3 degF July 25, 2022 In-Center Hemodialysis Treatment 9613-73-61W59:02:00.000Z 2638-27-54J88:06:39.000Z BP Sitting (Pre-Dialysis) 143/84 mmHg BP Sitting (Post-Dialysis) 154/85 mmHg Concurrent Access: falseAV Graft Upper Arm (Left) ArterialCentral Venous Catheter (CVC) Chest (Right) Venous Sitting Heart Rate Pre-Dialysis 76 BPM Sitting H eart Rate Post-Dialysis 81 BPM Temperature Pre-Dialysis 98.1 degF Temperature Post -Dialysis 98.6 degF July 23, 2022 In-Center Hemodialysis Treatment [id number]:25:00.000Z 1967-12-44P59:31:14.000Z BP Sitting (Pre-Dialysis) 165/93 mmHg BP Sitting (Post-Dialysis) 148/87 mmHg Concurrent Access: falseAV Graft Upper Arm (Left) ArterialCentral Venous Catheter (CVC) Chest (Right) Venous Sitting Heart Rate Pre-Dialysis 81 BPM Sitting H eart Rate Post-Dialysis 82 BPM Temperature Pre-Dialysis 98.6 degF Temperature Post -Dialysis 97 degF July 18, 2022 In-Center Hemodialysis Treatment 8997-61-06P69:06:40.000Z [id number]:08:40.000Z BP Sitting (Pre-Dialysis) 155/91 mmHg BP Sitting (Post-Dialysis) 186/96 mmHg Concurrent Access: falseAV Graft Upper Arm (Left) ArterialCentral Venous Catheter (CVC) Chest (Right) Venous Sitting Heart Rate Pre-Dialysis 87 BPM Sitting H eart Rate Post-Dialysis 90 BPM Temperature Pre-Dialysis 98.1 degF Temperature Post -Dialysis 97 degF July 16, 2022 In-Center Hemodialysis Treatment 8923-36-75P53:29:40.000Z 8066-80-23X19:35:40.000Z BP Sitting (Pre-Dialysis) 155/93 mmHg BP Sitting (Post-Dialysis) 148/87 mmHg Concurrent Access: falseCentral Venous Catheter (CVC) Chest (Right) ArterialAV Graft Upper Arm (Left) Venous Sitting Heart Rate Pre-Dialysis 81 BPM Sitting H eart Rate Post-Dialysis 85 BPM Temperature Pre-Dialysis 97.3 degF Temperature Post -Dialysis 98.2 degF July 11, 2022 In-Center Hemodialysis Treatment [id number]:58:00.000Z 2708-67-54X93:20:06.000Z BP Sitting (Pre-Dialysis) 177/101 mmHg BP Sitting (Post-Dialysis) 168/90 mmHg Concurrent Access: falseAV Graft Upper Arm (Left) ArterialCentral Venous Catheter (CVC) Chest (Right) Venous Sitting Heart Rate Pre-Dialysis 89 BPM Sitting H eart Rate Post-Dialysis 87 BPM Temperature Pre-Dialysis 98.1 degF Temperature Post -Dialysis 98 degF 2022 In-Center Hemodialysis Treatment [id number]:04:00.000Z [id number]:03:06.000Z BP Sitting (Pre-Dialysis) 156/96 mmHg BP Sitting (Post-Dialysis) 163/96 mmHg Concurrent Access: falseAV Graft Upper Arm (Left) ArterialCentral Venous Catheter (CVC) Chest (Right) Venous Sitting Heart Rate Pre-Dialysis 91 BPM Sitting H eart Rate Post-Dialysis 94 BPM Temperature Pre-Dialysis 97.7 degF Temperature Post -Dialysis 97.2 degF July 04, 2022 In-Center Hemodialysis Treatment [id number]:56:23.000Z 1017-38-11J52:56:23.000Z BP Sitting (Pre-Dialysis) 183/104 mmHg BP Sitting (Post-Dialysis) 196/102 mmHg Concurrent Access: falseAV Graft Upper Arm (Left) ArterialCentral Venous Catheter (CVC) Chest (Right) Venous Sitting Heart Rate Pre-Dialysis 86 BPM Sitting H eart Rate Post-Dialysis 85 BPM Temperature Pre-Dialysis 98.1 degF Temperature Post -Dialysis 97.2 degF July 02, 2022 In-Center Hemodialysis Treatment [id number]:05:23.000Z [id number]:07:23.000Z BP Sitting (Pre-Dialysis) 167/102 mmHg BP Sitting (Post-Dialysis) 174/96 mmHg Concurrent Access: falseAV Graft Upper Arm (Left) ArterialCentral Venous Catheter (CVC) Chest (Right) Venous Sitting Heart Rate Pre-Dialysis 82 BPM Sitting H eart Rate Post-Dialysis 81 BPM Temperature Pre-Dialysis 97.7 degF Temperature Post -Dialysis 98 degF June 29, 2022 In-Center Hemodialysis Treatment 350 mL/min 500 mL/min Concurrent Access: false June 27, 2022 In-Center Hemodialysis Treatment 20 23 -0 - T1 1: 55 :0 0. 00 0Z 20 23 -0 - 20 T1 4: 58 :1 2. 00 0Z BP Sitting (Pre-Dial ysis) 167/10 4 mmHg BP Sitting (Post-Sandy lysis) 183/10 7 mmHg Concurrent Access: falseCentral Venous Catheter (CVC) Chest (Right) ArterialAV Graft Upper Arm (Left) Venous Sitting Heart Rate Pre-Dialysis 91 BPM Sitting H eart Rate Post-Dialysis 92 BPM Temperature Pre-Dialysis 97.9 degF Temperature Post -Dialysis 98 degF June 25, 2022 In-Center Hemodialysis Treatment [id number]:59:00.000Z 3239-11-37R62:05:09.000Z BP Sitting (Pre-Dialysis) 187/100 mmHg BP Sitting (Post-Dialysis) 182/104 mmHg Concurrent Access: falseCentral Venous Catheter (CVC) Chest (Right) ArterialAV Graft Upper Arm (Left) Venous Sitting Heart Rate Pre-Dialysis 85 BPM Sitting H eart Rate Post-Dialysis 92 BPM Temperature Pre-Dialysis 97.8 degF Temperature Post -Dialysis 97.2 degF June 20, 2022 In-Center Hemodialysis Treatment [id number]:16:00.000Z 7098-20-28Q07:18:08.000Z BP Sitting (Pre-Dialysis) 141/88 mmHg BP Sitting (Post-Dialysis) 194/97 mmHg Concurrent Access: falseCentral Venous Catheter (CVC) Chest (Right) ArterialAV Graft Upper Arm (Left) Venous Sitting Heart Rate Pre-Dialysis 82 BPM Sitting H eart Rate Post-Dialysis 88 BPM Temperature Pre-Dialysis 98.4 degF Temperature Post -Dialysis 97.2 degF June 18, 2022 In-Center Hemodialysis Treatment 1379-51-28F78:04:00.000Z 0929-81-94J00:09:08.000Z BP Sitting (Pre-Dialysis) 163/99 mmHg BP Sitting (Post-Dialysis) 172/100 mmHg Concurrent Access: falseCentral Venous Catheter (CVC) Chest (Right) ArterialAV Graft Upper Arm (Left) Venous Sitting Heart Rate Pre-Dialysis 87 BPM Sitting H eart Rate Post-Dialysis 92 BPM Temperature Pre-Dialysis 97.9 degF Temperature Post -Dialysis 98.5 degF June 13, 2022 In-Center Hemodialysis Treatment 2519-23-28G39:15:00.000Z 1543-45-31O89:39:17.000Z BP Sitting (Pre-Dialysis) 176/99 mmHg BP Sitting (Post-Dialysis) 163/96 mmHg Concurrent Access: falseCentral Venous Catheter (CVC) Chest (Right) ArterialAV Graft Upper Arm (Left) Venous Sitting Heart Rate Pre-Dialysis 88 BPM Sitting H eart Rate Post-Dialysis 95 BPM Temperature Pre-Dialysis 97 degF Temperature Post -Dialysis 98.2 degF June 11, 2022 In-Center Hemodialysis Treatment 4659-22-12O00:23:16.000Z 2787-90-27I57:25:17.000Z BP Sitting (Pre-Dialysis) 170/98 mmHg BP Sitting (Post-Dialysis) 182/78 mmHg Concurrent Access: falseCentral Venous Catheter (CVC) Chest (Right) ArterialAV Graft Upper Arm (Left) Venous Sitting Heart Rate Pre-Dialysis 82 BPM Sitting H eart Rate Post-Dialysis 93 BPM Temperature Pre-Dialysis 97.7 degF Temperature Post -Dialysis 97.4 degF June 06, 2022 In-Center Hemodialysis Treatment 350 mL/min 500 mL/min Concurrent Access: false June 04, 2022 In-Center Hemodialysis Treatment T1 2: 18 :0 0. 00 0Z 0 T1 5: 21 :3 0. 00 0Z BP Sitting (Pre-Dial ysis) 178/10 6 mmHg BP Sitting (Post-Sandy lysis) 143/87 mmHg Concurrent Access: falseCentral Venous Catheter (CVC) Chest (Right) ArterialAV Graft Upper Arm (Left) Venous Sitting Heart Rate Pre-Dialysis 82 BPM Sitting H eart Rate Post-Dialysis 90 BPM Temperature Pre-Dialysis 97.3 degF Temperature Post -Dialysis 98 degF May 30, 2022 In-Center Hemodialysis Treatment [id number]:20:00.000Z 5155-36-46Z94:26:16.000Z BP Sitting (Pre-Dialysis) 152/89 mmHg BP Sitting (Post-Dialysis) 181/106 mmHg Concurrent Access: falseCentral Venous Catheter (CVC) Chest (Right) ArterialAV Graft Upper Arm (Left) Venous Sitting Heart Rate Pre-Dialysis 93 BPM Sitting H eart Rate Post-Dialysis 96 BPM Temperature Pre-Dialysis 97.7 degF Temperature Post -Dialysis 97.2 degF May 28, 2022 In-Center Hemodialysis Treatment [id number]:08:00.000Z 0219-83-59D81:12:16.000Z BP Sitting (Pre-Dialysis) 140/77 mmHg BP Sitting (Post-Dialysis) 146/86 mmHg Concurrent Access: falseCentral Venous Catheter (CVC) Chest (Right) ArterialAV Graft Upper Arm (Left) Venous Sitting Heart Rate Pre-Dialysis 75 BPM Sitting H eart Rate Post-Dialysis 78 BPM Temperature Pre-Dialysis 97.5 degF Temperature Post -Dialysis 97.2 degF May 25, 2022 In-Center Hemodialysis Treatment [id number]:14:00.000Z 6009-78-03A57:17:30.000Z BP Sitting (Pre-Dialysis) 172/106 mmHg BP Sitting (Post-Dialysis) 172/98 mmHg Concurrent Access: falseCentral Venous Catheter (CVC) Chest (Right) ArterialAV Graft Upper Arm (Left) Venous Sitting Heart Rate Pre-Dialysis 82 BPM Sitting H eart Rate Post-Dialysis 91 BPM Temperature Pre-Dialysis 97.9 degF Temperature Post -Dialysis 98.7 degF May 23, 2022 In-Center Hemodialysis Treatment [id number]:10:30.000Z 6675-04-13D20:12:30.000Z BP Sitting (Pre-Dialysis) 164/98 mmHg BP Sitting (Post-Dialysis) 174/98 mmHg Concurrent Access: falseCentral Venous Catheter (CVC) Chest (Right) ArterialAV Graft Upper Arm (Left) Venous Sitting Heart Rate Pre-Dialysis 89 BPM Sitting H eart Rate Post-Dialysis 89 BPM Temperature Pre-Dialysis 98.1 degF Temperature Post -Dialysis 97.9 degF May 21, 2022 In-Center Hemodialysis Treatment 7176-14-80C07:23:00.000Z 8114-98-30K84:23:08.000Z BP Sitting (Pre-Dialysis) 186/103 mmHg BP Sitting (Post-Dialysis) 198/104 mmHg Concurrent Access: falseCentral Venous Catheter (CVC) Chest (Right) ArterialAV Graft Upper Arm (Left) Venous Sitting Heart Rate Pre-Dialysis 89 BPM Sitting H eart Rate Post-Dialysis 85 BPM Temperature Pre-Dialysis 98.4 degF Temperature Post -Dialysis 97.7 degF May 18, 2022 In-Center Hemodialysis Treatment 1861-76-84G60:09:00.000Z 4788-67-34L20:10:43.000Z BP Sitting (Pre-Dialysis) 154/95 mmHg BP Sitting (Post-Dialysis) 182/89 mmHg Concurrent Access: falseCentral Venous Catheter (CVC) Chest (Right) ArterialAV Graft Upper Arm (Left) Venous Sitting Heart Rate Pre-Dialysis 88 BPM Sitting H eart Rate Post-Dialysis 92 BPM Temperature Pre-Dialysis 97.3 degF Temperature Post -Dialysis 97.9 degF May 14, 2022 In-Center Hemodialysis Treatment [id number]:14:00.000Z 3966-72-83H11:15:43.000Z BP Sitting (Pre-Dialysis) 190/108 mmHg BP Sitting (Post-Dialysis) 164/97 mmHg Concurrent Access: falseCentral Venous Catheter (CVC) Chest (Right) ArterialAV Graft Upper Arm (Left) Venous Sitting Heart Rate Pre-Dialysis 87 BPM Sitting H eart Rate Post-Dialysis 88 BPM Temperature Pre-Dialysis 96.4 degF Temperature Post -Dialysis 98 degF May 11, 2022 In-Center Hemodialysis Treatment [id number]:12:00.000Z 2107-20-51H54:36:43.000Z BP Sitting (Pre-Dialysis) 146/94 mmHg BP Sitting (Post-Dialysis) 134/81 mmHg Concurrent Access: falseCentral Venous Catheter (CVC) Chest (Right) ArterialAV Graft Upper Arm (Left) Venous Sitting Heart Rate Pre-Dialysis 88 BPM Sitting H eart Rate Post-Dialysis 89 BPM Temperature Pre-Dialysis 97.9 degF Temperature Post -Dialysis 97.9 degF May 07, 2022 In-Center Hemodialysis Treatment [id number]:20:43.000Z 4141-32-15Y17:19:43.000Z BP Sitting (Pre-Dialysis) 171/103 mmHg BP Sitting (Post-Dialysis) 158/97 mmHg Concurrent Access: falseCentral Venous Catheter (CVC) Chest (Right) ArterialAV Graft Upper Arm (Left) Venous Sitting Heart Rate Pre-Dialysis 81 BPM Sitting H eart Rate Post-Dialysis 92 BPM Temperature Pre-Dialysis 97.2 degF Temperature Post -Dialysis 98.4 degF May 04, 2022 In-Center Hemodialysis Treatment 350 mL/min 500 mL/min Concurrent Access: false April 30, 2022 In-Center Hemodialysis Treatment 20 23 -0 2- 21 T1 3: 23 :4 3. 00 0Z 20 23 -0 2- 21 T1 6: 36 :4 3. 00 0Z BP Sitting (Pre-Dial ysis) 167/10 4 mmHg BP Sitting (Post-Di alysis) 146/9 7 mmHg Concurrent Access: falseCentral Venous Catheter (CVC) Chest (Right) ArterialAV Graft Upper Arm (Left) Venous Sitting Heart Rate Pre-Dialysis 90 BPM Sitting H eart Rate Post-Dialysis 103 BPM Temperature Pre-Dialysis 97.6 degF Temperature Post -Dialysis 98.2 degF April 25, 2022 In-Center Hemodialysis Treatment 9692-41-15S90:15:00.000Z 9884-49-18I23:18:10.000Z BP Sitting (Pre-Dialysis) 157/91 mmHg BP Sitting (Post-Dialysis) 149/91 mmHg Concurrent Access: falseCentral Venous Catheter (CVC) Chest (Right) ArterialAV Graft Upper Arm (Left) Venous Sitting Heart Rate Pre-Dialysis 75 BPM Sitting H eart Rate Post-Dialysis 86 BPM Temperature Pre-Dialysis 97.9 degF Temperature Post -Dialysis 98.1 degF April 23, 2022 In-Center Hemodialysis Treatment 6017-68-41V20:00:00.000Z 1117-18-55M58:09:10.000Z BP Sitting (Pre-Dialysis) 161/92 mmHg BP Sitting (Post-Dialysis) 125/84 mmHg Concurrent Access: falseCentral Venous Catheter (CVC) Chest (Right) ArterialAV Graft Upper Arm (Left) Venous Sitting Heart Rate Pre-Dialysis 79 BPM Sitting H eart Rate Post-Dialysis 90 BPM Temperature Pre-Dialysis 97.7 degF Temperature Post -Dialysis 98.2 degF April 20, 2022 In-Center Hemodialysis Treatment 2473-23-66S39:10:38.000Z 7059-56-40P59:12:38.000Z BP Sitting (Pre-Dialysis) 177/104 mmHg BP Sitting (Post-Dialysis) 162/103 mmHg Concurrent Access: falseCentral Venous Catheter (CVC) Chest (Right) ArterialAV Graft Upper Arm (Left) Venous Sitting Heart Rate Pre-Dialysis 73 BPM Sitting H eart Rate Post-Dialysis 119 BPM Temperature Pre-Dialysis 97 degF Temperature Post -Dialysis 97.2 degF April 18, 2022 In-Center Hemodialysis Treatment [id number]:13:31.000Z 3890-57-55O49:14:32.000Z BP Sitting (Pre-Dialysis) 172/96 mmHg BP Sitting (Post-Dialysis) 134/81 mmHg Concurrent Access: falseCentral Venous Catheter (CVC) Chest (Right) ArterialAV Graft Upper Arm (Left) Venous Sitting Heart Rate Pre-Dialysis 76 BPM Sitting H eart Rate Post-Dialysis 94 BPM Temperature Pre-Dialysis 96.6 degF Temperature Post -Dialysis 98.1 degF April 16, 2022 In-Center Hemodialysis Treatment 0180-45-26Q82:18:00.000Z 4085-38-28M68:20:38.000Z BP Sitting (Pre-Dialysis) 129/82 mmHg BP Sitting (Post-Dialysis) 124/82 mmHg Concurrent Access: falseCentral Venous Catheter (CVC) Chest (Right) ArterialAV Graft Upper Arm (Left) Venous Sitting Heart Rate Pre-Dialysis 82 BPM Sitting H eart Rate Post-Dialysis 96 BPM Temperature Pre-Dialysis 97.5 degF Temperature Post -Dialysis 97.6 degF April 11, 2022 In-Center Hemodialysis Treatment 0552-65-20N76:17:00.000Z 1008-67-76X87:25:43.000Z BP Sitting (Pre-Dialysis) 168/102 mmHg BP Sitting (Post-Dialysis) 159/96 mmHg Concurrent Access: falseCentral Venous Catheter (CVC) Chest (Right) ArterialAV Graft Upper Arm (Left) Venous Sitting Heart Rate Pre-Dialysis 81 BPM Sitting H eart Rate Post-Dialysis 94 BPM Temperature Pre-Dialysis 97.2 degF Temperature Post -Dialysis 98.2 degF April 09, 2022 In-Center Hemodialysis Treatment 1281-56-18F01:15:00.000Z 8057-48-43M61:46:43.000Z BP Sitting (Pre-Dialysis) 186/100 mmHg BP Sitting (Post-Dialysis) 127/86 mmHg Concurrent Access: falseCentral Venous Catheter (CVC) Chest (Right) ArterialAV Graft Upper Arm (Left) Venous Sitting Heart Rate Pre-Dialysis 95 BPM Sitting H eart Rate Post-Dialysis 93 BPM Temperature Pre-Dialysis 98.2 degF Temperature Post -Dialysis 98.4 degF April 06, 2022 In-Center Hemodialysis Treatment 350 mL/min 500 mL/min Concurrent Access: false April 04, 2022 In-Center Hemodialysis Treatment 20 0 T1 3: 13 :0 0. 00 0Z 0 T1 6: 14 :2 2. 00 0Z BP Sitting (Pre-Dial ysis) 172/10 6 mmHg BP Sitting (Post-Sandy lysis) 123/5 6 mmHg Concurrent Access: falseCentral Venous Catheter (CVC) Chest (Right) ArterialAV Graft Upper Arm (Left) Venous Sitting Heart Rate Pre-Dialysis 89 BPM Sitting H eart Rate Post-Dialysis 89 BPM Temperature Pre-Dialysis 98.2 degF Temperature Post -Dialysis 98.2 degF April 02, 2022 In-Center Hemodialysis Treatment 6595-11-32P66:29:00.000Z 6503-33-27P65:31:22.000Z BP Sitting (Pre-Dialysis) 150/100 mmHg BP Sitting (Post-Dialysis) 129/67 mmHg Concurrent Access: falseCentral Venous Catheter (CVC) Chest (Right) ArterialAV Graft Upper Arm (Left) Venous Sitting Heart Rate Pre-Dialysis 97 BPM Sitting H eart Rate Post-Dialysis 108 BPM Temperature Pre-Dialysis 98 degF Temperature Post -Dialysis 98 degF March 28, 2022 In-Center Hemodialysis Treatment 1380-83-97H03:10:00.000Z 3591-70-29V08:02:10.000Z BP Sitting (Pre-Dialysis) 160/102 mmHg BP Sitting (Post-Dialysis) 120/82 mmHg Concurrent Access: falseCentral Venous Catheter (CVC) Chest (Right) ArterialAV Graft Upper Arm (Left) Venous Sitting Heart Rate Pre-Dialysis 103 BPM Sitting H eart Rate Post-Dialysis 104 BPM Temperature Pre-Dialysis 97.8 degF Temperature Post -Dialysis 98.2 degF March 26, 2022 In-Center Hemodialysis Treatment 8094-92-07L80:28:00.000Z 2444-90-79E41:28:01.000Z BP Sitting (Pre-Dialysis) 175/108 mmHg BP Sitting (Post-Dialysis) 134/99 mmHg Concurrent Access: falseCentral Venous Catheter (CVC) Chest (Right) ArterialAV Graft Upper Arm (Left) Venous Sitting Heart Rate Pre-Dialysis 100 BPM Sitting H eart Rate Post-Dialysis 124 BPM Temperature Pre-Dialysis 97.3 degF Temperature Post -Dialysis 97.9 degF March 16, 2022 In-Center Hemodialysis Treatment 1815-58-73G00:20:00.000Z 4932-92-47L50:31:43.000Z BP Sitting (Pre-Dialysis) 160/86 mmHg BP Sitting (Post-Dialysis) 125/74 mmHg Concurrent Access: falseCentral Venous Catheter (CVC) Chest (Right) ArterialAV Graft Upper Arm (Left) Venous Sitting Heart Rate Pre-Dialysis 92 BPM Sitting H eart Rate Post-Dialysis 84 BPM Temperature Pre-Dialysis 98.1 degF Temperature Post -Dialysis 98.4 degF March 14, 2022 In-Center Hemodialysis Treatment 8304-54-59M03:02:00.000Z 3616-32-15N54:26:43.000Z BP Sitting (Pre-Dialysis) 130/80 mmHg BP Sitting (Post-Dialysis) 101/66 mmHg Concurrent Access: falseCentral Venous Catheter (CVC) Chest (Right) ArterialAV Fistula Forearm (Left) Venous Sitting Heart Rate Pre-Dialysis 84 BPM Sitting H eart Rate Post-Dialysis 83 BPM Temperature Pre-Dialysis 97.1 degF Temperature Post -Dialysis 98.3 degF March 12, 2022 In-Center Hemodialysis Treatment 2330-31-28X21:08:00.000Z 8928-87-27B91:27:43.000Z BP Sitting (Pre-Dialysis) 131/87 mmHg BP Sitting (Post-Dialysis) 132/74 mmHg Concurrent Access: falseCentral Venous Catheter (CVC) Chest (Right) ArterialAV Fistula Forearm (Left) Venous Sitting Heart Rate Pre-Dialysis 93 BPM Sitting H eart Rate Post-Dialysis 92 BPM Temperature Pre-Dialysis 98.4 degF Temperature Post -Dialysis 97.2 degF March 09, 2022 In-Center Hemodialysis Treatment [id number]:20:00.000Z 8102-22-13L58:23:23.000Z BP Sitting (Pre-Dialysis) 166/92 mmHg BP Sitting (Post-Dialysis) 125/86 mmHg Concurrent Access: falseCentral Venous Catheter (CVC) Chest (Right) ArterialAV Fistula Forearm (Left) Venous Sitting Heart Rate Pre-Dialysis 86 BPM Sitting H eart Rate Post-Dialysis 91 BPM Temperature Pre-Dialysis 97.9 degF Temperature Post -Dialysis 98.6 degF March 07, 2022 In-Center Hemodialysis Treatment 350 mL/min 500 mL/min Concurrent Access: false March 05, 2022 In-Center Hemodialysis Treatment T1 3: 39 :0 0. 00 0Z T1 6: 43 :2 3. 00 0Z BP Sitting (Pre-Dial ysis) 140/90 mmHg BP Sitting (Post-Di alysis) 112/7 7 mmHg Concurrent Access: falseCentral Venous Catheter (CVC) Chest (Right) ArterialAV Fistula Forearm (Left) Venous Sitting Heart Rate Pre-Dialysis 94 BPM Sitting H eart Rate Post-Dialysis 93 BPM Temperature Pre-Dialysis 97.5 degF Temperature Post -Dialysis 98 degF March 02, 2022 In-Center Hemodialysis Treatment 350 mL/min 500 mL/min Concurrent Access: false February 28, 2022 In-Center Hemodialysis Treatment T1 3: 23 :0 0. 00 0Z T1 6: 13 :3 0. 00 0Z BP Sitting (Pre-Dial ysis) 132/86 mmHg BP Sitting (Post-Di alysis) 118/8 0 mmHg Concurrent Access: falseCentral Venous Catheter (CVC) Chest (Right) ArterialAV Fistula Forearm (Left) Venous Sitting Heart Rate Pre-Dialysis 84 BPM Sitting H eart Rate Post-Dialysis 87 BPM Temperature Pre-Dialysis 98.8 degF Temperature Post -Dialysis 98.2 degF February 23, 2022 In-Center Hemodialysis Treatment [id number]:35:59.000Z 2387-76-78R46:37:59.000Z BP Sitting (Pre-Dialysis) 145/86 mmHg BP Sitting (Post-Dialysis) 115/78 mmHg Concurrent Access: falseCentral Venous Catheter (CVC) Chest (Right) ArterialAV Fistula Forearm (Left) Venous Sitting Heart Rate Pre-Dialysis 92 BPM Sitting H eart Rate Post-Dialysis 88 BPM Temperature Pre-Dialysis 97 degF Temperature Post -Dialysis 97.6 degF February 19, 2022 In-Center Hemodialysis Treatment 8366-56-15O83:09:49.000Z 3813-72-58C36:22:21.000Z BP Sitting (Pre-Dialysis) 145/89 mmHg BP Sitting (Post-Dialysis) 113/70 mmHg Concurrent Access: falseCentral Venous Catheter (CVC) Chest (Right) ArterialAV Fistula Forearm (Left) Venous Sitting Heart Rate Pre-Dialysis 91 BPM Sitting H eart Rate Post-Dialysis 83 BPM Temperature Pre-Dialysis 97.5 degF Temperature Post -Dialysis 98.6 degF DIALYSIS ORDER Dialysis Procedure Orders Type of Dialysis Procedure Order Order Date/Time Observations In-Center Hemodialysis Treatment [facility] 2024 Target Weight 83 kg Dialysate Flow Rate 500 mL/min Blood Flow Rate 450 mL/min Treatment Time 180 min(total) Max UF Rate 13 mL/kg/hr dialysate_temp 37 C BiCarb Dialysate BiCarbonate 31 mEq/L Access Concurrent No Arterial Access AV Graft (Upper Arm (Left)) Venous Access AV Graft (Upper Arm (Left)) Arterial Needle Display NIPRO, JIANIP, 15 G x 1, SHARP , TWIN Venous Needle NIPRO, TULIP, 15G x 1, SHARP , TWIN Dialyzer Nipro Elisio 17H 145 5 [email or web address] Dialysate Bath Potassium Potassium 2 mEq /L Dialysate Bath Calcium Calcium 2.5 mEq/L Results Adequacy Description Draw Date Result/Unit Status Ref Range Result Comments Creatinine [Mass/volume] in Serum or Plasma 2025-02-22 19:52:16 9.63 mg/dL F 0.55-1.02 VT (KT/V TX VOL) 2025-02-09 17:21:12 22.7 L F WEIGHT - POST DAY 1 2025-02-09 17:21:12 83.5 kg F Residual kt/v 2025-02-09 17:21:12 F Unable to calculate: Post BUN lab result is unknown HEIGHT IN INCHES 2025-02-09 17:21:12 65 Inches F BSA MARQUITA 2025-02-09 17:21:12 1.91 sq m F WEIGHT - PRE DAY 1 2025-02-09 17:21:12 86.4 kg F TBW ([place]) 2025-02-09 17:21:12 36.14 Liters F Total Kt/V 2025-02-09 17:21:12 2.27 F KT/V PRESCRIBED 2025-02-09 17:21:12 1.79 F VM (KT/V MEAN VOL) 2025-02-09 17:21:12 30.3 F Dialyzer TRISH 2025-02-09 17:21:12 1455 Calc F BLOOD FLOW-QWB 2025-02-09 17:21:12 413 F TOTAL HOURS/WEEK DIALYSIS 2025-02-09 17:21:12 8 hrs F eKt/V 2025-02-09 17:21:12 1.85 F AMPUTATE FACTOR 2025-02-09 17:21:12 0 F WEIGHT (KG) 2025-02-09 17:21:12 83.5 kg F Std Renal KT/V 2025-02-09 17:21:12 N/A F spKt/V 2025-02-09 17:21:12 2.27 F DIALYZER FLOW-QD 2025-02-09 17:21:12 500 mL/min F LENGTH OF DIALYSIS 2025-02-09 17:21:12 181 min F URR% 2025-02-09 17:21:12 82 % F PRESCRIBED DAYS/WEEK 2025-02-09 17:21:12 3 Day/Wk F stdKT/V Total 2025-02-09 17:21:12 N/A F PATIENT AGE 2025-02-09 17:21:12 39 Years F nPCR 2025-02-09 17:21:12 2.16 G/KG/D F CURRENT KRU 2025-02-09 17:21:12 F Unable to calculate: Post BUN lab result is unknown stdKt/V (DIAL) 2025-02-09 17:21:12 N/A F Urea nitrogen [Mass/volume] in Serum or Plasma --post dialysis 2025-02-09 17:19:21 10 mg/dL F 9.0-23.0 Urea nitrogen [Mass/volume] in Serum or Plasma 2025-02-09 17:07:16 56 mg/dL F 9.0-23.0 Creatinine [Mass/volume] in Serum or Plasma 2025-01-25 16:40:16 10.11 mg/dL F 0.55-1.02 nPCR 2025-01-11 18:59:56 1.02 G/KG/D F VT (KT/V TX VOL) 2025-01-11 18:59:56 28.1 L F Residual kt/v 2025-01-11 18:59:56 F TBW ([facility]) 2025-01-11 18:59:56 35.92 Liters F stdKT/V Total 2025-01-11 18:59:56 N/A F KT/V PRESCRIBED 2025-01-11 18:59:56 1.8 F WEIGHT - POST DAY 1 2025-01-11 18:59:56 82.6 kg F URR% 2025-01-11 18:59:56 79 % F Total Kt/V 2025-01-11 18:59:56 1.85 F DIALYZER FLOW-QD 2025-01-11 18:59:56 500 mL/min F LENGTH OF DIALYSIS 2025-01-11 18:59:56 182 min F eKt/V 2025-01-11 18:59:56 1.53 F stdKt/V (DIAL) 2025-01-11 18:59:56 N/A F WEIGHT (KG) 2025-01-11 18:59:56 83 kg F PATIENT AGE 2025-01-11 18:59:56 39 Years F CURRENT KRU 2025-01-11 18:59:56 F BSA MARQUITA 2025-01-11 18:59:56 1.9 sq m F spKt/V 2025-01-11 18:59:56 1.85 F PRESCRIBED DAYS/WEEK 2025-01-11 18:59:56 3 Day/Wk F TOTAL HOURS/WEEK DIALYSIS 2025-01-11 18:59:56 9 hrs F HEIGHT IN INCHES 2025-01-11 18:59:56 65 Inches F VM (KT/V MEAN VOL) 2025-01-11 18:59:56 30.3 F WEIGHT - PRE DAY 1 2025-01-11 18:59:56 85.8 kg F Dialyzer TRISH 2025-01-11 18:59:56 1455 Calc F BLOOD FLOW-QWB 2025-01-11 18:59:56 418 F Std Renal KT/V 2025-01-11 18:59:56 N/A F AMPUTATE FACTOR 2025-01-11 18:59:56 0 F Urea nitrogen [Mass/volume] in Serum or Plasma 2025-01-11 18:58:14 61 mg/dL F 9.0-23.0 Urea nitrogen [Mass/volume] in Serum or Plasma --post dialysis 2025-01-11 18:50:20 13 mg/dL F 9.0-23.0 Creatinine [Mass/volume] in Serum or Plasma 2024-12-28 14:20:16 9.99 mg/dL F 0.55-1.02 WEIGHT (KG) 2024-12-14 15:34:06 82 kg F PATIENT AGE 2024-12-14 15:34:06 39 Years F Std Renal KT/V 2024-12-14 15:34:06 N/A F TBW ([facility]) 2024-12-14 15:34:06 36.14 Liters F nPCR 2024-12-14 15:34:06 0.9 G/KG/D F Dialyzer TRISH 2024-12-14 15:34:06 1455 Calc F WEIGHT - PRE DAY 1 2024-12-14 15:34:06 86.8 kg F KT/V PRESCRIBED 2024-12-14 15:34:06 1.75 F spKt/V 2024-12-14 15:34:06 1.44 F VM (KT/V MEAN VOL) 2024-12-14 15:34:06 31.1 F TOTAL HOURS/WEEK DIALYSIS 2024-12-14 15:34:06 6 hrs F stdKT/V Total 2024-12-14 15:34:06 N/A F Residual kt/v 2024-12-14 15:34:06 F Unable to calculate: Post BUN lab result is unknown eKt/V 2024-12-14 15:34:06 1.19 F stdKt/V (DIAL) 2024-12-14 15:34:06 N/A F URR% 2024-12-14 15:34:06 70 % F AMPUTATE FACTOR 2024-12-14 15:34:06 0 F Total Kt/V 2024-12-14 15:34:06 1.44 F BLOOD FLOW-QWB 2024-12-14 15:34:06 356 F WEIGHT - POST DAY 1 2024-12-14 15:34:06 83.5 kg F HEIGHT IN INCHES 2024-12-14 15:34:06 65 Inches F BSA MARQUITA 2024-12-14 15:34:06 1.89 sq m F LENGTH OF DIALYSIS 2024-12-14 15:34:06 176 min F DIALYZER FLOW-QD 2024-12-14 15:34:06 500 mL/min F PRESCRIBED DAYS/WEEK 2024-12-14 15:34:06 3 Day/Wk F VT (KT/V TX VOL) 2024-12-14 15:34:06 32.4 L F CURRENT KRU 2024-12-14 15:34:06 F Unable to calculate: Post BUN lab result is unknown Urea nitrogen [Mass/volume] in Serum or Plasma --post dialysis 2024-12-14 15:32:19 20 mg/dL F 9.0-23.0 Urea nitrogen [Mass/volume] in Serum or Plasma 2024-12-14 15:17:17 67 mg/dL F 9.0-23.0 Anemia Description Draw Date Result/Unit Status Ref Range Result Comments HCT CALC HGBX3 2025-03-03 00:48:59 36 % F 37.0-47.0 Hemoglobin [Mass/volume] in Blood 2025-03-03 00:48:17 12 g/dL F 12.0-16.0 IRON SATURATION 2025-02-23 05:59:26 24 % F 16.0-46.0 TIBC 2025-02-23 05:59:26 157 ug/dL F 250.0-425.0 Iron [Mass/volume] in Serum or Plasma 2025-02-23 05:37:29 37 ug/dL F 50.0-170.0 Iron binding capacity.unsaturated [Mass/volume] in Serum or Plasma 2025-02-23 05:37:29 120 ug/dL F 80.0-375.0 HCT CALC HGBX3 2025-02-22 23:58:16 36.6 % F 37.0-47.0 Ferritin [Mass/volume] in Serum or Plasma 2025-02-22 23:57:16 862 ng/mL F 7.0-271.0 Erythrocyte distribution width [Ratio] by Automated count 2025-02-22 18:36:13 14.2 % F 11.0-15.0 Hemoglobin [Mass/volume] in Blood 2025-02-22 18:36:13 12.2 g/dL F 12.0-16.0 Platelets [#/volume] in Blood by Automated count 2025-02-22 18:36:13 306 x 10^3 cells/uL F 140.0-450.0 MCH [Entitic mass] by Automated count 2025-02-22 18:36:13 29.7 pg F 25.9-34.2 MCHC [Mass/volume] by Automated count 2025-02-22 18:36:13 31.7 g/dL F 29.6-35.3 Erythrocytes [#/volume] in Blood by Automated count 2025-02-22 18:36:13 4.13 x 10^6 cells/uL F 3.85-5.2 Hematocrit [Volume Fraction] of Blood by Automated count 2025-02-22 18:36:13 38.6 % F 37.0-47.0 MCV [Entitic volume] by Automated count 2025-02-22 18:36:13 93.4 fL F 80.0-100.0 ABSOLUTE RETIC COUNT 2025-02-16 07:45:07 0.097 x 10^6 cells/uL F 0.035-0.127 Reticulocytes/100 erythrocytes in Blood by Automated count 2025-02-16 07:45:07 2.27 % F 0.7-2.5 HCT CALC HGBX3 2025-02-09 17:24:04 33.9 % F 37.0-47.0 Hemoglobin [Mass/volume] in Blood 2025-02-09 17:23:06 11.3 g/dL F 12.0-16.0 TIBC 2025-02-03 06:32:03 162 ug/dL F 250.0-425.0 IRON SATURATION 2025-02-03 06:32:03 33 % F 16.0-46.0 Iron [Mass/volume] in Serum or Plasma 2025-02-03 06:26:09 54 ug/dL F 50.0-170.0 Iron binding capacity.unsaturated [Mass/volume] in Serum or Plasma 2025-02-03 06:26:06 108 ug/dL F 80.0-375.0 HCT CALC HGBX3 2025-02-03 00:01:20 35.7 % F 37.0-47.0 Hemoglobin [Mass/volume] in Blood 2025-02-03 00:00:16 11.9 g/dL F 12.0-16.0 Ferritin [Mass/volume] in Serum or Plasma 2025-02-02 22:15:17 802 ng/mL F 7.0-271.0 HCT CALC HGBX3 2025-01-26 03:58:56 39.3 % F 37.0-47.0 Erythrocyte distribution width [Ratio] by Automated count 2025-01-26 03:58:12 14.7 % F 11.0-15.0 Hemoglobin [Mass/volume] in Blood 2025-01-26 03:58:12 13.1 g/dL F 12.0-16.0 Platelets [#/volume] in Blood by Automated count 2025-01-26 03:58:12 221 x 10^3 cells/uL F 140.0-450.0 MCHC [Mass/volume] by Automated count 2025-01-26 03:58:12 31.4 g/dL F 29.6-35.3 MCH [Entitic mass] by Automated count 2025-01-26 03:58:12 30.2 pg F 25.9-34.2 Erythrocytes [#/volume] in Blood by Automated count 2025-01-26 03:58:12 4.33 x 10^6 cells/uL F 3.85-5.2 Hematocrit [Volume Fraction] of Blood by Automated count 2025-01-26 03:58:12 41.7 % F 37.0-47.0 MCV [Entitic volume] by Automated count 2025-01-26 03:58:12 96.2 fL F 80.0-100.0 HCT CALC HGBX3 2025-01-18 20:36:13 35.7 % F 37.0-47.0 Hemoglobin [Mass/volume] in Blood 2025-01-18 20:35:09 11.9 g/dL F 12.0-16.0 HCT CALC HGBX3 2025-01-11 16:52:00 36.6 % F 37.0-47.0 Hemoglobin [Mass/volume] in Blood 2025-01-11 16:51:07 12.2 g/dL F 12.0-16.0 HCT CALC HGBX3 2025-01-04 17:10:44 35.4 % F 37.0-47.0 Hemoglobin [Mass/volume] in Blood 2025-01-04 17:10:06 11.8 g/dL F 12.0-16.0 IRON SATURATION 2024-12-28 17:55:57 24 % F 16.0-46.0 TIBC 2024-12-28 17:55:57 173 ug/dL F 250.0-425.0 Iron [Mass/volume] in Serum or Plasma 2024-12-28 17:52:24 42 ug/dL F 50.0-170.0 Iron binding capacity.unsaturated [Mass/volume] in Serum or Plasma 2024-12-28 17:52:24 131 ug/dL F 80.0-375.0 HCT CALC HGBX3 2024-12-28 16:25:58 36.3 % F 37.0-47.0 Erythrocyte distribution width [Ratio] by Automated count 2024-12-28 16:25:20 15.3 % F 11.0-15.0 Platelets [#/volume] in Blood by Automated count 2024-12-28 16:25:20 182 x 10^3 cells/uL F 140.0-450.0 MCHC [Mass/volume] by Automated count 2024-12-28 16:25:20 32.6 g/dL F 29.6-35.3 Hemoglobin [Mass/volume] in Blood 2024-12-28 16:25:18 12.1 g/dL F 12.0-16.0 MCH [Entitic mass] by Automated count 2024-12-28 16:25:18 29.6 pg F 25.9-34.2 Erythrocytes [#/volume] in Blood by Automated count 2024-12-28 16:25:18 4.09 x 10^6 cells/uL F 3.85-5.2 Hematocrit [Volume Fraction] of Blood by Automated count 2024-12-28 16:25:18 37.1 % F 37.0-47.0 MCV [Entitic volume] by Automated count 2024-12-28 16:25:18 90.8 fL F 80.0-100.0 Ferritin [Mass/volume] in Serum or Plasma 2024-12-28 14:43:17 706 ng/mL F 7.0-271.0 HCT CALC HGBX3 2024-12-14 17:06:59 34.5 % F 37.0-47.0 Hemoglobin [Mass/volume] in Blood 2024-12-14 17:06:05 11.5 g/dL F 12.0-16.0 Hemoglobin [Mass/volume] in Blood FluidBP Description Draw Date Result/Unit Status Ref Range Result Comments Sodium [Moles/volume] in Serum or Plasma 2025-02-23 05:37:29 139 mEq/L F 136.0-145.0 Sodium [Moles/volume] in Serum or Plasma 2025-01-25 18:16:06 139 mEq/L F 136.0-145.0 Sodium [Moles/volume] in Serum or Plasma 2024-12-28 17:52:24 139 mEq/L F 136.0-145.0 General Description Draw Date Result/Unit Status Ref Range Result Comments Chloride [Moles/volume] in Serum or Plasma 2025-02-23 05:37:29 97 mEq/L F 98.0-107.0 Aspartate aminotransferase [Enzymatic activity/volume] in Serum or Plasma 2025-02-22 19:52:16 8 U/L F 0.0-33.0 Alanine aminotransferase [Enzymatic activity/volume] in Serum or Plasma 2025-02-22 19:52:16 7 U/L F 10.0-49.0 Chloride [Moles/volume] in Serum or Plasma 2025-01-25 18:16:06 97 mEq/L F 98.0-107.0 Aspartate aminotransferase [Enzymatic activity/volume] in Serum or Plasma 2025-01-25 16:40:16 8 U/L F 0.0-33.0 Alanine aminotransferase [Enzymatic activity/volume] in Serum or Plasma 2025-01-25 16:40:16 7 U/L F 10.0-49.0 Chloride [Moles/volume] in Serum or Plasma 2024-12-28 17:52:13 99 mEq/L F 98.0-107.0 Aspartate aminotransferase [Enzymatic activity/volume] in Serum or Plasma 2024-12-28 14:20:16 15 U/L F 0.0-33.0 Alanine aminotransferase [Enzymatic activity/volume] in Serum or Plasma 2024-12-28 14:20:16 9 U/L F 10.0-49.0 InfectionVaccination Description Draw Date Result/Unit Status Ref Range Result Comments Eosinophils/100 leukocytes in Blood by Automated count 2025-02-22 18:36:13 14.3 % F Neutrophils/100 leukocytes in Blood by Automated count 2025-02-22 18:36:13 58.1 % F Basophils/100 leukocytes in Blood by Automated count 2025-02-22 18:36:13 1 % F Lymphocytes/100 leukocytes in Blood by Automated count 2025-02-22 18:36:13 21.2 % F Monocytes/100 leukocytes in Blood by Automated count 2025-02-22 18:36:13 5.5 % F Monocytes [#/volume] in Blood by Automated count 2025-02-22 18:36:13 648 Cells/uL F 0.0-1100.0 Eosinophils [#/volume] in Blood by Automated count 2025-02-22 18:36:13 1686 Cells/uL F 0.0-700.0 Basophils [#/volume] in Blood by Automated count 2025-02-22 18:36:13 118 Cells/uL F 0.0-400.0 Neutrophils [#/volume] in Blood by Automated count 2025-02-22 18:36:13 6850 Cells/uL F 2000.0-8800.0 Leukocytes [#/volume] in Blood by Automated count 2025-02-22 18:36:13 11.8 x 10^3 cells/uL F 4.0-11.0 Lymphocytes [#/volume] in Blood by Automated count 2025-02-22 18:36:13 2499 Cells/uL F 620.0-3660.0 Lymphocytes/100 leukocytes in Blood by Automated count 2025-01-26 03:58:12 13.6 % F Neutrophils/100 leukocytes in Blood by Automated count 2025-01-26 03:58:12 77.6 % F Basophils/100 leukocytes in Blood by Automated count 2025-01-26 03:58:12 0.5 % F Monocytes/100 leukocytes in Blood by Automated count 2025-01-26 03:58:12 4.4 % F Eosinophils/100 leukocytes in Blood by Automated count 2025-01-26 03:58:12 4 % F Monocytes [#/volume] in Blood by Automated count 2025-01-26 03:58:12 532 Cells/uL F 0.0-1100.0 Basophils [#/volume] in Blood by Automated count 2025-01-26 03:58:12 60 Cells/uL F 0.0-400.0 Eosinophils [#/volume] in Blood by Automated count 2025-01-26 03:58:12 483 Cells/uL F 0.0-700.0 Neutrophils [#/volume] in Blood by Automated count 2025-01-26 03:58:12 9374 Cells/uL F 2000.0-8800.0 Leukocytes [#/volume] in Blood by Automated count 2025-01-26 03:58:12 12.1 x 10^3 cells/uL F 4.0-11.0 Lymphocytes [#/volume] in Blood by Automated count 2025-01-26 03:58:12 1643 Cells/uL F 620.0-3660.0 Lymphocytes/100 leukocytes in Blood by Automated count 2024-12-28 16:25:20 31.4 % F Monocytes [#/volume] in Blood by Automated count 2024-12-28 16:25:20 528 Cells/uL F 0.0-1100.0 Eosinophils [#/volume] in Blood by Automated count 2024-12-28 16:25:20 858 Cells/uL F 0.0-700.0 Neutrophils [#/volume] in Blood by Automated count 2024-12-28 16:25:20 5064 Cells/uL F 2000.0-8800.0 Lymphocytes [#/volume] in Blood by Automated count 2024-12-28 16:25:20 2961 Cells/uL F 620.0-3660.0 Eosinophils/100 leukocytes in Blood by Automated count 2024-12-28 16:25:18 9.1 % F Monocytes/100 leukocytes in Blood by Automated count 2024-12-28 16:25:18 5.6 % F Neutrophils/100 leukocytes in Blood by Automated count 2024-12-28 16:25:18 53.7 % F Basophils/100 leukocytes in Blood by Automated count 2024-12-28 16:25:18 0.3 % F Basophils [#/volume] in Blood by Automated count 2024-12-28 16:25:18 28 Cells/uL F 0.0-400.0 Leukocytes [#/volume] in Blood by Automated count 2024-12-28 16:25:18 9.4 x 10^3 cells/uL F 4.0-11.0 MineralBone Disorder Description Draw Date Result/Unit Status Ref Range Result Comments Alkaline phosphatase [Enzymatic activity/volume] in Serum or Plasma 2025-02-22 19:52:16 92 U/L F 46.0-116.0 Parathyrin.intact [Mass/volume] in Serum or Plasma 2025-02-10 00:55:24 735 pg/mL F 18.0-80.0 CA CORRECTED 2025-02-09 18:18:38 8.5 mg/dL F CA/PHOS PRODUCT 2025-02-09 18:15:31 68.9 Calc F 21.0-53.0 CA*PO4 CORRCTD 2025-02-09 18:15:31 68.9 Calc F 21.0-53.0 Calcium [Mass/volume] in Serum or Plasma 2025-02-09 18:08:30 8.5 mg/dL F 8.7-10.4 Phosphate [Mass/volume] in Serum or Plasma 2025-02-09 17:07:16 8.1 mg/dL F 2.4-5.1 CA CORRECTED 2025-01-25 18:21:37 9 mg/dL F Calcium [Mass/volume] in Serum or Plasma 2025-01-25 18:16:06 9 mg/dL F 8.7-10.4 Alkaline phosphatase [Enzymatic activity/volume] in Serum or Plasma 2025-01-25 16:40:16 110 U/L F 46.0-116.0 CA CORRECTED 2025-01-12 00:37:42 8.6 mg/dL F CA/PHOS PRODUCT 2025-01-12 00:35:02 74.8 Calc F 21.0-53.0 CA*PO4 CORRCTD 2025-01-12 00:35:02 76.2 Calc F 21.0-53.0 Calcium [Mass/volume] in Serum or Plasma 2025-01-12 00:30:30 8.4 mg/dL F 8.7-10.4 Phosphate [Mass/volume] in Serum or Plasma 2025-01-11 18:58:14 8.9 mg/dL F 2.4-5.1 Parathyrin.intact [Mass/volume] in Serum or Plasma 2025-01-11 18:11:14 827 pg/mL F 18.0-80.0 CA CORRECTED 2024-12-28 17:58:12 8.6 mg/dL F Calcium [Mass/volume] in Serum or Plasma 2024-12-28 17:52:24 8.4 mg/dL F 8.7-10.4 Alkaline phosphatase [Enzymatic activity/volume] in Serum or Plasma 2024-12-28 14:20:16 82 U/L F 46.0-116.0 CA CORRECTED 2024-12-14 19:30:20 8.9 mg/dL F CA/PHOS PRODUCT 2024-12-14 19:28:07 81.9 Calc F 21.0-53.0 CA*PO4 CORRCTD 2024-12-14 19:28:07 81.9 Calc F 21.0-53.0 Calcium [Mass/volume] in Serum or Plasma 2024-12-14 19:26:03 8.9 mg/dL F 8.7-10.4 Parathyrin.intact [Mass/volume] in Serum or Plasma 2024-12-14 17:09:20 867 pg/mL F 18.0-80.0 Phosphate [Mass/volume] in Serum or Plasma 2024-12-14 15:17:17 9.2 mg/dL F 2.4-5.1 Nutrition Description Draw Date Result/Unit Status Ref Range Result Comments Potassium [Moles/volume] in Serum or Plasma 2025-02-23 05:37:29 4.8 mEq/L F 3.5-5.1 GLOBULIN 2025-02-22 23:58:16 3.6 g/dL F 0.9-5.0 A/G RATIO 2025-02-22 23:58:16 1 Calc F 1.0-2.5 Lactate dehydrogenase [Enzymatic activity/volume] in Serum or Plasma 2025-02-22 19:52:16 168 U/L F 120.0-246.0 Bicarbonate [Moles/volume] in Serum or Plasma 2025-02-22 19:52:16 25 mEq/L F 20.0-31.0 Albumin [Mass/volume] in Serum or Plasma by Bromocresol green (BCG) dye binding method 2025-02-22 19:52:16 3.7 g/dL F 3.2-4.8 Protein [Mass/volume] in Serum or Plasma 2025-02-22 19:52:16 7.3 g/dL F 5.7-8.2 Potassium [Moles/volume] in Serum or Plasma 2025-01-25 18:16:06 4.8 mEq/L F 3.5-5.1 GLOBULIN 2025-01-25 16:41:07 3.4 g/dL F 0.9-5.0 A/G RATIO 2025-01-25 16:41:07 1.2 Calc F 1.0-2.5 Lactate dehydrogenase [Enzymatic activity/volume] in Serum or Plasma 2025-01-25 16:40:16 159 U/L F 120.0-246.0 Bicarbonate [Moles/volume] in Serum or Plasma 2025-01-25 16:40:16 25 mEq/L F 20.0-31.0 Albumin [Mass/volume] in Serum or Plasma by Bromocresol green (BCG) dye binding method 2025-01-25 16:40:16 4.1 g/dL F 3.2-4.8 Protein [Mass/volume] in Serum or Plasma 2025-01-25 16:40:16 7.5 g/dL F 5.7-8.2 Potassium [Moles/volume] in Serum or Plasma 2024-12-28 17:52:24 5.1 mEq/L F 3.5-5.1 A/G RATIO 2024-12-28 14:21:06 1.2 Calc F 1.0-2.5 GLOBULIN 2024-12-28 14:21:06 3.3 g/dL F 0.9-5.0 Lactate dehydrogenase [Enzymatic activity/volume] in Serum or Plasma 2024-12-28 14:20:16 186 U/L F 120.0-246.0 Bicarbonate [Moles/volume] in Serum or Plasma 2024-12-28 14:20:16 23 mEq/L F 20.0-31.0 Albumin [Mass/volume] in Serum or Plasma by Bromocresol green (BCG) dye binding method 2024-12-28 14:20:16 3.8 g/dL F 3.2-4.8 Protein [Mass/volume] in Serum or Plasma 2024-12-28 14:20:16 7.1 g/dL F 5.7-8.2 Encounters No encounter information to report Immunizations Ordered Immunization Name Filled Immunization Name Date Status Comments Refusal Reason Influenza, MDCK, trivalent, preservative 2024-12-29 14:52:45 TST-PPD intradermal 2024-05-19 12:24:19 Influenza, MDCK, trivalent, preservative 2023-12-12 14:37:02 TST-PPD intradermal 2023-05-21 12:44:04 TST-PPD intradermal 2022-05-21 12:42:26 pneumococcal polysaccharide PPV23 2019-05-30 05:00:00 Plan of Treatment Planned Activity Provider Planned Date Details Commen ts Diagnostic Test Pending Larry Edmondson 2025-02-27 06:00:00 Hemoglobin [Mass/volume] in Blood [code = 718-7] Diagnostic Test Pending Larry Edmondson 2025-01-27 07:36:36 Ferritin [Mass/volume] in Serum or Plasma [code = 2276-4] Diagnostic Test Pending Larry Edmondson 2024 06:13:59 Alanine aminotransferase [Enzymatic activity/volume] in Serum or Plasma [code = 1742-6] Diagnostic Test Pending Larry Edmondson 2024 06:14:02 Parathyrin.intact [Mass/volume] in Serum or Plasma [code = 2731-8] Diagnostic Test Pending Larry Edmondson 2022-03-10 06:00:00 Aluminum [Mass/volume] in Serum or Plasma [code = 5574-9] Diagnostic Test Pending Larry Edmondson 2022-02-17 06:00:00 Creatinine [Mass/volume] in Serum or Plasma [code = 2160-0] Diagnostic Test Pending Larry Edmondson 2022-02-18 16:08:00 Albumin [Mass/volume] in Serum or Plasma by Bromocresol green (BCG) dye binding method [code = 74709-3] Diagnostic Test Pending Larry Edmondson 2022-03-10 06:00:00 Folate [Mass/volume] in Serum or Plasma [code = 2284-8] Diagnostic Test Pending Larry Edmondson 2022-02-17 06:00:00 Sodium [Moles/volume] in Serum or Plasma [code = 2951-2] Diagnostic Test Pending Larry Edmondson 2022-02-17 06:00:00 Potassium [Moles/volume] in Serum or Plasma [code = 2823-3] Diagnostic Test Pending Sagaramberkobe Edmondson [facility] 2025-03-07 14:03:47 In-Center Hemodialysis Treatment [code = ZHB640] Diet Order nima Edmondson [facility] March 07, 2025 Diet Calorie 1900 kcal/d Fluid Value 1000 mL/d Phosphorus Value 1000 mg/d Potassium Value 2500 mg/d Protein Value 1.3 gm/kg Sodium Value 2000 mg/d Calculated Weight 79 kg dietary_diet_modification Calories Decre ased for Weight Loss;
--- OUTSIDE RECORDS SUMMARY | 2025-03-08 07:12 | XMS_ITS | Clinical Summary ---
Author Organization [facility] Address [address] [place] [address] Care Team Providers Care Service Technician Name Role Phone Unavailable Primary Care Provider Unavailabl e Source Comments [facility],non-owned Affiliates and Associated Physician Practices is amultiple site organization consisting of ambulatory clinics and hospital sitesin [place], [place], [place] and [place]. This disclosure is being madepursuant to the Care Everywhere program and may not contain all information available regarding this patient. Last updated 17.[facility] Allergies Active Allergy Reactions Criticality Noted Date [...] times daily with meals Active HYDROcodone-jah taminophen ([place]) 10-325 MG tablet Take 1 (one) tablet [...] Comments Blood Pressure 151/90 04/13/2024 11:18 PM [facility] Pulse 90 04/13/2024 11:18 PM [facility] Temperature 36.4 C (97.5 F) 04/13/2024 11:18 PM [facility] Respiratory Rate 17 04/13/2024 11:18 PM [facility] Oxygen Saturation 92% 04/13/2024 11:18 PM [facility] Inhaled Oxygen Concentration - - Weight 82 kg (180 lb 11.2 oz) 04/12/2024 9:50 AM [facility] Height 167.6 cm (5' 6) 04/07/2024 8:00 AM [facility] Body Mass Index 29.17 04/07/2024 8:00 AM [facility] Plan of Treatment Health Maintenance Due Date [...] P24 AG PANEL Routine 04/09/2024 11:55 AM [facility] from Last 3 Months or Most Recently Relevant to Health Maintenance Results * HIV-1 HIV-2 ANTIBODY + HIV P24 AG PANEL (04/09/2024 11:55 AM [facility]) HIV1/2 Ab + P24 Ag Non Reactive Non Reactive 04/09/2024 12:46 PM [facility] Blood BLOOD SPECIMEN / Unknown Venipuncture / Unknown 04/09/2024 11:55 AM HIDE OR SKIN BUFFER 04/09/2024 12:08 PM HIDE OR SKIN BUFFER Narrative [facility] - 04/09/2024 12:46 PM HIDE OR SKIN BUFFER No Laboratory evidence of HIV infection. us [facility] [employer] - CHEMISTRY ORDER RAHAT Final Result [facility] [address] [place] [address] from Last 3 Months or Most Recently Relevant to Health Maintenance Additional Health Concerns Infection Onset Date Last Indicated MDRO 04/08/2024 04/08/2024 Insurance MEDICAID [employer] [place] [facility] MANAGED MEDICARE ADV MEDICAID - [place] Advance Directives * Full Code (Latest Code Status on File) Date Activated Date Inactivated Comments 04/07/2024 10:28 AM 04/14/2024 1:14 AM
--- OUTSIDE RECORDS SUMMARY | 2025-03-08 07:12 | XMS_ITS | Encounter Summary ---
Author Organization [facility] Address [address] [place] [address] Care Team Providers Care Chain Pegger Name Role Phone Stoney Mireles MD Primary Care Provider Anentte Mckeon Primary Care Provider + Jolie Armstrong MD Unavailable Unavailabl e Stoney Mireles MD Primary Care Provider Stoney Mireles MD Primary Care Provider Shine Cooley MD Unavailable [phone] Paige Patel MD Unavailable Encounter Details Date Type Department Care Team (Late st Contact Info) Description 04/04/2020 Hospital Follow-up Call [facility] [address] [place] [address] Divya Yu RN Social History [...] than three times a week 05/19/2019 Attends Christianity Services Never 05/18 Active Member of Clubs [...] Living Expenses Not hard at all 05/19/2019 [facility] - Occupational Stress [...] Assessment Author Status No 03/30/2020 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 Answer Date of Assessment Author Status No 03/30/2020 4:00 PM ICT QUALITY ASSURANCE ENGINEER Activ e * Do you have serious [...] Description 07/14/2025 1:15 PM CDT Office Visit [facility] [phone] Paige Patel MD [address] [place] [address] documented as of this encounter Visit Diagnoses Not on filedocumented in this encounter Additional Health Concerns Infection Onset Date Last Indicated Resolved Time COVID-19 Rule Out 01/16/2022 01/17/2022 01/17/2022 1:51 AM ICT QUALITY ASSURANCE ENGINEER COVID-19 Rule Out 09/05/2022 09/05/2022 09/05/2022 8:18 AM CDT documented as of this encounter Care Teams Chain Pegger Relationship Specialty Start Date End Date Stoney Mireles MD [address] [place] [phone] PCP - General FAMILY PRACTICE 12/08/19 10/16/20 Annette Mckeon FNP [address] [place] [phone] PCP - General NURSE PRACTITIONER 10/17/20 10/23/20 Stoney Mireles MD [address] [place] [phone] PCP - General FAMILY PRACTICE 10/24/20 03/28/22 Stoney Mireles MD [address] [place] [address] PCP - General FAMILY PRACTICE 03/29/22 Jolie Armstrong MD [address] [place] [phone] Consulting Physician CARDIOVASCULAR DISEASE 10/17/2007/07 Shine Cooley MD [address] [place] [address] OTOLARYNGOLOGY 06/06/22 Paige Ptael MD [address] [place] [address] Consulting Physician CARDIOVASCULAR DISEASE 07/08/24 documented as of this encounter
--- OUTSIDE RECORDS SUMMARY | 2025-03-08 07:12 | XMS_ITS | Encounter Summary ---
Author Organization [facility] Address [facility] [place] [address] Care Team Providers Care Cutlet Maker Pork Name Role Phone None, Provider Primary Care Provider UnavailRajani Bauman MD Primary Care Provider [phone] None, Provider Primary Care Provider UnavailStoney Gilliam MD Primary Care Provider [phone] Annette Mckeon [facility] Primary Care Provider + Jolie Armstrong MD Unavailable Unavailabl Stoney Huang MD Primary Care Provider Stoney Mireles MD Primary Care Provider [phone] Shine Cooley MD Unavailable [phone] Paige Patel MD Unavailable Encounter Details Date Type Department Care Team (Late st Contact Info) Description 08/15/2018 Abstract SFL CONVERSION [address] [place] [address] , Generic Conversion, Social History Tobacco Use [...] Upcoming Encounters Date Type Department Care Team ([facility] Contact Info) Description 07/14/2025 1:15 PM CDT [facility] [address] [place] [phone] Paige Patel MD [address] [place], [place] [phone] documented as of this encounter Visit Diagnoses Not on filedocumented in this encounter Additional Health Concerns Infection Onset Date Last Indicated Resolved Time COVID-19 Rule Out 01/16/2022 01/17/2022 01/17/2022 1:51 AM ICE HANDLER COVID-19 Rule Out 09/05/2022 09/05/2022 09/05/2022 8:18 AM CDT documented as of this encounter Care Teams Cutlet Maker Pork Relationship Specialty Start Date End Date None, ProviderMD PCP - General 10/03/18 05/18/19 Rajani Ness MD PCP - General FAMILY PRACTICE 05/19/19 07/04/19 None, MD [place] PCP - General 07/05/19 12/07/19 Stoney Mireles MD [address] [place] [phone] PCP - General FAMILY PRACTICE 12/08/19 10/16/20 Annette Mckeon FNP [address] [place] [phone] PCP - General NURSE PRACTITIONER 10/17/20 10/23/20 Stoney Mireles MD [address] [place] [phone] PCP - General FAMILY PRACTICE 10/24/20 03/28/22 Stoney Mireles MD [address] [place] [phone] PCP - General FAMILY PRACTICE 03/29/22 Jolie Armstrong MD [address] [place] [phone] Consulting Physician CARDIOVASCULAR DISEASE 10/17/2007/07 Shine Cooley MD [address] [place] [address] OTOLARYNGOLOGY 06/06/22 Paige Patel MD [address] [place] [address] Consulting Physician CARDIOVASCULAR DISEASE 07/08/24 documented as of this encounter
--- OUTSIDE RECORDS SUMMARY | 2025-03-08 07:12 | XMS_ITS | Encounter Summary ---
Author Organization [facility] Address [address] [place] [address] Care Team Providers Care Celery Cutter Name Role Phone Stoney Mireles MD Primary Care Provider Annette Mckeon Primary Care Provider + Jolie Armstrong MD Unavailable Unavailabl e Stoney Mireles MD Primary Care Provider Stoney Mireles MD Primary Care Provider Shine Cooley MD Unavailable [phone] Paige Patel MD Unavailable Encounter Details Date Type Department Care Team (Late st Contact Info) Description 05/08/2020 Hospital Follow-up Call [facility] [address] [place] [address] Divya Yu RN Social History [...] than three times a week 05/19/2019 Attends [employer] Services Never 05/18 Active Member of Clubs [...] Living Expenses Not hard at all 05/19/2019 [facility] [place] of Occupat ional Health - Occupational Stress [...] COVID-19? No / Unsure 05/03/2020 1:38 AM SHIRT IRONER documented as of this encounter Functional Status * RETIRED Are you deaf or do you have serious difficulty hearing Answer Date of Assessment Author Status No 05/03/2020 1:00 AM SHIRT IRONER Activ e * RETIRED Are you blind or do you have serious difficulty seeing, even when wearing glasses? Answer Date of Assessment Author Status No 05/03/2020 1:00 AM SHIRT IRONER Activ e * Do you have serious difficulty walking or climbing stairs? Answer Date of Assessment Author Status No 05/03/2020 1:00 AM SHIRT IRONER Luisa Edmonds RN Active * Do you [...] Description 07/14/2025 1:15 PM CDT Office Visit [facility] [address] [phone] Paige Patel MD [address] [place] [phone] documented as of this encounter Visit Diagnoses Not on filedocumented in this encounter Additional Health Concerns Infection Onset Date Last Indicated Resolved Time COVID-19 Rule Out 01/16/2022 01/17/2022 01/17/2022 1:51 AM SHIRT IRONER COVID-19 Rule Out 09/05/2022 09/05/2022 09/05/2022 8:18 AM CDT documented as of this encounter Care Teams Celery Cutter Relationship Specialty Start Date End Date Stoney Mireles MD [address] [place] [phone] PCP - General FAMILY PRACTICE 12/08/19 10/16/20 Annette Mckeon FNP [address] [place] [phone] PCP - General NURSE PRACTITIONER 10/17/20 10/23/20 Stoney Mireles MD [address] [place] [phone] PCP - General FAMILY PRACTICE 10/24/20 03/28/22 Stoney Mireles MD [address] [place] [address] PCP - General FAMILY PRACTICE 03/29/22 Jolie Armstrong MD [address] [place] [phone] Consulting Physician CARDIOVASCULAR DISEASE 10/17/2007/07 Shine Cooley MD [address] [place] [address] OTOLARYNGOLOGY 06/06/22 Paige Patel MD [address] [place] [address] Consulting Physician CARDIOVASCULAR DISEASE 07/08/24 documented as of this encounter
--- OUTSIDE RECORDS SUMMARY | 2025-03-08 07:12 | XMS_ITS | Clinical Summary ---
Author Organization [facility] Address [address] [place] [address] Care Team Providers Care Mechanic Foreman Name Role Phone Stoney Mireles MD Primary Care Provider Allergies Active Allergy Reactions Criticality Noted Date Comments Aspirin Swelling Medium 02/09/2016 Diphenhydramine Swelling Medium 02/09/2016 Ibuprofen Swelling Medium 02/09/2016 Penicillins Hives Medium Medications vitamin B complex-vitamin C-folic acid (NEPHRO-ROMEOR) 0.8 mg tablet Take 1 tablet by [...] on file Legal Sex Female 2:51 AM FLAT SORTING MACHINE CLERK Gender Identity Not on file Sexual Orientation Not on file Last Filed Vital Signs Vital Sign Reading Time Taken Comments Blood Pressure 158/86 03/22/2018 4:33 AM FLAT SORTING MACHINE CLERK Pulse 66 03/22/2018 4:33 AM FLAT SORTING MACHINE CLERK Temperature 36.7 C (98 F) 03/22/2018 4:33 AM FLAT SORTING MACHINE CLERK Respiratory Rate 14 03/22/2018 4:33 AM FLAT SORTING MACHINE CLERK Oxygen Saturation - - Inhaled Oxygen Concentration - - Weight 64 kg (141 lb) 01/29/2021 9:53 AM FLAT SORTING MACHINE CLERK Height 166.4 cm (5' 5.5) 01/29/2021 9:53 AM FLAT SORTING MACHINE CLERK Body Mass Index 23.11 01/29/2021 9:53 AM FLAT SORTING MACHINE CLERK Plan of Treatment Not on file Insurance MEDICARE [facility] [employer]ETNA [facility] [place] [facility] [place] [employer] [place]IC[place] HMO Care Teams Mechanic Foreman Relationship Specialty Start Date End Date Stoney Mireles MD PCP - General Family Medicine 01/29/21
--- OUTSIDE RECORDS SUMMARY | 2025-03-08 07:12 | XMS_ITS | Encounter Summary ---
Author Organization [facility] Address [address] [place] [address] Care Team Providers Care Birdcage Assembler Name Role Phone Stoney Mireles MD Primary Care Provider Annette Mckeon Primary Care Provider + Jolie Armstrong MD Unavailable Unavailabl e Stoney Mireles MD Primary Care Provider Stoney Mireles MD Primary Care Provider Shine Cooley MD Unavailable [phone] Paige Patel MD Unavailable Encounter Details Date Type Department Care Team (Late st Contact Info) Description 04/03/2020 Hospital Follow-up Call [facility] [address] [place] [address] Divya Yu RN Social History [...] than three times a week 05/19/2019 Attends [employer] Services Never 05/18 Active Member of Clubs [...] Living Expenses Not hard at all 05/19/2019 [facility] of Occupat ional Health - Occupational Stress [...] Assessment Author Status No 03/30/2020 4:00 PM YARD LABORER Activ e * RETIRED Are you blind or do you have serious difficulty seeing, even when wearing glasses? Answer Date of Assessment Author Status No 03/30/2020 4:00 PM YARD LABORER Activ e * Do you have serious [...] Description 07/14/2025 1:15 PM CDT Office Visit [facility] [phone] Paige Patel MD [address] [place] [address] documented as of this encounter Visit Diagnoses Not on filedocumented in this encounter Additional Health Concerns Infection Onset Date Last Indicated Resolved Time COVID-19 Rule Out 01/16/2022 01/17/2022 01/17/2022 1:51 AM YARD LABORER COVID-19 Rule Out 09/05/2022 09/05/2022 09/05/2022 8:18 AM CDT documented as of this encounter Care Teams Birdcage Assembler Relationship Specialty Start Date End Date Stoney Mireles MD [address] [place] [phone] PCP - General FAMILY PRACTICE 12/08/19 10/16/20 Annette Mckeon FNP [address] [place] [phone] PCP - General NURSE PRACTITIONER 10/17/20 10/23/20 Stoney Mireles MD [address] [place] [phone] PCP - General FAMILY PRACTICE 10/24/20 03/28/22 Stoney Mireles MD [address] [place] [address] PCP - General FAMILY PRACTICE 03/29/22 Jolie Armstrong MD [address] [place] [phone] Consulting Physician CARDIOVASCULAR DISEASE 10/17/2007/07 Shine Cooley MD [address] [place] [address] OTOLARYNGOLOGY 06/06/22 Paige Patel MD [address] [place] [address] Consulting Physician CARDIOVASCULAR DISEASE 07/08/24 documented as of this encounter
--- OUTSIDE RECORDS SUMMARY | 2025-03-08 07:12 | XMS_ITS | Encounter Summary ---
Author Organization [facility] Address [facility] [place] [address] Care Team Providers Care Load Builder Name Role Phone Jolie Armstrong MD Unavailable Unavailabl e Stoney Mireles MD Primary Care Provider [phone] Shine Cooley MD Unavailable [phone] Paige Patel MD Unavailable Encounter Details Date Type Department Care Team (Late st Contact Info) Description 04/01/2022 Hospital Follow-up Call [facility] [address] [place], [place] [address] Caryn Carrillo RN Social History Tobacco Use [...] than three times a week 05/19/2019 Attends [employer] Services Never 05/18 Active Member of Clubs [...] Living Expenses Not hard at all 05/19/2019 [facility] [place] of Occupat ional Health - Occupational Stress [...] Coronavirus/COVID-19? No / Unsure 03/28/2022 9:24 AM INTERVENTIONAL PHYSIATRIST documented as of this encounter Functional Status * RETIRED Are you deaf or do you have serious difficulty hearing Answer Date of Assessment Author Status No 03/29/2022 3:24 AM INTERVENTIONAL PHYSIATRIST Activ e * RETIRED Are you blind or do you have serious difficulty seeing, even when wearing glasses? Answer Date of Assessment Author Status No 03/29/2022 3:24 AM INTERVENTIONAL PHYSIATRIST Activ e * Do you have serious difficulty walking or climbing stairs? Answer Date of Assessment Author Status Yes 03/29/2022 3:24 AM INTERVENTIONAL PHYSIATRIST Layla Camargo RN Active * Do you have difficulty dressing or bathing? Answer Date of Assessment Author Status No 03/29/2022 3:24 AM INTERVENTIONAL PHYSIATRIST Layla Camargo RN Active * Because of [...] Description 07/14/2025 1:15 PM CDT Office Visit [facility] [address] [phone] Paige Patel MD [address] [place] [address] documented as of this encounter Visit Diagnoses Not on filedocumented in this encounter Additional Health Concerns Infection Onset Date Last Indicated Resolved Time COVID-19 Rule Out 09/05/2022 09/05/2022 09/05/2022 8:18 AM CDT documented as of this encounter Care Teams Load Builder Relationship Specialty Start Date End Date Stoney Mireles MD [address] [place] [address] PCP - General FAMILY PRACTICE 03/29/22 Jolie Armstrong MD Consulting Physician CARDIOVASCULAR DISEASE 10/17/2007/07 Shine Cooley MD [address] [place] [address] OTOLARYNGOLOGY 06/06/22 Paige Patel MD [address] [place] [address] Consulting Physician CARDIOVASCULAR DISEASE 07/08/24 documented as of this encounter
[2025-03-08 07:33] LABS: Influenza A QL RT-PCR Negative (Negative); Influenza B QL RT-PCR Negative (Negative); RSV RNA, RT-PCR Negative (Negative); SARS-CoV-2 RNA PCR Negative (Negative)
[2025-03-08] MEDS: IPRATROPIUM 0.5 MG/ALBUTEROL SULFATE 2.5 MG (BASE) AMPUL.NEB 3 ML INHALATION (07:56)
[2025-03-08 08:06] LABS: Hematocrit 38.8 % (35.0-49.0); Hemoglobin 11.9 g/dL (12.0-15.0); Immature Granulocyte Percent A 0.9 % (0.0-0.0); Lymphocytes Absolute Auto 0.89 K/mm3 (1.10-4.50); Mean Corpuscular HGB Conc 30.7 g/dL (32-36); Mean Corpuscular Hemoglobin 28.8 pg (27.0-31.0); Mean Corpuscular Volume 93.9 fL (78.0-102.0); Nucleated Red Blood Cells Absolute Auto 0.00 K/mm3 (0.00-0.00); Nucleated Red Blood Cells Perc 0.0 % (0-0.0); Platelet Count Result 197 K/mm3 (150-420); Red Blood Count 4.13 M/mm3 (4.20-5.40); White Blood Count 9.9 K/mm3 (4.8-10.8)
--- NOTE | 2025-03-08 08:13 | PC.NURSE ---
Patient refuses to stand for chest xray, erp made aware per radiology.
[2025-03-08 08:19] LABS: Anion Gap 15 mmol/L (4-12); Blood Urea Nitrogen 29 mg/dL (7-17); Calcium 9.0 mg/dL (8.4-10.2); Carbon Dioxide 27 mmol/L (22-30); Chloride 102 mmol/L (98-107); Estimated CRCL calculation 10 ml/min; Estimated Glomerular Filt Rate 6; Glucose 117 mg/dL (65-110); Osmolality Calculated 304 mOsm/kg (285-295); Potassium 4.6 mmol/L (3.4-5.0); Sodium 144 mmol/L (137-145)
[2025-03-08] MEDS: ONDANSETRON INJ 4 MG/2 ML VIAL IV PUSH (08:32)
[2025-03-08] MEDS: MORPHINE SULFATE (*CRX) 2 MG/ML INJ IV PUSH (08:34)
--- NOTE | 2025-03-08 08:58 | ED.SOB ---
HPI - SOB/Dyspnea General Chief Complaint: Shortness of Breath/Dyspnea Stated Complaint: difficulty breathing Source: patient Mode of arrival: EMS Limitations: no limitations History of Present Illness HPI Narrative: 39-year-old with a history of ESRD on hemodialysis on Friday ,Friday ,Friday, asthma on 3 L of home oxygen, severe scoliosis wheelchair-bound here with the complaints of shortness of breath since early this morning. Patient has nonproductive cough. No fever or chills. was seen in the emergency room a week ago for the same. She denies any nausea, vomiting or diarrhea . also complains of chest pain with inspiration at times. MD elicited complaint: shortness of breath and cough Pertinent past history: asthma and other ( ESRD on hemodialysis) Onset (ago): week(s) (1) Timing: constant Severity: moderate Exacerbating factors: nothing Relieving factors: oxygen and bronchodilators Known history of: asthma Associated symptoms: chest pain and pain with inspiration Related Data Home oxygen amount: 3 liters Home Medications ?Medication ?Instructions ?Recorded ?Confirmed ?Last Taken ?Type hydralazine 25 mg tablet 25 mg PO DAILY 06/25/20 02/19/24 02/18/24 History hydroxyzine HCl 25 mg tablet 30 mg PO TID 01/16/22 02/19/24 02/18/24 History rosuvastatin 10 mg tablet 10 mg PO DAILY 01/16/22 02/19/24 02/18/24 History amlodipine 10 mg tablet 10 mg PO DAILY 11/19/23 02/19/24 02/18/24 History escitalopram oxalate 5 mg tablet 5 mg PO DAILY 11/19/23 02/19/24 02/18/24 History buspirone 5 mg tablet 5 mg PO BID 11/20/23 02/19/24 02/18/24 History calcitriol 0.25 mcg capsule 0.25 mcg PO BID 11/20/23 02/19/24 02/19/24 History carvedilol 25 mg tablet 25 mg PO BID 11/20/23 02/19/24 02/18/24 History sevelamer carbonate 800 mg tablet 2,400 mg PO TIDWMEAL 11/20/23 02/19/24 02/18/24 History (Renvela) hydrocodone 10 mg-acetaminophen 1 tablet PO Q6H PRN pain 02/19/24 02/19/24 Unknown History 325 mg tablet Allergies Allergy/AdvReac Type Severity Reaction Status Date / Time Penicillins Allergy Rash Verified 03/08/25 06:33 Review of Systems Review of Systems: All systems reviewed & are unremarkable except as noted in HPI and below Constitutional: Constitutional: Reports no additional constitutional complaints Eyes: Eyes: Reports no additional eye complaints ENT: Reports system reviewed and no additional complaints, except as documented Cardiovascular: Cardiovascular: Reports no additional cardiovascular complaints Respiratory: Respiratory: Reports as per HPI Gastrointestinal: Gastrointestinal: Reports no additional gastrointestinal complaints Musculoskeletal: Musculoskeletal: Reports no additional musculoskeletal complaints Integumentary/Breasts: Skin/Breast: Reports system reviewed and no additional complaints, except as docu Neurologic: Reports system reviewed and no additional complaints, except as documented Psychiatric: Psychiatric: Reports no additional psychiatric complaints Endocrine: Endocrine: Reports no additional endocrine complaints PMFSH Past Medical History Medical History Asthma Hypertension Renal failure Asthma Peritoneal dialysis status ESRD (end stage renal disease) Surgical History Surgical History History of cholecystectomy History of arteriovenostomy for renal dialysis History of tonsillectomy Kidney transplant recipient Hx of tonsillectomy History of colon surgery History of cholecystectomy Kidney transplant recipient Family History Family History Mother Diabetes mellitus Grandparent Cancer Social History Social History Smoking packs per day: 0.5 Smoking cigarettes per day: 10.0 Years smoked: 20 Smoking pack-years: 10.00 Smoking status: Former smoker Tobacco type: cigarettes Second hand tobacco smoke exposure: Yes Alcohol intake: never Substance use: never Lack of Transportation: No Lack of Food: Never True Current Housing: I Have Housing Concerned About Future Housing: No Difficulty Paying Gas/Electric Bills: No Difficulty Paying for Meds: No Currently Unemployed: No Education: Grade School Difficulty w/ Childcare or Family Care: No Living arrangements: with family Gender identity (if verbalized by the patient): Female Spiritual care concerns: No Exam Narrative: GENERAL: Well-appearing, well-nourished, and in no acute distress. HEAD: Normocephalic, atraumatic. EYES: PERRLA and EOMI. ENT: Nares clear, no rhinorrhea or epistaxis. Mucous membranes moist. NECK: Supple. CHEST: No respiratory distress. bilateral mild wheeze present HEART: Regular rate and rhythm. No murmur heard. Normal peripheral pulses. ABDOMEN: Soft, nontender, nondistended, normal active bowel sounds. EXTREMITIES: Normal range of motion. No edema. SKIN: Warm, dry, no rash. NEURO: No focal deficits. Alert and oriented x3. PSYCH: Normal mood and affect. Course Course Emergency Course: patient was given neb treatment on route to the hospital along with IV Solu-Medrol 125 mg upon arrival to the ER he said to be healing slightly better did obtain lab work, chest x-ray. She was given additional another DuoNeb treatment. On reexamination lungs are clear. Informed her about the lab work and chest x-ray findings. Advised to continue home medication. Vital Signs Vital signs: Vital Signs Temperature 37.5 C 03/08/25 06:25 Pulse Rate 88 03/08/25 06:25 Respiratory Rate 28 H 03/08/25 06:25 Blood Pressure 136/100 H 03/08/25 06:25 Pulse Oximetry 92 03/08/25 06:25 Oxygen Delivery Nasal Cannula 03/08/25 06:25 Oxygen Flow Rate 3 03/08/25 06:25 Temperature 37.5 C 03/08/25 06:25 Pulse Rate 86 03/08/25 08:04 Respiratory Rate 22 H 03/08/25 08:04 Blood Pressure 136/100 H 03/08/25 06:25 Pulse Oximetry 99 03/08/25 08:04 Oxygen Delivery Nasal Cannula 03/08/25 06:25 Oxygen Flow Rate 3 03/08/25 08:04 [facility] Differential Diagnosis Differential Diagnosis: Pneumonia, asthma flare ,pulmonary edema , fluid overload Medical Records I have reviewed the following patient records and this information was taken into consideration when formulating the assessment and plan.: previous labs, previous ER visits and previous hospitalizations Lab Data [facility] Lab Attestation statement: I personally reviewed the patient's lab results. 03/08/25 07:54 03/08/25 07:54 Labs: Lab Results 03/08/25 03/08/25 Range/Units 06:46 07:54 WBC 9.9 (4.8-10.8) K/mm3 RBC 4.13 L (4.20-5.40) M/mm3 Hgb 11.9 L (12.0-15.0) g/dL Hct 38.8 (35.0-49.0) % MCV 93.9 (78.0-102.0) fL MCH 28.8 (27.0-31.0) pg MCHC 30.7 L (32-36) g/dL RDW 14.0 (11.6-14.4) % Plt Count 197 (150-420) K/mm3 MPV 9.5 (9.2-11.8) fl Immature Gran % (Auto) 0.9 H (0.0-0.0) % Neut % (Auto) 81.2 H (50.0-70.0) % Lymph % (Auto) 9.0 L (18.0-42.0) % [place] % (Auto) 2.4 (2.0-11.0) % Eos % (Auto) 6.1 H (1.0-6.0) % Baso % (Auto) 0.4 (0.0-1.0) % Lymph # (Auto) 0.89 L (1.10-4.50) K/mm3 [place] # (Auto) 0.24 (0.10-0.90) K/mm3 Eos # (Auto) 0.60 H (0.02-0.50) K/mm3 Baso # (Auto) 0.04 (0.00-0.10) K/mm3 Abs Immat Gran (auto) 0.09 H (0.00-0.00) K/mm3 Absolute Neuts (auto) 8.01 H (1.70-7.20) K/mm3 Absolute Nucleated RBC 0.00 (0.00-0.00) K/mm3 Nucleated RBC % 0.0 (0-0.0) % Sodium 144 (137-145) mmol/L Potassium 4.6 (3.4-5.0) mmol/L Chloride 102 (98-107) mmol/L Carbon Dioxide 27 (22-30) mmol/L Anion Gap 15 H (4-12) mmol/L BUN 29 H (7-17) mg/dL Creatinine 8.12 H (0.7-1.0) mg/dL Estim Creat Clear Calc 10 ml/min Estimated GFR 6 L (59 - ) Glucose 117 H (65-110) mg/dL Calculated Osmolality 304 H (285-295) mOsm/kg Calcium 9.0 (8.4-10.2) mg/dL Influenza A (RT-PCR) Negative (Negative) Influenza B (RT-PCR) Negative (Negative) RSV (RT-PCR) Negative (Negative) SARS-CoV-2 RNA (RT-PCR) Negative (Negative) Imaging Data Radiologist's impression: ITS Impressions Chest X-Ray 03/08/25 08:26 Impression: 1: Cardiomegaly with mild interstitial edema. Discharge Plan Discharge Clinical Impression: ESRD (end stage renal disease) AB (asthmatic bronchitis) Qualifiers: Asthma severity: moderate Asthma persistence: persistent Asthma complication type: uncomplicated Qualified Code(s): J45.40 - Moderate persistent asthma, uncomplicated Patient Disposition: Home Condition: Stable Instructions: Asthma (ED), Acute Bronchitis (ED) Additional Instructions: continue home medication , follow with your doctor Patient Language: Khmer Prescriptions: No Action hydralazine 25 mg tablet 25 mg PO DAILY amlodipine 10 mg tablet 10 mg PO DAILY escitalopram oxalate 5 mg tablet 5 mg PO DAILY hydroxyzine HCl 25 mg tablet 30 mg PO TID rosuvastatin 10 mg tablet 10 mg PO DAILY hydrocodone-acetaminophen 10-325 mg tablet 1 tablet PO Q6H PRN (Reason: pain) azithromycin [Zithromax] 250 mg Tablet 500 mg PO DAILY Qty: 4 0RF prednisone 20 mg Tablet 40 mg PO DAILY@0800 Qty: 1 0RF guaifenesin [Mucus Relief ER] 600 mg Tablet Extended Release 12hr 600 mg PO Q12HR Qty: 1 0RF levofloxacin 250 mg tablet 250 mg PO DAILY Qty: 7 0RF prochlorperazine maleate [Compazine] 10 mg tablet 10 mg PO Q6H PRN (Reason: nausea and vomiting) Qty: 14 0RF buspirone 5 mg tablet 5 mg PO BID carvedilol 25 mg tablet 25 mg PO BID calcitriol 0.25 mcg Capsule 0.25 mcg PO BID sevelamer carbonate [Renvela] 800 mg Tablet 2,400 mg PO TIDWMEAL ipratropium-albuterol 0.5 mg-3 mg(2.5 mg base)/3 mL Solution For Nebulization 3 ml inhalation Q4HRT Qty: 30 0RF Follow-up/Referrals: Costa,Yasmine Singh MD [Primary Care Provider, Unknown] Time of Disposition: 09:16
== END 2025-03-08 09:50 | disposition home or self-care (01) ==
PROVIDERS: Emergency Medicine; Emergency Provider Family Medicine; PCP Family Medicine
DX: I12.0 Hypertensive chronic kidney disease with stage 5 chronic kidney disease or end stage renal disease (principal); N18.6 End stage renal disease; J45.40 Moderate persistent asthma, uncomplicated; Z99.2 Dependence on renal dialysis; Z99.81 Dependence on supplemental oxygen; Z87.891 Personal history of nicotine dependence; Z20.822 Contact with and (suspected) exposure to COVID-19
CPT/HCPCS: 36415; 71045; 80048; 85025; 87637; 94640; 96374; 96375; 99284; J2270; J2405